=== PATIENT | male | born 1935 | race Caucasian/White ===

== ENCOUNTER 2017-04-11 16:43 | Inpatient (IN) | payer MEDICARE ==
[2017-04-11] MEDS: NS 0.9% 1000 ML* 2,000 ML IV ONE ×2 (17:33→21:50)
[2017-04-11 18:05] LABS: Hematocrit 35 % (42-52); Hemoglobin 11.7 g/dl (14.0-18.0); Mean Corpuscular HGB Conc 33 g/dl (31-36); Mean Corpuscular Hemoglobin 29 pg (27-31); Mean Corpuscular Volume 89 fL (80-94); Mean Platelet Volume 8 um3 (7.4-10.4); Red Blood Count 4.01 10^6/ul (4.0-5.4); Red Cell Distribution Width 16 % (10.5-15); White Blood Count 15.5 10^3/ul (3.5-10.8)
[2017-04-11 18:07] LABS: Add Diff/Slide Review? Slide Review Added; Comments Flag Yes
--- NOTE | 2017-04-11 18:14 | RAD ---
INDICATION: Weakness COMPARISON: None TECHNIQUE: PA and lateral dual-energy views were obtained. FINDINGS: Bones/Soft Tissues: There are no acute bony findings. Cardiomediastinal: The cardiomediastinal silhouette is normal. Lungs: There is hyperinflation with presumed chronic interstitial changes. Pleura: There are no pleural effusions. Other: None IMPRESSION: HYPERINFLATION. NO FOCAL INFILTRATES
[2017-04-11 18:20] LABS: Albumin 2.6 g/dL (3.2-5.2); BUN/Creatinine Ratio 18.2 (8-20); C Reactive Protein 22.36 mg/L (< 5.00); Calcium 7.8 mg/dL (8.6-10.3); EGFR African American 82.6 (>60); EGFR Non-African American 64.2 (>60); Globulin 2.2 g/dL (2-4); Magnesium 2.1 mg/dL (1.9-2.7); Potassium 3.6 mmol/L (3.5-5.0); Total Bilirubin 0.6 mg/dL (0.2-1.0); Total Protein 4.8 g/dL (6.4-8.9)
[2017-04-11 18:30] LABS: Troponin I 0.06 ng/mL (<0.04)
[2017-04-11 18:59] LABS: TSH (Thyroid Stimulating Horm) 25.55 mcIU/mL (0.34-5.60)
[2017-04-11] MEDS ORDERED: Docusate CAP* 100 MG PO PRN (19:52)
[2017-04-11] MEDS ORDERED: Ondansetron INJ* 2 MG/ML VIAL IV PRN (19:52)
[2017-04-11] MEDS ORDERED: Senna TAB PO PRN (19:52)
[2017-04-11] MEDS ORDERED: Acetaminophen TAB* 325 MG PO PRN (19:52)
[2017-04-11] MEDS ORDERED: Al Hydrox/Mg Hydrox/Simet LIQ* 30 ML UDC PO PRN (19:52)
[2017-04-11] MEDS ORDERED: Polyethylene Glycol 3350* 17 GM PACKET PO PRN (19:57)
[2017-04-11] MEDS ORDERED: Heparin DRIP 25,000 UNITS(*) 25,000 UNITS/500 ML BAG IV SCH (20:15)
[2017-04-11 20:36] LABS: Free T4 0.53 ng/dL (0.61-1.12)
[2017-04-11] MEDS ORDERED: traMADol TAB* 50 MG PO PRN (20:57)
[2017-04-11] MEDS ORDERED: Potassium Chlor TAB* 20 MEQ TAB.ER PO ONE (20:57)
--- NOTE | 2017-04-11 20:59 | RAD ---
INDICATION: Prostate carcinoma. Back pain. COMPARISON: None TECHNIQUE: Noncontrast axial source images was performed from the thoracolumbar junction to the sacrum. Coronal and and sagittal reformatted images were generated. FINDINGS: Vertebrae: There is a soft tissue density with associated bony destruction at T12-L1. The mass predominantly involves the spinous process of T12 but is also associated with the posterior elements of T12. There is cortical disruption of the superior margin of the spinous processes of the L1 vertebrae. There is lytic change involving the transverse process of the L1 vertebrae on the left. The CT does not show extension into the canal but this may not be able to be determined on noncontrast CT imaging. Depending on the clinical signs and symptoms, consider contrast-enhanced MR imaging. There are no other lytic lesions. There is sclerosis involving the left iliac bone. Alignment: The lumbar vertebrae are normally aligned. Central Canal: There are no significant CT abnormalities of the central canal or foramina. MR imaging is a more sensitive method to evaluate the canal and foramina. Intervertebral disc spaces: The disc spaces are maintained. Soft tissues: The paravertebral soft tissues are normal. Other: There are extensive aortic calcifications. IMPRESSION: Posterior paraspinous mass associated with bony destruction of the posterior elements and spinous processes of the T12 and L1 vertebrae. Additional indeterminate sclerotic focus left iliac bone.
[2017-04-11] MEDS ORDERED: Heparin VIAL(*) 5000 UNITS/ML VIAL (FIVE THOUSAND) IV SCH (21:00)
--- NOTE | 2017-04-11 21:03 | RAD ---
INDICATION: Prostate cancer with back pain. COMPARISON: Chest x-ray April 03, 2017 TECHNIQUE: Noncontrast axial source images was performed from the thoracic inlet to the level the hemidiaphragms. Coronal and and sagittal reformatted images were generated. FINDINGS: Vertebrae: There is a lytic destructive lesion involving the spinous processes and posterior elements of the T12 and L1 vertebrae described in the CT lumbar report. There are no additional focal bony findings. Alignment: There is moderate kyphosis. Central Canal: There are no significant CT abnormalities of the central canal or foramina. MR imaging is a more sensitive method to evaluate the canal and foramina. Intervertebral disc spaces: The disc spaces are maintained. Soft tissues: There are no paravertebral soft tissue abnormalities. Other: There are emphysematous changes in lung bases with small bilateral pleural effusions IMPRESSION: POSTERIOR PARASPINOUS MASS WITH DESTRUCTIVE LYTIC CHANGE OF THE POSTERIOR ELEMENTS/SPINOUS PROCESSES OF T12 AND L1. THIS IS FURTHER DESCRIBED ON THE CT LUMBAR REPORT.
[2017-04-11 21:53] LABS: Erythrocyte Sed Rate 15 mm/Hr (0-40)
[2017-04-11] MEDS: HYDROcodone/ACETAMIN 5-325 MG* 1 TAB PO PRN (22:12)
[2017-04-11] MEDS: Heparin VIAL(*) 5000 UNITS/ML VIAL (FIVE THOUSAND) SUBCUT SCH (22:18)
[2017-04-11] MEDS ORDERED: Mouth Piece, Nicotine* 1 EACH CARTRIDGE INH PRN (23:27)
[2017-04-11] MEDS ORDERED: Nicotine Inhaler* 10 MG AMP INH PRN (23:27)
[2017-04-11] MEDS: NS 0.9% 1000 ML* 1,000 ML IV SCH (23:40)
--- NOTE | 2017-04-12 00:25 | HP ---
CC: [facility]* HISTORY AND PHYSICAL: DATE OF ADMISSION: 04/11/17 TIME OF EVALUATION: 1929 PRIMARY CARE PHYSICIAN: [facility]. CHIEF COMPLAINT: Back pain and weight loss. HISTORY OF PRESENT ILLNESS: This is an 81-year-old male with a past medical history of osteoarthritis, osteoporosis, and prostate cancer, who presented to the emergency room from his primary care physician's office for concern for dehydration. The history is obtained from the son-in-law who states that the patient lives in [place]. They went out to see him back on 04/07/17. They saw how debilitated he was. He had lost 30 pounds in 3 months. He was barely ambulating. He was mostly lying in bed, prone due to severe back pain, and having issues with constipation. They brought him back to [place] to get him evaluated and to help care for him on 04/09/17. They brought him to the primary care physician's office today. When they did his EKG, it showed atrial fibrillation and his blood pressure was low, they recommended he go to the emergency room for further evaluation. The patient states he lies on bed most of the day. He has no appetite. His back pain is extreme and he has low back pain. He has had issues with back pain for the past several years, but it has gotten progressively worse over the past year. He denies any numbness or tingling. No loss of bowel or bladder control. He does have issues with constipation as mentioned. He denies any chest pain or shortness of breath. No abdominal pain. No nausea or vomiting. No urinary symptoms. He states when ambulating, he does have near falls, but has not fallen. No syncopal episodes either. Otherwise, remaining review of systems is negative. In the emergency room, the patient had labs, imaging. He was given a liter of fluids and was referred to the hospitalist service for further evaluation. PAST MEDICAL HISTORY: 1. Osteoarthritis. 2. Osteoporosis. 3. GERD. 4. Degenerative arthritis. 5. Hypertension. 6. Hypothyroidism. 7. Prostate cancer diagnosed in 2006, status post chemo, on Lupron. 8. Chronic low back pain. 9. Constipation. MEDICATIONS: 1. Amlodipine 10 mg daily. 2. Hydrochlorothiazide 12.5 mg daily. 3. Lisinopril 40 mg daily. 4. Synthroid 125 mcg daily. 5. Aspirin 81 mg daily. 6. Calcium with vitamin D daily. 7. Atenolol 50 mg daily. 8. Lupron every 6 months 45 mg injection. 9. Alendronate 70 mg. 10. Prolia 60 mg/mL. 11. Vimovo 500/20 mg. ALLERGIES: BEE VENOM. FAMILY HISTORY: Mother, unknown cause of . Father, from blood disorder. SOCIAL HISTORY: As mentioned, the patient was living in [place], living alone, but failing to thrive there. Family brought him back here to [facility] to stay with them. He is staying with his daughter and son-in-law, Teressa and Fabiano, who are his healthcare proxies. He normally ambulates with a cane. He quit smoking 3 days ago. He is a 41-ubii-h-year smoker, 1 pack per day. No alcohol or illicit drug use. Reviewing his MOLST form, he wishes to be DNR/DNI. REVIEW OF SYSTEMS: A 14-point review of systems as mentioned in the HPI. Pertinent positives and negatives reviewed, otherwise negative. PHYSICAL EXAMINATION GENERAL: Elderly cachectic male, in no acute distress. His son-in-law at the bedside. VITAL SIGNS: Temp 97.9, pulse rate 90, respiratory rate 13, oxygen saturation 94 % on room air, blood pressure 115/96. HEENT: Head: Normocephalic. Pupils are equal and reactive, anicteric. Oropharynx: Mucous membranes are dry. No erythema or exudate. NECK: Supple. No lymphadenopathy. RESPIRATORY: Poor aeration, prolonged expiratory phase. No increased work of breathing. No wheezing, rhonchi, or rales. CARDIAC: Irregularly irregular rate and rhythm. Soft systolic murmur heard throughout. ABDOMEN: Cachectic. Soft, nontender, nondistended. EXTREMITIES: No clubbing, cyanosis, or edema. +1 DPs. NEUROLOGICAL: Alert and oriented x3. No focal neurologic deficits. MUSCULOSKELETAL: The patient's low thoracic lumbar spine has bony tenderness in 2 regions that have bulging, spinous processes. DIAGNOSTIC STUDIES/LAB DATA: White count 15.5, hemoglobin 11.7, hematocrit 35 , platelets 260. Sodium 134, potassium 3.6, chloride 102, bicarb 27, BUN 20, creatinine 1.10. Troponin 0.06. CRP is 22. Albumin is 2.6. TSH is 25. Radiographic data: Chest x-ray, hyperinflation. No focal infiltrates. EKG shows atrial fibrillation with PVCs, right bundle branch block. ASSESSMENT AND PLAN: This is an 81-year-old male with past medical history of osteoporosis, osteoarthritis, and prostate cancer, who presented from his new primary care physician's office to the emergency room for low blood pressure and new-onset atrial fibrillation in the setting of severe back pain and 30- pound weight loss. 1. Extreme back pain and 30-pound weight loss. Assessment: It is unclear if his 30-pound weight loss was due to the fact that he is 81, living alone without any resources, or if there is an underlying malignancy related to his severe back pain. He does have bony tenderness that is more bulging than his other areas of the spine. Plan: We will do a CAT scan of him lumbar and thoracic spine to look for any lytic lesions or metastases and start him on pain control with a bowel regimen. We will also put in for a nutritional consult, check a prealbumin, and consider further workup for underlying malignancy as the CAT scan of his lumbar and thoracic spine are unremarkable. 2. Atrial fibrillation. Assessment: The patient with what appears to be new- onset atrial fibrillation. It is now rate controlled. He does have a bump in his troponin likely secondary to the atrial fibrillation. He has no chest pain or symptoms. He appears to be a fall risk as he states he nearly falls at home. With his cachexia and malnourished state, I worry that anticoagulation, the risks outweigh the benefits. Plan: We will trend his troponin, check an echocardiogram, continue him on aspirin, and get a PT evaluation. If they deem him safe, then I would consider anticoagulation for him. 3. Leukocytosis. Assessment: No focal findings of an infectious etiology. Still awaiting the urine. Plan: We will follow up on his urinalysis, hold off on antibiotics at this time. CHRONIC MEDICAL PROBLEMS: 1. Hypertension. As mentioned, his blood pressures have been soft. We will hold his antihypertensives for now. 2. Osteoporosis. We will hold off on his medications for now as well. 3. Prostate cancer. We will hold off on his Lupron for now. May need to get him established here with urologist, as he is going to be staying here long- term. 4. Hypothyroidism. Resume his Synthroid. His TSH is elevated. We will check a free T4. I am unclear as how compliant he is with his medications at home. FEN: We will place him on a regular diet with supplements and nutrition consult and gentle IV fluids. DVT prophylaxis: The patient scores high risk. We will place him on heparin subcu t.i.d. for now. Code status: The patient is confirmed to be DNR/DNI. I did speak with the family that if there are lytic lesions that he is likely going to be eligible for hospice as they did not seem to want to do any aggressive measures with him and they initially were insisting on him coming home this evening. PATIENT TIME: Greater than 70 minutes was spent doing history and physical, greater than half time was spent in direct patient contact. [id number]/CPS #: [id number] RICHIE
[2017-04-12] MEDS: Levothyroxine TAB* 125 MCG TAB PO SCH (05:12)
[2017-04-12] MEDS: Heparin VIAL(*) 5000 UNITS/ML VIAL (FIVE THOUSAND) SUBCUT SCH ×3 (05:14→21:35)
[2017-04-12 05:34] LABS: Urine Bilirubin Negative (Negative); Urine Glucose Negative (Negative); Urine Nitrite Negative (Negative)
[2017-04-12 06:30] LABS: Hematocrit 32 % (42-52); Hemoglobin 10.8 g/dl (14.0-18.0); Mean Corpuscular HGB Conc 33 g/dl (31-36); Mean Corpuscular Hemoglobin 29 pg (27-31); Mean Corpuscular Volume 88 fL (80-94); Mean Platelet Volume 8 um3 (7.4-10.4); Red Blood Count 3.68 10^6/ul (4.0-5.4); Red Cell Distribution Width 16 % (10.5-15); White Blood Count 12.4 10^3/ul (3.5-10.8)
[2017-04-12 06:45] LABS: BUN/Creatinine Ratio 17.6 (8-20); Calcium 7.3 mg/dL (8.6-10.3); EGFR African American 111.3 (>60); EGFR Non-African American 86.5 (>60); HDL Cholesterol 34.7 mg/dL; Potassium 3.7 mmol/L (3.5-5.0)
[2017-04-12] MEDS: NS 0.9% 1000 ML* 1,000 ML IV SCH (10:16)
--- NOTE | 2017-04-12 12:39 | ECHO ---
Patient: GALO ZARCO [facility] Rec#: [id number] : 1935 Date: 04/12/2017 Age: 81y Height: 177.8 cm / 70.0 in Weight: 61.2 kg / 134.9 lbs Sex: M BSA: 1.8 Room#: 453 Admit Date#: 04/11/2017 Type: Inpatient Referring: Julia Ruggiero Reading: Rachel Hancock MD Cloth Sander: Jeanne Larry RN RDCS CC: Danny Dickson MD Transthoracic Echocardiogram Indication: Atrial fibrillation, elevated troponin levels BP: 110/60 HR: 115 Rhythm: A-Fib Findings History: HTN, hypothyroidism, chronic low back pain, prostate cancer, smoker Technical Comments: The study is technically limited due to poor acoustic windows. The study is technically limited due to the patient's smoking history. The study was technically limited due to the patient's inability to lay in the left lateral decubitus position. Completed at 1100. Left Ventricle: The left ventricular chamber size is normal. Mild concentric left ventricular hypertrophy is observed. Global left ventricular wall motion and contractility are within normal limits. There is normal left ventricular systolic function. The estimated ejection fraction is 60-65%. The assessment of diastolic function is non-diagnostic. Left Atrium: The left atrium is mildly dilated. Right Ventricle: The right ventricle wall thickness is mildly increased. The right ventricular cavity size is normal. The right ventricular global systolic function is low normal. Right Atrium: The right atrium is mildly dilated. Aortic Valve: The aortic valve structure is not well visualized.Appears trileaflet. The aortic valve leaflets are moderately thickened. Systolic excursion of the aortic valve cusps is reduced. There is trace to mild aortic regurgitation. There is moderate aortic stenosis.ABIGAIL may be overestimated, difficult to optimize angle for velocity measurments. Mitral Valve: The mitral valve leaflets are mildly thickened. There is a trace of mitral regurgitation. There is no evidence of mitral stenosis. Tricuspid Valve: The tricuspid valve leaflets are normal. There is mild to moderate tricuspid regurgitation. There is evidence of borderline pulmonary hypertension. There is no tricuspid stenosis. Pulmonic Valve: The pulmonic valve appears normal. There is a trace pulmonic regurgitation. There is no pulmonic stenosis. Pericardium: There is no significant pericardial effusion. Aorta: The ascending aorta is not well visualized. There is no dilatation of the aortic arch. There is mild dilatation of the aortic root. Pulmonary Artery: The main pulmonary artery is not well visualized. Venous: The inferior vena cava is dilated. There is a greater than 50% respiratory change in the inferior vena cava dimension. Conclusions Mild concentric left ventricular hypertrophy is observed. The estimated ejection fraction is 60-65%. The right ventricular global systolic function is low normal. The right ventricle wall thickness is mildly increased. There is trace to mild aortic regurgitation. There is moderate aortic stenosis: mean gradinet 21 mmHg, ABIGAIL 1.2 cm2, ABIGAIL may be overestimated. There is a trace of mitral regurgitation. There is mild to moderate tricuspid regurgitation. There is evidence of borderline pulmonary hypertension: 35 mmHg. There is moderate aortic stenosis. The patient was in atrial fibrillation throughout the study. No prior echo available to compare. Measurements Name Value Normal Range RVDdMajor (2D) 3.1 cm (2.2 - 4.4) RVAW (2D) 0.8 cm (0.2 - 0.5) RAd ISD 4CH 5.3 cm (3.4 - 4.9) RA (A4C)W 4.3 cm (2.9 - 4.6) IVSd (2D) 1.2 cm (0.6 - 1) LVPWd (2D) 1.2 cm (0.6 - 1) LVIDd (2D) 4.6 cm (3.6 - 5.4) LVIDs (2D) 3.1 cm - LV FS (2D) 33 % (25 - 45) Aortic Annulus 2.1 cm (1.4 - 2.6) Ao root diameter (2D) 3.7 cm (2.1 - 3.5) Aortic arch 3.1 cm (1.8 - 3.4) LA dimension (AP) 2D 3.7 cm (2.3 - 3.8) LAd ISD 4CH 5.6 cm (2.9 - 5.3) LA ISD 4CH W 4.6 cm (2.5 - 4.5) Name Value Normal Range MV E-wave Vmax 0.66 m/sec - MV deceleration time 156 msec - LV septal e' Vmax 0.09 m/sec - LV E:e' septal ratio 7.3 ratio - Name Value Normal Range AV Vmax 3 m/sec - AV VTI 52.4 cm - AV peak gradient 37 mmHg - AV mean gradient 21 mmHg - LVOT diameter 2 cm - LVOT Vmax 1.1 m/sec - LVOT VTI 19.2 cm - LVOT peak gradient 5.3 mmHg - LVOT mean gradient 3.4 mmHg - DOI (VTI) 0.37 ratio - DOI (Vmax) 0.37 ratio - SV LVOT 61 ml - ABIGAIL (continuity Vmax) 1.2 cm2 - ABIGAIL (continuity VTI) 1.2 cm2 - Name Value Normal Range TR Vmax 2.6 m/sec - TR peak gradient 27 mmHg - RAP 8 mmHg - RVSP 35 mmHg - IVC diameter 2.2 cm - Name Value Normal Range PV Vmax 0.77 m/sec -
--- NOTE | 2017-04-12 13:50 | PN ---
Subjective Date of Service: 04/12/17 Interval History: Patient seen this morning with son-in-law present. Had long discussion about patient's PMH and work-up in the past and also new findings on CT scan. He seems open the possibility of a further work-up to solidify the diagnosis of potential metastatic prostate cancer and to get a better idea of the extent of it, however he does not want to pursue it at this time and would prefer to be discharged as soon as possible and pursue the work-up as an outpatient. He says that the pain is much improved and attributes a lot of that to a BM he had this past weekend after over a week of constipation at home. His SONJA states that after some IVF in the hospital he is looking much better than he has the past few days and would also like to get him home. Discussed my concern about his rapid AFib and the fact that he has not been ambulatory much and agreed on a plan for possible discharge tomorrow AM with close outpatient follow-up. Family History: Unchanged from Admission Social History: Unchanged from Admission Past Medical History: Unchanged from Admission Objective Active Medications: Acetaminophen (Tylenol Tab*) 650 mg PO Q4H PRN Hydrocodone Bitart/Acetaminophen (Bly 5-325 Tab*) 1 tab PO Q4H PRN Al Hydrox/Mg Hydrox/Simethicone (Maalox Plus*) 30 ml PO Q6H PRN Device (Nicotine Mouth Piece*) 1 each INH .USE WITH NICOTROL PRN Docusate Sodium (Colace Cap*) 100 mg PO BID PRN Heparin Sodium (Porcine) (Heparin Vial(*)) 5,000 units SUBCUT Q8HR JOSE Sodium Chloride (Ns 0.9% 1000 Ml*) 1,000 mls @ 100 mls/hr IV PER RATE JOSE Levothyroxine Sodium (Synthroid Tab*) 125 mcg PO DAILY@0600 JOSE Nicotine (Nicotine Inhaler*) 10 mg INH Q2H PRN Ondansetron HCl (Zofran Inj*) 4 mg IV Q4H PRN Polyethylene Glycol/Electrolytes (Miralax*) 17 gm PO DAILY PRN Senna (Senokot Tab*) 1 tab PO BID PRN Tramadol HCl (Ultram*) 50 mg PO Q6H PRN Vital Signs 04/11/17 04/11/17 04/12/17 20:59 22:55 03:29 Temperature 98 F 98.4 F Pulse Rate 101 56 88 Respiratory 17 18 Rate Blood Pressure 99/68 104/72 93/62 (mmHg) O2 Sat by Pulse 99 95 Oximetry 04/12/17 04/12/17 04/12/17 03:33 07:48 08:00 Temperature 97.6 F Pulse Rate 93 Respiratory 20 16 Rate Blood Pressure 110/60 98/61 (mmHg) O2 Sat by Pulse 98 Oximetry Oxygen Devices in Use Now: None Appearance: Elderly, M, laying in bed in NAD Eyes: No Scleral Icterus Ears/Nose/Mouth/Throat: Mucous Membranes Moist Neck: NL Appearance and Movements; NL JVP Respiratory: Symmetrical Chest Expansion and Respiratory Effort, Clear to Auscultation Cardiovascular: - - IRIR, tachycardia, TERRY Abdominal: NL Sounds; No Tenderness; No Distention Lymphatic: No Cervical Adenopathy Extremities: No Edema Skin: No Rash or Ulcers Neurological: Alert and Oriented x 3, - - No focal deficits, point tenderness in lumbar spine Result Diagrams: 04/12/17 06:22 04/12/17 06:22 Assess/Plan/Problems-Billing Assessment: Afib, back pain, possible metastatic spine lesion in an 81 yo M with hx of prostate cancer, HTN, osteoporosis, hypothyroidism - Patient Problems (1) Back pain Current Visit: Yes Comment: Patient has tenderness in lower thoracic spine corresponding to bony lesion. His pain seems relatively well controlled at this time. I encouraged him to ambulate to see if we could keep the pain controlled. Interestingly his PSA is WNL. He is declining any further inpatient work-up at this time including Oncology consult and Palliative Consult. Can pursue work-up as outpatient. (2) Atrial fibrillation Current Visit: Yes Comment: Resume home atenolol to see if HR will be controlled on this medication. Echo shows moderate . Will hold on anticoagulation at this time (3) Hypothyroidism Current Visit: Yes Comment: TSH elevated. Unclear how compliant patient has been with his medications. Continue home synthroid (4) HTN (hypertension) Current Visit: Yes Comment: Hold meds other than Atenolol (5) Prostate cancer Current Visit: Yes Comment: Patient is on Lupron as an outpatient. Can determine whether to continue this or not as an outpatient (6) DVT prophylaxis Current Visit: Yes Comment: HSQ Status and Disposition: Plan on discharge home on 04/13
[2017-04-12] MEDS: Atenolol TAB* 50 MG PO SCH (14:41)
[2017-04-12] MEDS: HYDROcodone/ACETAMIN 5-325 MG* 1 TAB PO PRN (21:43)
[2017-04-13] MEDS: Heparin VIAL(*) 5000 UNITS/ML VIAL (FIVE THOUSAND) SUBCUT SCH (06:09)
[2017-04-13] MEDS: Levothyroxine TAB* 125 MCG TAB PO SCH (06:10)
[2017-04-13] MEDS: HYDROcodone/ACETAMIN 5-325 MG* 1 TAB PO PRN ×2 (06:15→13:28)
--- NOTE | 2017-04-13 09:54 | DCNOTE ---
Patient seen this morning. Reports he feels well overall. Appetite still poor. Says pain seems controlled with medications. On exam, IRIR, normal rate, lungs clear, palpable tender mass in spine, no LE edema, no focal deficits Discussed AC with the patient and have decided to hold for now as he still seem like a bit of a fall risk and unclear if may opt for comfort measures. Will discharge home today on Atenolol as HR is controlled. Will rx some pain medications as well. He should follow-up closely with new PCP, recently was seen at [facility]
[2017-04-13] MEDS: Atenolol TAB* 50 MG PO SCH (10:21)
[2017-04-13 12:11] VITALS: BP 91/53
--- NOTE | 2017-04-14 02:25 | DS ---
CC: ROXANA Garcia at [facility]. * DISCHARGE SUMMARY: DATE OF ADMISSION: 04/11/17 DATE OF DISCHARGE: 04/13/17 PRIMARY CARE PHYSICIAN: ROXY Garcia at [facility]. PRINCIPAL DISCHARGE DIAGNOSES: 1. Atrial fibrillation with RVR. 2. Back pain. 3. Spinal lesion. SECONDARY DIAGNOSES: 1. Osteoarthritis. 2. Osteoporosis. 3. Gastroesophageal reflux disease. 4. Degenerative arthritis. 5. Hypertension. 6. Hypothyroidism. 7. History of prostate cancer on Lupron. DISCHARGE MEDICATION REGIMEN: 1. Colace 100 mg by mouth 2 times daily as needed for constipation. 2. Derwood 5/325 one tablet by mouth every 6 hours as needed for pain. 3. Senna 1 tablet by mouth 3 times daily as needed for constipation. 4. Aspirin 81 mg by mouth daily. 5. Synthroid 125 mcg by mouth daily. 6. Atenolol 50 mg by mouth daily. 7. Calcium carbonate and vitamin D one tablet by mouth daily. 8. Alendronate 70 mg by mouth weekly. 9. Lupron Depot 11.25 mg every 6 months. 10. Prolia 60 mg subcutaneous every 6 months. 11. Vimovo 500/20 one tablet by mouth 2 times daily. STUDIES DONE DURING HOSPITALIZATION: Chest x-ray. Impression: Hyperinflation. No focal infiltrates. CT of the lumbar spine. 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 Additional indeterminant sclerotic focus of the left iliac bone. Transthoracic echocardiogram. Conclusion: Mild concentric LVH is observed. Estimated ejection fraction is 60% to 65%. Right ventricular global systolic function is more normal. Left ventricular wall thickness is mildly increased. Trace to mild aortic regurgitation. Moderate aortic stenosis. Trace mitral regurgitation. Mild to moderate tricuspid regurgitation. Borderline pulmonary hypertension. Moderate aortic stenosis. The patient was in atrial fibrillation throughout the study. No prior echo to compare to. HISTORY OF PRESENT ILLNESS AND HOSPITAL SUMMARY: Please see the full history and physical by Dr. Julia Ruggiero for full details. Briefly, Mr. Boucher is an 81 -year- old male with the past medical history as above who was visited by his family over and they found that the patient was very debilitated. He had been barely ambulating, lost a lot of weight, had been complaining of significant back pain as well as constipation. They brought him back to [place] , he was seen at the PCP office and was noted to be in AFib with RVR and was sent to the emergency room for further evaluation. Patient's pain reportedly seemed to improve significantly after he had a bowel movement as an outpatient. He had some back pain that was treated with oral pain medications. As noted above, a CT scan showed a destructive lesion affecting the spine. There is some concern that this could be metastatic disease, especially with the patient' s history of prostate cancer. He did have a PSA checked while hospitalized and this was normal at 0.65. The patient's AFib was controlled with resuming his home atenolol. The discussion was had about anticoagulation; however, with patient's weakened state and high risk for falls, the decision was made to hold off on anticoagulation now and we can see how he does over the next days to weeks and if needed can be started on blood thinners as an outpatient. I had a long discussion with the patient and his son-in-law about this new spinal mass. The patient was very reluctant to remain in the hospital at all and was not interested in any further imaging or testing at this time. He seems focused on just getting home and was opened to further workup as an outpatient including additional imaging if needed. I offered him oncology consult while the patient was hospitalized, which he also preferred to wait until this may needed in the outpatient setting. I discussed the possibility of additional services if this is metastatic disease; however, the patient and the son-in-law were not interested in discussing it at this time and again would prefer to decline this until further workup can be done as an outpatient. The patient's heart rate was controlled by resuming his home atenolol, blood pressures remained soft during the hospitalization, so the remainder of his blood pressure medications were not restarted. He did have an elevated TSH and a low free T4 and it is unclear how compliant he was with his medications prior to coming to [place]. His home Synthroid was resumed and he should have followup thyroid function tests in 4 to 6 weeks. The patient will be discharged home and has close followup scheduled with his PCP for 04/17/17. TIME SEEN: Total time spent on this discharge 45 minutes. This is a summary of the hospitalization, please see the full medical record for further details. [id number]/CPS #: [id number] RICHIE
--- NOTE | 2017-04-14 13:17 | ED ---
Mary Lou Fisher Thomas, scribed for Juan C Osuna MD on 04/11/17 at 1713 . Complex/Multi-Sys Presentation - HPI Summary HPI Summary: The pt is a 81 y/o M referred to the emergency room from his PMD with generalized weakness. Most of the patients history is obtained from his son. The patients son says it isnt safe to keep the patient at home, so we brought him to this area from [place] in the last few weeks. The patient was at his first appointment today at [facility] when he was referred to the ED for generalized weakness and dehydration. The patients son reports that the patient has lost 30 pounds in the last two months due to decreased food and water intake. PMHx includes DDD, osteoarthritis, HTN, and prostate cancer. - History Of Current Complaint Time Seen by Provider: 04/11/17 16:59 Hx Obtained From: Patient Onset/Duration: Still Present Timing: Constant Severity Currently: Moderate Severity Initially: Mild Location: Negative Aggravating Factor(s): None Alleviating Factor(s): None Associated Signs And Symptoms: Positive: Other - Generalized weakness, dehydration - Allergies/Home Medications Allergies/Adverse Reactions: Allergies Allergy/AdvReac Type Severity Reaction Status Date / Time Bee Venom Allergy Anaphylatic Verified 04/11/17 17:05 Shock PMH/Surg Hx/FS Hx/Imm Hx Previously Healthy: No Cardiovascular History: Reports: Hx Hypertension Musculoskeletal History: Reports: Hx Arthritis, Other Musculoskeletal History - Hx DDD - Cancer History Cancer Type, Location and Year: Prostate - Surgical History Surgery Procedure, Year, and Place: None recalled Infectious Disease History: No Infectious Disease History: Denies: Traveled Outside the [place] in Last 30 Days - Family History Known Family History: Positive: Other - Patient denies relevant FHx - Social History Occupation: Unemployed Lives: With Family Hx Tobacco Use: Yes Smoking Status (MU): Current Every Day Smoker Review of Systems Positive: Other - Dehydrated. Negative: Fever Positive: Weakness - generalized All Other Systems Reviewed And Are Negative: Yes Physical Exam - Summary Physical Exam Summary: VITAL SIGNS: Reviewed. GENERAL: Patient is an thin, elderly male who is lying comfortable in the stretcher. Patient is not in any acute respiratory distress. HEAD AND FACE: No signs of trauma. No ecchymosis, hematomas or skull depressions. No sinus tenderness. EYES: PERRLA, EOMI x 2, No injected conjunctiva, no nystagmus. EARS: Hearing grossly intact. Ear canals and tympanic membranes are within normal limits. MOUTH: Oropharynx within normal limits. NECK: Supple, trachea is midline, no adenopathy, no JVD, no carotid bruit, no c- spine tenderness, neck with full ROM. CHEST: Symmetric, no tenderness at palpation LUNGS: Clear to auscultation bilaterally. No wheezing or crackles. CVS: Regular rate and rhythm, S1 and S2 present, no murmurs or gallops appreciated. ABDOMEN: Soft, non-tender. No signs of distention. No rebound no guarding, and no masses palpated. Bowel sounds are normal. EXTREMITIES: FROM in all major joints, no edema, no cyanosis or clubbing. NEURO: Alert and oriented x 3. No acute neurological deficits. Speech is normal and follows commands. SKIN: The skin is dry. There is an increase in skin turgor. Triage Information Reviewed: Yes Vital Signs On Initial Exam: Initial Vitals Temp Pulse Resp BP Pulse Ox 97.9 F 111 15 115/96 94 04/11/17 17:04 04/11/17 17:04 04/11/17 17:04 04/11/17 17:04 04/11/17 17:04 Vital Signs Reviewed: Yes Diagnostics - Vital Signs Vital Signs Temp Pulse Resp BP Pulse Ox 04/11/17 17:04 97.9 F 111 15 115/96 94 - Laboratory Result Diagrams: 04/11/17 17:54 04/11/17 17:54 Lab Statement: Any lab studies that have been ordered have been reviewed, and results considered in the medical decision making process. - Radiology CXR Xray Interpretation: No Acute Changes - Hyperinflation. No focal infiltrates. ED physician has reviewed this report and agrees. Radiology Interpretation Completed By: Radiologist - EKG 17:44 Cardiac Rate: NL EKG Rhythm: Atrial Fibrillation EKG Interpretation: 99 BPM. Q-wave in II, III, and AVF. RBBB. Complex Multi-Symp Course/Dx Assessment/Plan: The pt is a 81 y/o M referred to the emergency room from his PMD with generalized weakness. Most of the patients history is obtained from his son. The patients son says it isnt safe to keep the patient at home, so we brought him to this area from [place] in the last few weeks. The patient was at his first appointment today at [facility] when he was referred to the ED for generalized weakness and dehydration. The patients son reports that the patient has lost 30 pounds in the last two months due to decreased food and water intake. PMHx includes DDD, osteoarthritis, HTN, and prostate cancer. Test results show WBC 15.5, H&H 11.7/35, troponin 0.06, BNP 316. CXR shows hyperinflation with no focal infiltrates. In the ED course, the patient was hydrated and given ASA because his troponin was elevated. EKG shows an atrial fibrillation at 99 BPM, which seems to be new in onset. Therefore, I discussed the case with Dr. Zambrano, who accepts the patient for admission. The patient is hemodynamically stable and alert and oriented x3. - Diagnoses Provider Diagnoses: Increased troponin rule out ACS, Weakness, Dehydration, Atrial fibrillation - Physician Notifications Discussed Care Of Patient With: Alan Zambrano Time Discussed With Above Provider: 19:01 Instructed by Provider To: Other - Dr. Zambrano, hospitalist, admits the patient. Discharge - Discharge Plan Condition: Fair Disposition: ADMITTED TO [facility] Discharge Disposition Comment: By Dr. Zambrano Referrals: Danny Dickson MD [Primary Care Provider] - The documentation as recorded by the Mary Lou ann Thomas accurately reflects the service I personally performed and the decisions made by me, Juan C Osuna MD.
== END 2017-04-13 15:52 | disposition home health service (06) | DRG 552 ==
LOC: ED 16:43 → MEDTELE 19:52
PROVIDERS: ADMIT Pediatrics; ATTEND Hospitalist
DX: M54.9 Dorsalgia, unspecified (principal); I95.9 Hypotension, unspecified; I27.20 Pulmonary hypertension, unspecified; R64 Cachexia; I08.3 Combined rheumatic disorders of mitral, aortic and tricuspid valves; I48.91 Unspecified atrial fibrillation; C61 Malignant neoplasm of prostate; G95.9 Disease of spinal cord, unspecified; M19.90 Unspecified osteoarthritis, unspecified site; D72.829 Elevated white blood cell count, unspecified; K21.9 Gastro-esophageal reflux disease without esophagitis; M81.0 Age-related osteoporosis without current pathological fracture; E03.9 Hypothyroidism, unspecified; Z92.21 Personal history of antineoplastic chemotherapy; G89.29 Other chronic pain; Z91.030 Bee allergy status; Z83.2 Family history of diseases of the blood and blood-forming organs and certain disorders involving the immune mechanism; Z87.891 Personal history of nicotine dependence; Z66 Do not resuscitate; Z68.26 Body mass index [BMI] 26.0-26.9, adult; I10 Essential (primary) hypertension; Z79.82 Long term (current) use of aspirin; K59.00 Constipation, unspecified
CPT/HCPCS: 36415; 71020; 72128; 72131; 80048; 80053; 80061; 81003; 82550; 83735; 83880; 84134; 84153; 84439; 84443; 84484; 85025; 85652; 85730; 86140; 93005; 93306; A9270-GY; G0103; J1644

== ENCOUNTER 2017-04-25 11:35 | Inpatient (IN) | payer MEDICARE ==
[2017-04-25] MEDS ORDERED: NS 0.9% 1000 ML* 1,000 ML IV ONE ×2 (12:15→13:24)
[2017-04-25 12:52] LABS: ABS Basophils 0.1 10^3/ul (0-0.2); ABS Eosinophils 0 10^3/ul (0-0.6); ABS Lymphocytes 0.7 10^3/ul (1.0-4.8); ABS Monocytes 0.5 10^3/ul (0-0.8); ABS Nucleated RBC 0.01 10^3/ul; Eosinophil % 0.1 % (0-6); Hematocrit 39 % (42-52); Hemoglobin 12.7 g/dl (14.0-18.0); Lymphocyte % 3.1 % (25-47); Mean Corpuscular HGB Conc 33 g/dl (31-36); Mean Corpuscular Hemoglobin 29 pg (27-31); Mean Corpuscular Volume 91 fL (80-94); Mean Platelet Volume 8 um3 (7.4-10.4); Nucleated Red Blood Cells % 0; Platelet Count 243 10^3/ul (150-450); Red Blood Count 4.31 10^6/ul (4.0-5.4); Red Cell Distribution Width 19 % (10.5-15); White Blood Count 22.3 10^3/ul (3.5-10.8)
[2017-04-25 13:00] LABS: INR 0.9 (0.77-1.02)
[2017-04-25] MEDS ORDERED: NS 0.9% 250 ML* 250 ML IV ONE (13:25)
[2017-04-25] MEDS ORDERED: Piperacillin/Tazobac ADVAN(*) 3.375 GM in NS 0.9% 100 ML* 100 ML IVPB ONE (13:36)
--- NOTE | 2017-04-25 13:38 | RAD ---
INDICATION: Hypotension COMPARISON: April 03, 2017 TECHNIQUE: An AP portable view obtained at 1250 is submitted. FINDINGS: Bones/Soft Tissues: There are no acute bony findings. Cardiomediastinal: The cardiomediastinal silhouette is normal. Lungs: There is mild chronic basilar interstitial change. There is hyperinflation. Pleura: There are no pleural effusions. Other: None IMPRESSION: MILD CHRONIC LUNG FINDINGS WITH HYPERINFLATION
[2017-04-25 14:01] LABS: Urine Appearance Cloudy; Urine Blood Negative (Negative); Urine Color Amber; Urine Ketones Trace (Negative); Urine Protein 2+(100 mg/dL) (Negative); Urine Specific Gravity 1.045 (1.010-1.030); Urine Urobilinogen Negative (Negative)
[2017-04-25] MEDS ORDERED: Docusate CAP* 100 MG PO PRN (16:08)
[2017-04-25] MEDS ORDERED: Senna TAB PO PRN (16:08)
[2017-04-25] MEDS ORDERED: NS 0.9% 1000 ML* 1,000 ML IV SCH (17:30)
[2017-04-25] MEDS: cefTRIAXone(*) 1 GM in D5W 50 ML BAG* 50 ML IVPB SCH (18:00)
[2017-04-25] MEDS: HYDROcodone/ACETAMIN 5-325 MG* 1 TAB PO PRN (18:13)
--- NOTE | 2017-04-25 20:17 | HP ---
CC: ROCK Rodrigez * HISTORY AND PHYSICAL: DATE OF ADMISSION: 04/25/17 PRIMARY CARE PROVIDER: ROCK Rodrigez, [facility]. ATTENDING PHYSICIAN: Dr. Candida Crump * (report dictated by Gretchen Garcia NP). CHIEF COMPLAINT: Sent by his primary for large spinal mass. HISTORY OF PRESENT ILLNESS: This patient is an 81-year-old male, history of hypertension; prostate cancer, on Lupron therapy; hypothyroidism, who had an MRI today as an outpatient for further imaging for his spinal lesion that was seen on a prior admission in late March. At the conclusion of the MRI, the radiologist notified his primary, who then requested him to come to the emergency room immediately for further evaluation. The patient was admitted to our institution from 04/11/17 to 04/13/17. He was admitted for severe back pain and weight loss. On that admission, he was found to have a spinal mass on CT and was found to be in atrial fibrillation with rapid ventricular response. Once the patient was rehydrated, the patient requested to leave as soon as possible. The patient was not interested in any further imaging or testing during that admission. He wanted to get home and agreed to have further workup as an outpatient. Hence an MRI was scheduled, which was completed today. In addition, the patient declined an Oncology consult, which was offered to him by the covering hospitalist. The patient's son states that the patient is quite uncomfortable being in the hospital and simply wanted to leave as soon as possible. Now, he has presented as he is interested in further workup. The patient reports further weight loss and frequent urination and decreased appetite. It is unclear how much weight the patient has lost since his discharge. His current weight is 150 pounds. Previous weight on last admission was 135 pounds. The patient denies any neurological deficits such as weakness in his lower or upper extremities. He does have infrequent urination. Upon presentation to the emergency room, the patient was found to have an elevated white count of 22,000. In addition, he was found to be slightly dehydrated with the elevated [id number] ratio, a slight troponin bump of 0.04, and elevated lactic acid. Urinalysis was quite positive. The patient was given a dose of Zosyn and the neurosurgeon was contacted regarding the results of the MRI the patient had today. The MRI from today shows, again this large spinal mass with extension into the epidural space and paraspinal muscles as well as [id number] narrowing of the central canal at T12 and L1. Additionally, there was found to be a small enhancing nodule in the paravertebral space at T10 and small area of enhancement in the superior endplate of S1. Hospitalists were asked to evaluate this patient for admission. The patient will be admitted to the telemetry floor with the diagnosis of sepsis from UTI and spinal mass. PAST MEDICAL HISTORY: Hypertension; prostate cancer; back pain; constipation; hypothyroidism; osteoarthritis; osteoporosis; atrial fibrillation, not on anticoagulation due to weakness. MEDICATIONS: On the time of admission are identical to medications at discharge prior: 1. Colace 100 mg twice daily as needed for constipation. 2. Lyman 5/325 one tablet every 6 hours as needed for pain. 3. Senna 1 tablet 3 times daily as needed for constipation. 4. Aspirin 81 mg oral daily. 5. Synthroid 125 mcg oral daily. 6. Atenolol 50 mg oral daily. 7. Calcium carbonate and vitamin D 1 tablet oral daily. 8. Alendronate 70 mg oral weekly. 9. Lupron Depot 11.25 mg every 6 months. 10. Prolia 60 mg subcu every 6 months. 11. Vimovo 500/20 one tablet oral twice daily. ALLERGIES: None. FAMILY HISTORY: Father from blood disorder. The patient does not know how his mother . SOCIAL HISTORY: The patient smoked a pack a day and quit smoking when he came out here from [place]. The patient was living in [place] and was brought back to the area in late March. The patient normally ambulates with a cane. His daughter and son- in-law, Ihsan, are the surrogate decision makers in the event the patient cannot make decisions for himself. REVIEW OF SYSTEMS: I performed a 14-point review of systems, all the pertinent positives and negatives are mentioned in the history of present illness. The remaining review of systems is negative. PHYSICAL EXAMINATION GENERAL APPEARANCE: The patient is an elderly cachectic male, lying in bed, in no acute distress. VITAL SIGNS: Blood pressure 104/58, heart rate 52, temperature 96.5, respiratory rate 24, oxygen saturation 94%. HEENT: Normocephalic. Pupils are equal and reactive to light. Oropharynx: Mucous membranes are dry. There is no erythema or exudate. NECK: Supple. There is no lymphadenopathy. RESPIRATORY: There is no increased work of breathing. No accessory muscle use. The lungs were clear to auscultation. CARDIAC: S1 and S2 were crisp. There is regular rate and rhythm. ABDOMEN: Soft, nontender, and nondistended. MUSCULOSKELETAL: The patient's thoracic lumbar spine has bony tenderness in 2 areas. The patient has full range of motion of upper and lower extremities. NEUROLOGICAL: Alert and oriented x3. No focal neurological deficits. DIAGNOSTIC STUDIES/LAB DATA: Sodium 136, potassium 4.8, chloride 104, CO2 27, BUN 29, creatinine 1.2, glucose 123, calcium 8.4. Liver function tests within normal limits. White blood cell count 22.3, hemoglobin 12.7, hematocrit 39, platelet count 243. Urinalysis shows 2+ protein, trace ketones, trace esterase , 2+ wbc's, 3+ rbc's, and hyaline casts. Lactic acid 2.1. Troponin 0.04. Chest x-ray from today shows mild chronic lung findings with hyperinflation. IMPRESSION: This is an 81-year-old male with past medical history significant for hypertension, atrial fibrillation, spinal mass found on imaging in late March 2017, who now presents to the emergency room after the MRI of his lumbar spine which showed severe narrowing of the central canal at T12 and L1, found to have sepsis and urinary tract infection. ASSESSMENT AND PLAN: 1. Sepsis on admission secondary to urinary tract infection. The patient was given 2 L of IV fluids in the emergency room. He will continue on an additional liter of IV fluids overnight. The patient was given a dose of Zosyn , but we will continue ceftriaxone as he has no history of urinary tract infection to resistant bacteria. Lactic acid will be rechecked. 2. 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 The patient currently mild bilateral LE weakness Neurosurgery has been notified as well as Oncology. They will plan to see the patient in consultation and provide the patient and his family with all of the information they would need to make an informed decision regarding further treatment. At this time, the patient has an active infection and surgery would have to be postponed until this infection stabilizes so we can confirm that the patient does not have bacteremia. It is possible that the recommendation may be for a biopsy and also radiation rather than a big surgery, both of these consultants will discuss their recommendations with the patient and his family and further recommendations will be pending their conversation. Neurological checks will be ordered. 3. Hypertension. Blood pressure was low on admission. Atenolol will be continued for his atrial fibrillation. 4. Atrial fibrillation. Currently, rate is controlled. Atenolol will be continued with hold parameters. On previous admission, anticoagulation was deferred at that time due to the patient's weakness and high chance of falling. Down the road, once the patient is stronger, this can be addressed as an outpatient. 5. Hypothyroidism. Synthroid will continue. 6. Fluids, electrolytes, and nutrition. The patient will have a regular diet now and IV fluids overnight. 7. Code status. The patient wishes to be a DNR and there has been a MOLST signed and placed in the chart. TIME SPENT: Time for this admission was 60 minutes, half of the time was spent with the patient and his son-in-law discussing past medical history, medications , and events leading up to his arrival in the emergency room. GRETCHEN GARCIA NP [id number]/CPS #: [id number] RICHIE
--- NOTE | 2017-04-25 21:03 | PN ---
Progress Note - Progress Note Date of Service: 04/25/17 Note: Patient seen and examined. 81 yom hx prostate Ca with back pain and inability to ambulate with MRI findings c/w T12-L1 lesion. Full consult note dictated N: [id number] Girma Lizarraga MD
[2017-04-25] MEDS: Heparin VIAL(*) 5000 UNITS/ML VIAL (FIVE THOUSAND) SUBCUT SCH (21:29)
--- NOTE | 2017-04-25 21:43 | ED ---
Nahomy Fisher Nilda, scribed for Amado Moffett MD on 04/25/17 at 1343 . Back Pain - HPI Summary HPI Summary: This patient is an 81 year old M presenting to [facility] accompanied by son with a chief complaint of constant sharp back pain today. Per triage note, pt had an MRI today and was told to go to the ER for admission. The patient rates the pain 9/10 in severity. Symptoms aggravated by movement and alleviated by position and rest. Patient reports bowel incontinence, bilat LE weakness, loss of appetite, diarrhea, and occasional constipation. Patient denies tingling, pins and needles, and numbness down bilat LE, fever, diaphoresis, chills, and cough. Medications include MiraLax. PMHx of prostate cancer and pt states he is having radiation therapy. MRI of back from today, per radiologist, reveals: 1. AGAIN NOTED IS A MASS OF THE POSTERIOR ELEMENTS CENTERED AT T12-L1, DEMONSTRATING HETEROGENEOUS ENHANCEMENT AND EXTENSION INTO THE POSTERIOR EPIDURAL SPACE AND PARASPINAL MUSCLES WHICH ARE CONSISTENT WITH METASTATIC NEOPLASM GIVEN THE HISTORY OF PROSTATE CANCER. THERE IS ALSO ABNORMAL SIGNAL WITHIN THE VERTEBRAL BODIES OF T12 AND L1 CONSISTENT WITH METASTATIC DISEASE. 2. THE EPIDURAL EXTENSION OF TUMOR RESULTS IN MODERATE TO SEVERE NARROWING OF THE CENTRAL CANAL AT T12 AND L1. - History of Current Complaint Chief Complaint: EDBackInjuryPain Stated Complaint: SPINE INJURY Time Seen by Provider: 04/25/17 12:14 Hx Obtained From: Patient, Family/Community Organizer - son, Medical Records Onset/Duration: Sudden Onset, Still Present Timing: Constant Back Pain Location: Is Diffuse Severity Currently: Severe Pain Intensity: 9 Pain Scale Used: 0-10 Numeric Character: Sharp Aggravating Symptom(s): Movement Alleviating Symptom(s): Rest, Position Associated Signs And Symptoms: Positive: Other - bowel incontinence, bilat LE weakness, loss of appetite, diarrhea, and occasional constipation. Patient denies tingling, pins and needles, and numbness down bilat LE, fever, diaphoresis, chills, and cough. - Allergies/Home Medications Allergies/Adverse Reactions: Allergies Allergy/AdvReac Type Severity Reaction Status Date / Time Bee Venom Allergy Anaphylatic Verified 04/25/17 11:39 Shock Home Medications: Home Medications Alendronate (NF) [Fosamax (NF)] 70 mg PO WEEKLY 04/25/17 [History Confirmed 04/30] Docusate CAP* [Colace Cap*] 100 mg PO BID PRN 04/25/17 [History Confirmed ] Naproxen-Esomeprazole Magnesiu [Vimovo 500-20 mg] 1 tab PO BID 04/25/17 [ History Confirmed 04/25/17] PMH/Surg Hx/FS Hx/Imm Hx Endocrine/Hematology History: Denies: Hx Diabetes Cardiovascular History: Reports: Hx Hypertension Denies: Hx Pacemaker/ICD History: Denies: Hx Renal Disease Musculoskeletal History: Reports: Hx Arthritis, Other Musculoskeletal History - Hx DDD Sensory History: Reports: Hx Contacts or Glasses Denies: Hx Hearing Aid Opthamlomology History: Reports: Hx Contacts or Glasses Psychiatric History: Denies: Hx Panic Disorder - Cancer History Cancer Type, Location and Year: Prostate - Surgical History Surgery Procedure, Year, and Place: HERNIA. PROSTATE CARCINOMA. CATARACTS BILATERAL EYES - Immunization History Date of Influenza Vaccine: 02/2017 Immunizations Up to Date: Yes Infectious Disease History: No Infectious Disease History: Denies: Traveled Outside the [place] in Last 30 Days - Family History Known Family History: Positive: Other - Patient denies relevant FHx - Social History Alcohol Use: None Substance Use Type: Reports: None Hx Tobacco Use: Yes Smoking Status (MU): Current Every Day Smoker Review of Systems Negative: Fever, Chills, Skin Diaphoresis Negative: Erythema Negative: Sore Throat Negative: Chest Pain Negative: Shortness Of Breath, Cough Positive: Diarrhea, Other - bowel incontinence, constipation, loss of appetite. Negative: Abdominal Pain, Nausea Genitourinary: Negative Negative: dysuria, hematuria Positive: Other - back pain. Negative: Myalgia, Edema Negative: Rash Neurological: Other - negative dizziness, tingling, pins and needles, and numbness down bilat LE Positive: Weakness - bilateral LE All Other Systems Reviewed And Are Negative: Yes Physical Exam - Summary Physical Exam Summary: Constitutional: Well-developed, Well-nourished, Alert. (-) Distressed Skin: Warm, Dry HENT: Normocephalic; Atraumatic; dry mucous membranes Eyes: Conjunctiva normal Neck: Musculoskeletal ROM normal neck. (-) JVD, (-) Stridor, (-) Tracheal deviation Cardio: Rhythm regular, rate normal, Heart sounds normal; Intact distal pulses; The pedal pulses are 2+ and symmetric. Radial pulses are 2+ and symmetric. (-) Murmur Pulmonary/Chest wall: Effort normal. (-) Respiratory distress, (-) Wheezes, (-) Rales Abd: Soft, (-) Tenderness, (-) Distension, (-) Guarding, (-) Rebound Musculoskeletal: (-) Edema, Hyporeflexic in right patellar Lymph: (-) Cervical adenopathy Neuro: Alert, Oriented x3 Psych: Mood and affect Normal Triage Information Reviewed: Yes Vital Signs On Initial Exam: Initial Vitals Temp Pulse Resp BP Pulse Ox 96.5 F 57 16 78/40 92 04/25/17 11:39 04/25/17 11:39 04/25/17 11:39 04/25/17 11:39 04/25/17 11:39 Vital Signs Reviewed: Yes - [place] Coma Scale Coma Scale Total: 15 Diagnostics - Vital Signs Vital Signs Temp Pulse Resp BP Pulse Ox 04/25/17 13:03 53 16 104/65 98 04/25/17 13:02 97 04/25/17 13:00 53 15 97 04/25/17 12:03 56 93 04/25/17 12:01 84/54 04/25/17 11:39 96.5 F 57 16 78/40 92 - Laboratory Lab Results: Lab Results 04/25/17 04/25/17 04/25/17 Range/Units 12:26 12:26 12:26 WBC 22.3 H (3.5-10.8) 10^3/ul RBC 4.31 (4.0-5.4) 10^6/ul Hgb 12.7 L (14.0-18.0) g/dl Hct 39 L (42-52) % MCV 91 (80-94) fL MCH 29 (27-31) pg MCHC 33 (31-36) g/dl RDW 19 H (10.5-15) % Plt Count 243 (150-450) 10^3/ul MPV 8 (7.4-10.4) um3 Neut % (Auto) 94.1 H (38-83) % Lymph % (Auto) 3.1 L (25-47) % [place] % (Auto) 2.4 (1-9) % Eos % (Auto) 0.1 (0-6) % Baso % (Auto) 0.3 (0-2) % Absolute Neuts (auto) 21.0 H (1.5-7.7) 10^3/ul Absolute Lymphs (auto) 0.7 L (1.0-4.8) 10^3/ul Absolute Monos (auto) 0.5 (0-0.8) 10^3/ul Absolute Eos (auto) 0 (0-0.6) 10^3/ul Absolute Basos (auto) 0.1 (0-0.2) 10^3/ul Absolute Nucleated RBC 0.01 10^3/ul Nucleated RBC % 0 INR (Anticoag Therapy) 0.90 (0.77-1.02) APTT 28.3 (26.0-36.3) seconds Sodium 136 (133-145) mmol/L Potassium 4.8 (3.5-5.0) mmol/L Chloride 104 (101-111) mmol/L Carbon Dioxide 27 (22-32) mmol/L Anion Gap 5 (2-11) mmol/L BUN 29 H (6-24) mg/dL Creatinine 1.22 H (0.67-1.17) mg/dL Est GFR ( Amer) 73.3 (>60) Est GFR (Non-Af Amer) 57.0 (>60) BUN/Creatinine Ratio 23.8 H (8-20) Glucose 123 H (70-100) mg/dL Lactic Acid (0.5-2.0) mmol/L Calcium 8.4 L (8.6-10.3) mg/dL Total Bilirubin 0.60 (0.2-1.0) mg/dL AST 13 (13-39) U/L ALT 6 L (7-52) U/L Alkaline Phosphatase 76 (34-104) U/L Troponin I Pending Total Protein 5.5 L (6.4-8.9) g/dL Albumin 2.7 L (3.2-5.2) g/dL Globulin 2.8 (2-4) g/dL Albumin/Globulin Ratio 1.0 (1-3) 12/12/17 Range/Units 12:26 WBC (3.5-10.8) 10^3/ul RBC (4.0-5.4) 10^6/ul Hgb (14.0-18.0) g/dl Hct (42-52) % MCV (80-94) fL MCH (27-31) pg MCHC (31-36) g/dl RDW (10.5-15) % Plt Count (150-450) 10^3/ul MPV (7.4-10.4) um3 Neut % (Auto) (38-83) % Lymph % (Auto) (25-47) % [place] % (Auto) (1-9) % Eos % (Auto) (0-6) % Baso % (Auto) (0-2) % Absolute Neuts (auto) (1.5-7.7) 10^3/ul Absolute Lymphs (auto) (1.0-4.8) 10^3/ul Absolute Monos (auto) (0-0.8) 10^3/ul Absolute Eos (auto) (0-0.6) 10^3/ul Absolute Basos (auto) (0-0.2) 10^3/ul Absolute Nucleated RBC 10^3/ul Nucleated RBC % INR (Anticoag Therapy) (0.77-1.02) APTT (26.0-36.3) seconds Sodium (133-145) mmol/L Potassium (3.5-5.0) mmol/L Chloride (101-111) mmol/L Carbon Dioxide (22-32) mmol/L Anion Gap (2-11) mmol/L BUN (6-24) mg/dL Creatinine (0.67-1.17) mg/dL Est GFR ( Amer) (>60) Est GFR (Non-Af Amer) (>60) BUN/Creatinine Ratio (8-20) Glucose (70-100) mg/dL Lactic Acid 2.1 H* (0.5-2.0) mmol/L Calcium (8.6-10.3) mg/dL Total Bilirubin (0.2-1.0) mg/dL AST (13-39) U/L ALT (7-52) U/L Alkaline Phosphatase (34-104) U/L Troponin I Total Protein (6.4-8.9) g/dL Albumin (3.2-5.2) g/dL Globulin (2-4) g/dL Albumin/Globulin Ratio (1-3) Result Diagrams: 04/25/17 12:26 04/25/17 12:26 Lab Statement: Any lab studies that have been ordered have been reviewed, and results considered in the medical decision making process. - Radiology CXR Radiology Interpretation Completed By: Radiologist - CXR, per radiologist, reveals mild chronic lung findings with hyperinflation. Dr. Moffett has reviewed this radiology report. Re-Evaluation - Re-Evaluation First Eval Re-Evaluation Time: 14:43 Comment: Discussed case with Jensen (nurse) who stated pt had less than 100 ml of urine output. No indication of urinary retention. Pt declined rectal exam. Back Pain Course/Dx - Course Assessment/Plan: This patient is an 81 year old M presenting to [facility] accompanied by son with a chief complaint of constant sharp back pain today. Per triage note, pt had an MRI today and was told to go to the ER for admission. The patient rates the pain 9/10 in severity. Symptoms aggravated by movement and alleviated by position and rest. Patient reports bowel incontinence , bilat LE weakness, loss of appetite, diarrhea, and occasional constipation. Patient denies tingling, pins and needles, and numbness down bilat LE, fever, diaphoresis, chills, and cough. Medications include MiraLax. PMHx of prostate cancer and pt states he is having radiation therapy. MRI of back from today, per radiologist, reveals: 1. AGAIN NOTED IS A MASS OF THE POSTERIOR ELEMENTS CENTERED AT T12-L1, DEMONSTRATING. HETEROGENEOUS ENHANCEMENT AND EXTENSION INTO THE POSTERIOR EPIDURAL SPACE AND PARASPINAL MUSCLES WHICH ARE CONSISTENT WITH METASTATIC NEOPLASM GIVEN THE HISTORY OF PROSTATE CANCER. THERE IS ALSO ABNORMAL SIGNAL WITHIN THE VERTEBRAL BODIES OF T12 AND L1 CONSISTENT WITH METASTATIC DISEASE. 2. THE EPIDURAL EXTENSION OF TUMOR RESULTS IN MODERATE TO SEVERE NARROWING OF THE CENTRAL CANAL AT T12 AND L1. [1207] Dr. Sid Cueva ( radiologist) recommended clinical correlation for spinal compression. [1406] Dr. Lizarraga (Neurosurgeon) recommends decompression surgery. [1408] Dr. Scott (Hospitalist) accepts pt for admission. Blood work is without significant abnormalities except Lactic Acid (2.1), Trop (0.04). UA reveals 2+ WBC, 3+ RBC. CXR, per radiologist, reveals mild chronic lung findings with hyperinflation. Dr. Moffett has reviewed this radiology report. Re-eval 1443: Discussed case with Jensen (nurse) who stated pt had less than 100 ml of urine output. No indication of urinary retention. Pt decline rectal exam. In the ED course, the patient was given IV fluids and Zosyn. CCT 60 minutes. Pt is stable and will be admitted with Dx of spinal cord compression, metastatic prostate cancer, bony metastatic lesions, UTI, and sepsis. Pt understands and is agreeable with this plan. - Diagnoses Provider Diagnoses: Sepsis, UTI (urinary tract infection), bony metastatic lesions, Prostate cancer metastatic to bone, Spinal cord compression - Provider Notifications Discussed Care Of Patient With: Sid Cueva - Radiologist Instructed by Provider To: Other - recommended clincal correlation for spinal compression. - Critical Care Time Critical Care Time: 30-74 min - 60 minutes Discharge - Discharge Plan Condition: Stable Disposition: ADMITTED TO [facility] The documentation as recorded by the Nahomy ann Nilda accurately reflects the service I personally performed and the decisions made by , Amado Moffett MD.
--- NOTE | 2017-04-26 01:02 | CONS ---
CONSULTATION REPORT: DATE OF CONSULTATION: 04/25/17 HISTORY OF PRESENT ILLNESS: The patient is a very pleasant 81-year-old gentleman with a history of prostate cancer, hypertension, hypothyroidism and atrial fibrillation, who was admitted to the hospital by the hospitalist team. The patient has history of prostate cancer and he is on Lupron therapy. He had undergone radiation therapy as the family reports. He received his care in [place], [place] and he was recently transferred to his daughter's house as he was found to have some generalized weakness. The patient reports that he has been having chronic back pain that has progressively gotten worse with progressive weakness in the lower extremities to the extent that he has difficulty walking more than 10 steps with a walker. The patient reports that he has had episodes of constipation and subsequently used laxatives and had diarrhea. He denies urinary or GI incontinence at this time, but he did have several episodes of diarrhea with loose stool. He denies loss of any sensation. The patient had previous visit in the emergency room and was found to have dehydration. CT scan revealed spine lesion with posterior element involvement with lytic lesions at T12 and L1. At that time, the patient wanted to continue his workup as an outpatient and today he had an MRI of his lumbar spine that revealed a large heterogeneous enhancing posterior lesion involving the posterior elements of T12 and L1 with epidural cord compression. The patient was then sent to the emergency room where he was diagnosed with sepsis and UTI. MRI revealed a large posterior lesion at T12-L1 level with cord compression. History was obtained from the patient's chart, the patient and the patient's family with his daughter and son- in-law at the bedside. PAST MEDICAL HISTORY: 1. Hypertension. 2. Prostate cancer. 3. Back pain. 4. Constipation. 5. Hypothyroidism. 6. Osteoarthritis. 7. Osteoporosis. 8. Atrial fibrillation, not on anticoagulation. MEDICATIONS: The patient was on: 1. Colace. 2. [place]. 3. Senna. 4. Aspirin 81. 5. Synthroid. 6. Atenolol. 7. Calcium carbonate and vitamin D. 8. Alendronate. 9. Lupron. 10. Prolia. 11. Vimovo. ALLERGIES: No known drug allergies. FAMILY HISTORY: The patient's father from blood disorder. SOCIAL HISTORY: The patient used to smoke a pack a day until his recent move from [place]. Alcohol, negative. Recreational, use negative. The patient lives with his daughter and son-in-law who also are the surrogate decision makers. PHYSICAL EXAMINATION: The patient is not in acute distress. He is lying on the bed. He has no tenderness to palpation of the thoracic or lumbar spine with the exception of some mild tenderness in the thoracolumbar junction in the midline. The patient has free range of motion of cervical spine. He is awake, alert, and oriented x3. His pupils are equal and reactive. Cranial nerves II through XII are grossly intact. Motor 4 to 5/5 in the upper extremities, 3 to 4 -/5 in lower extremities. Sensory grossly intact to light touch, position intact. Deep tendon reflexes +1 bilaterally in upper extremities, +2 bilaterally in lower extremities. Clonus plus minus. No Babinski. Nj's negative. Pedal pulses present bilaterally. The patient refused rectal exam. DIAGNOSTIC STUDIES/LAB DATA: The patient had an MRI of his lumbar spine revealing a heterogeneous large posterior lesion involving the posterior elements of T12 and L1 with epidural compression component between inferior part of T11 and superior part of L2. The patient had a CT scan of the thoracic spine from the previous admission revealing lytic lesions at the posterior elements of T12 as well as CT scan of his lumbar spine that reveals similar findings with lytic lesion involving the posterior elements of T12, involving the left vertebrals of T12 and L1 and the transverse process of L1 without evidence of kyphosis or subluxation. The patient of note has evidence of possible involvement of the vertebral bodies of T12 and L1 and possible superior endplate of S1 based on the MRI while there is a paravertebral possible enhancing lymph node reported at the MRI of his lumbar spine. IMPRESSION: The patient is a very pleasant 81-year-old gentleman with history of prostate cancer, on Lupron therapy; hypertension; atrial fibrillation with complaints of back pain and difficulty ambulating with MRI and CT scan findings consistent with large posterior thoracolumbar lesion with epidural compression with possible spinal epidural metastasis. PLAN: The patient at this point has significant difficulty ambulating. He has significant weakness in his lower extremities and is unable to walk. He is reported to have possible incontinence in his bowel function, although he refused rectal exam twice. Based on the MRI, the patient may benefit from posterior decompressive laminectomy and instrumentation if his medical condition allows. The patient is treated for UTI and sepsis with IV antibiotics and fluids. Oncology consultation is pending. We discussed different treatment options including surgical intervention, explaining risks and benefits of the approach. We would like to discuss with oncology team and the primary team tomorrow before we finalize the plan. In the interim, we would recommend obtaining thoracic and lumbar spine plain x-rays and bedrest for the time being. Plan was discussed in detail with the patient and his family. Full instructions given to the patient. The patient and his family seemed to understand, they are agreeable with the plan. Thank you very much for allowing us to participate in the care of this patient. Please do not hesitate to contact our office in case you have any further questions or concerns regarding the care of this patient. Girma Lizarraga MD [id number]/[facility] #: [id number] RICHIE
[2017-04-26 05:25] LABS: ABS Basophils 0.1 10^3/ul (0-0.2); ABS Eosinophils 0.1 10^3/ul (0-0.6); ABS Lymphocytes 0.8 10^3/ul (1.0-4.8); ABS Monocytes 0.6 10^3/ul (0-0.8); ABS Neutrophils 14.2 10^3/ul (1.5-7.7); ABS Nucleated RBC 0.01 10^3/ul; Eosinophil % 0.8 % (0-6); Hematocrit 32 % (42-52); Hemoglobin 10.6 g/dl (14.0-18.0); Lymphocyte % 4.9 % (25-47); Mean Corpuscular HGB Conc 33 g/dl (31-36); Mean Corpuscular Hemoglobin 30 pg (27-31); Mean Corpuscular Volume 90 fL (80-94); Mean Platelet Volume 8 um3 (7.4-10.4); Nucleated Red Blood Cells % 0; Platelet Count 194 10^3/ul (150-450); Red Blood Count 3.54 10^6/ul (4.0-5.4); Red Cell Distribution Width 19 % (10.5-15); White Blood Count 15.9 10^3/ul (3.5-10.8)
[2017-04-26] MEDS: Heparin VIAL(*) 5000 UNITS/ML VIAL (FIVE THOUSAND) SUBCUT SCH ×3 (05:50→22:10)
[2017-04-26] MEDS: Levothyroxine TAB* 125 MCG TAB PO SCH (05:50)
[2017-04-26] MEDS: HYDROcodone/ACETAMIN 5-325 MG* 1 TAB PO PRN ×2 (06:07→19:32)
[2017-04-26] MEDS ORDERED: Atenolol TAB* 25 MG PO SCH (09:00)
[2017-04-26] MEDS ORDERED: Atenolol TAB* 50 MG PO SCH (09:00)
--- NOTE | 2017-04-26 10:25 | PN ---
Progress Note - Progress Note Date of Service: 04/26/17 SOAP: Subjective: []No events ON. On Abx. Objective: VSS, Afebrile. []AAOx3 ONIEL, face symmetric. KHOA, 4-5/5 UEs, 3-4-/5 LEs Sensory grossly intact to light touch. Assessment: []81 yo m hx of prostate Ca, Afib, HTN, with back pain, LE weakness and MRI findings cw T12-L1 lesion with epidural compression. Plan: []Monitor VS, Neurochecks, Bed rest. Plain XR of Thoracic and Lumbar spine. Oncology consultation pending. Appreciate Dr Thapa's input. Consider surgical intervention when medically cleared, and UTI treated. Girma Lizarraga MD
[2017-04-26] MEDS ORDERED: Dexamethasone IV* 8 MG in NS 0.9% 50 ML* 50 ML IVPB SCH (11:00)
--- NOTE | 2017-04-26 11:10 | PN ---
Subjective Date of Service: 04/26/17 Interval History: Patient seen and examined at bedside. Patient reports pain controlled. Afib controlled on tele; sometime bradycardic. Family History: Unchanged from Admission Social History: Unchanged from Admission Past Medical History: Unchanged from Admission Objective Active Medications: Hydrocodone Bitart/Acetaminophen ([place] 5-325 Tab*) 1 tab PO Q6H PRN Dexamethasone Sodium Phosphate (Decadron Iv*) 8 mg IV SLOW PU Q12H JOSE Docusate Sodium (Colace Cap*) 100 mg PO BID PRN Heparin Sodium (Porcine) (Heparin Vial(*)) 5,000 units SUBCUT Q8HR JOSE Ceftriaxone Sodium 1 gm/ (Dextrose) 50 mls @ 200 mls/hr IVPB Q24H JOSE Levothyroxine Sodium (Synthroid Tab*) 125 mcg PO DAILY@0600 JOSE Senna (Senokot Tab*) 1 tab PO BID PRN Vital Signs Temp Pulse Resp BP Pulse Ox 97.7 F 56 16 103/46 95 04/26/17 07:53 04/26/17 07:53 04/26/17 07:53 04/26/17 07:53 04/26/17 07:53 Oxygen Devices in Use Now: None Appearance: sitting up in bed, NAD Eyes: No Scleral Icterus, PERRLA Ears/Nose/Mouth/Throat: NL Teeth, Lips, Gums, Mucous Membranes Moist Neck: NL Appearance and Movements; NL JVP Respiratory: Symmetrical Chest Expansion and Respiratory Effort, Clear to Auscultation Cardiovascular: - - irregularly irregular; 2/6 systolic murmur. Abdominal: NL Sounds; No Tenderness; No Distention Extremities: No Edema Skin: No Rash or Ulcers Neurological: Alert and Oriented x 3, - - bilateral LE weakness unchanged from admission. Lines/Tubes/Other Access: Clean, Dry and Intact Peripheral IV Nutrition: Taking PO's Result Diagrams: 04/26/17 05:11 04/26/17 05:11 Assess/Plan/Problems-Billing Patient is an 81 y/o M hx of tobacco abuse, prostate CA, atrial fibrillation, and 30lb weight loss, known recent dx of spinal mass presented to the ER after an MRI as an outpatient showing central canal narrowing by the mass. - Patient Problems (1) Sepsis secondary to UTI Comment: Sepsis resolved. Leukocytosis improved. Contine Ceftriaxone and await culture results. Lactic acid normalized. (2) Mass of spine Comment: Appreciate neurosurgical and oncology input. CT chest/abd/pel to look for other malignancies. Start decadrom. Continue neuro checks. Weakness is stable but if neurological exam would change, surgery would happen urgently. Plan for decompressive laminectomy and resection on Monday once UTI cleared. His RCRI score is 0 giving him a 0.4% risk of cardiac event during surgery. He had an echocardiogram 2 weeks ago which showed a normal EF and moderate aortic stenosis. He will be medically optimized once he has had 2 full days of treatment for his UTI. (3) Atrial fibrillation Comment: Rate controlled off medications. D/C telemetry. (4) HTN (hypertension) Comment: Hold Atenolo d/t low HR and BP. (5) Hypothyroidism Comment: Continue home synthroid. (6) DVT prophylaxis Comment: SQ Heparin. (7) DNR (do not resuscitate) Status and Disposition: Inpatient for UTI and spinal mass. Plan for surgery once UTI cleared up; likely Monday.
[2017-04-26] MEDS: Dexamethasone IV* 4 MG/ML 1 ML (4 MG) IV SLOW PU SCH (12:01)
--- NOTE | 2017-04-26 13:31 | RAD ---
HISTORY: Chronic back pain, spinal mass COMPARISONS: MRI dated April 25, 2017 VIEWS: 3 , Frontal, lateral, and coned-down lateral sacral views of the lumbar spine FINDINGS: ALIGNMENT: There is a scoliotic curvature of the spine. VERTEBRAL BODIES: There is diffuse osteopenia. Is multilevel anterolateral marginal osteophyte formation. The posterior element mass of T12-L1 noted on MRI is not well-visualized on the current examination. JOINTS: There is facet hypertrophy change along the lower lumbar spine INTERVERTEBRAL DISCS: There is diffuse loss of intervertebral disc height. SOFT TISSUE: There is atherosclerosis of the abdominal aorta. OTHER: The pelvis is unremarkable. The lung bases are clear. IMPRESSION: DEGENERATIVE DISC DISEASE AND OSTEOARTHRITIS. THE POSTERIOR ELEMENT MASS AT THE THORACOLUMBAR JUNCTION NOTED ON PREVIOUS IMAGING IS NOT WELL VISUALIZED ON THIS PLAIN FILM EXAMINATION.
--- NOTE | 2017-04-26 13:34 | RAD ---
HISTORY: Spinal mass COMPARISONS: MRI dated April 25, 2017, CT dated April 11, 2017 VIEWS: 3, Frontal and lateral views of the thoracic spine. FINDINGS: ALIGNMENT: The alignment is normal. VERTEBRAL BODIES: There is diffuse osteopenia. Is multilevel anterolateral marginal osteophyte reformation. The spinous processes of T12 and L1 are not well there is less consistent with the mass noted on imaging. JOINTS: Unremarkable. INTERVERTEBRAL DISCS: There is diffuse loss of intervertebral disc height. SOFT TISSUE: Unremarkable OTHER: The visualized lungs are clear. IMPRESSION: OSTEOPENIA DEGENERATIVE DISC DISEASE. THE POSTERIOR ELEMENTS OF T12 AND L1 ARE NOT WELL-VISUALIZED CONSISTENT WITH THE MASS NOTED ON PREVIOUS IMAGING.
[2017-04-26] MEDS ORDERED: Iohexol 300* (CONTRAST) 10 ML SDV IV ONE (14:49)
--- NOTE | 2017-04-26 15:15 | CONS ---
CC: Arya Thapa MD; Mikal Lizarraga MD; ROCK Rodrigez, [facility] * MEDICAL ONCOLOGY CONSULTATION NOTE: DATE OF CONSULT: 04/26/17 REASON FOR CONSULTATION: Large mass compressing the spinal canal at the T12-L1 level. HISTORY OF PRESENT ILLNESS: Mr. Boucher is an 81-year-old male whose relevant history dates back to about 10 years ago. He had an elevated PSA while living in [place]. Biopsy was positive for prostate cancer, unsure as to his Christiana score or the elevation of the PSA. He was initially referred for surgery, but at the last moment, plans were changed to a radiation therapy course. He reports getting 40 radiation treatments, although somewhat surprisingly reports this was once a week for 40 weeks. I suspect he is just mistaken. He reports that at times when his PSA would rise, subsequent to that he has received intermittent Lupron. He has never been on any other therapy, specifically other oral or chemotherapy agents for his prostate cancer. He reports that he has had lots of bone scans and CT scans over time and they have all been fine until MRI scan of the spine done about 6 months ago, he believes was abnormal. He is unsure as to when he last had a Lupron injection, but believes it was about 6 months ago. He reports developing back pain about 2 to 3 years ago. He reports it has been progressively worse over time. Occasionally there is radiation of the pain to his legs. He was living independently in [place] nearby one of his sons. When his daughter and son-in-law went out to visit for [facility], they found him to be in extreme pain and severely constipated, not eating or drinking and with about 20- pound weight loss. He was lying in bed most of the time. They brought him back to [place]. He arrived here on the . He was seen in the primary care physician's office and then admitted to the hospital here from to 04/13/17. During that admission, he had a CT scan of the thoracic and lumbar spine, which revealed a large mass at the T12-L1 level. Posterior paraspinous mass associated with bony destruction of the posterior elements and spinous processes of T12-L1. In addition, there is indeterminate sclerotic focus in the left iliac bone noted. Oncology consultation was recommended during that admission, but refused by the patient. In addition, he was found during that admission to have a normal PSA of 0.65. He was found to be in Afib with rapid ventricular response. The Afib was controlled by resuming atenolol. Decision was made not to treat him with anticoagulation given likelihood of falls and potential need for further therapy. At that time, he refused further imaging or treatment for the spinal mass. It was arranged for the patient to have an MRI scan of the spine on the outpatient basis and this was done on the day of admission. This revealed a mass of the posterior element centered at T12 -L1 demonstrating heterogeneous enhancement and extension into the posterior epidural space and paraspinal muscles consistent with metastatic neoplasm. There was also abnormal signal in the bodies of T12 and L1 consistent with metastatic disease. Epidural extension of the tumor was causing moderate to severe narrowing of the central canal at these levels. There was also a small enhancing lymph node in the paravertebral space opposite the T12 vertebrae, felt to be an enlarged lymph node, potentially pathologic measuring 1.2 cm. A small focus of enhancement is noted in the superior endplate of S1 with the question whether this might be a Schmorl's node versus metastatic focus. Because of the ongoing pain and weakness and because of the concern for these findings on the MRI scan, decision was made to admit the patient to the hospital. At the time of this consultation, the patient is seen with his son-in-law. The son- in-law reports that he is not worsening in terms of walking since , but he was only able to walk approximately 10 steps. He uses a cane. He has not fallen. There is no tingling or numbness in his extremities. He previously had severe constipation and has been using MiraLAX and Colace recently and with this, he has developed some loose stools, but they report only maybe about every 3 days. He denies any urinary incontinence. Nocturia x1. No tingling or numbness in the extremities. Appetite remains diminished with some early satiety and 25 to 30- pound weight loss. PAST MEDICAL HISTORY: Otherwise significant for; 1. Hypertension. 2. Hypothyroidism. 3. Osteoporosis. 4. Osteoarthritis. 5. Atrial fibrillation. 6. GERD. MEDICATIONS: At the time of admission include; 1. [place] 5/325 mg q.6 hours p.r.n. pain, taking about 3 per day. 2. Senokot as needed. 3. MiraLAX as needed. 4. Aspirin 81 mg daily. 5. Synthroid 125 mcg daily. 6. Atenolol 50 mg daily. 7. Alendronate 70 mg weekly. 8. He is currently not on Lupron, has taken Prolia only once about 1 year ago. 9. Calcium and vitamin D. ALLERGIES: None. FAMILY HISTORY: Father is reported to have of a blood disorder. No family history of any malignancies. SOCIAL HISTORY: The patient smoked a pack of cigarettes a day from age 10 until just several weeks ago, giving him a greater than [id number] smoking history. Alcohol heavy in the past, but none for the past 2 to 3 months. 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 Lived alone and for the past 10 years. Had 2 children in [place] and a daughter in this area. Currently residing with his daughter and son- in-law. REVIEW OF SYSTEMS: Energy level has been poor recently. Increased fatigue with any activity. Weight loss for approximately 25 to 30 pounds over the past 6 months, but stable before that. No associated nausea or vomiting. Bowel habits as discussed above. Denies any shortness of breath, chest pain, or palpitations. Denies any significant headaches, visual changes, or any weakness in his upper extremities. He does complain of weakness in his legs with difficulty with mobility. Denies any emotional or psychological issues. Review of systems otherwise negative except as discussed above. PHYSICAL EXAM: General: This is an 81-year-old male, in no acute distress, lying comfortably in the bed. Vital Signs: Blood pressure 103/46, pulse 56, afebrile. HEENT: PERRL. EOMI. Moist mucous membranes. Heart: A 1-2/6 systolic murmur. Regular rate and rhythm. Lungs: Clear. Abdomen: Soft, nontender without masses or organomegaly. Extremities: No clubbing, cyanosis, or edema. Back: With tenderness in the lower thoracic and upper lumbar spine to touch. Neurologic: The patient is alert and oriented x3. Cranial nerves II through XII are intact. Motor is 5/5 in the upper extremities and significantly diminished in the lower extremities, but at least 3 to 4 bilaterally. Sensation is intact to light touch. Deep tendon reflexes are diminished, but present in the upper extremities and normal in lower extremities. Toes are downgoing bilaterally. DIAGNOSTIC STUDIES/LAB DATA: Include white count 15,900, hematocrit 32, hemoglobin 10.6, platelet count 194,000 with 90% neutrophils. Chemistry study; sodium 136, potassium 3.9, chloride 110, bicarb 22, BUN 25, creatinine 0.9, glucose 89. During his previous admission, liver function tests were normal with an albumin of 2.7 and PSA less than 1. Urinalysis revealed 2+ white cells , 3+ red cells, and trace esterase. IMPRESSION: 1. Large lesion in the T12-L1 region of the thoracolumbar junction causing compression between T12 and L2 of the spine. It is likely that this was from a metastatic focus. It is not clear at the present time whether this is from prostate cancer or whether it is from some other as of yet unknown primary. He appears to be relatively stable in terms of his neurologic function over the past several weeks, but clearly is having marked difficulty with mobility. He does currently have a likelihood of a urinary tract infection. It would be reasonable as long as he remains stable neurologically, to treat this for several days before embarking on implanting any hardware for decompression of the spine. At the time of decompression of the spine by Neurosurgery, tissue loss will be obtained to see whether this is coming from his prostate cancer or from some other potential primary. 2. Metastatic carcinoma, unclear as to the etiology of this large lesion. There are also other potential bone lesions seen on the MRI and CT imaging recently. I have asked for CT scan chest, abdomen, and pelvis to look for other sites of potential metastatic disease and also look for other potential primary. He has been a big time smoker, so he is at risk for multiple other cancers. 3. Prostate cancer. If this lesion turns out not to be from his prostate cancer, then use of intermittent Lupron for elevations in PSA would be reasonable. If this turns out to be from his prostate cancer, then certainly a course of radiation therapy to the area that has decompressed postoperatively and then change in therapy from Lupron alone to Lupron plus a second agent would be warranted. 4. History of atrial fibrillation. Soft cardiac murmur and known previous followup with Cardiology. He reports that he has had a previous stress test done several years ago without significant findings. He had a transthoracic echocardiogram done here on 04/11/17 revealing an ejection fraction of 60% to 65 % with some right ventricular wall thickness increased with some low normal right ventricular global systolic function. The left ventricle is without significant findings. He has moderate aortic stenosis with a median gradient of 21. I will leave it to the hospitalist service to decide whether he would need any further cardiac evaluation prior to embarking on a major surgical procedure. 5. Likelihood of urinary tract infection. Culture results are pending. He has been started on ceftriaxone, which would seem appropriate for a typical urinary tract infection. This infection should be cleared before going to Neurosurgery with hardware to the spine. If he deteriorates neurologically in the interim, plans may need to be reassessed. 6. Hypothyroidism. Remaining on Synthroid. 7. Code status. The patient wishes to be a DNR and a MOLST form has been placed in the chart. [id number]/CPS #: [id number] MTDD
--- NOTE | 2017-04-26 15:20 | RAD ---
HISTORY: Sepsis, UTI, spinal mass, prostate cancer COMPARISONS: MRI of the lumbar spine dated April 25, 2017, CT dated April 03, 2017 TECHNIQUE: Multiple contiguous axial CT scans were obtained of the chest, abdomen, and pelvis after the administration of intravenous contrast. Coronal and sagittal multiplanar reformations are submitted for review.. Oral contrast was administered. Delayed images were obtained through the abdomen and pelvis. FINDINGS: CHEST NECK AND THYROID: There are enlarged right axillary lymph nodes measuring up to 1.4 cm in size. CHEST WALL: There is no lower cervical, axillary, or supraclavicular lymphadenopathy by size criteria. HEART AND PERICARDIUM: The heart is unremarkable. AORTA AND PULMONARY VASCULATURE: The aorta and pulmonary vasculature are normal. MEDIASTINUM: There is a 3.6 cm anterior mediastinal mass CINDI: There is no hilar lymphadenopathy by size criteria. AIRWAY AND ESOPHAGUS: The airway is unremarkable, without endobronchial filling defect. The esophagus is grossly normal. LUNG PARENCHYMA: There is centrilobular emphysematous change. There are small nodules of the left lower lobe measuring up to 0.6 cm in size. There is compressive atelectasis of the lung bases bilaterally PLEURA: There are moderate bilateral pleural effusions. BONES AND SOFT TISSUES: As noted on the previous CT and MRI, there is a mass centered within the posterior elements of T12 and L1 with posterior epidural extension. There are nodular densities in the paravertebral space, with a national sales representative lesion seen on axial image 55 at T10-T11 measuring 1.6 cm. ABDOMEN/PELVIS: LIVER: There are low-attenuation hepatic parenchymal lesion suggestive of small cysts. BILE DUCTS: There is no intrahepatic or extrahepatic biliary dilatation. GALLBLADDER: Multiple gallstones are noted. There is no pericholecystic inflammatory change. PANCREAS: The pancreas is normal, without mass or ductal dilatation. SPLEEN: Normal in size and appearance. UPPER GI TRACT: Evaluation of the gastrointestinal tract is limited by incomplete gastric distention. There is a 2 cm diverticulum of the second stage of the duodenum. SMALL BOWEL & MESENTERY: The small bowel is normal in contour, course, and caliber. There is no obstruction or dilatation. COLON: The colon is normal in contour, course, caliber. There is no pericolonic inflammatory change. ADRENALS: There is a 2.1 cm right adrenal mass. KIDNEYS: The kidneys are normal in shape, size, contour, and axis. There is no hydronephrosis or nephrolithiasis. BLADDER: The bladder is smooth in contour. PELVIC ORGANS: The prostate gland is mildly enlarged. AORTA: There is calcific atherosclerotic disease of the abdominal aorta and its branches, without aneurysmal dilatation IVC: Unremarkable LYMPH NODES: There are subcentimeter short axis retroperitoneal lymph nodes ABDOMINAL WALL: There is no evidence for abdominal wall hernia. BONES AND SOFT TISSUES: As noted above and on previous examinations, there is an expansile lesion centered in the posterior elements of T12 and L1 with posterior epidural extension. OTHER: None IMPRESSION: 1. 3.6 CM ANTERIOR MEDIASTINAL MASS. WHILE THIS MOST LIKELY REPRESENTS METASTATIC DISEASE GIVEN THE HISTORY OF MALIGNANCY, THE DIFFERENTIAL ALSO INCLUDES ANTERIOR MEDIASTINAL PRIMARY NEOPLASM INCLUDING THYMOMA, TERATOMA OR LYMPHOMA. 2. RIGHT AXILLARY AND PARAVERTEBRAL LYMPHADENOPATHY, WITH A 2.1 CM RIGHT ADRENAL MASS, MOST CONSISTENT WITH METASTATIC DISEASE. 3. SMALL PULMONARY PARENCHYMAL NODULES OF THE LEFT LOWER LOBE MEASURING UP TO 0.6 IMAGES IN SIZE, GIVEN THE PRESENCE OF MALIGNANCY ELSEWHERE THESE LIKELY REPRESENT METASTATIC DISEASE. 4. MODERATE BILATERAL PLEURAL EFFUSIONS WITH COMPRESSIVE ATELECTASIS. 5. NOTED ON PREVIOUS EXAMINATIONS, THERE IS AN EXPANSILE LESION CENTERED WITHIN THE POSTERIOR ELEMENTS OF T12 AND L1 WITH EPIDURAL EXTENSION. 6. CHOLELITHIASIS. 7. ATHEROSCLEROSIS..
[2017-04-26] MEDS: cefTRIAXone(*) 1 GM in D5W 50 ML BAG* 50 ML IVPB SCH (19:32)
[2017-04-26] MEDS: Polyethylene Glycol 3350* 17 GM PACKET PO SCH (19:33)
[2017-04-26] MEDS: Docusate CAP* 100 MG PO SCH (21:03)
[2017-04-26] MEDS: Senna TAB PO SCH (21:03)
[2017-04-27] MEDS: Dexamethasone IV* 4 MG/ML 1 ML (4 MG) IV SLOW PU SCH ×2 (00:11→12:08)
[2017-04-27 05:25] LABS: ABS Basophils 0 10^3/ul (0-0.2); ABS Eosinophils 0 10^3/ul (0-0.6); ABS Lymphocytes 0.5 10^3/ul (1.0-4.8); ABS Monocytes 0.2 10^3/ul (0-0.8); ABS Nucleated RBC 0 10^3/ul; Eosinophil % 0 % (0-6); Hematocrit 34 % (42-52); Lymphocyte % 2.5 % (25-47); Mean Corpuscular HGB Conc 33 g/dl (31-36); Mean Corpuscular Hemoglobin 30 pg (27-31); Mean Corpuscular Volume 91 fL (80-94); Mean Platelet Volume 9 um3 (7.4-10.4); Nucleated Red Blood Cells % 0; Platelet Count 211 10^3/ul (150-450); Red Blood Count 3.71 10^6/ul (4.0-5.4); Red Cell Distribution Width 20 % (10.5-15); White Blood Count 20.7 10^3/ul (3.5-10.8)
[2017-04-27] MEDS: Levothyroxine TAB* 125 MCG TAB PO SCH (06:07)
[2017-04-27] MEDS: Heparin VIAL(*) 5000 UNITS/ML VIAL (FIVE THOUSAND) SUBCUT SCH ×3 (06:07→22:13)
--- NOTE | 2017-04-27 08:51 | PN ---
Progress Note - Progress Note Date of Service: 04/27/17 SOAP: Subjective: pain under good control w current regimen. frustrated that he was put on bedrest because he was up walking around yesterday and does not want to get weaker. having daily BMs. Objective: Vital Signs Temp Pulse Resp BP Pulse Ox 97.5 F 88 12 115/66 92 04/27/17 04:39 04/27/17 04:39 04/27/17 04:39 04/27/17 04:39 04/27/17 04:39 lying flat in nad perr eomi op moist cta anteriorly, dec bs bases s1 s2 nl soft nt +bs no le edema 4/5 LE strength bilaterally, did not ambulate Laboratory Results - last 24 hr 04/27/17 04/27/17 04:14 04:14 WBC 20.7 H RBC 3.71 L Hgb 11.0 L Hct 34 L MCV 91 MCH 30 MCHC 33 RDW 20 H Plt Count 211 MPV 9 Neut % (Auto) 96.4 H Lymph % (Auto) 2.5 L [place] % (Auto) 0.9 L Eos % (Auto) 0 Baso % (Auto) 0.2 Absolute Neuts (auto) 20.0 H Absolute Lymphs (auto) 0.5 L Absolute Monos (auto) 0.2 Absolute Eos (auto) 0 Absolute Basos (auto) 0 Absolute Nucleated RBC 0 Nucleated RBC % 0 Sodium 136 Potassium 4.2 Chloride 108 Carbon Dioxide 22 Anion Gap 6 BUN 22 Creatinine 0.77 Est GFR ( Amer) 124.7 Est GFR (Non-Af Amer) 97.0 BUN/Creatinine Ratio 28.6 H Glucose 124 H Calcium 7.8 L Hydrocodone Bitart/Acetaminophen ([place] 5-325 Tab*) 1 tab PO Q6H PRN PRN Reason: PAIN Last Admin: 04/26/17 19:32 Dose: 1 tab Dexamethasone Sodium Phosphate (Decadron Iv*) 8 mg IV SLOW PU Q12H [facility] Last Admin: 04/27/17 00:11 Dose: 8 mg Docusate Sodium (Colace Cap*) 100 mg PO BID [facility] Last Admin: 04/26/17 21:03 Dose: Not Given Heparin Sodium (Porcine) (Heparin Vial(*)) 5,000 units SUBCUT Q8HR [facility] Last Admin: 04/27/17 06:07 Dose: 5,000 units Ceftriaxone Sodium 1 gm/ (Dextrose) 50 mls @ 200 mls/hr IVPB Q24H [facility] Last Admin: 04/26/17 19:32 Dose: 200 mls/hr Levothyroxine Sodium (Synthroid Tab*) 125 mcg PO DAILY@0600 [facility] Last Admin: 04/27/17 06:07 Dose: 125 mcg Polyethylene Glycol/Electrolytes (Miralax*) 17 gm PO DAILY JOSE Last Admin: 04/26/17 19:33 Dose: Not Given Senna (Senokot Tab*) 1 tab PO BID [facility] Last Admin: 04/26/17 21:03 Dose: Not Given Assessment: 81 yo M w PMH of prostate CA now with a large spinal mass as well as mediastinal adenopathy, adrenal lesion, bilateral pleural effusions and small pulmonary nodules. I was asked to comment on prognosis, though this still clearly depends on what his pathology is. He is quite alert and clear that quality of life is paramount to him, and becoming paralyzed and bed bound from this lesion is not consistent with this. Despite metastatic disease, he does not have extensive liver lesions, and has good organ function. Given that I would still strongly advocate for surgery to the spinal mass. The only caveat to that would be if there were multiple brain lesions, though clinically this does not appear to be the case. I will check a brain MRI tomorrow with and without contrast. From my perspective he does NOT need to be on bed rest, and I would encourage continued mobility, but would recommend checking with neurosurgery to make sure this is safe.
[2017-04-27] MEDS: Docusate CAP* 100 MG PO SCH ×2 (08:55→22:15)
[2017-04-27] MEDS: Senna TAB PO SCH ×2 (08:55→22:15)
[2017-04-27] MEDS: Polyethylene Glycol 3350* 17 GM PACKET PO SCH (08:55)
[2017-04-27] MEDS: HYDROcodone/ACETAMIN 5-325 MG* 1 TAB PO PRN ×2 (08:55→17:30)
--- NOTE | 2017-04-27 15:10 | PN ---
Progress Note - Progress Note Date of Service: 04/27/17 SOAP: Subjective: []No events ON. On Abx. Objective: []VSS, Afebrile. []AAOx3 ONIEL, face symmetric. KHOA, 4-5/5 UEs, 3-4-/5 LEs Sensory grossly intact to light touch. Assessment: []81 yo m hx of prostate Ca, Afib, HTN, with back pain, LE weakness and MRI findings cw T12-L1 lesion with epidural compression. Plan: []Monitor VS, Neurochecks, Bed rest. Appreciate IM, Dr Thapa's input. Surgical intervention on Monday. Preop clearance, consider anesthesia, cardiology evaluation. Girma Lizarraga MD
[2017-04-27] MEDS: cefTRIAXone(*) 1 GM in D5W 50 ML BAG* 50 ML IVPB SCH (17:30)
--- NOTE | 2017-04-27 17:53 | PN ---
Subjective Date of Service: 04/27/17 Interval History: Patient seen and examined. Remains on bedrest. States his appetite is poor. Pain medication takes the edge off the back pain, but otherwise no complaints. Denies chest pain, no SOB, no headache or dizziness. No numbness or tingling. No urinary or bowl complaints. No acute overnight events. Family History: Unchanged from Admission Social History: Unchanged from Admission Past Medical History: Unchanged from Admission Objective Active Medications: Hydrocodone Bitart/Acetaminophen ([place] 5-325 Tab*) 1 tab PO Q6H PRN PRN Reason: PAIN Last Admin: 04/27/17 17:30 Dose: 1 tab Dexamethasone Sodium Phosphate (Decadron Iv*) 8 mg IV SLOW PU Q12H [facility] Last Admin: 04/27/17 12:08 Dose: 8 mg Docusate Sodium (Colace Cap*) 100 mg PO BID [facility] Last Admin: 04/27/17 08:55 Dose: 100 mg Heparin Sodium (Porcine) (Heparin Vial(*)) 5,000 units SUBCUT Q8HR [facility] Last Admin: 04/27/17 15:20 Dose: 5,000 units Ceftriaxone Sodium 1 gm/ (Dextrose) 50 mls @ 200 mls/hr IVPB Q24H [facility] Last Admin: 04/27/17 17:30 Dose: 200 mls/hr Levothyroxine Sodium (Synthroid Tab*) 125 mcg PO DAILY@0600 [facility] Last Admin: 04/27/17 06:07 Dose: 125 mcg Polyethylene Glycol/Electrolytes (Miralax*) 17 gm PO DAILY [facility] Last Admin: 04/27/17 08:55 Dose: 17 gm Senna (Senokot Tab*) 1 tab PO BID [facility] Last Admin: 04/27/17 08:55 Dose: 1 tab Vital Signs - 8 hr 04/27/17 04/27/17 04/27/17 11:18 13:22 15:15 Temperature 98.1 F 98.3 F Pulse Rate 76 76 Respiratory 18 16 18 Rate Blood Pressure 93/53 101/48 (mmHg) O2 Sat by Pulse 94 93 Oximetry 04/27/17 17:30 Temperature Pulse Rate Respiratory 16 Rate Blood Pressure (mmHg) O2 Sat by Pulse Oximetry Oxygen Devices in Use Now: None Appearance: Alert, NAD Eyes: No Scleral Icterus, PERRLA Ears/Nose/Mouth/Throat: NL Teeth, Lips, Gums, Mucous Membranes Moist Neck: NL Appearance and Movements; NL JVP Respiratory: Clear to Auscultation Cardiovascular: NL Sounds; No Murmurs; No JVD, RRR Abdominal: NL Sounds; No Tenderness; No Distention Extremities: No Edema, No Clubbing, Cyanosis, - - general weakness bilat LE Skin: No Rash or Ulcers Neurological: Alert and Oriented x 3, NL Sensation, - - decreased strength bilat LE Nutrition: Taking PO's Result Diagrams: 04/27/17 04:14 04/27/17 04:14 Additional Lab and Data: Lab Results Assess/Plan/Problems-Billing This is an 81 year old male with hx of tobacco abuse, prostate CA, atrial fibrillation, and a recent 30lb weight loss, with anorexia and recent dx of spinal mass who presented to the ER for evaluation of cord compression/spine mass. - Patient Problems (1) DNR (do not resuscitate) (2) Mass of spine Code(s): M89.9 - DISORDER OF BONE, UNSPECIFIED SNOMED Code(s): 473608408 Comment: - Oncology and neurosurgury following - Plan for resection of tumor and decompression on Monday - Continue bedrest, pain control and decadron - RCRI score is 0 giving him a 0.4% risk of cardiac event during surgery. Echocardiogram 2 weeks ago which showed a normal EF and moderate aortic stenosis. - Patient is medically optimized for surgery after 48H of treatment UTI. (3) Atrial fibrillation Code(s): I48.91 - UNSPECIFIED ATRIAL FIBRILLATION SNOMED Code(s): 03724460 Comment: - Rate controlled off medications - Would recommend tele for 48 hours post-op (4) Back pain Code(s): M54.9 - DORSALGIA, UNSPECIFIED SNOMED Code(s): 799309582 Comment: - 2/2 tumor - Pain control and bedrest (5) DVT prophylaxis Code(s): GZW5127 - SNOMED Code(s): 216517586 Comment: - SQ Heparin - Hold prior to surgery (6) HTN (hypertension) Code(s): I10 - ESSENTIAL (PRIMARY) HYPERTENSION SNOMED Code(s): 88204275 Comment: - Monitor BP and HR - currently hypotensive - Currently holding atenolol (7) Hypothyroidism Code(s): E03.9 - HYPOTHYROIDISM, UNSPECIFIED SNOMED Code(s): 47835806 Comment: - Continue home synthroid. (8) Prostate cancer Code(s): C61 - MALIGNANT NEOPLASM OF PROSTATE SNOMED Code(s): 246700314 Comment: - On Lupron as an outpatient - Will determine if this is primary site after spine tumor is resected Status and Disposition: Remain inpatient for resection of tumor/spinal mass and treatment of UTI. Pending surgery on Monday. Remains medically optimized for surgery. Counseling and/or Coordination of Care Minutes: Coordinated with patient and staff. Time spent >60mins
[2017-04-28] MEDS: Levothyroxine TAB* 125 MCG TAB PO SCH (05:43)
[2017-04-28] MEDS: Heparin VIAL(*) 5000 UNITS/ML VIAL (FIVE THOUSAND) SUBCUT SCH ×4 (05:43→21:18)
[2017-04-28] MEDS: HYDROcodone/ACETAMIN 5-325 MG* 1 TAB PO PRN ×2 (05:46→16:39)
[2017-04-28] MEDS: Docusate CAP* 100 MG PO SCH ×2 (09:28→21:18)
[2017-04-28] MEDS: Senna TAB PO SCH ×2 (09:29→21:18)
[2017-04-28] MEDS: Polyethylene Glycol 3350* 17 GM PACKET PO SCH (09:29)
--- NOTE | 2017-04-28 11:43 | PN ---
Subjective Date of Service: 04/28/17 Interval History: Patient seen and examined. No acute overnight events. Patient states he still has no appetite. Per RN, patient's PO intake has declined. Pain is tolerable, states no SOB, no chest pain, no n/v. No further complaints. Anxious to get surgery over with. Family History: Unchanged from Admission Social History: Unchanged from Admission Past Medical History: Unchanged from Admission Objective Active Medications: Hydrocodone Bitart/Acetaminophen ([place] 5-325 Tab*) 1 tab PO Q6H PRN PRN Reason: PAIN Last Admin: 04/28/17 05:46 Dose: 1 tab Dexamethasone Sodium Phosphate (Decadron Iv*) 8 mg IV SLOW PU Q12H [facility] Last Admin: 04/28/17 00:00 Dose: 8 mg Docusate Sodium (Colace Cap*) 100 mg PO BID [facility] Last Admin: 04/28/17 09:28 Dose: Not Given Heparin Sodium (Porcine) (Heparin Vial(*)) 5,000 units SUBCUT Q8HR [facility] Last Admin: 04/28/17 05:43 Dose: 5,000 units Ceftriaxone Sodium 1 gm/ (Dextrose) 50 mls @ 200 mls/hr IVPB Q24H [facility] Last Admin: 04/27/17 17:30 Dose: 200 mls/hr Sodium Chloride (Ns 0.9% 1000 Ml*) 1,000 mls @ 75 mls/hr IV PER RATE [facility] Levothyroxine Sodium (Synthroid Tab*) 125 mcg PO DAILY@0600 [facility] Last Admin: 04/28/17 05:43 Dose: 125 mcg Polyethylene Glycol/Electrolytes (Miralax*) 17 gm PO DAILY [facility] Last Admin: 04/28/17 09:29 Dose: Not Given Senna (Senokot Tab*) 1 tab PO BID [facility] Last Admin: 04/28/17 09:29 Dose: Not Given Vital Signs - 8 hr 04/28/17 04/28/17 05:46 08:00 Respiratory 18 16 Rate Oxygen Devices in Use Now: None Appearance: Alert, quiet, NAD, resting comfortably Eyes: No Scleral Icterus, PERRLA Ears/Nose/Mouth/Throat: NL Teeth, Lips, Gums - dry oral mucosa Neck: NL Appearance and Movements; NL JVP Respiratory: Symmetrical Chest Expansion and Respiratory Effort Cardiovascular: NL Sounds; No Murmurs; No JVD Abdominal: NL Sounds; No Tenderness; No Distention Extremities: No Edema Skin: No Rash or Ulcers Neurological: Alert and Oriented x 3 - bilateral LE weakness, no further progression from yesterday's exam Nutrition: Taking PO's Result Diagrams: 04/27/17 04:14 04/27/17 04:14 Additional Lab and Data: Lab Results Assess/Plan/Problems-Billing This is an 81 year old male with hx of tobacco abuse, prostate CA, atrial fibrillation, and a recent 30lb weight loss, with anorexia and recent dx of spinal mass who presented to the ER for evaluation of cord compression/spine mass. - Patient Problems (1) DNR (do not resuscitate) (2) Mass of spine Code(s): M89.9 - DISORDER OF BONE, UNSPECIFIED SNOMED Code(s): 484719135 Comment: - Oncology and neurosurgury following - Plan for resection of tumor and decompression on Monday - Continue bedrest, pain control and decadron - RCRI score is 0 giving him a 0.4% risk of cardiac event during surgery. Echocardiogram 2 weeks ago which showed a normal EF and moderate aortic stenosis. - Patient is medically optimized for surgery after 48H of treatment UTI. (3) Atrial fibrillation Code(s): I48.91 - UNSPECIFIED ATRIAL FIBRILLATION SNOMED Code(s): 91001481 Comment: - Rate controlled off medications - Would recommend tele for 48 hours post-op - Stable (4) Back pain Code(s): M54.9 - DORSALGIA, UNSPECIFIED SNOMED Code(s): 525286659 Comment: - 2/2 tumor - Pain control and bedrest - Add IS while on bedrest, pre and postop (5) DVT prophylaxis Code(s): PQP3500 - SNOMED Code(s): 716505395 Comment: - SQ Heparin - Hold prior to surgery (6) HTN (hypertension) Code(s): I10 - ESSENTIAL (PRIMARY) HYPERTENSION SNOMED Code(s): 58290136 Comment: - Monitor BP and HR - currently hypotensive - Currently holding atenolol - Start IV NS at 75/hr (7) Hypothyroidism Code(s): E03.9 - HYPOTHYROIDISM, UNSPECIFIED SNOMED Code(s): 75058606 Comment: - Continue home synthroid. (8) Prostate cancer Code(s): C61 - MALIGNANT NEOPLASM OF PROSTATE SNOMED Code(s): 288778573 Comment: - On Lupron as an outpatient - Will determine if this is primary site after spine tumor is resected - Brain MRI pending today as per oncology (9) Anorexia Code(s): R63.0 - ANOREXIA SNOMED Code(s): 16235543 Comment: - Ensure enlive supplements - Nutritional support - Add IVF, as patient appears dry today - Monitor lytes Status and Disposition: Remain inpatient for resection of tumor/spinal mass and treatment of UTI. Pending surgery on Monday. Remains medically optimized for surgery. continue to monitor closely.
[2017-04-28] MEDS: Dexamethasone IV* 4 MG/ML 1 ML (4 MG) IV SLOW PU SCH ×2 (11:45)
[2017-04-28] MEDS: NS 0.9% 1000 ML* 1,000 ML IV SCH (11:45)
[2017-04-28 12:39] LABS: ABS Basophils 0.1 10^3/ul (0-0.2); ABS Eosinophils 0 10^3/ul (0-0.6); ABS Lymphocytes 0.7 10^3/ul (1.0-4.8); ABS Monocytes 0.6 10^3/ul (0-0.8); ABS Neutrophils 23.8 10^3/ul (1.5-7.7); ABS Nucleated RBC 0.01 10^3/ul; Eosinophil % 0 % (0-6); Hematocrit 34 % (42-52); Lymphocyte % 2.7 % (25-47); Mean Corpuscular HGB Conc 33 g/dl (31-36); Mean Corpuscular Hemoglobin 29 pg (27-31); Mean Corpuscular Volume 90 fL (80-94); Mean Platelet Volume 9 um3 (7.4-10.4); Nucleated Red Blood Cells % 0; Platelet Count 224 10^3/ul (150-450); Red Blood Count 3.75 10^6/ul (4.0-5.4); Red Cell Distribution Width 20 % (10.5-15); White Blood Count 25.2 10^3/ul (3.5-10.8)
[2017-04-28 12:53] LABS: EGFR Non-African American 103.1 (>60)
--- NOTE | 2017-04-28 13:58 | PN ---
Progress Note - Progress Note Date of Service: 04/28/17 SOAP: Subjective: []No events ON. Objective: []VSS, Afebrile. Exam stable. []AAOx3 ONIEL, face symmetric. KHOA, 4-5/5 UEs, 3-4-/5 LEs Sensory grossly intact to light touch. Assessment: []81 yo m hx of prostate Ca, Afib, HTN, with back pain, LE weakness and MRI findings cw T12-L1 lesion with epidural compression. Plan: [] Monitor VS, Neurochecks OR on Monday. Appreciate IM, oncology input. Girma Lizarraga MD
[2017-04-28] MEDS ORDERED: Gadoteridol* (CONTRAST) 279.3 MG/ML 10 ML IV ONE (15:27)
--- NOTE | 2017-04-28 16:30 | RAD ---
HISTORY: Metastatic lung cancer, spinal metastases COMPARISONS: None TECHNIQUE: The following sequences were obtained of the head: Sagittal T1-weighted images, axial T2-weighted images, axial FLAIR images, axial susceptibility weighted images, axial T1-weighted images. Additionally, axial diffusion-weighted images were obtained with calculated apparent diffusion coefficients. Additionally, sagittal, coronal, and axial T1-weighted images were obtained after contrast enhancement with a gadolinium-based intravenous contrast agent. FINDINGS: HEMORRHAGE/INFARCT: There is no hemorrhage or acute infarct. MASSES/SHIFT: There is no mass or shift. EXTRA-AXIAL SPACES/MENINGES: There are no extra-axial fluid collections. SULCI AND VENTRICLES: The sulci and ventricles are normal in size and position for the patient's stated age. CEREBRUM: There are multiple scattered small foci of elevated T2/FLAIR signal within the periventricular and subcortical white matter. There is no associated abnormal enhancement. BRAINSTEM: There are no focal parenchymal abnormalities. CEREBELLUM: There are no focal parenchymal abnormalities. The cerebellar tonsils are normal in size and position. SELLA: The sella is normal. PINEAL: The pineal region is clear. CP ANGLE/TEMPORAL BONES: The labyrinthine structures are grossly normal. VESSELS: Normal flow-voids are noted within the visualized vertebral vasculature. DIFFUSION ABNORMALITIES: There are no diffusion abnormalities. PARANASAL SINUSES/MASTOIDS: The paranasal sinuses are clear. There is left mastoid effusion. There is fluid within the left middle ear cavity. ORBITS: The orbits are unremarkable. BONES AND SOFT TISSUE: No bone or soft tissue abnormalities are noted. OTHER: There is no abnormal enhancement. IMPRESSION: 1. THERE ARE MULTIPLE FOCI OF ELEVATED T2/FLAIR SIGNAL WITHIN THE PERIVENTRICULAR AND SUBCORTICAL WHITE MATTER. WHILE THESE FINDINGS ARE NONSPECIFIC, THEY CAN BE SEEN IN ASSOCIATION WITH MIGRAINE HEADACHE, THE SEQUELA OF PREVIOUS INFECTION OR INFLAMMATION, AND CHRONIC SMALL VESSEL ISCHEMIA. DEMYELINATING DISEASE IS ALSO WITHIN THE DIFFERENTIAL, BUT IS CONSIDERED LESS LIKELY IN THE ABSENCE OF THE APPROPRIATE CLINICAL PRESENTATION. 2. NO ABNORMAL ENHANCEMENT, VASOGENIC EDEMA, OR SPACE-OCCUPYING LESION TO SUGGEST METASTATIC DISEASE TO THE BRAIN. 3. LEFT OTITIS/MASTOIDITIS
[2017-04-28] MEDS: cefTRIAXone(*) 1 GM in D5W 50 ML BAG* 50 ML IVPB SCH (17:31)
[2017-04-29] MEDS: Dexamethasone IV* 4 MG/ML 1 ML (4 MG) IV SLOW PU SCH ×3 (00:13→23:55)
[2017-04-29] MEDS: NS 0.9% 1000 ML* 1,000 ML IV SCH ×2 (03:52→17:10)
[2017-04-29] MEDS: Heparin VIAL(*) 5000 UNITS/ML VIAL (FIVE THOUSAND) SUBCUT SCH ×3 (06:24→21:04)
[2017-04-29] MEDS: Levothyroxine TAB* 125 MCG TAB PO SCH (06:24)
[2017-04-29] MEDS: Polyethylene Glycol 3350* 17 GM PACKET PO SCH (08:50)
[2017-04-29] MEDS: Docusate CAP* 100 MG PO SCH ×2 (08:50→21:04)
[2017-04-29] MEDS: HYDROcodone/ACETAMIN 5-325 MG* 1 TAB PO PRN ×2 (08:50→17:12)
[2017-04-29] MEDS: Senna TAB PO SCH ×2 (08:50→21:04)
--- NOTE | 2017-04-29 11:28 | PN ---
Subjective Date of Service: 04/29/17 Interval History: Patient seen and examined. Family at bedside. No acute overnight events. Patient denies chest pain, no SOB, no n/v, no urinary complaints. Back pain controlled, no leg or calf pain. Remains on bedrest. Discussed brain MRI results with patient and family, no new pathology/lesions noted on report. Family History: Unchanged from Admission Social History: Unchanged from Admission Past Medical History: Unchanged from Admission Objective Active Medications: Hydrocodone Bitart/Acetaminophen ([place] 5-325 Tab*) 1 tab PO Q6H PRN PRN Reason: PAIN Last Admin: 04/29/17 08:50 Dose: 1 tab Dexamethasone Sodium Phosphate (Decadron Iv*) 8 mg IV SLOW PU Q12H [facility] Last Admin: 04/29/17 00:13 Dose: 8 mg Docusate Sodium (Colace Cap*) 100 mg PO BID [facility] Last Admin: 04/29/17 08:50 Dose: 100 mg Heparin Sodium (Porcine) (Heparin Vial(*)) 5,000 units SUBCUT Q8HR [facility] Last Admin: 04/29/17 06:24 Dose: 5,000 units Ceftriaxone Sodium 1 gm/ (Dextrose) 50 mls @ 200 mls/hr IVPB Q24H [facility] Last Admin: 04/28/17 17:31 Dose: 200 mls/hr Sodium Chloride (Ns 0.9% 1000 Ml*) 1,000 mls @ 75 mls/hr IV PER RATE [facility] Last Admin: 04/29/17 03:52 Dose: 75 mls/hr Levothyroxine Sodium (Synthroid Tab*) 125 mcg PO DAILY@0600 [facility] Last Admin: 04/29/17 06:24 Dose: 125 mcg Polyethylene Glycol/Electrolytes (Miralax*) 17 gm PO DAILY [facility] Last Admin: 04/29/17 08:50 Dose: 17 gm Senna (Senokot Tab*) 1 tab PO BID [facility] Last Admin: 04/29/17 08:50 Dose: 1 tab Vital Signs - 8 hr 04/29/17 04/29/17 04/29/17 03:59 07:35 08:00 Temperature 97.4 F 97.4 F Pulse Rate 81 69 Respiratory 16 20 16 Rate Blood Pressure 117/52 116/53 (mmHg) O2 Sat by Pulse 93 98 93 Oximetry 04/29/17 04/29/17 08:50 10:25 Temperature Pulse Rate Respiratory 16 14 Rate Blood Pressure (mmHg) O2 Sat by Pulse Oximetry Oxygen Devices in Use Now: None Appearance: Alert, thin, quiet, NAD Ears/Nose/Mouth/Throat: NL Teeth, Lips, Gums, Mucous Membranes Moist Neck: NL Appearance and Movements; NL JVP, Trachea Midline Respiratory: Symmetrical Chest Expansion and Respiratory Effort, Clear to Auscultation Cardiovascular: NL Sounds; No Murmurs; No JVD, RRR - Irregular Abdominal: NL Sounds; No Tenderness; No Distention Extremities: No Edema, No Clubbing, Cyanosis Skin: No Rash or Ulcers Neurological: Alert and Oriented x 3, NL Sensation, - - slightly weaker RLE upon exam but primarily at baseline from yesterday Result Diagrams: 04/28/17 12:21 04/28/17 12:21 Additional Lab and Data: Lab Results Assess/Plan/Problems-Billing This is an 81 year old male with hx of tobacco abuse, prostate CA, atrial fibrillation, and a recent 30lb weight loss, with anorexia and recent dx of spinal mass who presented to the ER for evaluation of cord compression/spine mass. - Patient Problems (1) DNR (do not resuscitate) (2) Mass of spine Code(s): M89.9 - DISORDER OF BONE, UNSPECIFIED SNOMED Code(s): 628444770 Comment: - Oncology and neurosurgury following - No acute changes in neurologic status from yesterday - Plan for resection of tumor and decompression on Monday - Continue bedrest, pain control and decadron - RCRI score is 0 giving him a 0.4% risk of cardiac event during surgery. Echocardiogram 2 weeks ago which showed a normal EF and moderate aortic stenosis. - Patient is medically optimized for surgery after 48H of treatment UTI. (3) Atrial fibrillation Code(s): I48.91 - UNSPECIFIED ATRIAL FIBRILLATION SNOMED Code(s): 41898270 Comment: - Rate controlled off medications - Would recommend tele for 48 hours post-op - Stable (4) Back pain Code(s): M54.9 - DORSALGIA, UNSPECIFIED SNOMED Code(s): 899972048 Comment: - 2/2 spine tumor - Pain control and bedrest - Add IS while on bedrest, pre and postop (5) DVT prophylaxis Code(s): [id number] - SNOMED Code(s): 053017377 Comment: - SQ Heparin - Hold prior to surgery (6) HTN (hypertension) Code(s): I10 - ESSENTIAL (PRIMARY) HYPERTENSION SNOMED Code(s): 27989075 Comment: - Monitor BP and HR - currently hypotensive - Currently holding atenolol - Continue IV NS at 75/hr (7) Hypothyroidism Code(s): E03.9 - HYPOTHYROIDISM, UNSPECIFIED SNOMED Code(s): 27930015 Comment: - Continue home synthroid. (8) Prostate cancer Code(s): C61 - MALIGNANT NEOPLASM OF PROSTATE SNOMED Code(s): 480991096 Comment: - On Lupron as an outpatient - Will determine if this is primary site after spine tumor is resected - MRI brain with no new lesions, some age related changes; patient and family aware (9) Anorexia Code(s): R63.0 - ANOREXIA SNOMED Code(s): 95248283 Comment: - AFTT, 2/2 metastatic disease - Ensure enlive supplements TID - Nutritional support, goals discussed with patient and family - Continue IVF at maintenance - Monitor lytes - RD to re-eval on 04/30 - Daily weights (10) Leukocytosis Code(s): D72.829 - ELEVATED WHITE BLOOD CELL COUNT, UNSPECIFIED SNOMED Code(s) : 222312317 Comment: - Reactive, 2/2 IV decadron - Monitor WBC's - Monitor temps, currently afebrile Status and Disposition: Remain inpatient for resection of tumor/spinal mass on 05/01/17 and continued treatment of UTI. NPO after midnight Monday. Remains medically optimized for surgery. Counseling and/or Coordination of Care Minutes: Coordinated with patient, family , RN and staff. Time spent >60 minutes
[2017-04-29] MEDS: cefTRIAXone(*) 1 GM in D5W 50 ML BAG* 50 ML IVPB SCH (17:09)
--- NOTE | 2017-04-29 18:58 | PN ---
Progress Note - Progress Note Date of Service: 04/29/17 SOAP: Subjective: []No events ON. Objective: []VSS, Afebrile. Exam stable. AAOx3 ONIEL, face symmetric. KHOA, 4-5/5 UEs, 3-4-/5 LEs Sensory grossly intact to light touch. Assessment: []81 yo m hx of prostate Ca, Afib, HTN, with back pain, LE weakness and MRI findings cw T12-L1 lesion with epidural compression. Plan: []Monitor VS, Neurochecks OR on Monday. Consider anesthesia consult for preop evaluation. Consider nutrition consult. CT revealed Gaurang pleural effusions. MRI brain negative for metastasis per radiology report. Appreciate IM, oncology input. Girma Lizarraga MD
[2017-04-30] MEDS: NS 0.9% 1000 ML* 1,000 ML IV SCH ×2 (06:30→19:55)
[2017-04-30] MEDS: Heparin VIAL(*) 5000 UNITS/ML VIAL (FIVE THOUSAND) SUBCUT SCH ×3 (06:31→19:59)
[2017-04-30] MEDS: Levothyroxine TAB* 125 MCG TAB PO SCH (06:31)
[2017-04-30] MEDS: HYDROcodone/ACETAMIN 5-325 MG* 1 TAB PO PRN ×3 (08:38→22:16)
[2017-04-30] MEDS: Docusate CAP* 100 MG PO SCH ×2 (08:38→19:57)
[2017-04-30] MEDS: Senna TAB PO SCH ×2 (08:38→19:57)
[2017-04-30] MEDS: Polyethylene Glycol 3350* 17 GM PACKET PO SCH (08:38)
[2017-04-30] MEDS: Dexamethasone IV* 4 MG/ML 1 ML (4 MG) IV SLOW PU SCH ×2 (10:39→22:15)
[2017-04-30] MEDS ORDERED: Buffered Lidocaine 0.9% SYRIN* 5 ML/SYR SYRINGE INTRADERM ONE (12:10)
--- NOTE | 2017-04-30 13:15 | PN ---
Progress Note - Progress Note Date of Service: 04/30/17 SOAP: Subjective: []No events ON. Voids. Family at bedside. Objective: [] VSS, Afebrile. Exam stable. AAOx3 ONIEL, face symmetric. KHOA, 4-5/5 UEs, 3-4-/5 LEs Sensory grossly intact to light touch. Rectal tone diminished. Perineal sensation present. Assessment: []81 yo m hx of prostate Ca, Afib, HTN, with back pain, LE weakness and MRI findings cw T12-L1 lesion with epidural compression. Plan: [] Monitor VS, Neurochecks OR tomorrow. NPO after midnight with IVF. Hold anticoagualtion. Anesthesia consult for preop evaluation. Consider nutrition consult. Type and cross. Gaurang pleural effusions. May require drains or chest tubes. Appreciate IM, oncology input. Discussed in extend with patient and his family including daughter, son in law and sons regarding patient's condition and operative plan. Expectations, limitations and possible complications have been explained in details with complications including but not limited to bleeding, infection, risk of injury to adjacent structures, coma, paralysis, , need for additional procedures, anesthesia risks, need for chest tube placement, stroke , blindness, cancer, instability, pseudoarthrosis, adjacent level disease, hardware misplacement and failure, spinal fluid leak, inability to remove the tumor, loss of lower extremities function, loss of bladder or bowel control, prolonged ICU stay, need for prolonged rehabilitation,tumor reccurence, need for anterior stabilization, development of postoperative hematoma, infection, wound healing problems. They understand and wish to proceed with surgery. Informed consent was obtained. They understand that patient's condition may not improve, and in fact may get worse after surgery and that he may need additional procedures in the future. The understand that operative plan may be modified according to intraoperative findings and conditions and the he may require use of off label products or techniques, and that procedure may be aborted and/or staged. Patient and family understand all these issues and are agreeable to proceed with plan. Girma Lizarraga MD
[2017-04-30] MEDS: cefTRIAXone* 1 GM in NS 0.9% 50 ML BAG IVPB SCH (17:59)
--- NOTE | 2017-04-30 18:32 | PN ---
Subjective Date of Service: 04/30/17 Interval History: Patient seen and examined. No acute changes overnight. Pending surgery in AM. No complaints. Pain well controlled. No chest pain, no SOB. No additional weakness. Family History: Unchanged from Admission Social History: Unchanged from Admission Past Medical History: Unchanged from Admission Objective Active Medications: Hydrocodone Bitart/Acetaminophen ([place] 5-325 Tab*) 1 tab PO Q6H PRN PRN Reason: PAIN Last Admin: 04/30/17 13:40 Dose: 1 tab Dexamethasone Sodium Phosphate (Decadron Iv*) 8 mg IV SLOW PU Q12H [facility] Last Admin: 04/30/17 10:39 Dose: 8 mg Docusate Sodium (Colace Cap*) 100 mg PO BID [facility] [place] Last Admin: 04/30/17 08:38 Dose: 100 mg Famotidine (Pepcid Iv*) 20 mg IV ONCE ONE Stop: 05/01/17 06:01 Heparin Sodium (Porcine) (Heparin Vial(*)) 5,000 units SUBCUT Q8HR [facility] [place] Stop: 05/01/17 00:00 Last Admin: 04/30/17 13:41 Dose: 5,000 units Sodium Chloride (Ns 0.9% 1000 Ml*) 1,000 mls @ 75 mls/hr IV PER RATE [facility] [place] Last Admin: 04/30/17 06:30 Dose: 75 mls/hr Lactated Ringer's (Lactated Ringers 1000 Ml Bag*) 1,000 mls @ 60 mls/hr IV PER RATE [facility] [place] Ceftriaxone Sodium 1 gm/ (Sodium Chloride) 50 mls @ 200 mls/hr IVPB Q24H [facility] [place] Last Admin: 04/30/17 17:59 Dose: 200 mls/hr Levothyroxine Sodium (Synthroid Tab*) 125 mcg PO DAILY@0600 [facility] [place] Last Admin: 04/30/17 06:31 Dose: 125 mcg Metoclopramide HCl (Reglan Tab*) 10 mg PO ONCE ONE Stop: 05/01/17 06:01 Polyethylene Glycol/Electrolytes (Miralax*) 17 gm PO DAILY [facility] [place] Last Admin: 04/30/17 08:38 Dose: 17 gm Senna (Senokot Tab*) 1 tab PO BID [facility] [place] Last Admin: 04/30/17 08:38 Dose: 1 tab Vital Signs - 8 hr 04/30/17 04/30/17 04/30/17 10:39 13:40 15:59 Temperature 98.8 F Pulse Rate 86 Respiratory 18 16 16 Rate Blood Pressure 139/57 (mmHg) O2 Sat by Pulse 91 Oximetry 04/30/17 16:54 Temperature Pulse Rate Respiratory 14 Rate Blood Pressure (mmHg) O2 Sat by Pulse Oximetry Oxygen Devices in Use Now: None Appearance: Well appearing, NAD Eyes: No Scleral Icterus, PERRLA Ears/Nose/Mouth/Throat: NL Teeth, Lips, Gums, Mucous Membranes Moist Neck: NL Appearance and Movements; NL JVP Respiratory: Clear to Auscultation Cardiovascular: NL Sounds; No Murmurs; No JVD, RRR Abdominal: No Hepatosplenomegaly Extremities: No Edema, No Clubbing, Cyanosis Skin: No Rash or Ulcers Neurological: Alert and Oriented x 3, NL Sensation, - - general weakness LE bilaterally Nutrition: - - NPO for surgery in AM Result Diagrams: 04/28/17 12:21 04/28/17 12:21 Additional Lab and Data: Lab Results Assess/Plan/Problems-Billing This is an 81 year old male with hx of tobacco abuse, prostate CA, atrial fibrillation, and a recent 30lb weight loss, with anorexia that will go to OR in the AM with Dr. Lizarraga for spinal tumor resection and decompression and subsequent pathology. - Patient Problems (1) DNR (do not resuscitate) (2) Mass of spine Code(s): M89.9 - DISORDER OF BONE, UNSPECIFIED SNOMED Code(s): 014338976 Comment: - Oncology and neurosurgury following - Stable neurologically - Plan for resection of tumor and decompression in AM - Continue bedrest, pain control and decadron IVP - Remains medically optimized for procedure tomorrow (3) Atrial fibrillation Code(s): I48.91 - UNSPECIFIED ATRIAL FIBRILLATION SNOMED Code(s): 19687357 Comment: - Rate controlled off medications - Would recommend tele for 48 hours post-op - Stable (4) Back pain Code(s): M54.9 - DORSALGIA, UNSPECIFIED SNOMED Code(s): 449460952 Comment: - 2/2 spine tumor - Pain control and bedrest - Add IS while on bedrest, pre and postop (5) DVT prophylaxis Code(s): WSI3606 - SNOMED Code(s): 672697326 Comment: - SQ Heparin - Hold prior to surgery (6) HTN (hypertension) Code(s): I10 - ESSENTIAL (PRIMARY) HYPERTENSION SNOMED Code(s): 25516170 Comment: - Monitor BP and HR, hypotension resolved - Continue IVF - May restart atenolol after surgery (7) Hypothyroidism Code(s): E03.9 - HYPOTHYROIDISM, UNSPECIFIED SNOMED Code(s): 59859831 Comment: - Continue home synthroid. (8) Prostate cancer Code(s): C61 - MALIGNANT NEOPLASM OF PROSTATE SNOMED Code(s): 231527365 Comment: - On Lupron as an outpatient - Will determine if this is primary site after spine tumor is resected - MRI brain with no new lesions, some age related changes; patient and family aware (9) Anorexia Code(s): R63.0 - ANOREXIA SNOMED Code(s): 29392387 Comment: - AFTT, 2/2 metastatic disease - Ensure enlive supplements TID - Nutritional support, goals discussed with patient and family - Continue IVF at maintenance - Monitor lytes - RD to re-eval on 04/30 - Daily weights (10) Leukocytosis Code(s): D72.829 - ELEVATED WHITE BLOOD CELL COUNT, UNSPECIFIED SNOMED Code(s) : 127412619 Comment: - Reactive, 2/2 IV decadron - Monitor WBC's - Monitor temps, currently afebrile Status and Disposition: Remain inpatient for resection of tumor/spinal mass on 05/01/17 and continued treatment of UTI. NPO after midnight tonight. Remains medically optimized for surgery.
[2017-05-01 04:50] LABS: ABS Basophils 0.1 10^3/ul (0-0.2); ABS Eosinophils 0 10^3/ul (0-0.6); ABS Lymphocytes 0.5 10^3/ul (1.0-4.8); ABS Monocytes 0.5 10^3/ul (0-0.8); ABS Neutrophils 28.3 10^3/ul (1.5-7.7); ABS Nucleated RBC 0 10^3/ul; Eosinophil % 0 % (0-6); Hematocrit 36 % (42-52); Hemoglobin 11.9 g/dl (14.0-18.0); Lymphocyte % 1.7 % (25-47); Mean Corpuscular HGB Conc 33 g/dl (31-36); Mean Corpuscular Hemoglobin 30 pg (27-31); Mean Corpuscular Volume 90 fL (80-94); Mean Platelet Volume 8 um3 (7.4-10.4); Nucleated Red Blood Cells % 0; Platelet Count 235 10^3/ul (150-450); Red Cell Distribution Width 19 % (10.5-15); White Blood Count 29.4 10^3/ul (3.5-10.8)
[2017-05-01] MEDS: Levothyroxine TAB* 125 MCG TAB PO SCH (05:32)
[2017-05-01] MEDS ORDERED: Famotidine IV* 10 MG/ML 2 ML (20 mg) IV ONE (06:00)
[2017-05-01] MEDS ORDERED: Metoclopramide TAB* 10 MG PO ONE (06:00)
[2017-05-01] MEDS ORDERED: Rocuronium* 10 MG/ML VIAL ONE ×2 (06:52→10:43)
[2017-05-01] MEDS ORDERED: Artificial Tear OPHTH.OINT* 3.5 GM ONE (06:52)
[2017-05-01] MEDS ORDERED: Propofol* 10 MG/ML 20 ML BTL IV PUSH ONE (07:00)
[2017-05-01] MEDS ORDERED: Phenylephrine INJ* 10 MG/ML 1 ML VIAL (10 MG) ONE ×2 (07:00→12:20)
[2017-05-01] MEDS ORDERED: Lidocaine 2% PF * 5 ML VIAL ONE ×2 (07:00→07:04)
[2017-05-01] MEDS ORDERED: Ondansetron INJ* 2 MG/ML VIAL ONE (07:00)
[2017-05-01] MEDS ORDERED: fentaNYL* 50 MCG/ML 5 ML VIAL (250 MCG VIAL) ONE (07:00)
[2017-05-01] MEDS ORDERED: EPHEDrine (Pressors)* 50 MG/ML VIAL ONE (07:00)
[2017-05-01] MEDS ORDERED: Dexamethasone IV* 4 MG/ML 1 ML (4 MG) ONE ×2 (07:00→14:10)
[2017-05-01] MEDS ORDERED: KETAMINE HCL* 50 MG/ML 10 ML VIAL ONE (07:01)
[2017-05-01] MEDS ORDERED: Midazolam* 1 MG/ML 10 ML VIAL (10 MG) ONE (07:01)
[2017-05-01] MEDS ORDERED: Thrombin 5,000 UNITS* 1 APPLIC KIT - topical use - TOPICAL ONE (07:30)
[2017-05-01] MEDS ORDERED: Bacitracin IV* 50,000 UNITS INJ ONE (07:30)
[2017-05-01] MEDS ORDERED: Lidocaine 1% MPF wEPI 200,000* 30 ML SDV ONE (07:30)
[2017-05-01] MEDS ORDERED: ceFAZolin 2 GM PREMIX (*) 2 GM/50 ML BAG IVPB ONE ×2 (07:41→10:30)
[2017-05-01] MEDS ORDERED: fentaNYL* 50 MCG/ML 2 ML VIAL (100 MCG VIAL) ONE ×4 (10:19→16:02)
[2017-05-01] MEDS ORDERED: Levalbuterol 0.63MG/3ML NEB* UNIT OF USE INH PRN (10:50)
[2017-05-01] MEDS ORDERED: Ondansetron INJ* 2 MG/ML VIAL IV PRN (10:50)
[2017-05-01] MEDS ORDERED: fentaNYL* 50 MCG/ML 2 ML VIAL (100 MCG VIAL) IV PRN (10:50)
[2017-05-01] MEDS ORDERED: Metoprolol Tartrate IV* 1 MG/ML 5 ML VIAL ONE (13:04)
[2017-05-01 13:08] LABS: Hematocrit 31 % (42-52); Hemoglobin 10.3 g/dl (14.0-18.0)
--- NOTE | 2017-05-01 13:16 | RAD ---
HISTORY: Spinal mass COMPARISONS: April 26, 2017 VIEWS: 1 , Limited portable view of the lumbar spine performed intraoperatively during spinal surgery FINDINGS: Single portable lateral crosstable view of the lumbar spine performed at 10:32 AM demonstrates a metallic clamp opposite of the L3 pedicle, counting from L5 as the last lumbar type vertebral body. IMPRESSION: LIMITED INTRAOPERATIVE VIEW OF THE SPINE FOR LOCALIZATION DURING SPINE SURGERY.
--- NOTE | 2017-05-01 14:01 | RAD ---
INDICATION: Sepsis, spinal mass COMPARISONS: CT dated April 16, 2017 TECHNIQUE: Fluoroscopy was provided for a surgical procedure. Total fluoroscopy time is: 5.53 seconds FINDINGS: Spot images demonstrate pedicle screws along the mid lumbar spine. Cone beam fluoroscopic images demonstrate the pedicle screws within the cortices of the pedicles, with erosive changes to the posterior elements of the lower thoracic and lumbar spine corresponding to the mass noted on previous imaging. IMPRESSION: FLUOROSCOPY WAS PROVIDED FOR A SURGICAL PROCEDURE CPT II Codes: 6045F
[2017-05-01] MEDS ORDERED: HYDROmorphone INJ* 1 MG/ML CARPUJECT SYRINGE ONE (14:37)
[2017-05-01 16:28] LABS: Hematocrit 29 % (42-52); Hemoglobin 9.6 g/dl (14.0-18.0)
--- NOTE | 2017-05-01 16:30 | RAD ---
INDICATION: Pleural effusion COMPARISON: Chest x-ray April 25, 2017 TECHNIQUE: An AP portable view obtained at 1612 hours is submitted. FINDINGS: Bones/Soft Tissues: There are no acute bony findings. Cardiomediastinal: The chronic silhouette is mildly prominent. Lungs: Is hyperinflation with mild chronic interstitial change. Pleura: There is blunting the costophrenic angles bilaterally consistent with pleural effusions. This has increased slightly on the left. Other: There are diaphragmatic calcifications which can be seen with occupational exposure IMPRESSION: HYPERINFLATION WITH CHRONIC INTERSTITIAL CHANGE. LEFT-SIDED PLEURAL EFFUSION APPEARS SLIGHTLY LARGER
[2017-05-01] MEDS ORDERED: Albuterol/Ipratropium NEB.SOL* Albuterol 2.5 MG/Ipratropium 0.5 MG 3 ML INH PRN (17:22)
--- NOTE | 2017-05-01 18:30 | PN ---
Subjective Date of Service: 05/01/17 Interval History: Patient seen and examined. Underwent procedure for tumor resection and spinal decompression with Dr. Lizarraga today. No intraoperative complications per surgical team and ICU staff. A-line placed in ICU for post-op hypotension. SBP in the 70's, now in the 90's. Receiving albumin, 7th liter of LR and 2 units PRBCs at present. Patient sleepy/groggy but arousable. Appears to be in some pain, but appropriate. Family History: Unchanged from Admission Social History: Unchanged from Admission Past Medical History: Unchanged from Admission Objective Active Medications: Hydrocodone Bitart/Acetaminophen ([place] 5-325 Tab*) 1 tab PO Q4H PRN PRN Reason: moderate pain Albuterol/Ipratropium (Duoneb (Albuterol 2.5 Mg/Ipratropium 0.5 Mg)) 1 neb INH Q6H PRN PRN Reason: DYSPNEA Dexamethasone Sodium Phosphate (Decadron Iv*) 4 mg IV SLOW PU Q8HR [facility] Stop: 05/02/17 21:59 Docusate Sodium (Colace Cap*) 100 mg PO BID [facility] Last Admin: 04/30/17 19:57 Dose: 100 mg Lactated Ringer's (Lactated Ringers 1000 Ml Bag*) 1,000 mls @ 60 mls/hr IV PER RATE [facility] Last Admin: 05/01/17 17:55 Dose: 60 mls/hr Cefazolin Sodium 1 gm/ Sodium (Chloride) 50 mls @ 200 mls/hr IVPB Q8H [facility] Stop: 05/02/17 03:14 Levalbuterol HCl (Xopenex 0.63mg/3ml Neb*) 0.63 mg INH ONCE PRN PRN Reason: SOB/WHEEZING Levothyroxine Sodium (Synthroid Tab*) 125 mcg PO DAILY@0600 [facility] Last Admin: 05/01/17 05:32 Dose: 125 mcg Morphine Sulfate (Morphine Inj (Syringe)*) 2 mg IV Q2H PRN PRN Reason: PAIN Ondansetron HCl (Zofran Inj*) 4 mg IV Q6H PRN PRN Reason: NAUSEA Polyethylene Glycol/Electrolytes (Miralax*) 17 gm PO DAILY [facility] Last Admin: 04/30/17 08:38 Dose: 17 gm Senna (Senokot Tab*) 1 tab PO BID [facility] Last Admin: 04/30/17 19:57 Dose: 1 tab Vital Signs - 8 hr 05/01/17 05/01/17 05/01/17 15:55 16:00 16:05 Temperature 97.3 F Pulse Rate 142 125 138 Respiratory 18 22 18 Rate Blood Pressure 91/78 101/80 105/82 (mmHg) O2 Sat by Pulse 93 94 93 Oximetry 05/01/17 05/01/17 05/01/17 16:10 16:15 16:35 Temperature 97.2 F Pulse Rate 132 117 122 Respiratory 18 18 18 Rate Blood Pressure 93/81 94/68 98/75 (mmHg) O2 Sat by Pulse 93 92 93 Oximetry 05/01/17 05/01/17 05/01/17 16:45 17:00 17:50 Temperature 97.1 F Pulse Rate 123 121 125 Respiratory 18 20 22 Rate Blood Pressure 102/73 102/74 80/58 (mmHg) O2 Sat by Pulse 91 91 90 Oximetry Oxygen Devices in Use Now: OxyMask Appearance: Drowsy, arousable with verbal and tactile stimulation Ears/Nose/Mouth/Throat: NL Teeth, Lips, Gums, - - dry oral mucosa Neck: NL Appearance and Movements; NL JVP, Trachea Midline, - - A-line, right neck Respiratory: Symmetrical Chest Expansion and Respiratory Effort, - - diminished breathsounds, no rhonchi, no wheeze Cardiovascular: NL Sounds; No Murmurs; No JVD - atrail fib low 100's on tele Abdominal: NL Sounds; No Tenderness; No Distention Extremities: No Edema, No Clubbing, Cyanosis Skin: No Rash or Ulcers, - - two JEFERSON drains Neurological: - - gross motor and sensation intact LE Lines/Tubes/Other Access: Clean, Dry and Intact Disla, Clean, Dry and Intact Arterial Line Nutrition: - - NPO Result Diagrams: 05/01/17 16:15 04/28/17 12:21 Additional Lab and Data: Lab Results Assess/Plan/Problems-Billing This is an 81 year old male with hx of tobacco abuse, prostate CA, atrial fibrillation, and a recent 30lb weight loss, with anorexia that is POD0 of T12- L1 tumor resection and spinal decompression, in the ICU for post-op hypotension and anemia. - Patient Problems (1) DNR (do not resuscitate) Comment: - Remains DNR with active care (2) Mass of spine Code(s): M89.9 - DISORDER OF BONE, UNSPECIFIED SNOMED Code(s): 781212340 Comment: - POD0, remain in ICU for close monitoring - Albumin and PRBCs infusing - DC rocephin - Ancef 1gram x2 doses - Keep NPO for now - Neurologic function at baseline - Taper decadron - Follow pathology (3) Atrial fibrillation Code(s): I48.91 - UNSPECIFIED ATRIAL FIBRILLATION SNOMED Code(s): 43755508 Comment: - Rate increased post op likely 2/2 hypotension and volume depletion - May need rate control - Monitor closely, in low 100's now (4) Back pain Code(s): M54.9 - DORSALGIA, UNSPECIFIED SNOMED Code(s): 272140551 Comment: - IV morphine added to pain regimen for post op control (5) DVT prophylaxis Code(s): AER2249 - SNOMED Code(s): 371148921 Comment: - SCDs (6) HTN (hypertension) Code(s): I10 - ESSENTIAL (PRIMARY) HYPERTENSION SNOMED Code(s): 99157590 Comment: - Hypotensive - Currently controlled without pressors - Continue to monitor closely (7) Hypothyroidism Code(s): E03.9 - HYPOTHYROIDISM, UNSPECIFIED SNOMED Code(s): 11596787 Comment: - Continue home synthroid. (8) Prostate cancer Code(s): C61 - MALIGNANT NEOPLASM OF PROSTATE SNOMED Code(s): 309611847 Comment: - On Lupron as an outpatient - Will determine if this is primary site after spine tumor is resected - MRI brain with no new lesions, some age related changes; patient and family aware (9) Anorexia Code(s): R63.0 - ANOREXIA SNOMED Code(s): 56834335 Comment: - AFTT, 2/2 metastatic disease - Ensure enlive supplements TID - Continue nutritional support post-op, check albumin and lytes - Monitor lytes - Daily weights (10) Leukocytosis Code(s): D72.829 - ELEVATED WHITE BLOOD CELL COUNT, UNSPECIFIED SNOMED Code(s) : 583864366 Comment: - Reactive, 2/2 IV decadron - Currently afebrile - Taper decadron now that spine is decompressed (11) Pleural effusion Current Visit: Yes Status: Acute Code(s): J90 - PLEURAL EFFUSION, NOT ELSEWHERE CLASSIFIED SNOMED Code(s): 75572406 Comment: - Bilateral L>R - Pulmonary toilet - O2 to keep sats>90% - Concern if malignant effusions? Status and Disposition: Remain in ICU for critical monitoring. Counseling and/or Coordination of Care Minutes: Coordinated with staff and Dr. Lizarraga.
[2017-05-01] MEDS ORDERED: Albumin Human 5%* 250 GM/250 ML BTL IV ONE (18:49)
--- NOTE | 2017-05-01 19:05 | PN ---
Progress Note - Progress Note Date of Service: 05/01/17 Note: Consultation Note Critical Care Requesting Physician: Dr Lizarraga Reason for consult: post management, hypotension, pleural effusions Limitations in history/physical: none Date of consult: 05/01/2017 HPI: 81y M pmhx of Chronic Afib, HTN, Hypothyroidism, Prostate Ca on hormonal therapy; patient admitted 04/25 for back pain with bowel incontinence and bilateral lower extremity weakness. MRI imaging confirmed epidural mass with extension and spinal canal narrowing. Patient was seen to have elevated wbc on admission, worked up for sepsis with empiric abx and no clear source found. He was started on IV steroids for cord compression. Patient taken to OR today for lumbar mass resection and spinal decompression. Noted to have ~800cc of blood loss during intra-op state. 1JP drain in place. Wound intact. post op in PACU patient was hypotensive. in the OR/PACU recieved a total of 7 liters of NS/LR and 1 unit prbc. in MICU, hypotensive to 80s, MAPs 50s, HR 90s irregular. Given additional 1 liter NS. An emergent central line placed for rescucitation and vascular access. Arterial line already in place. Difficult line due to severe hypovolemia. Central line placed. Given albumin 5% 500cc x1. Ordered 1 unit prbc. BP improved slowly to 90s, then to 110-120s systolic. Making some urine but oliguric. Awake alert, ano distress. on oxygen. some pain noted. ROS: negative except for pertinent positives mentioned above. PMHx: Afib, HTN, Hypothyroidism, Prostate Ca PSHx: none Family History: none signficant as per patient Social History: Alcohol-none, Smoking-acitve smoker, Drug use-none Allergies: Allergies Allergy/AdvReac Type Severity Reaction Status Date / Time Bee Venom Allergy Anaphylatic Verified 04/25/17 11:39 Shock Home Medications: Calcium Carbonate-Vitamin D [Calcium 600 + D 600-400 mg-Unit] 1 tab PO DAILY [History Confirmed 04/25/17] Denosumab(NF) [Prolia(NF)] 60 mg SC .[id number] 04/12/17 [History Confirmed ] Leuprolide 11.25 MG KIT [Lupron Depot*] 11.25 mg IM .[id number] 04/12/17 [ History Confirmed 04/25/17] Levothyroxine TAB* [Synthroid 125 MCG TAB*] 125 mcg PO DAILY 04/12/17 [History Confirmed 04/25/17] Aspirin EC Low Dose* [Ecotrin EC Low Dose 81 MG*] 81 mg PO DAILY #30 tab.ec [Rx Confirmed 04/25/17] Atenolol TAB* [Tenormin TAB* 50 MG] 50 mg PO DAILY #30 tab 04/13/17 [Rx Confirmed 04/25/17] HYDROcodone/ACETAMIN 5-325 MG* [[place] 5-325 TAB*] 1 tab PO Q6H PRN #40 tab MDD 4 tabs 04/13/17 [Rx Confirmed 04/25/17] Senna TAB* [Senokot TAB*] 1 tab PO BID PRN #30 tab 04/13/17 [Rx Confirmed ] Alendronate (NF) [Fosamax (NF)] 70 mg PO WEEKLY 04/25/17 [History Confirmed 04/30] Docusate CAP* [Colace Cap*] 100 mg PO BID PRN 04/25/17 [History Confirmed ] Naproxen-Esomeprazole Magnesiu [Vimovo 500-20 mg] 1 tab PO BID 04/25/17 [ History Confirmed 04/25/17] Tele: Afib, rate 90s, irregular Vitals: Vital Signs Temp 97.0 F 05/01/17 19:35 Pulse 125 05/01/17 17:50 Resp 20 05/01/17 21:02 BP 80/58 05/01/17 17:50 Pulse Ox 90 05/01/17 17:50 Intake & Output 05/01/17 05/01/17 05/02/17 06:59 18:59 06:59 Intake Total 1290 6000 Output Total 520 1400 Balance 770 4600 Weight 147 lb 9.6 oz Intake: IV Fluids 990 6000 LR 6000 NS (0.9%) 990 Oral 300 Output: JEFERSON #1 135 JEFERSON #2 65 Urine 520 Amaya 400 Estimated Blood Loss 800 Other: # Bowel Movements 0 Estimated Stool Amount Small O2/Vent: 6L ventimask Infusions: NS 60cc/hour Current Medications: Hydrocodone Bitart/Acetaminophen ([place] 5-325 Tab*) 1 tab PO Q4H PRN PRN Reason: moderate pain Albuterol/Ipratropium (Duoneb (Albuterol 2.5 Mg/Ipratropium 0.5 Mg)) 1 neb INH Q6H PRN PRN Reason: DYSPNEA Dexamethasone Sodium Phosphate (Decadron Iv*) 4 mg IV SLOW PU Q8HR [facility] Stop: 05/02/17 21:59 Last Admin: 05/01/17 21:02 Dose: 4 mg Docusate Sodium (Colace Cap*) 100 mg PO BID [facility] Last Admin: 05/01/17 19:45 Dose: Not Given Heparin Sodium (Porcine) (Heparin Flush Picc/Ml/Cvc(*)) 0 ml FLUSH 0600,1800 [facility] PRN Reason: Protocol Lactated Ringer's (Lactated Ringers 1000 Ml Bag*) 1,000 mls @ 60 mls/hr IV PER RATE [facility] Last Admin: 05/01/17 17:55 Dose: 60 mls/hr Cefazolin Sodium 1 gm/ Sodium (Chloride) 50 mls @ 200 mls/hr IVPB Q8H [facility] Stop: 05/02/17 03:14 Last Admin: 05/01/17 19:56 Dose: 200 mls/hr Levalbuterol HCl (Xopenex 0.63mg/3ml Neb*) 0.63 mg INH ONCE PRN PRN Reason: SOB/WHEEZING Levothyroxine Sodium (Synthroid Tab*) 125 mcg PO DAILY@0600 [facility] Last Admin: 05/01/17 05:32 Dose: 125 mcg Morphine Sulfate (Morphine Inj (Syringe)*) 2 mg IV Q2H PRN PRN Reason: PAIN Last Admin: 05/01/17 21:02 Dose: 2 mg Ondansetron HCl (Zofran Inj*) 4 mg IV Q6H PRN PRN Reason: NAUSEA Last Admin: 05/01/17 21:02 Dose: 4 mg Polyethylene Glycol/Electrolytes (Miralax*) 17 gm PO DAILY [facility] Last Admin: 05/01/17 19:41 Dose: Not Given Senna (Senokot Tab*) 1 tab PO BID [facility] Last Admin: 05/01/17 19:45 Dose: Not Given Physical Exam: General: awake, alert, no distress, no diaphoresis Head: normocephalic, atraumatic HEENT: no pallor, no icterus, dry mucous membranes Neck: soft, supple, no jvd, no stridor CVS: tachycardic, irregular, no murmur Resp: bilateral air entry, no rhales, no wheeze, no rhonchi, no acc muscle use Abdomen: soft, nontender, nondistended, bowel sounds present Ext: pulses+, warm, no edema Back: surgical site along lumbar/thoracic spine intact, JEFERSON drain in place. Skin: intact, no breakdown, no dryness Neuro: awake, alert, orientedx3, moving all extremities Labs: Laboratory Results - last 24 hr 04/28/17 05/01/17 05/01/17 15:00 04:33 04:33 WBC 29.4 H RBC 4.00 Hgb 11.9 L Hct 36 L MCV 90 MCH 30 MCHC 33 RDW 19 H Plt Count 235 MPV 8 Neut % (Auto) 96.4 H Lymph % (Auto) 1.7 L [place] % (Auto) 1.6 Eos % (Auto) 0 Baso % (Auto) 0.3 Absolute Neuts (auto) 28.3 H Absolute Lymphs (auto) 0.5 L Absolute Monos (auto) 0.5 Absolute Eos (auto) 0 Absolute Basos (auto) 0.1 Absolute Nucleated RBC 0 Nucleated RBC % 0 APTT 25.4 L Blood Type A Positive Antibody Screen Negative Crossmatch See Detail 05/01/17 05/01/17 05/01/17 12:55 16:15 16:15 WBC RBC Hgb 10.3 L 9.6 L Hct 31 L 29 L MCV MCH MCHC RDW Plt Count MPV Neut % (Auto) Lymph % (Auto) Alpine % (Auto) Eos % (Auto) Baso % (Auto) Absolute Neuts (auto) Absolute Lymphs (auto) Absolute Monos (auto) Absolute Eos (auto) Absolute Basos (auto) Absolute Nucleated RBC Nucleated RBC % APTT Blood Type A Positive Antibody Screen Negative Crossmatch See Detail Imaging: Reviewed cxr 05/01 - bilateral effusions, left moderate and right small; no other infiltrate. Assessment: 81y M pmhx of Chronic Afib, HTN, Hypothyroidism, Prostate Ca on hormonal therapy; patient admitted 04/25 for back pain with bowel incontinence and bilateral lower extremity weakness. MRI imaging confirmed epidural mass with extension and spinal canal narrowing. Patient was seen to have elevated wbc on admission, worked up for sepsis with empiric abx and no clear source found. He was started on IV steroids for cord compression. Patient taken to OR today for lumbar mass resection and spinal decompression. Post Op Hypotension 2/ 2 to hypovolemia. -Epidural mass with spinal/cord compression; s/p t12-L1 mass resection and decompression -Hypovolemic shock -Atrial fibrillation -Prostate Ca -bilateral pleural effusions Plan: Neuro- stable neurologically; s/p lumbar mass resection. neurochecks as per protocol. cont decadron for cord compression/edema. monitor JEFERSON outputs. CVS- hypovolemia improved with fluids and albumin. for 1 unit PRBC also. repeat cbc and follow for further transfusion requirements. no bleeding noted significantly from JEFERSON drain. No AC at this time for Afib. Afib is appropriate 2/ 2 to hypovolemia, HR 90s. IVF hydration, NS 60cc/hour. Monitor urine outputs. Once hemodyn stable start BB for rate control and AC if no further bleeding. Resp- stable, on ventimask 6L. cont to wean down. cxr in AM. Noted previous effusions but not very significant at this time. no indication for thoracentesis yet. no sig resp distress requiring a tap. monitor for congestion given fluid infusions. ID- afebrile. wbc has been elevated prior and during steroid use. w/u with no infectious etiology. 2/2 to MDS? prostate ca? increased wbc 2/2 to steroids? periop abx coverage given. cont to monitor. surgical site intact. GI- npo for now till hemodyn stable. watch for aspiration post op while on pain meds. GI prophylaxis PPI while on steroids. Renal- Cr normal. Oliguric post op, hypotensive with signs of hypovolemia. IVF NS infusion. Multiple boluses of IVF. albumin 500cc. PRN pressors. PRBC transfusion. amaya in place. cont ivf hydration. Heme- anemia. prbc x1 post op. repeat cbc to follow trend. no active bleeding noted. Endo- fingersticks as needed. continue synthroid po. Musculsk- wound care to thoracic/lumbar spine. watch JEFERSON outputs. bedrest now. pain control prn. antiemetics prn. Wounds- as above. Nutrition- cardiac diet when able to eat. asp prec. DVT prophylaxis: heparin sq GI prophylaxis: protonix po Central Line: right IJ 05/01 Arterial Line:right rad 05/01 Amaya Cathetor: yes Disposition: ICU post lumbar mass resection, hypovolemia. Code Status: DNR Total Critical Care time is 40 minutes, excluding procedures/teaching Antony Morton MD Phlebotomy Services Technician (Electronically Signed)
--- NOTE | 2017-05-01 19:08 | PN ---
Progress Note - Progress Note Date of Service: 05/01/17 Note: Central Line Procedure Note Indication: Hypotension, poor vascular access Consent was emergent. - Prior labs/history was reviewed prior to procedure - Full sterile precautions with chlorhexidine/full drapes/gowns/gloves utilized - right IJ vein visualized with ultrasound - Vessel accessed under ultrasound guidance with return of nonpulsatile blood. A guidewire was passed into vessel and confirmed in vessel with ultrasound. 1 attempt was made to access vessel. Vessel was dilated and cathetor was passed over wire into vessel. All ports demonstrated good blood return and flushed. Catheter was sutured to site and dressing applied Adequate hemostasis was achieved, EBL 5 cc No immediate complications noted, patient tolerated procedure well. CXR pending for confirmation Antony Morton MD Dry Wall Nailer (electronically signed)
[2017-05-01] MEDS: Senna TAB PO SCH ×2 (19:41→19:45)
[2017-05-01] MEDS: Docusate CAP* 100 MG PO SCH ×2 (19:41→19:45)
[2017-05-01] MEDS: Polyethylene Glycol 3350* 17 GM PACKET PO SCH (19:41)
[2017-05-01] MEDS: ceFAZolin 1 GM VIAL(*) 1 GM in NS 0.9% 50 ML* 50 ML IVPB SCH (19:56)
[2017-05-01] MEDS ORDERED: Albumin Human 5%* 25 GM/500 ML BTL IV ONE (20:27)
[2017-05-01] MEDS: Dexamethasone IV* 4 MG/ML 1 ML (4 MG) IV SLOW PU SCH (21:02)
[2017-05-01] MEDS: Ondansetron INJ* 2 MG/ML VIAL IV PRN (21:02)
[2017-05-01] MEDS: Morphine INJ* 2 MG/ML 1 ML SYRINGE (TWO MG - NEW SYRINGE VERSION) IV PRN (21:02)
[2017-05-01] MEDS ORDERED: Norepinephrine 16MCG/ML IVPRE* 4,000 MCG/250 ML BAG IV ONE (22:49)
[2017-05-01] MEDS ORDERED: Norepinephrine 16MCG/ML IVPRE* 4,000 MCG/250 ML BAG IV SCH (23:00)
[2017-05-01] MEDS ORDERED: NS 0.9% 1000 ML* 1,000 ML IV ONE (23:15)
[2017-05-01 23:23] LABS: ABS Basophils 0.2 10^3/ul (0-0.2); ABS Eosinophils 0 10^3/ul (0-0.6); ABS Lymphocytes 0.4 10^3/ul (1.0-4.8); ABS Monocytes 1.3 10^3/ul (0-0.8); ABS Neutrophils 34.9 10^3/ul (1.5-7.7); ABS Nucleated RBC 0 10^3/ul; Eosinophil % 0 % (0-6); Hematocrit 28 % (42-52); Hemoglobin 9.3 g/dl (14.0-18.0); Lymphocyte % 1.1 % (25-47); Mean Corpuscular HGB Conc 33 g/dl (31-36); Mean Corpuscular Hemoglobin 29 pg (27-31); Mean Corpuscular Volume 89 fL (80-94); Mean Platelet Volume 8 um3 (7.4-10.4); Nucleated Red Blood Cells % 0; Platelet Count 147 10^3/ul (150-450); Red Blood Count 3.18 10^6/ul (4.0-5.4); Red Cell Distribution Width 18 % (10.5-15); White Blood Count 36.9 10^3/ul (3.5-10.8)
[2017-05-01 23:36] LABS: EGFR Non-African American 111.9 (>60)
[2017-05-02] MEDS: ceFAZolin 1 GM VIAL(*) 1 GM in NS 0.9% 50 ML* 50 ML IVPB SCH (03:12)
[2017-05-02 03:15] LABS: Hematocrit 29 % (42-52); Hemoglobin 9.7 g/dl (14.0-18.0)
[2017-05-02] MEDS: Dexamethasone IV* 4 MG/ML 1 ML (4 MG) IV SLOW PU SCH (05:52)
[2017-05-02] MEDS: Ondansetron INJ* 2 MG/ML VIAL IV PRN (05:52)
[2017-05-02] MEDS: Morphine INJ* 2 MG/ML 1 ML SYRINGE (TWO MG - NEW SYRINGE VERSION) IV PRN ×5 (05:52→19:38)
[2017-05-02] MEDS ORDERED: Diltiazem IV* 5 MG/ML 5 ML VIAL (for loading dose/IV Push) (25 MG) IV SLOW PU ONE (06:19)
[2017-05-02 06:23] LABS: ABS Basophils 0.1 10^3/ul (0-0.2); ABS Eosinophils 0 10^3/ul (0-0.6); ABS Lymphocytes 0.8 10^3/ul (1.0-4.8); ABS Monocytes 1.3 10^3/ul (0-0.8); ABS Nucleated RBC 0.01 10^3/ul; Eosinophil % 0 % (0-6); Hematocrit 29 % (42-52); Hemoglobin 9.7 g/dl (14.0-18.0); Lymphocyte % 2.2 % (25-47); Mean Corpuscular HGB Conc 34 g/dl (31-36); Mean Corpuscular Hemoglobin 30 pg (27-31); Mean Corpuscular Volume 88 fL (80-94); Mean Platelet Volume 9 um3 (7.4-10.4); Nucleated Red Blood Cells % 0; Platelet Count 159 10^3/ul (150-450); Red Blood Count 3.29 10^6/ul (4.0-5.4); Red Cell Distribution Width 18 % (10.5-15)
[2017-05-02] MEDS ORDERED: Diltiazem IV* 5 MG/ML 5 ML VIAL (for loading dose/IV Push) (25 MG) ONE (06:24)
[2017-05-02 06:26] LABS: White Blood Count 35.6 10^3/ul (3.5-10.8)
[2017-05-02 06:27] LABS: ABS Neutrophils 33.5 10^3/ul (1.5-7.7)
[2017-05-02] MEDS: Levothyroxine TAB* 125 MCG TAB PO SCH (06:27)
[2017-05-02] MEDS: Diltiazem IV VIAL* 125 MG in NS 0.9% 100 ML* 100 ML IV SCH ×2 (06:38→07:02)
[2017-05-02 06:40] LABS: EGFR Non-African American 117.9 (>60)
[2017-05-02] MEDS ORDERED: fentaNYL* 50 MCG/ML 2 ML VIAL (100 MCG VIAL) ONE (06:57)
[2017-05-02] MEDS ORDERED: fentaNYL* 50 MCG/ML 2 ML VIAL (100 MCG VIAL) IV ONE (07:40)
--- NOTE | 2017-05-02 08:04 | RAD ---
INDICATION: Sepsis status post recent spine surgery COMPARISON: Most recent comparison chest x-ray May 01, 2017 TECHNIQUE: Single AP portable view of the chest was obtained. FINDINGS: Image quality is compromised due to the relative inferiority of a portable chest x-ray. There is been interval placement of a right jugular vein central line with the tip terminating at the superior vena cava. The spinal hardware is unchanged in position from the prior chest x-ray. The heart and mediastinum exhibit normal size and contour. The lungs appear hyperaerated on the AP view. There is density of securing the left lung base causing left costophrenic angle blunting. Visualized bones are normal for the patient's age. IMPRESSION: Density obscuring the left lung base and causing left costophrenic angle blunting could be atelectasis, consolidation and/or pleural effusion.
[2017-05-02] MEDS: Polyethylene Glycol 3350* 17 GM PACKET PO SCH (09:09)
[2017-05-02] MEDS: Senna TAB PO SCH ×2 (09:09→21:36)
[2017-05-02] MEDS: Docusate CAP* 100 MG PO SCH ×2 (09:09→21:36)
[2017-05-02] MEDS ORDERED: Digoxin IV* 0.5 MG/2 ML AMP (0.25 MG/ML) IV SLOW PU ONE ×3 (09:26→21:30)
--- NOTE | 2017-05-02 09:33 | PN ---
Progress Note - Progress Note Date of Service: 05/02/17 Note: Progress Note Critical Care 24 hours events: -started on cardizem for rapid afib last night -started on levophed for drop in BP -remains on levo and cardizem; LR @ 60cc/hour -awake, alert, no distress -making some urine -s/p 1 unit prbc overnight; hg remained stable, no further bleeding Tele: Afib, rate 130s, irregular Vitals: Vital Signs Temp 97.5 F 05/02/17 07:47 Pulse 138 05/02/17 09:00 Resp 18 05/02/17 09:00 BP 103/68 05/02/17 09:00 Pulse Ox 94 05/02/17 09:00 Intake & Output 05/01/17 05/02/17 05/02/17 18:59 06:59 18:59 Intake Total 6000 3149 Output Total 1400 941 50 Balance 4600 2208 -50 Weight 161 lb 2.526 oz Intake: IV Fluids 6000 2604 LR 6000 1604 NS (0.9%) 1000 IVPB 115 LR 115 Medicated IV 107 CC - Norepinephrine/ 107 Levophed Oral 15 Packed Cells 308 Output: JEFERSON #1 135 223 50 JEFERSON #2 65 268 Amaya 400 450 Estimated Blood Loss 800 Other: # Bowel Movements 0 O2/Vent: 4L NC, sat 92%, rr 16 Infusions: LR 60cc/hour, levophed, cardizem 20 Current Medications: Hydrocodone Bitart/Acetaminophen ([place] 5-325 Tab*) 1 tab PO Q4H PRN PRN Reason: moderate pain Albuterol/Ipratropium (Duoneb (Albuterol 2.5 Mg/Ipratropium 0.5 Mg)) 1 neb INH Q6H PRN PRN Reason: DYSPNEA Dexamethasone Sodium Phosphate (Decadron Iv*) 4 mg IV SLOW PU Q8HR JOSE Stop: 05/02/17 21:59 Last Admin: 05/02/17 05:52 Dose: 4 mg Digoxin (Digoxin Iv*) 0.5 mg IV SLOW PU ONCE ONE Stop: 05/02/17 09:27 Digoxin (Digoxin Iv*) 0.25 mg IV SLOW PU ONCE ONE Stop: 05/02/17 15:31 Digoxin (Digoxin Iv*) 0.25 mg IV SLOW PU ONCE ONE Stop: 05/02/17 21:31 Docusate Sodium (Colace Cap*) 100 mg PO BID [facility] Last Admin: 05/02/17 09:09 Dose: 100 mg Heparin Sodium (Porcine) (Heparin Flush Picc/Ml/Cvc(*)) 0 ml FLUSH 0600,1800 [facility] PRN Reason: Protocol Last Admin: 05/02/17 05:52 Dose: 1 ml Lactated Ringer's (Lactated Ringers 1000 Ml Bag*) 1,000 mls @ 60 mls/hr IV PER RATE [facility] Last Admin: 05/02/17 00:02 Dose: 60 mls/hr Norepinephrine Bitartrate (Levophed 16 Mcg/Ml Premix Bag*) 4,000 mcg in 250 mls @ 18.75 mls/hr IV .INITIAL RATE JOSE; 5 MCG/MIN PRN Reason: Protocol Diltiazem HCl 125 mg/ Sodium (Chloride) 125 mls @ 5 mls/hr IV Q24H [facility] Last Admin: 05/02/17 07:02 Dose: Not Given Levalbuterol HCl (Xopenex 0.63mg/3ml Neb*) 0.63 mg INH ONCE PRN PRN Reason: SOB/WHEEZING Levothyroxine Sodium (Synthroid Tab*) 125 mcg PO DAILY@0600 [facility] Last Admin: 05/02/17 06:27 Dose: 125 mcg Morphine Sulfate (Morphine Inj (Syringe)*) 2 mg IV Q2H PRN PRN Reason: PAIN Last Admin: 05/02/17 05:52 Dose: 2 mg Ondansetron HCl (Zofran Inj*) 4 mg IV Q6H PRN PRN Reason: NAUSEA Last Admin: 05/02/17 05:52 Dose: 4 mg Pantoprazole Sodium (Protonix Tab (Nf)) 20 mg PO DAILY [facility] Polyethylene Glycol/Electrolytes (Miralax*) 17 gm PO DAILY [facility] Last Admin: 05/02/17 09:09 Dose: 17 gm Senna (Senokot Tab*) 1 tab PO BID [facility] Last Admin: 05/02/17 09:09 Dose: 1 tab Physical Exam: General: awake, alert, no distress, no diaphoresis Head: normocephalic, atraumatic HEENT: no pallor, no icterus, dry mucous membranes Neck: soft, supple, no jvd, no stridor CVS: tachycardic, irregular, no murmur Resp: bilateral air entry, no rhales, no wheeze, no rhonchi, no acc muscle use Abdomen: soft, nontender, nondistended, bowel sounds present Ext: pulses+, warm, no edema Back: surgical site along lumbar/thoracic spine intact, JEFERSON drains in place. Skin: intact, no breakdown, no dryness Neuro: awake, alert, orientedx3, moving all extremities Labs: Laboratory Results - last 24 hr 04/28/17 05/01/17 05/01/17 15:00 12:55 16:15 WBC RBC Hgb 10.3 L 9.6 L Hct 31 L 29 L MCV MCH MCHC RDW Plt Count MPV Neut % (Auto) Lymph % (Auto) [place] % (Auto) Eos % (Auto) Baso % (Auto) Absolute Neuts (auto) Absolute Lymphs (auto) Absolute Monos (auto) Absolute Eos (auto) Absolute Basos (auto) Absolute Nucleated RBC Nucleated RBC % Sodium Potassium Chloride Carbon Dioxide Anion Gap BUN Creatinine Est GFR ( Amer) Est GFR (Non-Af Amer) BUN/Creatinine Ratio Glucose Lactic Acid Calcium Total Bilirubin AST ALT Alkaline Phosphatase Total Protein Albumin Globulin Albumin/Globulin Ratio Blood Type A Positive Antibody Screen Negative Crossmatch See Detail 05/01/17 05/01/17 05/01/17 16:15 23:10 23:10 WBC 36.9 H RBC 3.18 L Hgb 9.3 L Hct 28 L MCV 89 MCH 29 MCHC 33 RDW 18 H Plt Count 147 L MPV 8 Neut % (Auto) 94.8 H Lymph % (Auto) 1.1 L [place] % (Auto) 3.5 Eos % (Auto) 0 Baso % (Auto) 0.6 Absolute Neuts (auto) 34.9 H Absolute Lymphs (auto) 0.4 L Absolute Monos (auto) 1.3 H Absolute Eos (auto) 0 Absolute Basos (auto) 0.2 Absolute Nucleated RBC 0 Nucleated RBC % 0 Sodium Potassium Chloride Carbon Dioxide Anion Gap BUN Creatinine Est GFR ( Amer) Est GFR (Non-Af Amer) BUN/Creatinine Ratio Glucose Lactic Acid 3.1 H* Calcium Total Bilirubin AST ALT Alkaline Phosphatase Total Protein Albumin Globulin Albumin/Globulin Ratio Blood Type A Positive Antibody Screen Negative Crossmatch See Detail 05/01/17 05/02/17 05/02/17 23:10 03:03 03:03 WBC RBC Hgb 9.7 L Hct 29 L MCV MCH MCHC RDW Plt Count MPV Neut % (Auto) Lymph % (Auto) [place] % (Auto) Eos % (Auto) Baso % (Auto) Absolute Neuts (auto) Absolute Lymphs (auto) Absolute Monos (auto) Absolute Eos (auto) Absolute Basos (auto) Absolute Nucleated RBC Nucleated RBC % Sodium 133 Potassium 3.9 Chloride 109 Carbon Dioxide 19 L Anion Gap 5 BUN 13 Creatinine 0.68 Est GFR ( Amer) 143.9 Est GFR (Non-Af Amer) 111.9 BUN/Creatinine Ratio 19.1 Glucose 172 H Lactic Acid 1.7 Calcium 6.5 L Total Bilirubin 0.80 AST 11 L ALT 10 Alkaline Phosphatase 34 Total Protein 3.9 L Albumin 2.5 L Globulin 1.4 L Albumin/Globulin Ratio 1.8 Blood Type Antibody Screen Crossmatch 05/02/17 05/02/17 05:56 05:56 WBC 35.6 H RBC 3.29 L Hgb 9.7 L Hct 29 L MCV 88 MCH 30 MCHC 34 RDW 18 H Plt Count 159 MPV 9 Neut % (Auto) 94.1 H Lymph % (Auto) 2.2 L [place] % (Auto) 3.5 Eos % (Auto) 0 Baso % (Auto) 0.2 Absolute Neuts (auto) 33.5 H Absolute Lymphs (auto) 0.8 L Absolute Monos (auto) 1.3 H Absolute Eos (auto) 0 Absolute Basos (auto) 0.1 Absolute Nucleated RBC 0.01 Nucleated RBC % 0 Sodium 134 Potassium 4.0 Chloride 109 Carbon Dioxide 21 L Anion Gap 4 BUN 12 Creatinine 0.65 L Est GFR ( Amer) 151.6 Est GFR (Non-Af Amer) 117.9 BUN/Creatinine Ratio 18.5 Glucose 156 H Lactic Acid Calcium 7.1 L Total Bilirubin 0.60 AST 13 ALT 9 Alkaline Phosphatase 39 Total Protein 4.2 L Albumin 2.7 L Globulin 1.5 L Albumin/Globulin Ratio 1.8 Blood Type Antibody Screen Crossmatch Imaging: Reviewed cxr 05/01 - bilateral effusions, left moderate and right small; no other infiltrate. cxr 05/02 - right ij tlc; bilateral effusion with left>right Assessment: 81y M pmhx of Chronic Afib, HTN, Hypothyroidism, Prostate Ca on hormonal therapy; patient admitted 04/25 for back pain with bowel incontinence and bilateral lower extremity weakness. MRI imaging confirmed epidural mass with extension and spinal canal narrowing. Patient was seen to have elevated wbc on admission, worked up for sepsis with empiric abx and no clear source found. He was started on IV steroids for cord compression. Patient taken to OR today for lumbar mass resection and spinal decompression. Post Op Hypotension 2/ 2 to hypovolemia. -Epidural mass with spinal/cord compression; s/p t12-L1 mass resection and decompression -Shock, suspect hypovolemic -Atrial fibrillation with rapid vent rate -Prostate Ca; mediastinal mass mets? -bilateral pleural effusions -oliguria Plan: Neuro- stable neurologically; s/p lumbar mass resection. neurochecks as per protocol. cont decadron for cord compression/edema. monitor JEFERSON outputs. CVS- making some urine now. cont LR infusion 60cc/hour. on levophed at 7 and cardizem infusion. d/c cardizem and load with digoxin for rate control. no on AC for Afib yet. albumin 500cc over 2 hours to be infusioned. some urine otuput noted, cont to monitor. may still be a component of hypovolemia and distributive shock, no clear sepsis noted yet. check CVP for filling pressures. Hemoglobin stable, no further prbc required at this time. Resp- stable, on NC 4 L. cont to wean down. cxr with effusions, similiar or slightly later, no resp distress though. May require thoracentesis at some point if increasing further. ID- afebrile. wbc elevated. on decadron for cord compression. No clear sepsis source. will attempt to wean down pressors. Not on abx. periop abx coverage given. cont to monitor. surgical site intact. GI- npo, can increase PO diet if okay with surgery. watch for aspiration post op while on pain meds. GI prophylaxis PPI while on steroids. Renal- Cr normal. Oliguric still. cont LR infusion, trial albumin 500cc over 2- 3 hours. wean pressors. Check CVP. amaya in place. Heme- anemia, hg stable 9-10. s/p prbc x1 in ICU yesterday, 1 in OR. Endo- fingersticks as needed. continue synthroid po. Musculsk- wound care to thoracic/lumbar spine. watch JEFERSON outputs. bedrest now. pain control prn. antiemetics prn. Wounds- as above. Nutrition- cardiac diet when able to eat. asp prec. DVT prophylaxis: heparin sq GI prophylaxis: protonix po Central Line: right IJ 05/01 Arterial Line:right rad 05/01 Amaya Cathetor: yes Disposition: ICU post lumbar mass resection, hypovolemic/distributive shock. Code Status: DNR Total Critical Care time is 40 minutes, excluding procedures/teaching Antony Morton MD Switch Inspector (Electronically Signed)
--- NOTE | 2017-05-02 09:35 | PN ---
Subjective Date of Service: 05/02/17 Interval History: Patient seen and examined in ICU, remained very hypotensive overnight and was placed on pressors. Also in afib with RVR and was placed on cardizem drip with refractory RVR. Patient is awake and c/o incisional pain, no SOB, no chest pain , no n/v, no abdominal pain or bloating. Family History: Unchanged from Admission Social History: Unchanged from Admission Past Medical History: Unchanged from Admission Objective Active Medications: Hydrocodone Bitart/Acetaminophen ([place] 5-325 Tab*) 1 tab PO Q4H PRN PRN Reason: moderate pain Albuterol/Ipratropium (Duoneb (Albuterol 2.5 Mg/Ipratropium 0.5 Mg)) 1 neb INH Q6H PRN PRN Reason: DYSPNEA Dexamethasone Sodium Phosphate (Decadron Iv*) 4 mg IV SLOW PU Q8HR JOSE Stop: 05/02/17 21:59 Last Admin: 05/02/17 05:52 Dose: 4 mg Digoxin (Digoxin Iv*) 0.5 mg IV SLOW PU ONCE ONE Stop: 05/02/17 09:27 Digoxin (Digoxin Iv*) 0.25 mg IV SLOW PU ONCE ONE Stop: 05/02/17 15:31 Digoxin (Digoxin Iv*) 0.25 mg IV SLOW PU ONCE ONE Stop: 05/02/17 21:31 Docusate Sodium (Colace Cap*) 100 mg PO BID [facility] Last Admin: 05/02/17 09:09 Dose: 100 mg Heparin Sodium (Porcine) (Heparin Flush Picc/Ml/Cvc(*)) 0 ml FLUSH 0600,1800 [facility] PRN Reason: Protocol Last Admin: 05/02/17 05:52 Dose: 1 ml Lactated Ringer's (Lactated Ringers 1000 Ml Bag*) 1,000 mls @ 60 mls/hr IV PER RATE [facility] Last Admin: 05/02/17 00:02 Dose: 60 mls/hr Norepinephrine Bitartrate (Levophed 16 Mcg/Ml Premix Bag*) 4,000 mcg in 250 mls @ 18.75 mls/hr IV .INITIAL RATE JOSE; 5 MCG/MIN PRN Reason: Protocol Diltiazem HCl 125 mg/ Sodium (Chloride) 125 mls @ 5 mls/hr IV Q24H [facility] Last Admin: 05/02/17 07:02 Dose: Not Given Levalbuterol HCl (Xopenex 0.63mg/3ml Neb*) 0.63 mg INH ONCE PRN PRN Reason: SOB/WHEEZING Levothyroxine Sodium (Synthroid Tab*) 125 mcg PO DAILY@0600 [facility] Last Admin: 05/02/17 06:27 Dose: 125 mcg Morphine Sulfate (Morphine Inj (Syringe)*) 2 mg IV Q2H PRN PRN Reason: PAIN Last Admin: 05/02/17 05:52 Dose: 2 mg Ondansetron HCl (Zofran Inj*) 4 mg IV Q6H PRN PRN Reason: NAUSEA Last Admin: 05/02/17 05:52 Dose: 4 mg Pantoprazole Sodium (Protonix Tab (Nf)) 20 mg PO DAILY [facility] Polyethylene Glycol/Electrolytes (Miralax*) 17 gm PO DAILY [facility] Last Admin: 05/02/17 09:09 Dose: 17 gm Senna (Senokot Tab*) 1 tab PO BID [facility] Last Admin: 05/02/17 09:09 Dose: 1 tab Vital Signs - 8 hr 05/02/17 05/02/17 05/02/17 01:45 02:00 02:15 Temperature Pulse Rate 75 89 106 Respiratory 12 10 19 Rate Blood Pressure 116/79 122/62 116/76 (mmHg) O2 Sat by Pulse 96 96 94 Oximetry 05/02/17 05/02/17 05/02/17 02:30 02:45 03:00 Temperature Pulse Rate 79 91 87 Respiratory 14 15 17 Rate Blood Pressure 106/68 106/73 111/74 (mmHg) O2 Sat by Pulse 97 95 98 Oximetry 05/02/17 05/02/17 05/02/17 03:01 03:15 03:30 Temperature Pulse Rate 81 80 75 Respiratory 15 15 13 Rate Blood Pressure 101/60 116/67 (mmHg) O2 Sat by Pulse 97 97 98 Oximetry 05/02/17 05/02/17 05/02/17 03:45 04:00 04:15 Temperature 97.4 F Pulse Rate 83 75 62 Respiratory 12 15 13 Rate Blood Pressure 109/64 102/63 114/64 (mmHg) O2 Sat by Pulse 97 97 99 Oximetry 05/02/17 05/02/17 05/02/17 04:30 04:45 05:00 Temperature Pulse Rate 78 66 78 Respiratory 14 14 16 Rate Blood Pressure 117/65 111/77 126/71 (mmHg) O2 Sat by Pulse 99 99 99 Oximetry 05/02/17 05/02/17 05/02/17 05:15 05:30 05:45 Temperature Pulse Rate 85 83 87 Respiratory 15 13 16 Rate Blood Pressure 111/67 108/70 117/68 (mmHg) O2 Sat by Pulse 99 98 98 Oximetry 05/02/17 05/02/17 05/02/17 05:52 06:00 06:16 Temperature Pulse Rate 134 136 Respiratory 16 16 15 Rate Blood Pressure 116/84 115/82 (mmHg) O2 Sat by Pulse 96 97 Oximetry 05/02/17 05/02/17 05/02/17 06:30 06:45 06:59 Temperature Pulse Rate 130 138 Respiratory 14 22 23 Rate Blood Pressure 105/74 95/69 (mmHg) O2 Sat by Pulse 97 94 Oximetry 05/02/17 05/02/17 05/02/17 07:00 07:16 07:30 Temperature Pulse Rate 135 130 137 Respiratory 19 10 11 Rate Blood Pressure 96/67 96/63 (mmHg) O2 Sat by Pulse 96 96 97 Oximetry 05/02/17 05/02/17 05/02/17 07:45 07:47 08:00 Temperature 97.5 F Pulse Rate 124 135 Respiratory 13 12 Rate Blood Pressure 93/67 104/76 (mmHg) O2 Sat by Pulse 97 97 Oximetry 05/02/17 05/02/17 05/02/17 08:15 08:30 08:45 Temperature Pulse Rate 118 132 Respiratory 17 23 21 Rate Blood Pressure 113/77 99/75 118/94 (mmHg) O2 Sat by Pulse 95 91 Oximetry 05/02/17 09:00 Temperature Pulse Rate 138 Respiratory 18 Rate Blood Pressure 103/68 (mmHg) O2 Sat by Pulse 94 Oximetry Oxygen Devices in Use Now: Nasal Cannula Appearance: Alert, NAD Eyes: No Scleral Icterus, PERRLA Ears/Nose/Mouth/Throat: NL Teeth, Lips, Gums, - - dry oral mucosa Respiratory: Symmetrical Chest Expansion and Respiratory Effort - diminished throughout, clear at the apices Cardiovascular: NL Sounds; No Murmurs; No JVD, No Edema - irregular, afib on tele Abdominal: - - soft, hypoactive BS Extremities: No Edema, No Clubbing, Cyanosis Skin: No Rash or Ulcers, - - 2 JEFERSON drains with moderately high output overnight Neurological: Alert and Oriented x 3, - - RN states patient does have some intermittent confusion, currently appropriate Lines/Tubes/Other Access: Clean, Dry and Intact Arterial Line Nutrition: - - NPO Result Diagrams: 05/02/17 05:56 05/02/17 05:56 Additional Lab and Data: Lab Results Assess/Plan/Problems-Billing This is an 81 year old male with hx of tobacco abuse, prostate CA, atrial fibrillation, and a recent 30lb weight loss, with anorexia that is POD1 of T12- L1 tumor resection and spinal decompression, in the ICU for post-op hemodynamic instability. - Patient Problems (1) DNR (do not resuscitate) Comment: - Remains DNR with active care (2) Mass of spine Code(s): M89.9 - DISORDER OF BONE, UNSPECIFIED SNOMED Code(s): 119760393 Comment: - POD1, remain in ICU for close monitoring - Albumin x2 infused - PRBCs x3 infused - Ancef 1gram x2 doses for SCIP - Advance to clears and monitor for ileus - Neurologic function at baseline - Taper decadron again today - Follow pathology - Follow drain output (3) Atrial fibrillation Code(s): I48.91 - UNSPECIFIED ATRIAL FIBRILLATION SNOMED Code(s): 64804146 Comment: - Rate increased post op likely 2/2 hypotension and volume depletion - Not resoponding to cardizem and increasing hypotension in light of levophed - Recommend DC cardizem and digoxin load today (4) Back pain Code(s): M54.9 - DORSALGIA, UNSPECIFIED SNOMED Code(s): 265478622 Comment: - Continue narcotic pain control post op (5) DVT prophylaxis Code(s): BXG6175 - SNOMED Code(s): 588880911 Comment: - SCDs (6) HTN (hypertension) Code(s): I10 - ESSENTIAL (PRIMARY) HYPERTENSION SNOMED Code(s): 87256204 Comment: - Levo at 7 currently - Hope to back off pressor when cardizem is DC'd this AM - Continue to transduce from a-line and monitor BP closely - continue IVF, still appears volume depleted, monitor chest for overload (7) Hypothyroidism Code(s): E03.9 - HYPOTHYROIDISM, UNSPECIFIED SNOMED Code(s): 39994777 Comment: - Continue home synthroid. (8) Prostate cancer Code(s): C61 - MALIGNANT NEOPLASM OF PROSTATE SNOMED Code(s): 318523418 Comment: - On Lupron as an outpatient - Will determine if this is primary site after spine tumor is resected - MRI brain with no new lesions, some age related changes; patient and family aware (9) Anorexia Code(s): R63.0 - ANOREXIA SNOMED Code(s): 08023362 Comment: - AFTT, 2/2 metastatic disease - Added clears today to transition back to diet, if tolerates, will continue to advance - Daily weights - appreciate recs from RD (10) Leukocytosis Code(s): D72.829 - ELEVATED WHITE BLOOD CELL COUNT, UNSPECIFIED SNOMED Code(s) : 405075932 Comment: - Reactive 2/2 steroids and surgery, also atelectic changes and bilateral effusions - Remains afebrile with LA trending down - Continue to taper decadron - Continue pulmonary toilet, trend WBCs, temps (11) Pleural effusion Current Visit: Yes Status: Acute Code(s): J90 - PLEURAL EFFUSION, NOT ELSEWHERE CLASSIFIED SNOMED Code(s): 82710979 Comment: - Bilateral L>R on post op CXR - Pulmonary toilet - O2 to keep sats>90% - Concern if malignant effusions? May need to tap if increasing - Respiratory status is currently stable on 4LNC - Continue IS and flutter valve if patient can tolerate Status and Disposition: Remain in ICU for critical monitoring. Counseling and/or Coordination of Care Minutes: Coordinated with patient, primary RN and Dr. Morton
[2017-05-02] MEDS: Pantoprazole TAB (NF) 20 MG TAB PO SCH (10:19)
[2017-05-02] MEDS ORDERED: Albumin Human 5%* 12.5 GM/250 ML BTL IV ONE (10:30)
[2017-05-02] MEDS: Albumin Human 5%* 250 GM/250 ML BTL IV ONE ×2 (10:55→11:06)
[2017-05-02] MEDS ORDERED: Albuterol/Ipratropium NEB.SOL* Albuterol 2.5 MG/Ipratropium 0.5 MG 3 ML INH SCH (11:00)
--- NOTE | 2017-05-02 14:43 | RAD ---
HISTORY: Status post thoracolumbar decompression COMPARISONS: May 01, 2017 VIEWS: 2, Frontal and lateral views of the thoracolumbar spine. FINDINGS: ALIGNMENT: The alignment is normal. VERTEBRAL BODIES: The patient is status post spinal stabilization and laminectomy. There are pedicle screws at T9, T10, T11, L2, L3, and L4. JOINTS: Unremarkable. INTERVERTEBRAL DISCS: There is mild diffuse loss of intervertebral disc height. SOFT TISSUE: Unremarkable OTHER: Surgical drains are noted. IMPRESSION: STATUS POST LAMINECTOMY AND SPINAL STABILIZATION
--- NOTE | 2017-05-02 15:16 | OP ---
AMENDED REPORT NOW INCLUDES DATE OF OPERATION - ESIGNED BEFORE ADJUSTMENT * DATE OF OPERATION: 05/01/19 - ROOM #ICU-01 DATE OF : 35 SURGEON: Mikal Lizarraga MD. CO-SURGEON: Reji Louis MD. ANESTHESIOLOGIST: Yao Wang MD ANESTHESIA: General. PRE-OP DIAGNOSIS: T12-L1 tumor. POST-OP DIAGNOSIS: T12-L1 tumor. OPERATIVE PROCEDURE: The patient underwent a posterior thoracolumbar decompression and fusion with decompressive laminectomies T11 to L2 and resection of epidural tumor with posterolateral fusions T9 to L4 and bilateral pedicle screw fixation, T9, T10, T11, L2, L3, and L4 with intraoperative navigation and DBM putty. ESTIMATED BLOOD LOSS: 800 cc. COMPLICATIONS: None. SUMMARY: The patient is a very pleasant 81-year-old gentleman with a history of prostate cancer, who was transferred from [place] a few weeks ago. He presented to the emergency room with complaints of back pain and inability to ambulate. MRI revealed findings consistent with large epidural mass and involvement of posterior elements of T12-L1 as well as the left pedicles of T12 and L1. He was offered the option of surgical intervention in the form of surgical decompression and fusion. After I explained the expectation in addition to possible complications of the procedure to the patient and his family, with complications to include, but not limited to bleeding, infection, risk of damage to adjacent structures, paralysis, , need for additional procedures; anesthesia risks, stroke, blindness, construct instability, hardware failure, pseudoarthrosis, adjacent level disease, proximal junctional kyphosis, hardware failure, inability to remove the whole tumor, inability to obtain diagnosis and tumor recurrence, the patient and his family were agreeable to proceed with the surgery and informed consent was obtained. They understood that his condition may not improve and in fact may get worse after the surgery and he may need to have additional procedure in the future. They understood that the intraoperative plan may be modified according to intraoperative findings and condition. DESCRIPTION OF PROCEDURE: The patient was brought to the operating room and was placed under general anesthesia by the anesthesia team. He was carefully positioned prone on the Leonardo table with all bony prominences meticulously padded. Of note, Disla was placed by Dr. Brian as the patient has a history of prostate cancer. After appropriate surgical pause and patient identification , the skin was prepped and draped in a standard fashion and a large midline incision from the spinous process of T9 all the way to the upper portion of L5 was performed with a #10 surgical blade. This was carried down to the subcutaneous tissue with Bovie cautery. Self- retaining retractors were introduced and brought into the field. A large mass was encountered over the spinous processes of T12 and L1 as expected on preoperative imaging. This was carefully dissected at the periphery avoiding violating the tumor and the tumor was exposed circumferentially. Dorsal fascia was divided at the midline and the paraspinous muscle was elevated with Bovie cautery and subperiosteal elevator. Self-retaining retractor was introduced and brought into the field and the lamina and transverse processes of T9 to L4 were identified with the exception of the areas of the tumor involvement. Specimen was sent for pathology, which confirmed the suspicion of metastatic malignancy. A navigation tracking clamp was placed over the spinous process of L5 and intraoperative imaging was obtained with the O-arm. Prior to that, debulking of the tumor was performed with use of Bovie cautery and Sonopet, leaving the epidural component for the end of the procedure. Under 3D navigation guidance, the tooth cutter holes were drilled and the pedicles of L4, L3, and L2 were cannulated with high torque drill and Medtronic instrumentation with pedicle screws were used for 6.5 in the pedicles of L4 and L3. The pedicles of L2 were found to be extremely small in preoperative imaging and 5.5 pedicle screws were placed. Second O-arm imaging confirmed excellent placement of the hardware and the procedure was repeated for placement of pedicle screws at pedicles of T9, T10, and T11. Product Marketing Coordinator holes were drilled with high speed drill and the pedicles were cannulated with navigated drill guide and high torque drill. 5.5 mm Pedicle screws were placed with the assistance of PowerEase. Endosensetronic Solera system was used. Intraoperative O-Arm imaging was then performed again and it confirmed excellent placement of all hardware. Two titanium rods were cut, shaped, and placed in the screw heads and secured with screw head caps. Then attention was turned into decompressing the epidural space. A partial laminectomy of T11 and L2 was performed with the use of Kaden ronbaileyur kathryn spped drill and Kerrison punches. After identifying healthy dura in the area cranial and caudal to the tumor, careful dissection with the use of a penfield #4, dental instrument, Kerrison punches as well as the use of Sonopet was performed and the epidural component of the tumor was gently dissected free from the dura. The infiltrated posterior elements of the T12 and L1 were also removed as well as part of the pedicles on the left. After confirmation of meticulous hemostasis, high speed drill was used to decorticate the exposed bony surfaces and DBM putty was placed for arthrodesis between the TP of T9 all the way to L4. Two JEFERSON drains were tunneled through the skin through separate wound incisions and after confirmation of meticulous hemostasis, copious irrigation and meticulous inspection of the wound, the wound was closed in layers with #1 interrupted Vicryl sutures for the dorsal fascia and 2-0 interrupted Vicryl sutures for the subcutaneous tissue. The skin was approximated with #1 Prolene sutures in running interrupted fashion. The wound was covered with sterile dressings and at the end of the procedure, all counts were reported to be correct. The patient remained hemodynamically stable throughout the case. He was then turned supine, was extubated and was transferred to Recovery in excellent condition. He was able to move all his extremities very well. [id number]/[facility] #: [id number] RICHIE
[2017-05-02] MEDS ORDERED: Dexamethasone IV* 4 MG/ML 1 ML (4 MG) IV SLOW PU SCH (21:00)
--- NOTE | 2017-05-02 21:38 | PN ---
Progress Note - Progress Note Date of Service: 05/02/17 SOAP: Subjective: []Patient seen and examined earlier today. In ICU. On cardizem for Afib, Levo for BP control. Patient is very comfortable and grateful with the results of the operation. Ro Disla Objective: []VSS, Afebrile. JPs in place. drainage noted. Serosanguineous in nature. AAOx3 ONIEL. Face symmetric Abdoulaye 4-5 UES, 4+/5 LEs, possibly antalgic. Sensory grossly intact to light touch. Assessment: []81 yom hx prostate CA, POD#1 of T12-L1 tumor resection and T9-L4 fusion Plan: []Monitor VS, Neurochecks Monitor JEFERSON output Maintain euvolemia, avoid hypotension Monitor labs, Ht, WBC Advance diet as tolerated from NS standpoint. PT/OT , OOB in a chair if tolerated IS, Monitor pleural effusions Nutrition support Follow pathology report Patient may need rehabilitation Additional treatment per oncology. Appreciate ICU, IM, Oncology care. Girma Lizarraga MD
[2017-05-03] MEDS: Morphine INJ* 2 MG/ML 1 ML SYRINGE (TWO MG - NEW SYRINGE VERSION) IV PRN ×3 (05:24→15:45)
[2017-05-03] MEDS: Levothyroxine TAB* 125 MCG TAB PO SCH (06:51)
[2017-05-03 06:52] LABS: Hematocrit 26 % (42-52); Hemoglobin 8.6 g/dl (14.0-18.0); Mean Corpuscular HGB Conc 34 g/dl (31-36); Mean Corpuscular Hemoglobin 30 pg (27-31); Mean Corpuscular Volume 88 fL (80-94); Mean Platelet Volume 8 um3 (7.4-10.4); Platelet Count 136 10^3/ul (150-450); Red Blood Count 2.91 10^6/ul (4.0-5.4); Red Cell Distribution Width 19 % (10.5-15); White Blood Count 30.3 10^3/ul (3.5-10.8)
[2017-05-03 07:07] LABS: EGFR Non-African American 152.5 (>60)
[2017-05-03] MEDS ORDERED: Potassium Chlor TAB* 20 MEQ TAB.ER PO ONE (08:45)
[2017-05-03] MEDS ORDERED: Magnesium Sulfate 2 GM IV* 2 GM/50 ML BAG IVPB ONE (08:46)
[2017-05-03] MEDS: Docusate CAP* 100 MG PO SCH ×2 (08:52→22:12)
[2017-05-03] MEDS: Senna TAB PO SCH ×2 (08:52→22:12)
[2017-05-03] MEDS: Polyethylene Glycol 3350* 17 GM PACKET PO SCH (08:53)
--- NOTE | 2017-05-03 09:38 | PN ---
Progress Note - Progress Note Date of Service: 05/03/17 Note: Progress Note Critical Care 24 hours events: -remains on levophed 2mcg/min -making more urine; JEFERSON outputs less and more serous appearing -hg stable. continued on IVF. -awake, alert, no distress. in bed. Tele: Afib, rate controlled now Vitals: Vital Signs Temp 98.9 F 05/03/17 07:38 Pulse 89 05/03/17 09:15 Resp 15 05/03/17 09:15 BP 103/59 05/03/17 09:15 Pulse Ox 95 05/03/17 09:15 Intake & Output 05/02/17 05/03/17 05/03/17 18:59 06:59 18:59 Intake Total 859 1364.8 Output Total 650 725 60 Balance 209 639.8 -60 Weight 173 lb 8.061 oz Intake: IV Fluids 440 922 LR 440 922 Medicated IV 419 242.8 CC - Norepinephrine/ 137 242.8 Levophed GEN - Albumin 245 GEN - Diltiazem/Cardizem 37 Oral 200 Output: JEFERSON #1 140 20 JEFERSON #2 60 40 Amaya 450 725 O2/Vent: 4L NC, sat 95%, rr 16 Infusions: LR 60cc/hour, levophed 2 Current Medications: Hydrocodone Bitart/Acetaminophen ([place] 5-325 Tab*) 1 tab PO Q4H PRN PRN Reason: moderate pain Albuterol/Ipratropium (Duoneb (Albuterol 2.5 Mg/Ipratropium 0.5 Mg)) 1 neb INH Q4H PRN PRN Reason: SOB/WHEEZING Docusate Sodium (Colace Cap*) 100 mg PO BID [facility] Last Admin: 05/03/17 08:52 Dose: 100 mg Heparin Sodium (Porcine) (Heparin Flush Picc/Ml/Cvc(*)) 0 ml FLUSH 0600,1800 [facility] PRN Reason: Protocol Last Admin: 05/03/17 06:51 Dose: Not Given Lactated Ringer's (Lactated Ringers 1000 Ml Bag*) 1,000 mls @ 60 mls/hr IV PER RATE [facility] Last Admin: 05/03/17 07:47 Dose: 60 mls/hr Norepinephrine Bitartrate (Levophed 16 Mcg/Ml Premix Bag*) 4,000 mcg in 250 mls @ 18.75 mls/hr IV .INITIAL RATE JO[facility]; 5 MCG/MIN PRN Reason: Protocol Stop: 05/03/17 14:00 Norepinephrine Bitartrate 4 mg (/ Sodium Chloride) 250 mls @ 18.75 mls/hr IV Q12H [facility]; 5 MCG/MIN PRN Reason: Protocol Magnesium Sulfate (Magnesium Sulfate 2 Gm Iv*) 2 gm in 50 mls @ 50 mls/hr IVPB ONCE ONE Stop: 05/03/17 09:45 Last Admin: 05/03/17 09:02 Dose: 50 mls/hr Levalbuterol HCl (Xopenex 0.63mg/3ml Neb*) 0.63 mg INH ONCE PRN PRN Reason: SOB/WHEEZING Levothyroxine Sodium (Synthroid Tab*) 125 mcg PO DAILY@0600 [facility] Last Admin: 05/03/17 06:51 Dose: 125 mcg Morphine Sulfate (Morphine Inj (Syringe)*) 2 mg IV Q2H PRN PRN Reason: PAIN Last Admin: 05/03/17 08:51 Dose: 2 mg Omeprazole (Prilosec Cap*) 20 mg PO 0600 [facility] Ondansetron HCl (Zofran Inj*) 4 mg IV Q6H PRN PRN Reason: NAUSEA Last Admin: 05/02/17 05:52 Dose: 4 mg Polyethylene Glycol/Electrolytes (Miralax*) 17 gm PO DAILY [facility] Last Admin: 05/03/17 08:53 Dose: 17 gm Senna (Senokot Tab*) 1 tab PO BID [facility] Last Admin: 05/03/17 08:52 Dose: 1 tab Physical Exam: General: awake, alert, no distress, no diaphoresis Head: normocephalic, atraumatic HEENT: no pallor, no icterus, dry mucous membranes Neck: soft, supple, no jvd, no stridor CVS: irreg, normal rate, no murmur Resp: bilateral air entry, no rhales, no wheeze, no rhonchi, no acc muscle use Abdomen: soft, nontender, nondistended, bowel sounds present Ext: pulses+, warm, no edema Back: surgical site along lumbar/thoracic spine intact, JEFERSON drains in place. Skin: intact, no breakdown, no dryness Neuro: awake, alert, orientedx3, moving all extremities Labs: Laboratory Results - last 24 hr 05/03/17 05/03/17 06:35 06:35 WBC 30.3 H RBC 2.91 L Hgb 8.6 L Hct 26 L MCV 88 MCH 30 MCHC 34 RDW 19 H Plt Count 136 L MPV 8 Sodium 136 Potassium 3.5 Chloride 109 Carbon Dioxide 24 Anion Gap 3 BUN 8 Creatinine 0.52 L Est GFR ( Amer) 196.2 Est GFR (Non-Af Amer) 152.5 BUN/Creatinine Ratio 15.4 Glucose 113 H Calcium 7.3 L Magnesium 1.8 L Imaging: Reviewed cxr 05/01 - bilateral effusions, left moderate and right small; no other infiltrate. cxr 05/02 - right ij tlc; bilateral effusion with left>right Assessment: 81y M pmhx of Chronic Afib, HTN, Hypothyroidism, Prostate Ca on hormonal therapy; patient admitted 04/25 for back pain with bowel incontinence and bilateral lower extremity weakness. MRI imaging confirmed epidural mass with extension and spinal canal narrowing. Patient was seen to have elevated wbc on admission, worked up for sepsis with empiric abx and no clear source found. He was started on IV steroids for cord compression. Patient taken to OR today for lumbar mass resection and spinal decompression. Post Op Hypotension 2/ 2 to hypovolemia. -Epidural mass with spinal/cord compression; s/p t12-L1 mass resection and decompression -Shock, suspect hypovolemic -Atrial fibrillation with rapid vent rate -Prostate Ca; mediastinal mass mets? -bilateral pleural effusions -oliguria Plan: Neuro- stable neurologically; s/p lumbar mass resection. neurochecks as per protocol. tapering decadron for cord compression/edema. monitor JEFERSON outputs which are decreasing. moving LE/UE with good strength equally. CVS- remains on levophed, cont to wean down. on LR 60cc/hr. more serous outputs from JEFERSON only. making more urine now. Cont with dig for rate control. Once off levophed, can start metoprolol for rate control. Likely a combination of distributive +/- hypovolemia, though there is some upper ext edema developing now. CVP 2-4. Resp- stable, on NC 4 L. cont to wean down. cxr with effusions, no resp distress though. May require thoracentesis at some point if increasing further. cxr tomorrow. ID- afebrile. wbc elevated. on decadron for cord compression, tapering. No clear sepsis source. Not on abx. GI- clear liquid diet. GI prophylaxis PPI while on steroids. Renal- Cr normal. urine output picking up. cont LR infusion, incr to 75cc/hour. wean pressors. amaya in place. Heme- anemia, hg 8.6 today, slight drop. recheck in evening. plt okay. dvt porphylaxis Endo- fingersticks as needed. continue synthroid po. Musculsk- wound care to thoracic/lumbar spine. watch JEFERSON outputs. bedrest now, oob to chair later today if off pressors. pain control prn. antiemetics prn. Wounds- as above. Nutrition- cardiac diet when able to eat. asp prec. DVT prophylaxis: heparin sq GI prophylaxis: protonix po Central Line: right IJ 05/01 Arterial Line:right rad 05/01 Amaya Cathetor: yes Disposition: ICU post lumbar mass resection, hypovolemic/distributive shock. Code Status: DNR Total Critical Care time is 35 minutes, excluding procedures/teaching Antony Morton MD Bond Manager (Electronically Signed)
[2017-05-03] MEDS ORDERED: Albumin Human 5%* 250 GM/250 ML BTL IV ONE (09:43)
[2017-05-03] MEDS: Digoxin TAB* 0.125 MG PO SCH (12:22)
[2017-05-03] MEDS: HYDROcodone/ACETAMIN 5-325 MG* 1 TAB PO PRN ×2 (12:22→19:49)
[2017-05-03] MEDS: Omeprazole CAP* 20 MG PO SCH (12:23)
[2017-05-03] MEDS ORDERED: NS 0.9% 250 ML* 246 ML with Norepinephrine VIAL* 4 MG IV SCH ×2 (14:00)
[2017-05-04] MEDS: HYDROcodone/ACETAMIN 5-325 MG* 1 TAB PO PRN ×2 (01:41→13:38)
[2017-05-04] MEDS: Norepinephrine VIAL* 8 MG in NS 0.9% 500 ML* 492 ML IV SCH ×2 (05:21→17:10)
[2017-05-04] MEDS: Levothyroxine TAB* 125 MCG TAB PO SCH (05:59)
[2017-05-04 07:20] LABS: Hematocrit 25 % (42-52); Hemoglobin 8.2 g/dl (14.0-18.0); Mean Corpuscular HGB Conc 33 g/dl (31-36); Mean Corpuscular Hemoglobin 29 pg (27-31); Mean Corpuscular Volume 89 fL (80-94); Mean Platelet Volume 9 um3 (7.4-10.4); Platelet Count 125 10^3/ul (150-450); Red Blood Count 2.77 10^6/ul (4.0-5.4); Red Cell Distribution Width 19 % (10.5-15); White Blood Count 24.2 10^3/ul (3.5-10.8)
[2017-05-04 07:31] LABS: EGFR Non-African American 225.9 (>60)
--- NOTE | 2017-05-04 08:18 | RAD ---
HISTORY: Pleural effusion COMPARISONS: May 02, 2017 VIEWS: 1: frontal portable view of the chest at 5:55 AM. The patient is obliqued to the left. FINDINGS: LINES AND TUBES: The central venous catheter is noted with the tip overlying the superior vena cava. CARDIOMEDIASTINAL SILHOUETTE: The cardiomediastinal silhouette is normal for portable technique. PLEURA: There is blunting of the chest from angles bilaterally. LUNG PARENCHYMA: There is patchy alveolar opacification of the lung bases bilaterally. ABDOMEN: The upper abdomen is clear. There is no subphrenic gas. BONES AND SOFT TISSUES: The patient is status post spinal stabilization/fusion. IMPRESSION: 1. LINES AND TUBES ABOVE. 2. SMALL BILATERAL PLEURAL EFFUSIONS WITH BIBASILAR ATELECTASIS VERSUS CONSOLIDATION
[2017-05-04] MEDS: Digoxin TAB* 0.125 MG PO SCH (08:38)
[2017-05-04] MEDS: Omeprazole CAP* 20 MG PO SCH (08:38)
[2017-05-04] MEDS: Polyethylene Glycol 3350* 17 GM PACKET PO SCH (08:39)
[2017-05-04] MEDS: Docusate CAP* 100 MG PO SCH ×2 (08:39→20:13)
[2017-05-04] MEDS: Senna TAB PO SCH ×2 (08:39→20:13)
[2017-05-04] MEDS: cefTRIAXone* 1 GM in NS 0.9% 50 ML BAG IVPB SCH (08:44)
[2017-05-04] MEDS: Dexamethasone IV* 4 MG/ML 1 ML (4 MG) IV SLOW PU SCH (08:44)
[2017-05-04] MEDS: Pantoprazole TAB (NF) 20 MG TAB PO SCH (08:44)
[2017-05-04] MEDS ORDERED: Omeprazole CAP* 20 MG PO SCH (10:00)
--- NOTE | 2017-05-04 12:41 | PN ---
Progress Note - Progress Note Date of Service: 05/04/17 Note: Progress Note Critical Care 24 hours events: -titrated off levophed this morning -on NC, no distress -does drop BP a bit with pain meds -right arterial line oozing at times -still making urine; amaya in palce Tele: Afib, rate controlled now Vitals: Vital Signs Temp 98.4 F 05/04/17 11:41 Pulse 92 05/04/17 12:01 Resp 12 05/04/17 12:01 BP 109/64 05/04/17 12:00 Pulse Ox 94 05/04/17 12:01 Intake & Output 05/03/17 05/04/17 05/04/17 18:59 06:59 18:59 Intake Total 1343 1554 Output Total 430 415 70 Balance 913 1139 -70 Weight 174 lb 13.225 oz Intake: IV Fluids 843 1153 LR 843 1153 Medicated IV 140 151 CC - Norepinephrine/ 140 151 Levophed Oral 360 250 Output: JEFERSON #1 60 90 20 JEFERSON #2 70 50 Amaya 300 325 O2/Vent: NC Infusions: LR 75cc/hour, levophed on hold Current Medications: Hydrocodone Bitart/Acetaminophen ([place] 5-325 Tab*) 1 tab PO Q4H PRN PRN Reason: moderate pain Last Admin: 05/04/17 01:41 Dose: 1 tab Albuterol/Ipratropium (Duoneb (Albuterol 2.5 Mg/Ipratropium 0.5 Mg)) 1 neb INH Q4H PRN PRN Reason: SOB/WHEEZING Digoxin (Lanoxin Tab*) 0.25 mg PO 1000 [facility] Last Admin: 05/04/17 08:38 Dose: 0.25 mg Docusate Sodium (Colace Cap*) 100 mg PO BID [facility] Last Admin: 05/04/17 08:39 Dose: 100 mg Heparin Sodium (Porcine) (Heparin Flush Picc/Ml/Cvc(*)) 0 ml FLUSH 0600,1800 [facility] PRN Reason: Protocol Last Admin: 05/04/17 07:00 Dose: Not Given Norepinephrine Bitartrate 8 mg (/ Sodium Chloride) 500 mls @ 18.75 mls/hr IV Q24H [facility]; 5 MCG/MIN PRN Reason: Protocol Last Admin: 05/04/17 05:21 Dose: 18.75 mls/hr Lactated Ringer's (Lactated Ringers 1000 Ml Bag*) 1,000 mls @ 50 mls/hr IV PER RATE [facility] Levalbuterol HCl (Xopenex 0.63mg/3ml Neb*) 0.63 mg INH ONCE PRN PRN Reason: SOB/WHEEZING Levothyroxine Sodium (Synthroid Tab*) 125 mcg PO DAILY@0600 [facility] Last Admin: 05/04/17 05:59 Dose: 125 mcg Morphine Sulfate (Morphine Inj (Syringe)*) 2 mg IV Q2H PRN PRN Reason: PAIN Last Admin: 05/03/17 15:45 Dose: 2 mg Omeprazole (Prilosec Cap*) 20 mg PO DAILY@0730 [facility] Last Admin: 05/04/17 08:38 Dose: 20 mg Ondansetron HCl (Zofran Inj*) 4 mg IV Q6H PRN PRN Reason: NAUSEA Last Admin: 05/02/17 05:52 Dose: 4 mg Polyethylene Glycol/Electrolytes (Miralax*) 17 gm PO DAILY [facility] Last Admin: 05/04/17 08:39 Dose: 17 gm Senna (Senokot Tab*) 1 tab PO BID [facility] Last Admin: 05/04/17 08:39 Dose: 1 tab Physical Exam: General: awake, alert, no distress, no diaphoresis Head: normocephalic, atraumatic HEENT: no pallor, no icterus, dry mucous membranes Neck: soft, supple, no jvd, no stridor CVS: irreg, normal rate, no murmur Resp: bilateral air entry, no rhales, no wheeze, no rhonchi, no acc muscle use Abdomen: soft, nontender, nondistended, bowel sounds present Ext: pulses+, warm, some upper ext b/l edema in arms, LE foot edema+ Back: surgical site along lumbar/thoracic spine intact, JEFERSON drains in place. Skin: intact, no breakdown, no dryness Neuro: awake, alert, orientedx3, moving all extremities Labs: Laboratory Results - last 24 hr 05/04/17 05/04/17 06:00 06:00 WBC 24.2 H RBC 2.77 L Hgb 8.2 L Hct 25 L MCV 89 MCH 29 MCHC 33 RDW 19 H Plt Count 125 L MPV 9 Sodium 135 Potassium 3.6 Chloride 108 Carbon Dioxide 24 Anion Gap 3 BUN 6 Creatinine 0.37 L Est GFR ( Amer) 290.5 Est GFR (Non-Af Amer) 225.9 BUN/Creatinine Ratio 16.2 Glucose 99 Calcium 7.3 L Imaging: Reviewed cxr 05/01 - bilateral effusions, left moderate and right small; no other infiltrate. cxr 05/02 - right ij tlc; bilateral effusion with left>right cxr 05/04 - stable bilateral effusions Assessment: 81y M pmhx of Chronic Afib, HTN, Hypothyroidism, Prostate Ca on hormonal therapy; patient admitted 04/25 for back pain with bowel incontinence and bilateral lower extremity weakness. MRI imaging confirmed epidural mass with extension and spinal canal narrowing. Patient was seen to have elevated wbc on admission, worked up for sepsis with empiric abx and no clear source found. He was started on IV steroids for cord compression. Patient taken to OR today for lumbar mass resection and spinal decompression. Post Op Hypotension 2/ 2 to hypovolemia. -Epidural mass with spinal/cord compression; s/p t12-L1 mass resection and decompression -Shock, suspect hypovolemic; improved -Atrial fibrillation with rapid vent rate -Prostate Ca; mediastinal mass mets? -bilateral pleural effusions -oliguria Plan: Neuro- stable neurologically; s/p lumbar mass resection. neurochecks as per protocol, change to q4h. tapering decadron for cord compression/edema. monitor JEFERSON outputs which are decreasing. moving LE/UE with good strength equally. CVS- holding levophed, off now. dec LR to 50cc/hour. can prob d/c tomorrow. if BP holds later, can prob give low dose lasix po to augment output and unload. Serous outputs from JEFERSON only. Hg slow dontrend, now 8.2. off pressors. repeat h/ h in evening, will transfuse if <8. Cont with dig for rate control, change to metoprolol PO once BP stable. d/c right radial line today if stable BPs Resp- stable, on NC. cont to wean down. cxr with effusions, stable. no resp distress. ID- afebrile. wbc fluctuates. decadron for cord compression, tapering. No clear sepsis source. Not on abx. GI- cardiac diet, advance. GI prophylaxis PPI while on steroids. Renal- Cr normal. urine output picking up. cont LR infusion 50cc/hr. amaya in place. Heme- anemia, hg 8.2 today, repeat h/h in evening. transfuse to keep >8. plt okay. dvt porphylaxis Endo- fingersticks as needed. continue synthroid po. Musculsk- wound care to thoracic/lumbar spine. watch JEFERSON outputs. bedrest now, oob to chair later today. pain control prn. antiemetics prn. Wounds- as above. Nutrition- cardiac diet. asp prec. DVT prophylaxis: heparin sq GI prophylaxis: protonix po Central Line: right IJ 05/01 Arterial Line:right rad 05/01 Amaya Cathetor: yes Disposition: ICU post lumbar mass resection, hypovolemic/distributive shock. Code Status: DNR Total Critical Care time is 35 minutes, excluding procedures/teaching Antony Morton MD Sales Office Coordinator (Electronically Signed)
--- NOTE | 2017-05-04 16:08 | PN ---
Progress Note - Progress Note Date of Service: 05/04/17 SOAP: Subjective: []Patient seen and examined today. In ICU. On Levo for BP control. Patient is very comfortable. Tolerates PO. Ro Disla Objective: []VSS, Afebrile. JPs drainage noted. JEFERSON drains removed. No complications, catheters appeared to be intact. Patient tolerated it well. AAOx3 ONIEL. Face symmetric Abdoulaye 4-5 UES, 4+/5 LEs, possibly antalgic. Sensory grossly intact to light touch. Assessment: []81 yom hx prostate CA, POD#3 of T12-L1 tumor resection and T9-L4 fusion Plan: [] Monitor VS, Neurochecks Maintain euvolemia, avoid hypotension Wean pressors. Monitor labs, Ht, WBC Advance diet as tolerated from NS standpoint. PT/OT , OOB in a chair and OOB as tolerated with PT. TLSO brace. IS Monitor pleural effusions Nutrition support Follow pathology report Patient may need rehabilitation. Discussed with son in law at bedside. Additional treatment per oncology. Appreciate ICU, IM, Oncology care. Girma Lizarraga MD
[2017-05-04] MEDS: CMCS:Midodrine (NF) 5 MG TAB PO SCH ×2 (16:56→23:45)
[2017-05-04 17:57] LABS: Hematocrit 26 % (42-52); Hemoglobin 8.7 g/dl (14.0-18.0)
[2017-05-04] MEDS: Acetaminophen ADULT LIQ* 650 MG/20.3 ML UDC PO PRN (20:11)
[2017-05-04] MEDS: Heparin VIAL(*) 5000 UNITS/ML VIAL (FIVE THOUSAND) SUBCUT SCH (21:28)
[2017-05-05] MEDS: CMCS:Midodrine (NF) 5 MG TAB PO SCH ×3 (06:10→22:47)
[2017-05-05] MEDS: Heparin VIAL(*) 5000 UNITS/ML VIAL (FIVE THOUSAND) SUBCUT SCH ×3 (06:10→22:47)
[2017-05-05] MEDS: Levothyroxine TAB* 125 MCG TAB PO SCH (06:10)
[2017-05-05] MEDS: Acetaminophen ADULT LIQ* 650 MG/20.3 ML UDC PO PRN ×2 (06:15→15:17)
[2017-05-05 06:34] LABS: Hematocrit 26 % (42-52); Hemoglobin 8.8 g/dl (14.0-18.0); Mean Corpuscular HGB Conc 34 g/dl (31-36); Mean Corpuscular Hemoglobin 30 pg (27-31); Mean Corpuscular Volume 90 fL (80-94); Mean Platelet Volume 9 um3 (7.4-10.4); Platelet Count 142 10^3/ul (150-450); Red Cell Distribution Width 18 % (10.5-15); White Blood Count 19.1 10^3/ul (3.5-10.8)
[2017-05-05 06:49] LABS: EGFR Non-African American 219.1 (>60)
[2017-05-05] MEDS: Senna TAB PO SCH ×2 (08:26→20:39)
[2017-05-05] MEDS: Omeprazole CAP* 20 MG PO SCH (08:26)
[2017-05-05] MEDS: Docusate CAP* 100 MG PO SCH ×2 (08:26→20:39)
[2017-05-05] MEDS: Digoxin TAB* 0.125 MG PO SCH (08:27)
[2017-05-05] MEDS: Polyethylene Glycol 3350* 17 GM PACKET PO SCH (08:27)
[2017-05-05] MEDS: traMADol TAB* 50 MG PO PRN ×2 (10:27→18:35)
[2017-05-05] MEDS ORDERED: POTASSIUM PHOSPHATE IVPB ONE (10:56)
[2017-05-05] MEDS ORDERED: NS IVPB ONE (10:56)
--- NOTE | 2017-05-05 14:36 | PN ---
Progress Note - Progress Note Date of Service: 05/05/17 Note: CRITICAL CARE MEDICINE Date: 05/05/17 Time: 1230 SUBJECTIVE: Patient seen and examined. PHYSICAL EXAM: Vital Signs: Reviewed. Neurologic: stable. communicating. miguel eq HEENT: pupils equal. Sclera anicteric. Trachea midline. Cardiovascular: S1 S2 Respiratory: cta; 2L Abdomen: Soft, nt. No r/g/r. Extremities: Warm. Access: IJ cvc LABS: Reviewed. IMAGING: Reviewed. MEDICATIONS: Reviewed. ASSESSMENT: 81 M Epidural mass s/p T12-L1 resection and T9-L4 fusion Hypovolemic/Neurogenic shock Afib with rvr - Prostate ca bl pleural effusions Deconditioning PLAN: Neurologic: tolerating well. NSGY f/u. oob, pt Cardiovascular: Perfusing well. vol overload. mobilize today. trial lasix. off pressors and no anticipated re-need Respiratory: tolerating and wean off O2. has effusions and needs to mobilize. IS Gastrointestinal: inc po intake. Renal/Metabolic: amaya today. lasix. replete phos Infectious Disease: no abx need Hematology: stable. hsq Endocrine: steroid concluded. Musculoskeletal: pt eval Psych/Social: f/u depression Supportive and preventative care as ordered. Disposition: ICU today and potential floor later today or tomorrow Code Status: Full Critical Care Time: 25min Sudhir Francisco DO
[2017-05-05] MEDS: Norepinephrine VIAL* 8 MG in NS 0.9% 500 ML* 492 ML IV SCH (19:24)
[2017-05-05] MEDS: HYDROcodone/ACETAMIN 5-325 MG* 1 TAB PO PRN (20:39)
[2017-05-06] MEDS: Heparin VIAL(*) 5000 UNITS/ML VIAL (FIVE THOUSAND) SUBCUT SCH ×3 (05:45→23:49)
[2017-05-06] MEDS: Acetaminophen ADULT LIQ* 650 MG/20.3 ML UDC PO PRN (05:45)
[2017-05-06] MEDS: Levothyroxine TAB* 125 MCG TAB PO SCH (05:47)
[2017-05-06] MEDS: CMCS:Midodrine (NF) 5 MG TAB PO SCH ×3 (06:14→23:49)
[2017-05-06 07:28] LABS: Hematocrit 27 % (42-52); Hemoglobin 9.1 g/dl (14.0-18.0); Mean Corpuscular HGB Conc 34 g/dl (31-36); Mean Corpuscular Hemoglobin 30 pg (27-31); Mean Corpuscular Volume 89 fL (80-94); Mean Platelet Volume 9 um3 (7.4-10.4); Platelet Count 184 10^3/ul (150-450); Red Blood Count 3.04 10^6/ul (4.0-5.4); Red Cell Distribution Width 20 % (10.5-15); White Blood Count 19.7 10^3/ul (3.5-10.8)
[2017-05-06 07:35] LABS: EGFR Non-African American 195.2 (>60)
[2017-05-06] MEDS: HYDROcodone/ACETAMIN 5-325 MG* 1 TAB PO PRN ×4 (10:30→23:55)
[2017-05-06] MEDS: Omeprazole CAP* 20 MG PO SCH (10:30)
[2017-05-06] MEDS: Digoxin TAB* 0.125 MG PO SCH (10:30)
[2017-05-06] MEDS: Docusate CAP* 100 MG PO SCH ×2 (10:42→20:16)
[2017-05-06] MEDS: Senna TAB PO SCH ×2 (10:42→20:16)
[2017-05-06] MEDS: Polyethylene Glycol 3350* 17 GM PACKET PO SCH (10:42)
--- NOTE | 2017-05-06 11:45 | PN ---
Progress Note - Progress Note Date of Service: 05/06/17 Note: CRITICAL CARE MEDICINE Date: 05/06/17 Time: 800 SUBJECTIVE: Patient seen and examined. doing ok. pain still there. PHYSICAL EXAM: Vital Signs: Reviewed. Neurologic: stable. communicating. miguel eq HEENT: pupils equal. Sclera anicteric. Trachea midline. Cardiovascular: S1 S2 Respiratory: dec but cta Abdomen: Soft, nt. No r/g/r. Extremities: Warm. Access: RIJ cvc LABS: Reviewed. IMAGING: Reviewed. MEDICATIONS: Reviewed. 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 NSGY f/u. oob, pt Cardiovascular: Perfusing well. vol overload interstially and allow him to mobilize more. lasix prn. Respiratory: tolerating and wean off O2. has effusions and needs to mobilize. IS Gastrointestinal: inc po intake. Renal/Metabolic: lasix if not mobilizing. Infectious Disease: no abx need Hematology: stable. hsq Endocrine: steroid concluded. Musculoskeletal: pt f/u Psych/Social: f/u depression Supportive and preventative care as ordered. Disposition: to surgical today and advance care towards rehab and onc needs Code Status: DNR Critical Care Time: 25min Sudhir Francisco DO
[2017-05-06] MEDS ORDERED: NS 0.9% 500 ML* 500 ML IV ONE (15:30)
[2017-05-06] MEDS: D5W 1/2 NS KCl 20 Meq 1000 ML* 1,000 ML IV SCH ×2 (15:40→23:49)
[2017-05-06] MEDS: Norepinephrine VIAL* 8 MG in NS 0.9% 500 ML* 492 ML IV SCH (15:41)
[2017-05-06] MEDS ORDERED: Furosemide IV* 10 MG/ML 2 ML VIAL (20 MG) IV SLOW PU ONE (18:57)
[2017-05-07] MEDS: HYDROcodone/ACETAMIN 5-325 MG* 1 TAB PO PRN ×4 (04:34→19:44)
[2017-05-07] MEDS: Levothyroxine TAB* 125 MCG TAB PO SCH (05:09)
[2017-05-07 05:41] LABS: Hematocrit 25 % (42-52); Hemoglobin 8.5 g/dl (14.0-18.0); Mean Corpuscular HGB Conc 34 g/dl (31-36); Mean Corpuscular Hemoglobin 30 pg (27-31); Mean Corpuscular Volume 89 fL (80-94); Mean Platelet Volume 8 um3 (7.4-10.4); Platelet Count 204 10^3/ul (150-450); Red Blood Count 2.81 10^6/ul (4.0-5.4); Red Cell Distribution Width 19 % (10.5-15); White Blood Count 18.3 10^3/ul (3.5-10.8)
[2017-05-07 05:55] LABS: EGFR Non-African American 180.2 (>60)
[2017-05-07] MEDS: Heparin VIAL(*) 5000 UNITS/ML VIAL (FIVE THOUSAND) SUBCUT SCH ×3 (06:46→21:56)
[2017-05-07] MEDS: Omeprazole CAP* 20 MG PO SCH (06:46)
[2017-05-07] MEDS: CMCS:Midodrine (NF) 5 MG TAB PO SCH ×2 (06:46→15:21)
[2017-05-07] MEDS: D5W 1/2 NS KCl 20 Meq 1000 ML* 1,000 ML IV SCH (08:09)
[2017-05-07] MEDS: Docusate CAP* 100 MG PO SCH ×2 (09:00→19:57)
[2017-05-07] MEDS: Polyethylene Glycol 3350* 17 GM PACKET PO SCH (09:00)
[2017-05-07] MEDS: Senna TAB PO SCH ×2 (09:00→19:57)
--- NOTE | 2017-05-07 09:24 | PN ---
Subjective Date of Service: 05/07/17 Interval History: Patient seen and examined at bedside. Patient reports mild back pain. Urine output low yesterday afternoon. Small amount of IVF given overnight and urine output responded. Was not out of bed yesterday. Family History: Unchanged from Admission Social History: Unchanged from Admission Past Medical History: Unchanged from Admission Objective Active Medications: Acetaminophen (Tylenol Adult Liq*) 650 mg PO Q12HR PRN Hydrocodone Bitart/Acetaminophen ([place] 5-325 Tab*) 1 tab PO Q4H PRN Albuterol/Ipratropium (Duoneb (Albuterol 2.5 Mg/Ipratropium 0.5 Mg)) 1 neb INH Q4H PRN Digoxin (Lanoxin Tab*) 0.25 mg PO 1000 JOSE Docusate Sodium (Colace Cap*) 100 mg PO BID JOSE Heparin Sodium (Porcine) (Heparin Flush Picc/Ml/Cvc(*)) 0 ml FLUSH 0600,1800 [facility] Heparin Sodium (Porcine) (Heparin Vial(*)) 5,000 units SUBCUT Q8HR [facility] Levalbuterol HCl (Xopenex 0.63mg/3ml Neb*) 0.63 mg INH ONCE PRN Levothyroxine Sodium (Synthroid Tab*) 125 mcg PO DAILY@0600 [facility] Midodrine (Midodrine (Nf)) 10 mg PO Q8H JO[facility] Morphine Sulfate (Morphine Inj (Syringe)*) 2 mg IV Q2H PRN Omeprazole (Prilosec Cap*) 20 mg PO DAILY@0730 [facility] Ondansetron HCl (Zofran Inj*) 4 mg IV Q6H PRN Polyethylene Glycol/Electrolytes (Miralax*) 17 gm PO DAILY JOSE Senna (Senokot Tab*) 1 tab PO BID JOSE Tramadol HCl (Ultram*) 25 mg PO Q8H PRN Vital Signs Temp Pulse Resp BP Pulse Ox 97.4 F 83 16 125/51 93 05/07/17 04:27 05/07/17 04:27 05/07/17 06:52 05/07/17 04:27 05/07/17 04:27 Oxygen Devices in Use Now: Nasal Cannula Appearance: sitting up in bed, NAD Eyes: No Scleral Icterus, PERRLA Ears/Nose/Mouth/Throat: NL Teeth, Lips, Gums Neck: NL Appearance and Movements; NL JVP Respiratory: Symmetrical Chest Expansion and Respiratory Effort, Clear to Auscultation Cardiovascular: RRR, - - 2/6 systolic murmur at RSB. Abdominal: NL Sounds; No Tenderness; No Distention Extremities: No Edema Skin: No Rash or Ulcers Neurological: Alert and Oriented x 3, NL Muscle Strength and Tone Lines/Tubes/Other Access: Clean, Dry and Intact Peripheral IV Nutrition: Taking PO's Result Diagrams: 05/07/17 05:10 05/07/17 05:10 Additional Lab and Data: . Assess/Plan/Problems-Billing This is an 81 year old male with hx of tobacco abuse, prostate CA, atrial fibrillation, and a recent 30lb weight loss, with anorexia s/p T12-L1 tumor resection and spinal decompression, required ICU stay post-op and is now stable on the floor. - Patient Problems (1) Mass of spine Comment: S/P tumor resection and decompression on 05/01. Now tapered off steroids. Was in ICU for close hemodynmic monitoring. Drains removed by NSG. NSG does recommend TLSO when out of bed. Will order through [facility] on Monday. (2) Leukocytosis Comment: Improving. Reactive 2/2 steroids and surgery and mild atelectasis. Remains afebrile. Continue IS and mobilization. (3) HTN (hypertension) Comment: BP stabilized on midodrine. Continue PRN Lasix for fluid overload. (4) Atrial fibrillation Comment: Rate now controlled with digoxin. (5) Hypothyroidism Comment: Continue Synthroid. (6) DVT prophylaxis Comment: SQ Heparin (7) DNR (do not resuscitate) Status and Disposition: Inpatient. Will need TLSO brace when PT/OT/ PMRU vs STR
[2017-05-07] MEDS: Digoxin TAB* 0.125 MG PO SCH (10:34)
--- NOTE | 2017-05-07 17:02 | PN ---
Hospitalist Progress Note Date of Service: 05/07/17 HOSPITALIST ADDENDUM: Clarification. Patient does not need TLSO to get out of bed.
[2017-05-07] MEDS ORDERED: Phenazopyridine TAB* 100 MG PO ONE (19:55)
[2017-05-07] MEDS: Morphine INJ* 2 MG/ML 1 ML SYRINGE (TWO MG - NEW SYRINGE VERSION) IV PRN (21:47)
[2017-05-08] MEDS: CMCS:Midodrine (NF) 5 MG TAB PO SCH ×4 (00:20→23:17)
[2017-05-08] MEDS: HYDROcodone/ACETAMIN 5-325 MG* 1 TAB PO PRN ×5 (00:20→21:19)
[2017-05-08] MEDS: Morphine INJ* 2 MG/ML 1 ML SYRINGE (TWO MG - NEW SYRINGE VERSION) IV PRN (03:28)
[2017-05-08] MEDS: Levothyroxine TAB* 125 MCG TAB PO SCH (05:56)
[2017-05-08] MEDS: Heparin VIAL(*) 5000 UNITS/ML VIAL (FIVE THOUSAND) SUBCUT SCH ×3 (05:56→21:14)
[2017-05-08 06:09] LABS: ABS Basophils 0.1 10^3/ul (0-0.2); ABS Eosinophils 0.2 10^3/ul (0-0.6); ABS Lymphocytes 0.6 10^3/ul (1.0-4.8); ABS Monocytes 0.8 10^3/ul (0-0.8); ABS Neutrophils 16.5 10^3/ul (1.5-7.7); ABS Nucleated RBC 0 10^3/ul; Hematocrit 26 % (42-52); Hemoglobin 8.7 g/dl (14.0-18.0); Lymphocyte % 3.5 % (25-47); Mean Corpuscular HGB Conc 33 g/dl (31-36); Mean Corpuscular Hemoglobin 30 pg (27-31); Mean Corpuscular Volume 89 fL (80-94); Mean Platelet Volume 8 um3 (7.4-10.4); Nucleated Red Blood Cells % 0; Platelet Count 216 10^3/ul (150-450); Red Blood Count 2.91 10^6/ul (4.0-5.4); Red Cell Distribution Width 19 % (10.5-15); White Blood Count 18.2 10^3/ul (3.5-10.8)
[2017-05-08 06:25] LABS: EGFR Non-African American 175.7 (>60)
[2017-05-08] MEDS: Omeprazole CAP* 20 MG PO SCH (07:26)
[2017-05-08] MEDS: Docusate CAP* 100 MG PO SCH ×2 (09:04→21:16)
[2017-05-08] MEDS: Polyethylene Glycol 3350* 17 GM PACKET PO SCH (09:04)
[2017-05-08] MEDS: Senna TAB PO SCH ×2 (09:04→21:16)
[2017-05-08] MEDS: Digoxin TAB* 0.125 MG PO SCH (09:49)
[2017-05-08] MEDS: Oxybutynin TAB* 5 MG PO SCH ×2 (12:29→21:20)
--- NOTE | 2017-05-08 14:19 | PN ---
Subjective Date of Service: 05/08/17 Interval History: Patient was able to work with PT this morning to sit on the edge of the bed. Patient stated that this was painful and that he has pain at rest. Patient denies being discouraged and appears in relatively good spirits. Patient complains of intermittent pain in suprapubic area which did not respond to pyridium. Patient states he has no appetite but will drink the boost. Patient has diarrhea whenever he eats food but otherwise is generally constipated. 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 Patient has moderate SOB with new oxygen requirement which has been recurring through his hospitalization. Patient denies CP, N/V, F/C, Abdominal Pain, lightheadedness, or other pain. Family History: Unchanged from Admission Social History: Unchanged from Admission Past Medical History: Unchanged from Admission Objective Active Medications: Acetaminophen (Tylenol Adult Liq*) 650 mg PO Q12HR PRN PRN Reason: PAIN - MILD TO MODERATE Last Admin: 05/06/17 05:45 Dose: 650 mg Hydrocodone Bitart/Acetaminophen ([place] 5-325 Tab*) 1 tab PO Q4H PRN PRN Reason: moderate pain Last Admin: 05/08/17 09:56 Dose: 1 tab Albuterol/Ipratropium (Duoneb (Albuterol 2.5 Mg/Ipratropium 0.5 Mg)) 1 neb INH Q4H PRN PRN Reason: SOB/WHEEZING Digoxin (Lanoxin Tab*) 0.25 mg PO 1000 [facility] Last Admin: 05/08/17 09:49 Dose: 0.25 mg Docusate Sodium (Colace Cap*) 100 mg PO BID [facility] Last Admin: 05/08/17 09:04 Dose: Not Given Heparin Sodium (Porcine) (Heparin Flush Picc/Ml/Cvc(*)) 0 ml FLUSH 0600,1800 [facility] PRN Reason: Protocol Last Admin: 05/08/17 05:41 Dose: 3 ml Heparin Sodium (Porcine) (Heparin Vial(*)) 5,000 units SUBCUT Q8HR [facility] Last Admin: 05/08/17 05:56 Dose: 5,000 units Levothyroxine Sodium (Synthroid Tab*) 125 mcg PO DAILY@0600 [facility] Last Admin: 05/08/17 05:56 Dose: 125 mcg Midodrine (Midodrine (Nf)) 10 mg PO Q8H [facility] PRN Reason: Protocol Last Admin: 05/08/17 07:25 Dose: 10 mg Morphine Sulfate (Morphine Inj (Syringe)*) 2 mg IV Q2H PRN PRN Reason: PAIN Last Admin: 05/08/17 03:28 Dose: 2 mg Omeprazole (Prilosec Cap*) 20 mg PO DAILY@0730 [facility] Last Admin: 05/08/17 07:26 Dose: 20 mg Ondansetron HCl (Zofran Inj*) 4 mg IV Q6H PRN PRN Reason: NAUSEA Last Admin: 05/02/17 05:52 Dose: 4 mg Oxybutynin Chloride (Ditropan Tab*) 5 mg PO BID [facility] Last Admin: 05/08/17 12:29 Dose: 5 mg Polyethylene Glycol/Electrolytes (Miralax*) 17 gm PO DAILY [facility] Last Admin: 05/08/17 09:04 Dose: Not Given Senna (Senokot Tab*) 1 tab PO BID [facility] Last Admin: 05/08/17 09:04 Dose: Not Given Tramadol HCl (Ultram*) 25 mg PO Q8H PRN PRN Reason: PAIN - MODERATE Last Admin: 05/05/17 18:35 Dose: 25 mg Vital Signs - 8 hr 05/08/17 05/08/17 05/08/17 06:14 07:36 08:00 Temperature 97.6 F Pulse Rate 101 Respiratory 20 22 22 Rate Blood Pressure 102/71 (mmHg) O2 Sat by Pulse 96 96 Oximetry 05/08/17 05/08/17 05/08/17 09:04 09:48 09:49 Temperature Pulse Rate 70 70 Respiratory 16 Rate Blood Pressure (mmHg) O2 Sat by Pulse Oximetry 05/08/17 05/08/17 05/08/17 09:56 11:13 12:27 Temperature 98.0 F Pulse Rate 101 Respiratory 18 20 18 Rate Blood Pressure 125/66 (mmHg) O2 Sat by Pulse 93 Oximetry Oxygen Devices in Use Now: Nasal Cannula Appearance: Patient is an 81yo male who appears stated age and is sitting in the bed in [facility]. Eyes: No Scleral Icterus, PERRLA Ears/Nose/Mouth/Throat: NL Teeth, Lips, Gums, Clear Oropharnyx, Mucous Membranes Moist Neck: NL Appearance and Movements; NL JVP, Trachea Midline Respiratory: Symmetrical Chest Expansion and Respiratory Effort, Clear to Auscultation Cardiovascular: No Edema, - - Grade 2/6 murmur heard best in RUSB. Irregularly Irregular rhythm rate 80-100. Abdominal: No Hepatosplenomegaly, - - BS present and normoactive in all 4 quadrants. Non-distended. Tenderness to palpation in suprapubic area. Lymphatic: No Cervical Adenopathy Extremities: No Edema, No Clubbing, Cyanosis Skin: No Rash or Ulcers Neurological: Alert and Oriented x 3, - - CN II-XII intact. 4/5 strength and symmetrical in B/L UE. 3/5 strength in B/L LE. Sensation intact. Result Diagrams: 05/08/17 05:55 05/08/17 05:55 Additional Lab and Data: . Assess/Plan/Problems-Billing This is an 81 year old male with hx of tobacco abuse, prostate CA, atrial fibrillation, and a recent 30lb weight loss, with anorexia s/p T12-L1 tumor resection and spinal decompression, required ICU stay post-op and is now stable on the floor. - Patient Problems (1) Mass of spine Current Visit: Yes Status: Acute Code(s): M89.9 - DISORDER OF BONE, UNSPECIFIED SNOMED Code(s): 126436624 Comment: S/P tumor resection and decompression on 05/01. Now tapered off steroids. No focal neurological deficits on exam. Drains removed by NSG. NSG does recommend TLSO when out of bed. Will order through [facility] on Monday. May get out of bed without TLSO. 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 Appreciate Neurosurgical and Oncological Consult. (2) Anorexia Current Visit: Yes Status: Acute Code(s): R63.0 - ANOREXIA SNOMED Code(s) : 42998211 Comment: Likely due to metastatic disease. Will monitor weight. No appetite, able to tolerate Boost, will encourage to promote energy and wound healing. (3) Leukocytosis Current Visit: Yes Status: Acute Code(s): D72.829 - ELEVATED WHITE BLOOD CELL COUNT, UNSPECIFIED SNOMED Code(s): 966860428 Comment: Improving. Most likely Reactive and secondary to steroids and surgery and mild atelectasis. Remains afebrile. Continue IS and mobilization. Will monitor. (4) Pleural effusion Current Visit: Yes Status: Acute Code(s): J90 - PLEURAL EFFUSION, NOT ELSEWHERE CLASSIFIED SNOMED Code(s): 74015903 Comment: Bilateral L>R on post op CXR Pulmonary toilet O2 to keep sats>90% Concern if malignant effusions? May need to tap if increasing, CXR Repeat pending. Respiratory status is currently stable on 2.5L Continue IS and flutter valve if patient can tolerate (5) Atrial fibrillation Current Visit: No Status: Acute Code(s): I48.91 - UNSPECIFIED ATRIAL FIBRILLATION SNOMED Code(s): 06190349 Comment: Rate now controlled with digoxin. Level therapeutic. (6) HTN (hypertension) Current Visit: No Status: Acute Code(s): I10 - ESSENTIAL (PRIMARY) HYPERTENSION SNOMED Code(s): 60757857 Comment: BP stabilized on midodrine. Continue PRN Lasix for fluid overload. (7) Hypothyroidism Current Visit: No Status: Acute Code(s): E03.9 - HYPOTHYROIDISM, UNSPECIFIED SNOMED Code(s): 92962512 Comment: Continue Synthroid. (8) Prostate cancer Current Visit: No Status: Acute Code(s): C61 - MALIGNANT NEOPLASM OF PROSTATE SNOMED Code(s): 875115675 Comment: On Lupron as an outpatient. PSA negative, very unlikely primary source of metastasis. MRI brain with no new lesions (9) DNR (do not resuscitate) Current Visit: Yes Status: Acute Comment: DNR (10) DVT prophylaxis Current Visit: No Status: Acute Code(s): SLV8346 - SNOMED Code(s): 361748139 Comment: SQ Heparin Status and Disposition: Inpatient. Will need TLSO brace when PT/OT/ PMRU vs STR
--- NOTE | 2017-05-08 14:48 | RAD ---
INDICATION: New O2 requirement, fluid overload. COMPARISON: Comparison is made with a prior study from May 04, 2017. TECHNIQUE: A portable view of the chest was obtained. FINDINGS: There is a central venous catheter present on the right side. The catheter tip projects over the superior vena cava. The heart appears mildly enlarged and unchanged. There is mild prominence of the interstitial markings and small bilateral pleural effusions which appear unchanged. IMPRESSION: FINDINGS SUGGESTIVE OF PULMONARY EDEMA, UNCHANGED.
[2017-05-08] MEDS ORDERED: Furosemide IV* 10 MG/ML 2 ML VIAL (20 MG) IV ONE (18:42)
[2017-05-09] MEDS: Heparin VIAL(*) 5000 UNITS/ML VIAL (FIVE THOUSAND) SUBCUT SCH ×3 (05:53→23:30)
[2017-05-09] MEDS: Levothyroxine TAB* 125 MCG TAB PO SCH (05:54)
[2017-05-09 06:07] LABS: ABS Basophils 0 10^3/ul (0-0.2); ABS Eosinophils 0.2 10^3/ul (0-0.6); ABS Lymphocytes 0.4 10^3/ul (1.0-4.8); ABS Monocytes 0.6 10^3/ul (0-0.8); ABS Neutrophils 15.3 10^3/ul (1.5-7.7); ABS Nucleated RBC 0 10^3/ul; Eosinophil % 1.2 % (0-6); Hematocrit 25 % (42-52); Hemoglobin 8.6 g/dl (14.0-18.0); Lymphocyte % 2.5 % (25-47); Mean Corpuscular HGB Conc 34 g/dl (31-36); Mean Corpuscular Hemoglobin 31 pg (27-31); Mean Corpuscular Volume 90 fL (80-94); Mean Platelet Volume 8 um3 (7.4-10.4); Nucleated Red Blood Cells % 0; Platelet Count 224 10^3/ul (150-450); Red Cell Distribution Width 19 % (10.5-15); White Blood Count 16.6 10^3/ul (3.5-10.8)
[2017-05-09 06:22] LABS: EGFR Non-African American 189.9 (>60)
[2017-05-09] MEDS: Docusate CAP* 100 MG PO SCH ×2 (07:28→20:58)
[2017-05-09] MEDS: Polyethylene Glycol 3350* 17 GM PACKET PO SCH (07:28)
[2017-05-09] MEDS: Senna TAB PO SCH (07:28)
[2017-05-09] MEDS: Oxybutynin TAB* 5 MG PO SCH ×2 (07:36→20:58)
[2017-05-09] MEDS: CMCS:Midodrine (NF) 5 MG TAB PO SCH ×3 (07:36→23:29)
[2017-05-09] MEDS: HYDROcodone/ACETAMIN 5-325 MG* 1 TAB PO PRN ×3 (07:37→20:58)
[2017-05-09] MEDS: Omeprazole CAP* 20 MG PO SCH (07:37)
[2017-05-09] MEDS ORDERED: Magnesium Sulfate 1 GM IV* 1 GM/100 ML BAG IV ONE (08:00)
[2017-05-09] MEDS ORDERED: Magnesium Sulfate 2 GM IV* 2 GM/50 ML BAG IV ONE (08:00)
[2017-05-09] MEDS: Digoxin TAB* 0.125 MG PO SCH (10:25)
--- NOTE | 2017-05-09 13:35 | RAD ---
Indication: Metastatic upper GI cancer. Real-time sonography of the right upper quadrant was performed. Correlation is made with the prior CT dated April 26, 2017. The liver measures 16.3 cm in length with no intrahepatic ductal dilatation. A cyst is noted in the left lobe of liver measuring 13 x 7 x 12 mm. The gallbladder demonstrates multiple echogenic foci with posterior acoustic shadowing consistent with cholelithiasis. No wall thickening is noted. Biliary sludge is present. The common duct measures up to 4 mm and is not dilated. The right kidney measures 11.1 x 4.3 x 4.1 cm with no hydronephrosis. There is a mass superior to the right kidney consistent with a right adrenal mass measuring approximately 4.2 x 2.6 x 3.3 cm. This was identified on prior CT. IMPRESSION: Cholelithiasis. No biliary duct dilatation is noted. Spleen is normal in size. Right adrenal mass is unchanged.
[2017-05-09] MEDS: traMADol TAB* 50 MG PO PRN (17:56)
[2017-05-09] MEDS ORDERED: Polyethylene Glycol 3350* 17 GM PACKET PO PRN (18:24)
[2017-05-09] MEDS ORDERED: Senna TAB PO PRN (18:24)
--- NOTE | 2017-05-09 18:26 | PN ---
Subjective Date of Service: 05/09/17 Interval History: Patient has no complaints except for continued pain in his bladder which is slightly improved from previous exam. Patient unable to work with PT today and does not have any appetite but is still committed to working to walk again. Patient denies F/C, N/V, CP, SOB, Dizziness, Palpitations, or other pain. Family History: Unchanged from Admission Social History: Unchanged from Admission Past Medical History: Unchanged from Admission Objective Active Medications: Acetaminophen (Tylenol Adult Liq*) 650 mg PO Q12HR PRN PRN Reason: PAIN - MILD TO MODERATE Last Admin: 05/06/17 05:45 Dose: 650 mg Hydrocodone Bitart/Acetaminophen ([place] 5-325 Tab*) 1 tab PO Q4H PRN PRN Reason: moderate pain Last Admin: 05/09/17 14:23 Dose: 1 tab Albuterol/Ipratropium (Duoneb (Albuterol 2.5 Mg/Ipratropium 0.5 Mg)) 1 neb INH Q4H PRN PRN Reason: SOB/WHEEZING Digoxin (Lanoxin Tab*) 0.25 mg PO 1000 [facility] Last Admin: 05/09/17 10:25 Dose: 0.25 mg Docusate Sodium (Colace Cap*) 100 mg PO BID [facility] Last Admin: 05/09/17 07:28 Dose: Not Given Heparin Sodium (Porcine) (Heparin Flush Picc/Ml/Cvc(*)) 0 ml FLUSH 0600,1800 [facility] PRN Reason: Protocol Last Admin: 05/09/17 05:52 Dose: 3 ml Heparin Sodium (Porcine) (Heparin Vial(*)) 5,000 units SUBCUT Q8HR [facility] Last Admin: 05/09/17 14:22 Dose: 5,000 units Levothyroxine Sodium (Synthroid Tab*) 125 mcg PO DAILY@0600 [facility] Last Admin: 05/09/17 05:54 Dose: 125 mcg Midodrine (Midodrine (Nf)) 10 mg PO Q8H [facility] PRN Reason: Protocol Last Admin: 05/09/17 15:20 Dose: 10 mg Morphine Sulfate (Morphine Inj (Syringe)*) 2 mg IV Q2H PRN PRN Reason: PAIN Last Admin: 05/08/17 03:28 Dose: 2 mg Omeprazole (Prilosec Cap*) 20 mg PO DAILY@0730 [facility] Last Admin: 05/09/17 07:37 Dose: 20 mg Ondansetron HCl (Zofran Inj*) 4 mg IV Q6H PRN PRN Reason: NAUSEA Last Admin: 05/02/17 05:52 Dose: 4 mg Oxybutynin Chloride (Ditropan Tab*) 5 mg PO BID [facility] Last Admin: 05/09/17 07:36 Dose: 5 mg Polyethylene Glycol/Electrolytes (Miralax*) 17 gm PO DAILY [facility] Last Admin: 05/09/17 07:28 Dose: Not Given Senna (Senokot Tab*) 1 tab PO BID [facility] Last Admin: 05/09/17 07:28 Dose: Not Given Tramadol HCl (Ultram*) 25 mg PO Q8H PRN PRN Reason: PAIN - MODERATE Last Admin: 05/09/17 17:56 Dose: 25 mg Vital Signs - 8 hr 05/09/17 05/09/17 05/09/17 11:48 14:23 15:44 Temperature 97.6 F 97.8 F Pulse Rate 76 69 Respiratory 22 16 18 Rate Blood Pressure 97/45 107/47 (mmHg) O2 Sat by Pulse 95 94 Oximetry 05/09/17 17:56 Temperature Pulse Rate Respiratory 16 Rate Blood Pressure (mmHg) O2 Sat by Pulse Oximetry Oxygen Devices in Use Now: Nasal Cannula Appearance: Patient is an 81yo male who appears stated age and is sitting in the bed in [facility]. Eyes: No Scleral Icterus, PERRLA Ears/Nose/Mouth/Throat: NL Teeth, Lips, Gums, Clear Oropharnyx, Mucous Membranes Moist Neck: NL Appearance and Movements; NL JVP, Trachea Midline Respiratory: Symmetrical Chest Expansion and Respiratory Effort, Clear to Auscultation Cardiovascular: NL Sounds; No Murmurs; No JVD, RRR, - - Scrotal edema Abdominal: NL Sounds; No Tenderness; No Distention, No Hepatosplenomegaly Lymphatic: No Cervical Adenopathy Extremities: No Edema, No Clubbing, Cyanosis Skin: - - Surgical incisions CDI. Decubitus ulcer covered by barrier cream. Neurological: Alert and Oriented x 3, - - CN II-XII intact, Generalized weakness , no focal deficits. Result Diagrams: 05/09/17 05:51 05/09/17 05:51 Additional Lab and Data: . Assess/Plan/Problems-Billing This is an 81 year old male with hx of tobacco abuse, prostate CA, atrial fibrillation, and a recent 30lb weight loss, with anorexia s/p T12-L1 tumor resection and spinal decompression, required ICU stay post-op and is now stable on the floor with the possibility for treatment or palliative care. - Patient Problems (1) Mass of spine Current Visit: Yes Status: Acute Code(s): M89.9 - DISORDER OF BONE, UNSPECIFIED SNOMED Code(s): 998539945 Comment: S/P tumor resection and decompression on 05/01. Now tapered off steroids. No focal neurological deficits on exam. Drains removed by NSG. May get out of bed without TLSO. 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 Appreciate Neurosurgical and Oncological Consult. Patient is unmotivated and not participatory in care, Palliative care consulted. Patient eligible for Herceptin treatment if tumor HER-2 Positive. Gallbladder U/S negative for signs of cancer. Oncology recommends EGD. To assess for cancer, patient not good candidate for EGD at this time, discussed with family and elected to defer until after HER-2 testing comes back. (2) Anorexia Current Visit: Yes Status: Acute Code(s): R63.0 - ANOREXIA SNOMED Code(s) : 73805251 Comment: Likely due to metastatic disease. Will monitor weight. No appetite, able to tolerate Boost, will encourage to promote energy and wound healing. (3) Leukocytosis Current Visit: Yes Status: Acute Code(s): D72.829 - ELEVATED WHITE BLOOD CELL COUNT, UNSPECIFIED SNOMED Code(s): 506002145 Comment: Improving. Most likely Reactive and secondary to steroids and surgery and mild atelectasis. Remains afebrile. Continue IS and mobilization. Will monitor. (4) Pleural effusion Current Visit: Yes Status: Acute Code(s): J90 - PLEURAL EFFUSION, NOT ELSEWHERE CLASSIFIED SNOMED Code(s): 03479930 Comment: Bilateral L>R on post op CXR Pulmonary toilet O2 to keep sats>90% Concern if malignant effusions? May need to tap if increasing, CXR Repeat shows no change. Respiratory status is currently stable on 3.5L with no increased WOB. Continue IS and flutter valve if patient can tolerate (5) Atrial fibrillation Current Visit: No Status: Acute Code(s): I48.91 - UNSPECIFIED ATRIAL FIBRILLATION SNOMED Code(s): 62987732 Comment: Rate now controlled with digoxin. Level therapeutic. (6) HTN (hypertension) Current Visit: No Status: Acute Code(s): I10 - ESSENTIAL (PRIMARY) HYPERTENSION SNOMED Code(s): 79681417 Comment: BP stabilized on midodrine. Continue PRN Lasix for fluid overload. (7) Hypothyroidism Current Visit: No Status: Acute Code(s): E03.9 - HYPOTHYROIDISM, UNSPECIFIED SNOMED Code(s): 44514092 Comment: Continue Synthroid. (8) Prostate cancer Current Visit: No Status: Acute Code(s): C61 - MALIGNANT NEOPLASM OF PROSTATE SNOMED Code(s): 457754185 Comment: On Lupron as an outpatient. PSA negative, very unlikely primary source of metastasis. MRI brain with no new lesions (9) DNR (do not resuscitate) Current Visit: Yes Status: Acute Comment: DNR Palliative consult entered. (10) DVT prophylaxis Current Visit: No Status: Acute Code(s): KIX0043 - SNOMED Code(s): 017832474 Comment: SQ Heparin Status and Disposition: Inpatient. Will need TLSO brace when PT/OT/ PMRU vs STR
--- NOTE | 2017-05-09 20:26 | PN ---
Progress Note - Progress Note Date of Service: 05/09/17 SOAP: Subjective: []Patient seen and examined today. On regular floor. Patient is very comfortable. Tolerates PO. Disla. Not OOB yet. Objective: [] VSS, Afebrile. Wound s,c,d AAOx3 ONIEL. Face symmetric Abdoulaye 4-5 UES, 4+/5 LEs, possibly antalgic. Sensory grossly intact to light touch. Assessment: []81 yom hx prostate CA, POD#8 of T12-L1 tumor resection and T9-L4 fusion Plan: []Monitor VS, Neurochecks Monitor labs, Ht, WBC Encourage po. On nutrition supplements. PT/OT , OOB in a chair and OOB as tolerated with PT. TLSO brace. IS Monitor pleural effusions Nutrition support Pathology report: metastatic disease, possible upper GI. Follow additional tests. Patient may need rehabilitation. Additional treatment per oncology. Appreciate IM, Oncology care. Girma Lizarraga MD
[2017-05-10] MEDS: CMCS:Midodrine (NF) 5 MG TAB PO SCH ×3 (05:59→14:18)
[2017-05-10] MEDS: Levothyroxine TAB* 125 MCG TAB PO SCH ×2 (05:59→07:03)
[2017-05-10] MEDS: Heparin VIAL(*) 5000 UNITS/ML VIAL (FIVE THOUSAND) SUBCUT SCH ×3 (05:59→14:18)
[2017-05-10 07:08] LABS: ABS Basophils 0.2 10^3/ul (0-0.2); ABS Eosinophils 0.2 10^3/ul (0-0.6); ABS Lymphocytes 0.4 10^3/ul (1.0-4.8); ABS Monocytes 0.6 10^3/ul (0-0.8); ABS Neutrophils 13.7 10^3/ul (1.5-7.7); ABS Nucleated RBC 0.01 10^3/ul; Eosinophil % 1.5 % (0-6); Hematocrit 26 % (42-52); Hemoglobin 8.7 g/dl (14.0-18.0); Lymphocyte % 2.5 % (25-47); Mean Corpuscular HGB Conc 34 g/dl (31-36); Mean Corpuscular Hemoglobin 31 pg (27-31); Mean Corpuscular Volume 91 fL (80-94); Mean Platelet Volume 7 um3 (7.4-10.4); Nucleated Red Blood Cells % 0.1; Platelet Count 230 10^3/ul (150-450); Red Blood Count 2.86 10^6/ul (4.0-5.4); Red Cell Distribution Width 21 % (10.5-15); White Blood Count 15.1 10^3/ul (3.5-10.8)
[2017-05-10 07:28] LABS: EGFR Non-African American 175.7 (>60)
[2017-05-10] MEDS: Omeprazole CAP* 20 MG PO SCH (08:06)
[2017-05-10] MEDS: Oxybutynin TAB* 5 MG PO SCH ×2 (10:00→19:51)
[2017-05-10] MEDS: Digoxin TAB* 0.125 MG PO SCH (10:01)
[2017-05-10] MEDS: Docusate CAP* 100 MG PO SCH ×2 (10:01→19:49)
[2017-05-10] MEDS: HYDROcodone/ACETAMIN 5-325 MG* 1 TAB PO PRN ×3 (10:02→19:51)
[2017-05-10] MEDS ORDERED: NS 0.9% 500 ML* 500 ML IV ONE (15:51)
--- NOTE | 2017-05-10 15:57 | PN ---
Subjective Date of Service: 05/10/17 Interval History: Patient not improved today. Patient on 3.5L NC. Patient denies increased SOB. Patient states that he still wants to work to get up, but has been refusing treatments, assessments and PT. Discussed results of GB US with family and reaffirmed the plan to wait until HER-2 status is established until considering EGD. Patient states his surgical incision is painful in his center back, but states that his bladder no longer hurts. Patient denies CP, N/V, F/C, dizziness , LIU, Changes in vision or other pain. Family History: Unchanged from Admission Social History: Unchanged from Admission Past Medical History: Unchanged from Admission Objective Active Medications: Acetaminophen (Tylenol Adult Liq*) 650 mg PO Q12HR PRN PRN Reason: PAIN - MILD TO MODERATE Last Admin: 05/06/17 05:45 Dose: 650 mg Hydrocodone Bitart/Acetaminophen ([place] 5-325 Tab*) 1 tab PO Q4H PRN PRN Reason: moderate pain Last Admin: 05/10/17 14:18 Dose: 1 tab Albuterol/Ipratropium (Duoneb (Albuterol 2.5 Mg/Ipratropium 0.5 Mg)) 1 neb INH Q4H PRN PRN Reason: SOB/WHEEZING Digoxin (Lanoxin Tab*) 0.25 mg PO 1000 [facility] Last Admin: 05/10/17 10:01 Dose: 0.25 mg Docusate Sodium (Colace Cap*) 100 mg PO BID [facility] Last Admin: 05/10/17 10:01 Dose: 100 mg Heparin Sodium (Porcine) (Heparin Flush Picc/Ml/Cvc(*)) 0 ml FLUSH 0600,1800 [facility] PRN Reason: Protocol Last Admin: 05/10/17 07:06 Dose: 3 ml Heparin Sodium (Porcine) (Heparin Vial(*)) 5,000 units SUBCUT Q8HR [facility] Last Admin: 05/10/17 14:18 Dose: 5,000 units Levothyroxine Sodium (Synthroid Tab*) 125 mcg PO DAILY@0600 [facility] Last Admin: 05/10/17 07:03 Dose: Not Given Midodrine (Midodrine (Nf)) 10 mg PO Q8H [facility] PRN Reason: Protocol Last Admin: 05/10/17 14:18 Dose: 10 mg Morphine Sulfate (Morphine Inj (Syringe)*) 2 mg IV Q2H PRN PRN Reason: PAIN Last Admin: 05/08/17 03:28 Dose: 2 mg Omeprazole (Prilosec Cap*) 20 mg PO DAILY@0730 [facility] Last Admin: 05/10/17 08:06 Dose: Not Given Ondansetron HCl (Zofran Inj*) 4 mg IV Q6H PRN PRN Reason: NAUSEA Last Admin: 05/02/17 05:52 Dose: 4 mg Oxybutynin Chloride (Ditropan Tab*) 5 mg PO BID [facility] Last Admin: 05/10/17 10:00 Dose: 5 mg Polyethylene Glycol/Electrolytes (Miralax*) 17 gm PO DAILY PRN PRN Reason: CONSTIPATION Senna (Senokot Tab*) 1 tab PO BID PRN PRN Reason: CONSTIPATION Tramadol HCl (Ultram*) 25 mg PO Q8H PRN PRN Reason: PAIN - MODERATE Last Admin: 05/09/17 17:56 Dose: 25 mg Vital Signs - 8 hr 05/10/17 05/10/17 05/10/17 10:01 10:02 11:53 Temperature 97.5 F Pulse Rate 71 72 Respiratory 18 24 Rate Blood Pressure 106/52 (mmHg) O2 Sat by Pulse 92 Oximetry 05/10/17 05/10/17 05/10/17 12:40 14:18 15:12 Temperature 98.6 F Pulse Rate 65 Respiratory 18 18 18 Rate Blood Pressure 106/52 (mmHg) O2 Sat by Pulse 93 Oximetry Oxygen Devices in Use Now: Nasal Cannula Appearance: Patient is an 81yo male who appears stated age and is sitting in the bed in [facility]. Eyes: No Scleral Icterus, PERRLA Ears/Nose/Mouth/Throat: NL Teeth, Lips, Gums, Clear Oropharnyx, Mucous Membranes Moist Neck: NL Appearance and Movements; NL JVP, Trachea Midline Respiratory: Symmetrical Chest Expansion and Respiratory Effort, Clear to Auscultation, - - Diminished at Bases Cardiovascular: NL Sounds; No Murmurs; No JVD, RRR, - - 1+ pitting edema in B/L LE. Abdominal: NL Sounds; No Tenderness; No Distention, No Hepatosplenomegaly Lymphatic: No Cervical Adenopathy Extremities: No Clubbing, Cyanosis Skin: No Nodules or Sclerosis, - - Decubitus ulcer with barrier cream not visualized. Neurological: Alert and Oriented x 3, NL Sensation, - - CN II-XII intact, generalized weakness and apathy. Result Diagrams: 05/10/17 07:00 05/10/17 07:00 Additional Lab and Data: . Assess/Plan/Problems-Billing This is an 81 year old male with hx of tobacco abuse, prostate CA, atrial fibrillation, and a recent 30lb weight loss, with anorexia s/p T12-L1 tumor resection and spinal decompression, required ICU stay post-op and is now stable on the floor with the possibility for treatment or palliative care. - Patient Problems (1) Mass of spine Current Visit: Yes Status: Acute Code(s): M89.9 - DISORDER OF BONE, UNSPECIFIED SNOMED Code(s): 068548329 Comment: S/P tumor resection and decompression on 05/01. Now tapered off steroids. No focal neurological deficits on exam. Drains removed by NSG. May get out of bed without TLSO. 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 Appreciate Neurosurgical and Oncological Consult. Patient is unmotivated and not participatory in care, Palliative care consulted. Patient eligible for Herceptin treatment if tumor HER-2 Positive. Gallbladder U/S negative for signs of cancer. Oncology recommends EGD. To assess for cancer, patient not good candidate for EGD at this time, discussed with family and elected to defer until after HER-2 testing comes back. (2) Anorexia Current Visit: Yes Status: Acute Code(s): R63.0 - ANOREXIA SNOMED Code(s) : 09657012 Comment: AFTT, Likely due to metastatic disease. Will monitor weight. No appetite, able to tolerate Boost, will encourage to promote energy and wound healing. Subjectively slightly better. (3) Leukocytosis Current Visit: Yes Status: Acute Code(s): D72.829 - ELEVATED WHITE BLOOD CELL COUNT, UNSPECIFIED SNOMED Code(s): 348508955 Comment: Improving. Most likely Reactive and secondary to steroids and surgery and mild atelectasis. Remains afebrile. Continue IS and mobilization. Will monitor. (4) Pleural effusion Current Visit: Yes Status: Acute Code(s): J90 - PLEURAL EFFUSION, NOT ELSEWHERE CLASSIFIED SNOMED Code(s): 73058211 Comment: Bilateral L>R on post op CXR Pulmonary toilet O2 to keep sats>90% Concern if malignant effusions? May need to tap if increasing, CXR Repeat shows no change. Respiratory status is currently stable on 3.5L with no increased WOB. Continue IS and flutter valve if patient can tolerate (5) Atrial fibrillation Current Visit: No Status: Acute Code(s): I48.91 - UNSPECIFIED ATRIAL FIBRILLATION SNOMED Code(s): 32013755 Comment: Rate now controlled with digoxin. Level therapeutic. Will repeat. (6) HTN (hypertension) Current Visit: No Status: Acute Code(s): I10 - ESSENTIAL (PRIMARY) HYPERTENSION SNOMED Code(s): 66612132 Comment: BP stabilized on midodrine. Continue PRN Lasix for fluid overload. Poor urine output likely due to Midodrine and poor oral intake. (7) Hypothyroidism Current Visit: No Status: Acute Code(s): E03.9 - HYPOTHYROIDISM, UNSPECIFIED SNOMED Code(s): 36700864 Comment: Continue Synthroid. (8) Prostate cancer Current Visit: No Status: Acute Code(s): C61 - MALIGNANT NEOPLASM OF PROSTATE SNOMED Code(s): 750131335 Comment: On Lupron as an outpatient. PSA negative, very unlikely primary source of metastasis. MRI brain with no new lesions (9) DNR (do not resuscitate) Current Visit: Yes Status: Acute Comment: DNR Palliative consult entered. (10) DVT prophylaxis Current Visit: No Status: Acute Code(s): RCY1697 - SNOMED Code(s): 387025430 Comment: SQ Heparin Status and Disposition: Inpatient. Will need TLSO brace when PT/OT/ PMRU vs STR
--- NOTE | 2017-05-10 18:27 | PN ---
Progress Note - Progress Note Date of Service: 05/10/17 SOAP: Subjective: []Patient seen and examined. On regular floor. Patient is resting comfortably. Tolerates PO. Disla. Not OOB yet. Objective: []VSS, Afebrile. Wound s,c,d AAOx3 ONIEL. Face symmetric Abdoulaye 4-5 UES, 4+/5 LEs, possibly antalgic. Sensory grossly intact to light touch. Assessment: []81 yom hx prostate CA, POD#9 of T12-L1 tumor resection and T9-L4 fusion Plan: []Monitor VS, Neurochecks Monitor labs, Ht, WBC Encourage increased po intake. On nutrition supplements. PT/OT , OOB in a chair and OOB as tolerated with PT. TLSO brace. IS Monitor pleural effusions Nutrition support Pathology report: metastatic disease, possible upper GI. Follow additional tests. Patient most likely will need rehabilitation. Additional treatment per oncology. Appreciate IM, Oncology care. Girma Lizarraga MD
[2017-05-11] MEDS: CMCS:Midodrine (NF) 5 MG TAB PO SCH ×4 (00:34→23:48)
[2017-05-11] MEDS: Heparin VIAL(*) 5000 UNITS/ML VIAL (FIVE THOUSAND) SUBCUT SCH ×4 (00:35→20:53)
[2017-05-11 05:20] LABS: ABS Basophils 0 10^3/ul (0-0.2); ABS Eosinophils 0.1 10^3/ul (0-0.6); ABS Lymphocytes 0.5 10^3/ul (1.0-4.8); ABS Monocytes 0.4 10^3/ul (0-0.8); ABS Neutrophils 16.3 10^3/ul (1.5-7.7); ABS Nucleated RBC 0 10^3/ul; Eosinophil % 0.7 % (0-6); Hematocrit 29 % (42-52); Hemoglobin 9.7 g/dl (14.0-18.0); Lymphocyte % 3.1 % (25-47); Mean Corpuscular HGB Conc 33 g/dl (31-36); Mean Corpuscular Hemoglobin 31 pg (27-31); Mean Corpuscular Volume 92 fL (80-94); Mean Platelet Volume 8 um3 (7.4-10.4); Nucleated Red Blood Cells % 0; Platelet Count 263 10^3/ul (150-450); Red Blood Count 3.16 10^6/ul (4.0-5.4); Red Cell Distribution Width 21 % (10.5-15); White Blood Count 17.4 10^3/ul (3.5-10.8)
[2017-05-11 05:33] LABS: EGFR Non-African American 137.2 (>60)
[2017-05-11] MEDS: Levothyroxine TAB* 125 MCG TAB PO SCH (05:53)
[2017-05-11] MEDS: HYDROcodone/ACETAMIN 5-325 MG* 1 TAB PO PRN ×3 (05:53→20:51)
--- NOTE | 2017-05-11 09:54 | PN ---
Progress Note - Progress Note Date of Service: 05/11/17 SOAP: Subjective: lying flat in bed. has not gotten out of bed yet because he is afraid that it will hurt too much. denies any trouble breathing now but respiratory status has been a concern. Her 2 still pending. concern that he is not medically stable for EGD Objective: Vital Signs Temp Pulse Resp BP Pulse Ox 98.0 F 88 17 101/50 95 05/11/17 07:21 05/11/17 07:21 05/11/17 08:00 05/11/17 07:21 05/11/17 08:00 lying flat in nad perr eomi op dry cta anteriorly s1 s2 nl soft nt +Bs no le edema 2/5 strength le bilaterally Laboratory Results - last 24 hr 05/11/17 05/11/17 04:49 04:49 WBC 17.4 H RBC 3.16 L Hgb 9.7 L Hct 29 L MCV 92 MCH 31 MCHC 33 RDW 21 H Plt Count 263 MPV 8 Neut % (Auto) 93.5 H Lymph % (Auto) 3.1 L [place] % (Auto) 2.6 Eos % (Auto) 0.7 Baso % (Auto) 0.1 Absolute Neuts (auto) 16.3 H Absolute Lymphs (auto) 0.5 L Absolute Monos (auto) 0.4 Absolute Eos (auto) 0.1 Absolute Basos (auto) 0 Absolute Nucleated RBC 0 Nucleated RBC % 0 Sodium 132 L Potassium 4.2 Chloride 100 L Carbon Dioxide 25 Anion Gap 7 BUN 11 Creatinine 0.57 L Est GFR ( Amer) 176.4 Est GFR (Non-Af Amer) 137.2 BUN/Creatinine Ratio 19.3 Glucose 89 Calcium 7.7 L Magnesium 2.0 Digoxin 2.2 H Acetaminophen (Tylenol Adult Liq*) 650 mg PO Q12HR PRN PRN Reason: PAIN - MILD TO MODERATE Last Admin: 05/06/17 05:45 Dose: 650 mg Hydrocodone Bitart/Acetaminophen ([place] 5-325 Tab*) 1 tab PO Q4H PRN PRN Reason: moderate pain Last Admin: 05/11/17 05:53 Dose: 1 tab Albuterol/Ipratropium (Duoneb (Albuterol 2.5 Mg/Ipratropium 0.5 Mg)) 1 neb INH Q4H PRN PRN Reason: SOB/WHEEZING Digoxin (Lanoxin Tab*) 0.25 mg PO 1000 [facility] Last Admin: 05/10/17 10:01 Dose: 0.25 mg Docusate Sodium (Colace Cap*) 100 mg PO BID [facility] Last Admin: 05/10/17 19:49 Dose: Not Given Heparin Sodium (Porcine) (Heparin Flush Picc/Ml/Cvc(*)) 0 ml FLUSH 0600,1800 [facility] PRN Reason: Protocol Last Admin: 05/11/17 06:09 Dose: 3 ml Heparin Sodium (Porcine) (Heparin Vial(*)) 5,000 units SUBCUT Q8HR [facility] Last Admin: 05/11/17 00:35 Dose: 5,000 units Levothyroxine Sodium (Synthroid Tab*) 125 mcg PO DAILY@0600 [facility] Last Admin: 05/11/17 05:53 Dose: 125 mcg Midodrine (Midodrine (Nf)) 10 mg PO Q8H [facility] PRN Reason: Protocol Last Admin: 05/11/17 00:34 Dose: 10 mg Morphine Sulfate (Morphine Inj (Syringe)*) 2 mg IV Q2H PRN PRN Reason: PAIN Last Admin: 05/08/17 03:28 Dose: 2 mg Omeprazole (Prilosec Cap*) 20 mg PO DAILY@0730 [facility] Last Admin: 05/10/17 08:06 Dose: Not Given Ondansetron HCl (Zofran Inj*) 4 mg IV Q6H PRN PRN Reason: NAUSEA Last Admin: 05/02/17 05:52 Dose: 4 mg Oxybutynin Chloride (Ditropan Tab*) 5 mg PO BID [facility] Last Admin: 05/10/17 19:51 Dose: 5 mg Polyethylene Glycol/Electrolytes (Miralax*) 17 gm PO DAILY PRN PRN Reason: CONSTIPATION Senna (Senokot Tab*) 1 tab PO BID PRN PRN Reason: CONSTIPATION Tramadol HCl (Ultram*) 25 mg PO Q8H PRN PRN Reason: PAIN - MODERATE Last Admin: 05/09/17 17:56 Dose: 25 mg Assessment: 81 yo M w 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 Her 2 is pending. In terms of the EGD to look for an upper GI source, if he is not medically stable for an EGD this speaks volumes to his ability to tolerate any therapy for said cancer. If he improves enough it would be helpful to determine a source, but if not I would advocate for pursuing palliative measures only. In terms of radiation to his spine, I would defer to neurosurgery on when he is able to tolerate that. I have strongly encouraged polly to participate in physical therapy as he continues to deteriorate functionally. I have assured him that we can medicate him prior to activities if his fear is pain control.
[2017-05-11] MEDS: Omeprazole CAP* 20 MG PO SCH (10:05)
[2017-05-11] MEDS: Oxybutynin TAB* 5 MG PO SCH ×2 (10:06→20:51)
[2017-05-11] MEDS: Docusate CAP* 100 MG PO SCH ×2 (10:06→20:51)
[2017-05-11] MEDS: Digoxin TAB* 0.125 MG PO SCH (11:04)
[2017-05-11] MEDS: Albuterol/Ipratropium NEB.SOL* Albuterol 2.5 MG/Ipratropium 0.5 MG 3 ML INH PRN (13:59)
[2017-05-11] MEDS ORDERED: NS 0.9% 1000 ML* 1,000 ML IV SCH (15:45)
--- NOTE | 2017-05-11 18:21 | PN ---
Subjective Date of Service: 05/11/17 Interval History: Patient in better spirits today, got up with PT to chair but was unable to stay up long due to exhaustion. Patient was able to eat more but was not able to tolerate much more than boost. Patient states still has pain in his lower back at 4/10 at rest. Patient denies CP, SOB, N/V, abdominal pain, Constipation, pain in legs, patient has been having loose stools. Patient denies changes in vision or LIU. Family History: Unchanged from Admission Social History: Unchanged from Admission Past Medical History: Unchanged from Admission Objective Active Medications: Acetaminophen (Tylenol Adult Liq*) 650 mg PO Q12HR PRN PRN Reason: PAIN - MILD TO MODERATE Last Admin: 05/06/17 05:45 Dose: 650 mg Hydrocodone Bitart/Acetaminophen ([place] 5-325 Tab*) 1 tab PO Q4H PRN PRN Reason: moderate pain Last Admin: 05/11/17 13:41 Dose: 1 tab Albuterol/Ipratropium (Duoneb (Albuterol 2.5 Mg/Ipratropium 0.5 Mg)) 1 neb INH Q4H PRN PRN Reason: SOB/WHEEZING Last Admin: 05/11/17 13:59 Dose: 1 neb Digoxin (Lanoxin Tab*) 0.125 mg PO 1000 [facility] Docusate Sodium (Colace Cap*) 100 mg PO BID [facility] Last Admin: 05/11/17 10:06 Dose: Not Given Heparin Sodium (Porcine) (Heparin Flush Picc/Ml/Cvc(*)) 0 ml FLUSH 0600,1800 [facility] PRN Reason: Protocol Last Admin: 05/11/17 17:04 Dose: Not Given Heparin Sodium (Porcine) (Heparin Vial(*)) 5,000 units SUBCUT Q8HR [facility] Last Admin: 05/11/17 14:44 Dose: 5,000 units Sodium Chloride (Ns 0.9% 1000 Ml*) 1,000 mls @ 75 mls/hr IV PER RATE [facility] Stop: 05/12/17 05:04 Last Admin: 05/11/17 17:02 Dose: 75 mls/hr Levothyroxine Sodium (Synthroid Tab*) 125 mcg PO DAILY@0600 [facility] Last Admin: 05/11/17 05:53 Dose: 125 mcg Midodrine (Midodrine (Nf)) 10 mg PO Q8H [facility] PRN Reason: Protocol Last Admin: 05/11/17 14:44 Dose: 10 mg Morphine Sulfate (Morphine Inj (Syringe)*) 2 mg IV Q2H PRN PRN Reason: PAIN Last Admin: 05/08/17 03:28 Dose: 2 mg Omeprazole (Prilosec Cap*) 20 mg PO DAILY@0730 [facility] Last Admin: 05/11/17 10:05 Dose: Not Given Ondansetron HCl (Zofran Inj*) 4 mg IV Q6H PRN PRN Reason: NAUSEA Last Admin: 05/02/17 05:52 Dose: 4 mg Oxybutynin Chloride (Ditropan Tab*) 5 mg PO BID [facility] Last Admin: 05/11/17 10:06 Dose: Not Given Polyethylene Glycol/Electrolytes (Miralax*) 17 gm PO DAILY PRN PRN Reason: CONSTIPATION Senna (Senokot Tab*) 1 tab PO BID PRN PRN Reason: CONSTIPATION Tramadol HCl (Ultram*) 25 mg PO Q8H PRN PRN Reason: PAIN - MODERATE Last Admin: 05/09/17 17:56 Dose: 25 mg Vital Signs - 8 hr 05/11/17 05/11/17 05/11/17 11:04 11:28 13:41 Temperature 97.5 F Pulse Rate 86 80 Respiratory 18 18 Rate Blood Pressure 101/51 (mmHg) O2 Sat by Pulse 97 Oximetry 05/11/17 05/11/17 14:29 16:09 Temperature Pulse Rate 80 Respiratory 18 17 Rate Blood Pressure (mmHg) O2 Sat by Pulse 98 Oximetry Oxygen Devices in Use Now: Nasal Cannula - 2.5L Appearance: Patient is an 81yo male who appears stated age and is sitting in the bed in [facility]. Eyes: No Scleral Icterus, PERRLA Ears/Nose/Mouth/Throat: NL Teeth, Lips, Gums, Clear Oropharnyx, Mucous Membranes Moist Neck: NL Appearance and Movements; NL JVP, Trachea Midline Respiratory: Symmetrical Chest Expansion and Respiratory Effort, Clear to Auscultation Cardiovascular: NL Sounds; No Murmurs; No JVD, RRR, - - 1+ edema in B/L LE and 2 + edema in scrotum. Abdominal: NL Sounds; No Tenderness; No Distention, No Hepatosplenomegaly Lymphatic: No Cervical Adenopathy Extremities: No Clubbing, Cyanosis Skin: No Nodules or Sclerosis, - - Large incision in back covered with CDI dressing. Small areas of skin breakdown on coccyx visualized due to lack or barrier cream. Neurological: Alert and Oriented x 3, NL Sensation, NL Muscle Strength and Tone , - - CN II-XII intact. Result Diagrams: 05/11/17 04:49 05/11/17 04:49 Additional Lab and Data: . Assess/Plan/Problems-Billing This is an 81 year old male with hx of tobacco abuse, prostate CA, atrial fibrillation, and a recent 30lb weight loss, with anorexia s/p T12-L1 tumor resection and spinal decompression, required ICU stay post-op and is now stable on the floor with the possibility for treatment or palliative care. - Patient Problems (1) Mass of spine Current Visit: Yes Status: Acute Code(s): M89.9 - DISORDER OF BONE, UNSPECIFIED SNOMED Code(s): 366389610 Comment: S/P tumor resection and decompression on 05/01. Now tapered off steroids. No focal neurological deficits on exam. Drains removed by NSG. May get out of bed without TLSO. Needs TLSO for walking , was ordered. 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 Appreciate Neurosurgical and Oncological Consult. Patient is unmotivated and not participatory in care, Palliative care consulted. Patient able to get out of bed today with 3 person assist. Recommend EZ stand. Per neurosurgery would be able to start radiation 2 weeks after surgery. Patient eligible for Herceptin treatment if tumor HER-2 Positive. Gallbladder U/S negative for signs of cancer. Oncology recommends EGD. To assess for cancer, patient not good candidate for EGD at this time, discussed with family and elected to defer until after HER-2 testing comes back. (2) Anorexia Current Visit: Yes Status: Acute Code(s): R63.0 - ANOREXIA SNOMED Code(s) : 51306079 Comment: AFTT, Likely due to metastatic disease. Will monitor weight. No appetite, able to tolerate Boost, will encourage to promote energy and wound healing. Subjectively slightly better and able to tolerate slightly more food today, but still poor intake. Is willing to consider parenteral nutrition. Will start on Antidepressant which will hopefully stimulate appetite. (3) Leukocytosis Current Visit: Yes Status: Acute Code(s): D72.829 - ELEVATED WHITE BLOOD CELL COUNT, UNSPECIFIED SNOMED Code(s): 590562035 Comment: Elevated and fluctuating. No other signs of current infection. Most likely Reactive and secondary to steroids and surgery and mild atelectasis. Remains afebrile. Continue IS and mobilization. CXR shows only pulmonary edema, will recheck urinalysis. No signs of skin infection. Will monitor. (4) Pleural effusion Current Visit: Yes Status: Acute Code(s): J90 - PLEURAL EFFUSION, NOT ELSEWHERE CLASSIFIED SNOMED Code(s): 07289709 Comment: Bilateral L>R on post op CXR Pulmonary toilet O2 to keep sats>90% Concern if malignant effusions? May need to tap if increasing, CXR Repeat shows no change. Respiratory status is currently stable on 2.5L with no increased WOB. Continue IS and flutter valve if patient can tolerate (5) Atrial fibrillation Current Visit: No Status: Acute Code(s): I48.91 - UNSPECIFIED ATRIAL FIBRILLATION SNOMED Code(s): 49950487 Comment: Rate now controlled with digoxin. Level supratherapeutic, dose decreased to .125mg daily (6) HTN (hypertension) Current Visit: No Status: Acute Code(s): I10 - ESSENTIAL (PRIMARY) HYPERTENSION SNOMED Code(s): 86002378 Comment: BP stabilized on midodrine. Continue PRN Lasix for fluid overload. Poor urine output likely due to Midodrine and poor oral intake. Will start on fluids and monitor respiratory status. Goal to taper off midodrine if able. (7) Hypothyroidism Current Visit: No Status: Acute Code(s): E03.9 - HYPOTHYROIDISM, UNSPECIFIED SNOMED Code(s): 34907147 Comment: Continue Synthroid. (8) Prostate cancer Current Visit: No Status: Acute Code(s): C61 - MALIGNANT NEOPLASM OF PROSTATE SNOMED Code(s): 633779960 Comment: On Lupron as an outpatient. PSA negative, very unlikely primary source of metastasis. MRI brain with no new lesions (9) DNR (do not resuscitate) Current Visit: Yes Status: Acute Comment: DNR Palliative consult entered. (10) DVT prophylaxis Current Visit: No Status: Acute Code(s): PKJ4293 - SNOMED Code(s): 412875518 Comment: SQ Heparin Status and Disposition: Inpatient. Will need TLSO brace when PT/OT/ PMRU vs STR
[2017-05-12 00:58] LABS: Urine Appearance Cloudy; Urine Blood 2+ (Negative); Urine Color Amber; Urine Ketones 1+ (Negative); Urine Protein Negative (Negative); Urine Specific Gravity 1.027 (1.010-1.030); Urine Urobilinogen Negative (Negative)
[2017-05-12] MEDS: Levothyroxine TAB* 125 MCG TAB PO SCH (05:35)
[2017-05-12] MEDS: Heparin VIAL(*) 5000 UNITS/ML VIAL (FIVE THOUSAND) SUBCUT SCH ×3 (05:48→22:02)
[2017-05-12 06:01] LABS: ABS Basophils 0.1 10^3/ul (0-0.2); ABS Eosinophils 0.1 10^3/ul (0-0.6); ABS Lymphocytes 0.4 10^3/ul (1.0-4.8); ABS Monocytes 0.5 10^3/ul (0-0.8); ABS Nucleated RBC 0 10^3/ul; Eosinophil % 0.5 % (0-6); Hematocrit 26 % (42-52); Hemoglobin 8.5 g/dl (14.0-18.0); Lymphocyte % 2.8 % (25-47); Mean Corpuscular HGB Conc 33 g/dl (31-36); Mean Corpuscular Hemoglobin 30 pg (27-31); Mean Corpuscular Volume 93 fL (80-94); Mean Platelet Volume 8 um3 (7.4-10.4); Nucleated Red Blood Cells % 0; Platelet Count 244 10^3/ul (150-450); Red Blood Count 2.81 10^6/ul (4.0-5.4); Red Cell Distribution Width 22 % (10.5-15); White Blood Count 16.1 10^3/ul (3.5-10.8)
[2017-05-12 06:15] LABS: EGFR Non-African American 159.6 (>60)
[2017-05-12] MEDS: CMCS:Midodrine (NF) 5 MG TAB PO SCH ×3 (07:17→23:15)
[2017-05-12] MEDS: Omeprazole CAP* 20 MG PO SCH (09:00)
[2017-05-12] MEDS: Sertraline* 50 MG TAB PO SCH (09:00)
[2017-05-12] MEDS: Oxybutynin TAB* 5 MG PO SCH ×2 (09:00→22:01)
[2017-05-12] MEDS: Docusate CAP* 100 MG PO SCH ×2 (09:00→22:01)
[2017-05-12] MEDS: Digoxin TAB* 0.125 MG PO SCH (09:00)
[2017-05-12] MEDS: HYDROcodone/ACETAMIN 5-325 MG* 1 TAB PO PRN ×2 (09:14→16:50)
[2017-05-12] MEDS: NS 0.9% 1000 ML* 1,000 ML IV SCH (09:49)
--- NOTE | 2017-05-12 13:11 | PN ---
Progress Note - Progress Note Date of Service: 05/12/17 SOAP: Subjective: []Case discussed with hospitalist, question if pt. has any desire to pursue therapy and concern that family is not aware of this desire. Family have asked about providing artificial nutrition. Pt. seen in consultation just prior to my visit by palliative care, Dr. Ruggiero. Says he is feeling well. Knows he has cancer, but does not know any specifics. Thinks he needs to know "more details." Thinks he is suppose to have surgery. Medications: Acetaminophen (Tylenol Adult Liq*) 650 mg PO Q12HR PRN PRN Reason: PAIN - MILD TO MODERATE Last Admin: 05/06/17 05:45 Dose: 650 mg Hydrocodone Bitart/Acetaminophen (Hepler 5-325 Tab*) 1 tab PO Q4H PRN PRN Reason: moderate pain Last Admin: 05/12/17 09:14 Dose: 1 tab Albuterol/Ipratropium (Duoneb (Albuterol 2.5 Mg/Ipratropium 0.5 Mg)) 1 neb INH Q4H PRN PRN Reason: SOB/WHEEZING Last Admin: 05/11/17 13:59 Dose: 1 neb Digoxin (Lanoxin Tab*) 0.125 mg PO 1000 [facility] Last Admin: 05/12/17 09:00 Dose: 0.125 mg Docusate Sodium (Colace Cap*) 100 mg PO BID [facility] Last Admin: 05/12/17 09:00 Dose: 100 mg Heparin Sodium (Porcine) (Heparin Flush Picc/Ml/Cvc(*)) 0 ml FLUSH 0600,1800 [facility] PRN Reason: Protocol Last Admin: 05/12/17 05:35 Dose: 2 ml Heparin Sodium (Porcine) (Heparin Vial(*)) 5,000 units SUBCUT Q8HR [facility] Last Admin: 05/12/17 05:48 Dose: 5,000 units Sodium Chloride (Ns 0.9% 1000 Ml*) 1,000 mls @ 50 mls/hr IV .PER RATE [facility] Last Admin: 05/12/17 09:49 Dose: 50 mls/hr Levothyroxine Sodium (Synthroid Tab*) 125 mcg PO DAILY@0600 [facility] Last Admin: 05/12/17 05:35 Dose: 125 mcg Midodrine (Midodrine (Nf)) 10 mg PO Q8H [facility] PRN Reason: Protocol Last Admin: 05/12/17 07:17 Dose: Not Given Morphine Sulfate (Morphine Inj (Syringe)*) 2 mg IV Q2H PRN PRN Reason: PAIN Last Admin: 05/08/17 03:28 Dose: 2 mg Omeprazole (Prilosec Cap*) 20 mg PO DAILY@0730 [facility] Last Admin: 05/12/17 09:00 Dose: 20 mg Ondansetron HCl (Zofran Inj*) 4 mg IV Q6H PRN PRN Reason: NAUSEA Last Admin: 05/02/17 05:52 Dose: 4 mg Oxybutynin Chloride (Ditropan Tab*) 5 mg PO BID [facility] Last Admin: 05/12/17 09:00 Dose: 5 mg Polyethylene Glycol/Electrolytes (Miralax*) 17 gm PO DAILY PRN PRN Reason: CONSTIPATION Senna (Senokot Tab*) 1 tab PO BID PRN PRN Reason: CONSTIPATION Sertraline HCl (Zoloft*) 50 mg PO DAILY [facility] Last Admin: 05/12/17 09:00 Dose: 50 mg Tramadol HCl (Ultram*) 25 mg PO Q8H PRN PRN Reason: PAIN - MODERATE Last Admin: 05/09/17 17:56 Dose: 25 mg Objective: [] Vital Signs Temp Pulse Resp BP Pulse Ox 97.6 F 96 16 110/61 98 05/12/17 07:37 05/12/17 09:00 05/12/17 09:14 05/12/17 07:37 05/12/17 07:37 A&Ox3, though disoriented to situation HRR, S1S2 LS dim. +BS Laboratory Results - last 24 hr 05/12/17 05/12/17 05/12/17 00:30 05:30 05:30 WBC 16.1 H RBC 2.81 L Hgb 8.5 L Hct 26 L MCV 93 MCH 30 MCHC 33 RDW 22 H Plt Count 244 MPV 8 Neut % (Auto) 92.9 H Lymph % (Auto) 2.8 L [place] % (Auto) 3.4 Eos % (Auto) 0.5 Baso % (Auto) 0.4 Absolute Neuts (auto) 15.0 H Absolute Lymphs (auto) 0.4 L Absolute Monos (auto) 0.5 Absolute Eos (auto) 0.1 Absolute Basos (auto) 0.1 Absolute Nucleated RBC 0 Nucleated RBC % 0 Sodium 132 L Potassium 3.9 Chloride 102 Carbon Dioxide 25 Anion Gap 5 BUN 11 Creatinine 0.50 L Est GFR ( Amer) 205.2 Est GFR (Non-Af Amer) 159.6 BUN/Creatinine Ratio 22.0 H Glucose 97 Lactic Acid Calcium 7.6 L Magnesium 1.9 Urine Color Birdie Urine Appearance Cloudy Urine pH 5.0 Ur Specific [place] 1.027 Urine Protein Negative Urine Ketones 1+ H Urine Blood 2+ H Urine Nitrate Negative Urine Bilirubin Negative Urine Urobilinogen Negative Ur Leukocyte Esterase 2+ H Urine WBC (Auto) Trace(0-5/hpf) Urine RBC (Auto) Trace(0-2/hpf) Urine Bacteria Absent Urine Glucose Negative 05/12/17 05:30 WBC RBC Hgb Hct MCV MCH MCHC RDW Plt Count MPV Neut % (Auto) Lymph % (Auto) [place] % (Auto) Eos % (Auto) Baso % (Auto) Absolute Neuts (auto) Absolute Lymphs (auto) Absolute Monos (auto) Absolute Eos (auto) Absolute Basos (auto) Absolute Nucleated RBC Nucleated RBC % Sodium Potassium Chloride Carbon Dioxide Anion Gap BUN Creatinine Est GFR ( Amer) Est GFR (Non-Af Amer) BUN/Creatinine Ratio Glucose Lactic Acid 0.9 Calcium Magnesium Urine Color Urine Appearance Urine pH Ur Specific [place] Urine Protein Urine Ketones Urine Blood Urine Nitrate Urine Bilirubin Urine Urobilinogen Ur Leukocyte Esterase Urine WBC (Auto) Urine RBC (Auto) Urine Bacteria Urine Glucose Assessment: []81 yo male with newly diagnosed metastatic adenocarcinoma with current staining favoring upper GI with HER-2 equivacle and FISH pending. He is now POD 11, with unfortunately poor performance since surgery for spinal stabilization. This is likely partially related to difficult post op course, decline due to underlying disease burden, and unfortunately his limited involvement in care. Today while he is alert and oriented he will make statements that do not correlate with him understanding his situation, however he clearly stated to me that he wants to get his family together to make "an informed decision." Plan: []-Suggest family meeting. -I would not recommend parental nutrition as this will likely not improve his performance enough to increase life expectancy, as even with or without therapy his prognosis is likely measured in months. -Unfortunately he does not appear to be a candidate for any systemic therapy at this time. -Agree palliative RT to spinal mass reasonable once cleared by surgery, may actually improve his performance. Oncology to continue to follow
[2017-05-12] MEDS: Dronabinol CAP* 2.5 MG PO SCH (16:50)
--- NOTE | 2017-05-12 17:20 | PN ---
Subjective Date of Service: 05/12/17 Interval History: Patient states he is doing pretty well today. Patient was asked about refusing care and she states that he has not been refusing care, just doesn't want to do things some times and claims that the nurses never come back to re-offer. Patient states he has pain 4/10 in the center of his back at his surgical incision. Patient denies CP, SOB, N/V, Abdominal Pain, Diarrhea, Constipation, Or other pain. Patient A/Ox3 and displaying insight into condition when examined in AM. When interviewed by Dr. Julia Ruggiero from Palliative Medicine, patient states that he has polio and repeats that he needs more information before making any decision about treatment. This continued later during a family meeting with Dr. Thapa and patient's family. Patient states at this time that he does not feel willing to got through the painful process of PT and rehab which would be needed to regain functional status and attempt treatment for cancer. However, when asked directly about Hospice patient stated that he wanted another couple days to think about it. Family History: Unchanged from Admission Social History: Unchanged from Admission Past Medical History: Unchanged from Admission Objective Active Medications: Acetaminophen (Tylenol Adult Liq*) 650 mg PO Q12HR PRN PRN Reason: PAIN - MILD TO MODERATE Last Admin: 05/06/17 05:45 Dose: 650 mg Hydrocodone Bitart/Acetaminophen ([place] 5-325 Tab*) 1 tab PO Q4H PRN PRN Reason: moderate pain Last Admin: 05/12/17 16:50 Dose: 1 tab Albuterol/Ipratropium (Duoneb (Albuterol 2.5 Mg/Ipratropium 0.5 Mg)) 1 neb INH Q4H PRN PRN Reason: SOB/WHEEZING Last Admin: 05/11/17 13:59 Dose: 1 neb Digoxin (Lanoxin Tab*) 0.125 mg PO 1000 [facility] Last Admin: 05/12/17 09:00 Dose: 0.125 mg Docusate Sodium (Colace Cap*) 100 mg PO BID [facility] Last Admin: 05/12/17 09:00 Dose: 100 mg Dronabinol (Marinol Cap*) 2.5 mg PO AC [facility] Last Admin: 05/12/17 16:50 Dose: 2.5 mg Heparin Sodium (Porcine) (Heparin Flush Picc/Ml/Cvc(*)) 0 ml FLUSH 0600,1800 [facility] PRN Reason: Protocol Last Admin: 05/12/17 05:35 Dose: 2 ml Heparin Sodium (Porcine) (Heparin Vial(*)) 5,000 units SUBCUT Q8HR [facility] Last Admin: 05/12/17 14:31 Dose: 5,000 units Sodium Chloride (Ns 0.9% 1000 Ml*) 1,000 mls @ 50 mls/hr IV .PER RATE [facility] Last Admin: 05/12/17 09:49 Dose: 50 mls/hr Levothyroxine Sodium (Synthroid Tab*) 125 mcg PO DAILY@0600 [facility] Last Admin: 05/12/17 05:35 Dose: 125 mcg Midodrine (Midodrine (Nf)) 10 mg PO Q8H [facility] PRN Reason: Protocol Last Admin: 05/12/17 14:32 Dose: 10 mg Morphine Sulfate (Morphine Inj (Syringe)*) 2 mg IV Q2H PRN PRN Reason: PAIN Last Admin: 05/08/17 03:28 Dose: 2 mg Omeprazole (Prilosec Cap*) 20 mg PO DAILY@0730 [facility] Last Admin: 05/12/17 09:00 Dose: 20 mg Ondansetron HCl (Zofran Inj*) 4 mg IV Q6H PRN PRN Reason: NAUSEA Last Admin: 05/02/17 05:52 Dose: 4 mg Oxybutynin Chloride (Ditropan Tab*) 5 mg PO BID [facility] Last Admin: 05/12/17 09:00 Dose: 5 mg Polyethylene Glycol/Electrolytes (Miralax*) 17 gm PO DAILY PRN PRN Reason: CONSTIPATION Senna (Senokot Tab*) 1 tab PO BID PRN PRN Reason: CONSTIPATION Sertraline HCl (Zoloft*) 50 mg PO DAILY [facility] Last Admin: 05/12/17 09:00 Dose: 50 mg Tramadol HCl (Ultram*) 25 mg PO Q8H PRN PRN Reason: PAIN - MODERATE Last Admin: 05/09/17 17:56 Dose: 25 mg Vital Signs - 8 hr 05/12/17 05/12/17 05/12/17 11:16 14:27 16:50 Temperature 98.8 F Pulse Rate 70 Respiratory 22 16 16 Rate Blood Pressure 92/43 (mmHg) O2 Sat by Pulse 95 Oximetry Oxygen Devices in Use Now: Nasal Cannula - 3.5L Appearance: Patient is an 81yo male who appears stated age and is sitting in the bed in NAD. Eyes: No Scleral Icterus, PERRLA Ears/Nose/Mouth/Throat: NL Teeth, Lips, Gums, Clear Oropharnyx, Mucous Membranes Moist Neck: NL Appearance and Movements; NL JVP, Trachea Midline Respiratory: Symmetrical Chest Expansion and Respiratory Effort, Clear to Auscultation, - - Diminished in bases Cardiovascular: NL Sounds; No Murmurs; No JVD, RRR, - - 2+ pitting edema in B/L LE. Scrotal edema. Abdominal: NL Sounds; No Tenderness; No Distention, No Hepatosplenomegaly Lymphatic: No Cervical Adenopathy Extremities: No Clubbing, Cyanosis Skin: No Nodules or Sclerosis, - - Large incision in midline of back covered by bandage without discharge. Neurological: Alert and Oriented x 3, NL Sensation, - - Weak Throughout. Result Diagrams: 05/12/17 05:30 05/12/17 05:30 Additional Lab and Data: . Assess/Plan/Problems-Billing This is an 81 year old male with hx of tobacco abuse, prostate CA, atrial fibrillation, and a recent 30lb weight loss, with anorexia s/p T12-L1 tumor resection and spinal decompression, required ICU stay post-op and is now stable on the floor with the possibility for treatment or palliative care. - Patient Problems (1) Mass of spine Current Visit: Yes Status: Acute Code(s): M89.9 - DISORDER OF BONE, UNSPECIFIED SNOMED Code(s): 699625939 Comment: S/P tumor resection and decompression on 05/01. Now tapered off steroids. No focal neurological deficits on exam. Drains removed by NSG. May get out of bed without TLSO. Needs TLSO for walking , was ordered. 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 Appreciate Neurosurgical and Oncological Consult. Patient is unmotivated and not participatory in care, Palliative care consulted. Patient able to get out of bed today with 3 person assist. Recommend EZ stand. Per neurosurgery would be able to start radiation 2 weeks after surgery which would be 05/15/2017. Patient eligible for Herceptin treatment if tumor HER-2 Positive. Gallbladder U/S negative for signs of cancer. Oncology recommends EGD. To assess for cancer, patient not good candidate for EGD at this time, discussed with family and elected to defer until after HER-2 testing comes back. Patient equivocal about Hospice Care, would like a couple more days to consider it. Psych eval for competency pending. Family seems on board for Hospice. (2) Anorexia Current Visit: Yes Status: Acute Code(s): R63.0 - ANOREXIA SNOMED Code(s) : 52632714 Comment: Appreciate Palliative and Oncology Consult. AFTT, Likely due to metastatic disease. Will monitor weight. No appetite, able to tolerate Boost, will encourage to promote energy and wound healing. Subjectively slightly better and able to tolerate slightly more food today, but still poor intake. Is willing to consider parenteral nutrition, not a good candidate per onc and palliative medicine due to risk of infection and likely minimal gain. Will start on Antidepressant and Marinol which will hopefully stimulate appetite. (3) Leukocytosis Current Visit: Yes Status: Acute Code(s): D72.829 - ELEVATED WHITE BLOOD CELL COUNT, UNSPECIFIED SNOMED Code(s): 004119624 Comment: Elevated and fluctuating. No other signs of current infection. Most likely Reactive and secondary to steroids and surgery and mild atelectasis. Remains afebrile. Continue IS and mobilization. CXR shows only pulmonary edema, Urinalysis equivocal, will monitor. No signs of skin infection. Will monitor. (4) Pleural effusion Current Visit: Yes Status: Acute Code(s): J90 - PLEURAL EFFUSION, NOT ELSEWHERE CLASSIFIED SNOMED Code(s): 76644472 Comment: Bilateral L>R on post op CXR Pulmonary toilet O2 to keep sats>90% Concern if malignant effusions? May need to tap if increasing, CXR Repeat shows no change. Respiratory status is currently stable on 2.5L with no increased WOB. Continue IS and flutter valve if patient can tolerate (5) Atrial fibrillation Current Visit: No Status: Acute Code(s): I48.91 - UNSPECIFIED ATRIAL FIBRILLATION SNOMED Code(s): 56626491 Comment: Rate now controlled with digoxin. Level supratherapeutic, dose decreased to .125mg daily. HR still controlled. (6) HTN (hypertension) Current Visit: No Status: Acute Code(s): I10 - ESSENTIAL (PRIMARY) HYPERTENSION SNOMED Code(s): 86913961 Comment: BP stabilized on midodrine. Continue PRN Lasix for fluid overload. Poor urine output likely due to Midodrine and poor oral intake. Fluids started without a decline in respiratory status. Minor response in urine output. Goal to taper off midodrine if able. Still bordeline hypotensive. (7) Hypothyroidism Current Visit: No Status: Acute Code(s): E03.9 - HYPOTHYROIDISM, UNSPECIFIED SNOMED Code(s): 14795283 Comment: Continue Synthroid. (8) Prostate cancer Current Visit: No Status: Acute Code(s): C61 - MALIGNANT NEOPLASM OF PROSTATE SNOMED Code(s): 109332339 Comment: On Lupron as an outpatient. PSA negative, very unlikely primary source of metastasis. MRI brain with no new lesions (9) DNR (do not resuscitate) Current Visit: Yes Status: Acute Comment: DNR Palliative consult entered. Considering Hospice, needs follow up (10) DVT prophylaxis Current Visit: No Status: Acute Code(s): FLR1256 - SNOMED Code(s): 690670352 Comment: SQ Heparin Status and Disposition: Inpatient. Needs TLSO brace, will need rehab if not hospice.
--- NOTE | 2017-05-12 20:08 | CONS ---
CC: Danny Dickson MD* CONSULTATION REPORT: DATE OF CONSULT: 05/12/17 PRIMARY CARE PHYSICIAN: Dnany Dickson MD REFERRING PROVIDER FOR CONSULT: ROCK Barnard HOSPITAL COURSE: This is an 81-year-old male with a past medical history of a known spinal mass, who was admitted in March for spinal mass and failure to thrive, who was sent back to the emergency room on 04/25/17 for further evaluation of the spinal mass. Prior to March, the patient was living in [place] at home independently. His family, his daughter and son-in-law, Ihsan, came out to visit him, found how cachectic, malnourished, and deconditioned he was and brought him back to [place] to stay with them and care for him and for further evaluation of his decline. He had a recent MRI done by his primary care physician that showed significant narrowing in T12 and L1 and the primary recommended he come to the hospital for further workup of this. He was also found to be septic secondary to urinary tract infection. Neurosurgery was consulted on admission, they recommended intervention. On 05/01/17, the patient had posterior thoracolumbar decompression and fusion with decompressive laminectomy, T11 to L2, and resection of the epidural tumor with posterior lateral fusion, T9 to L4, and bilateral pedicle screw fixation, T9, T10, T11, L2 , L3, and L4, and intraoperative navigation and DBM putty. The patient's postoperative course was complicated by hypotension requiring pressors in the ICU. He was also seen in consultation by Oncology due to the spinal mass with unknown primary. He had a chest, abdomen, and pelvis CT done, it showed a 3.6- cm anterior mediastinal mass, most likely represents metastatic disease given the history of malignancy and bilateral pleural effusions and compressive atelectasis and prior to his neurosurgical procedure, imaging showed expansile lesion centered within the posterior elements of T12 and L1 with epidural extension. His biopsy from his surgery came back and showed metastatic poorly differentiated adenocarcinoma with extensive necrosis, unknown primary thought to be secondary to an upper GI source; however, there was concern that he is not medically stable enough for an EGD and thus would not even tolerate therapy for cancer as they are awaiting HER-2 report to come back. He is a likely candidate for palliative radiation to his back for pain control. His other issue is that he is not eating or drinking very much. He also is requiring oxygen at 3.5 L. On my encounter, I questioned his capacity as I spoke with him at length regarding why he is in the hospital; initially, he told me he had polio. When asked about if he wants to continue with aggressive care and treatment, investigation, he states he needs more data. He wants more information. He did adamantly say he did not want a feeding tube or artificial nutrition. He also when asked where he is, he says "I believe I am in [place]." He does know that it is April. According to the nursing staff, he declines getting repositioned, it is too painful for him. He has declined some of his medications. He states he still has a lot of back pain. He is also complaining of constipation. He also admits that he is short of breath as well and has had a poor appetite. Otherwise, remaining review of systems is negative. I spoke with the daughter, Teressa, and son-in-law, Fabiano, at length over the phone regarding big picture and my concern that the patient is not going to be a candidate for therapy regardless of the report coming back and I suspect that Oncology will agree that he is not a candidate for Herceptin treatment either. Initially, they had brought up artificial nutrition, which I discussed the risks outweigh the benefits and the patient was adamant that he did not want that. I did talk about hospice eligibility, they are very interested in [facility] and if this level comes back negative, that they would like to pursue that. Even if it does come back positive, he may not be a candidate for it unless pursuing a family meeting to discuss more prognosis and goals of care for him is warranted. PAST MEDICAL HISTORY: 1. The patient now with chronic sacral decubitus ulcer. 2. Hypertension. 3. Hypothyroidism. 4. Osteoporosis. 5. Osteoarthritis. 6. Atrial fibrillation. 7. GERD. 8. History of prostate cancer. 9. Constipation. INPATIENT MEDICATIONS: 1. Tylenol 650 every 12 hours as needed. 2. DuoNeb q.4 hours as needed. 3. Digoxin 0.125 mg p.o. daily. 4. Colace 100 mg p.o. b.i.d. 5. Heparin 5000 units subcu t.i.d. 6. [place] 1 tab q.4 hours as needed. 7. Levothyroxine 125 mcg p.o. daily. 8. Midodrine 10 mg p.o. q.8 hours. 9. Morphine 2 mg every 2 hours as needed. 10. Normal saline 50 cc an hour. 11. Omeprazole 20 mg p.o. daily. 12. Zofran 4 mg q.6 hours as needed. 13. Oxybutynin 5 mg p.o. b.i.d. 14. MiraLAX 17 g daily. 15. Senna 1 tab p.o. b.i.d. as needed. 16. Zoloft 50 mg daily. 17. Tramadol 25 mg q.8 hours as needed. ALLERGIES: BEE VENOM. FAMILY HISTORY: Reviewed and noncontributory. SOCIAL HISTORY: Prior to March, the patient was living at home independent of ADLs, now he moved here in [place] to live with his daughter, Teressa. He was prior to this ambulating with a cane. He quit smoking prior to his being moved to [place] 2 months ago. He has a 60-pack year history. No alcohol or illicit drug use. He is a DNR/DNI. REVIEW OF SYSTEMS: A 14-point review of systems as mentioned in the HPI, pertinent positives and negatives as mentioned in the HPI, otherwise negative. PHYSICAL EXAM: Vital Signs: Temp 97.6, pulse rate 96, respiratory rate 16, oxygen saturations 98% on 3.5 L, blood pressure 110/61. General: Some conversational dyspnea noted. No acute distress. HEENT: Head, normocephalic. Bitemporal muscle wasting noted. Pupils equal and reactive, anicteric. Oropharynx: Mucous membranes are dry. Neck is supple. Cardiac: Regular rate and rhythm, systolic murmur heard throughout. Respiratory: Diminished breath sounds, coarse upper airway respiratory rhonchorous breath sounds. Abdomen: Soft with mild distention, nontender. Extremities: No clubbing, cyanosis, edema. +1 DP. Neurologic: The patient is alert and oriented x2, oriented to time and self. He has weakness in the lower extremities that are symmetric. LABORATORY DATA: White count 16.1, hemoglobin 8.5, hematocrit 26, platelets 244. Sodium 132, potassium 3.9, chloride 102, bicarb 25, BUN 11, creatinine 0.5. Albumin on admission was 2.7. ASSESSMENT AND PLAN: This is an 81-year-old male, who presented to the emergency room back on 04/25/17 for further workup of a large spinal mass that was causing severe stenosis and neurologic symptoms that included lower ext weakness. He is being worked up for primary malignancy that is metastatic. His hospital course is complicated by surgical intervention for spine stability with a short ICU stay for hypotension requiring pressors. He has declined in his performance status and I do question his capacity and his insight into everything that is going on. I recommend further evaluation for his capacity and also workup for palliative radiation once he is a candidate for that and it does not appear that he is a candidate for any further treatment and to follow up with Oncology and the primary team, to sit down with the family to discuss this further at length. In the interim, I will put in a referral for [facility] as I suspect the family will likely take him home with hospice services once the herceptin result comes back. I did put in for Marinol to see if this will stimulate his appetite in place of artificial nutrition. Again, patient does not want artificial nutrition and would also recommend against it. Thank you for this consultation. We will follow along with you. PATIENT TIME: Greater than 90 minutes was spent doing consultation, more than half the time was spent in direct patient contact. [id number]/[facility] #: [id number] RICHIE
[2017-05-13] MEDS: Heparin VIAL(*) 5000 UNITS/ML VIAL (FIVE THOUSAND) SUBCUT SCH ×3 (05:28→21:32)
[2017-05-13] MEDS: Levothyroxine TAB* 125 MCG TAB PO SCH (05:29)
[2017-05-13] MEDS: NS 0.9% 1000 ML* 1,000 ML IV SCH (05:33)
[2017-05-13 05:52] LABS: ABS Basophils 0.1 10^3/ul (0-0.2); ABS Eosinophils 0.1 10^3/ul (0-0.6); ABS Lymphocytes 0.4 10^3/ul (1.0-4.8); ABS Monocytes 0.5 10^3/ul (0-0.8); ABS Neutrophils 15.7 10^3/ul (1.5-7.7); ABS Nucleated RBC 0.01 10^3/ul; Eosinophil % 0.5 % (0-6); Hematocrit 25 % (42-52); Hemoglobin 8.4 g/dl (14.0-18.0); Lymphocyte % 2.2 % (25-47); Mean Corpuscular HGB Conc 33 g/dl (31-36); Mean Corpuscular Hemoglobin 31 pg (27-31); Mean Corpuscular Volume 93 fL (80-94); Mean Platelet Volume 7 um3 (7.4-10.4); Nucleated Red Blood Cells % 0; Platelet Count 217 10^3/ul (150-450); Red Blood Count 2.74 10^6/ul (4.0-5.4); Red Cell Distribution Width 22 % (10.5-15); White Blood Count 16.7 10^3/ul (3.5-10.8)
[2017-05-13 06:12] LABS: EGFR Non-African American 167.3 (>60)
[2017-05-13] MEDS: CMCS:Midodrine (NF) 5 MG TAB PO SCH ×2 (06:46→14:39)
[2017-05-13] MEDS: Sertraline* 50 MG TAB PO SCH (08:14)
[2017-05-13] MEDS: Docusate CAP* 100 MG PO SCH ×2 (08:14→21:31)
[2017-05-13] MEDS: traMADol TAB* 50 MG PO PRN (08:14)
[2017-05-13] MEDS: Omeprazole CAP* 20 MG PO SCH (08:14)
[2017-05-13] MEDS: Oxybutynin TAB* 5 MG PO SCH ×2 (08:14→21:31)
[2017-05-13] MEDS: Dronabinol CAP* 2.5 MG PO SCH ×3 (08:14→16:44)
--- NOTE | 2017-05-13 08:40 | PN ---
Subjective Date of Service: 05/13/17 Interval History: Patient seen and examined. States pain in back is present all the time and breathing becomes labored when when trying to adjust himself in the bed. Remains on continuous O2. Does not appear to have insight into condition when I tried to discuss his lab work and appetite. When asked if he was OOB, he states "oh yes, been up and around a lot" but notes state otherwise. Denies chest pain , no n/v. No further complaints. Family History: Unchanged from Admission Social History: Unchanged from Admission Past Medical History: Unchanged from Admission Objective Active Medications: Acetaminophen (Tylenol Adult Liq*) 650 mg PO Q12HR PRN PRN Reason: PAIN - MILD TO MODERATE Last Admin: 05/06/17 05:45 Dose: 650 mg Hydrocodone Bitart/Acetaminophen ([place] 5-325 Tab*) 1 tab PO Q4H PRN PRN Reason: moderate pain Last Admin: 05/12/17 16:50 Dose: 1 tab Albuterol/Ipratropium (Duoneb (Albuterol 2.5 Mg/Ipratropium 0.5 Mg)) 1 neb INH Q4H PRN PRN Reason: SOB/WHEEZING Last Admin: 05/11/17 13:59 Dose: 1 neb Digoxin (Lanoxin Tab*) 0.125 mg PO 1000 [facility] Last Admin: 05/12/17 09:00 Dose: 0.125 mg Docusate Sodium (Colace Cap*) 100 mg PO BID [facility] Last Admin: 05/13/17 08:14 Dose: 100 mg Dronabinol (Marinol Cap*) 2.5 mg PO AC [facility] Last Admin: 05/13/17 08:14 Dose: 2.5 mg Heparin Sodium (Porcine) (Heparin Flush Picc/Ml/Cvc(*)) 0 ml FLUSH 0600,1800 [facility] PRN Reason: Protocol Last Admin: 05/13/17 05:28 Dose: 2 ml Heparin Sodium (Porcine) (Heparin Vial(*)) 5,000 units SUBCUT Q8HR [facility] Last Admin: 05/13/17 05:28 Dose: 5,000 units Sodium Chloride (Ns 0.9% 1000 Ml*) 1,000 mls @ 50 mls/hr IV .PER RATE [facility] Last Admin: 05/13/17 05:33 Dose: 50 mls/hr Levothyroxine Sodium (Synthroid Tab*) 125 mcg PO DAILY@0600 [facility] Last Admin: 05/13/17 05:29 Dose: 125 mcg Midodrine (Midodrine (Nf)) 10 mg PO Q8H [facility] PRN Reason: Protocol Last Admin: 05/13/17 06:46 Dose: 10 mg Morphine Sulfate (Morphine Inj (Syringe)*) 2 mg IV Q2H PRN PRN Reason: PAIN Last Admin: 05/08/17 03:28 Dose: 2 mg Omeprazole (Prilosec Cap*) 20 mg PO DAILY@0730 [facility] Last Admin: 05/13/17 08:14 Dose: 20 mg Ondansetron HCl (Zofran Inj*) 4 mg IV Q6H PRN PRN Reason: NAUSEA Last Admin: 05/02/17 05:52 Dose: 4 mg Oxybutynin Chloride (Ditropan Tab*) 5 mg PO BID [facility] Last Admin: 05/13/17 08:14 Dose: 5 mg Polyethylene Glycol/Electrolytes (Miralax*) 17 gm PO DAILY PRN PRN Reason: CONSTIPATION Senna (Senokot Tab*) 1 tab PO BID PRN PRN Reason: CONSTIPATION Sertraline HCl (Zoloft*) 50 mg PO DAILY [facility] Last Admin: 05/13/17 08:14 Dose: 50 mg Tramadol HCl (Ultram*) 25 mg PO Q8H PRN PRN Reason: PAIN - MODERATE Last Admin: 05/13/17 08:14 Dose: 25 mg Vital Signs - 8 hr 05/13/17 05/13/17 05/13/17 03:38 05:34 05:35 Temperature 98.0 F Pulse Rate 67 Respiratory 18 18 18 Rate Blood Pressure 141/71 (mmHg) O2 Sat by Pulse 100 Oximetry 05/13/17 05/13/17 05/13/17 07:20 07:43 08:14 Temperature 97.3 F Pulse Rate 67 Respiratory 24 17 19 Rate Blood Pressure 125/49 (mmHg) O2 Sat by Pulse 95 95 Oximetry Oxygen Devices in Use Now: Nasal Cannula Appearance: Comfortable, NAD Eyes: No Scleral Icterus, PERRLA Ears/Nose/Mouth/Throat: NL Teeth, Lips, Gums, Mucous Membranes Moist Neck: NL Appearance and Movements; NL JVP, Trachea Midline Respiratory: Symmetrical Chest Expansion and Respiratory Effort, Clear to Auscultation - diminished bases, no rhonchi or rales Cardiovascular: NL Sounds; No Murmurs; No JVD, No Edema Abdominal: NL Sounds; No Tenderness; No Distention Extremities: No Edema, No Clubbing, Cyanosis Skin: No Rash or Ulcers Neurological: NL Sensation - general weakness, alert to person and place Nutrition: Taking PO's, - - greatly diminished appetite Result Diagrams: 05/13/17 05:17 05/13/17 05:17 Additional Lab and Data: . Diagnostic Imaging: Patient Name: GALO ZARCO JR Medical Record#: [id number] Ordering Physician: Delbert WILKERSON Acct.#: [id number] : 1935 Age: 81 Sex: M Location: SURGICAL STAY UNIT Exam Date: 05/08/171420 ADM Status: ADM IN Order Information: CHEST AP PORTABLE Accession Number: [id number] CPT: 04072 INDICATION: New O2 requirement, fluid overload. COMPARISON: Comparison is made with a prior study from May 04, 2017. TECHNIQUE: A portable view of the chest was obtained. FINDINGS: There is a central venous catheter present on the right side. The catheter tip projects over the superior vena cava. The heart appears mildly enlarged and unchanged. There is mild prominence of the interstitial markings and small bilateral pleural effusions which appear unchanged. IMPRESSION: FINDINGS SUGGESTIVE OF PULMONARY EDEMA, UNCHANGED. <Electronically signed by Dami Bush MD in [place]> 05/08/17 1444 Dictated By: Dami Bush MD Dictated Date/Time: 05/08/17 144 Transcribed Date/Time: 05/08/17 144 Copy to: CC:Candida Ackerman MD; Arya Thapa MD; Danny Dickson MD; Ivanna Gonzalez MD; Mikal Lizarraga MD; Delbert WILKERSON Imaging - [facility] Imaging - [facility] Imaging - [facility] [address] [address] ph [phone]) ph ([phone]) ph ([phone]) 1 of 1 Assess/Plan/Problems-Billing This is an 81 year old male with hx of tobacco abuse, prostate CA, atrial fibrillation, and a recent 30lb weight loss, with anorexia. He has undergone extensive epidural tumor resection and spinal decompression with questionable primary source of spinal neoplasm for which he now has potential for palliative care vs. continued active treatment. - Patient Problems (1) DNR (do not resuscitate) Comment: - Remains DNR - Consult with Dr. Ruggiero from Palliative appreciated - Continue to elementary school counselor and support (2) Mass of spine Code(s): M89.9 - DISORDER OF BONE, UNSPECIFIED SNOMED Code(s): 608397969 Comment: - s/p Tumor resection 05/01, can be OOB with TLSO, EZ stand and 3 person assist - Neuro at baseline - Potential for GI source? NOT medically clear for EGD at this time based on respiratory status - NS, onco and palliative on board - If HER-2 positive, may be candidate for herceptin as per onco, however, patient capacity needs to be determined and family discussion as to goals of care and treatment at this point. - Realistically, hospice should also be considered, as patient is not able to aggressively participate in his own care so I question how he would tolerate courses of chemo and/or radiation treatments with such low PO intake and poor respiratory status (3) Atrial fibrillation Code(s): I48.91 - UNSPECIFIED ATRIAL FIBRILLATION SNOMED Code(s): 59665740 Comment: - Rate controlled on digoxin - Follow levels (4) Back pain Code(s): M54.9 - DORSALGIA, UNSPECIFIED SNOMED Code(s): 442803490 Comment: - Increase tramadol to 50 and see if BP holds - Place back on low dose decadron for adjudevant bone and neuropathic pain (5) DVT prophylaxis Code(s): RSR0454 - SNOMED Code(s): 872357971 Comment: - Continue SQ Heparin (6) HTN (hypertension) Code(s): I10 - ESSENTIAL (PRIMARY) HYPERTENSION SNOMED Code(s): 35184875 Comment: - Labile BP/hypotension stablilized on midodrine, off pressors - Lasix PRN - Monitor I&O - Low urine 2/2 poor intake and midodrine? (7) Hypothyroidism Code(s): E03.9 - HYPOTHYROIDISM, UNSPECIFIED SNOMED Code(s): 28474312 Comment: Continue Synthroid. (8) Prostate cancer Code(s): C61 - MALIGNANT NEOPLASM OF PROSTATE SNOMED Code(s): 342316112 Comment: - On Lupron as an outpatient. PSA negative, very unlikely primary source of metastasis. MRI brain with no new lesions (9) Anorexia Code(s): R63.0 - ANOREXIA SNOMED Code(s): 24669995 Comment: - Continues to lose weight 2/2 AFTT - Marinol started per Dr. Ruggiero - Will also restart decadron low dose - Do not feel patient is a good candidate for TPN, as there is no end-point or transition if patient is able to take adequate PO or not willing to have a PEG placed - high risk for infection and liver dysfunction - continue Boost, SSRI and nutrition support (10) Leukocytosis Code(s): D72.829 - ELEVATED WHITE BLOOD CELL COUNT, UNSPECIFIED SNOMED Code(s) : 095812336 Comment: - Likely reactive and 2/2 prolonged immobilization and surgery, no active infection - Continue IS and encourage movement as tolerated - Fluid overload on CXR and likely atelectasis (11) Pleural effusion Code(s): J90 - PLEURAL EFFUSION, NOT ELSEWHERE CLASSIFIED SNOMED Code(s): 97061578 Comment: - O2 dependent with increasing dyspnea, fluid overload - Monitor CXR - Pulmonary toilet - Maintain sats >90% - IS and flutter valve with nebs PRN Status and Disposition: Remain inpatient. Would recommend palliative or hospicare bed - do not think family would be able to care for patient at home and. Per CM, hospicare bed would be available May 16 if family and patient are agreeable, but I do not know if they are ready for hospice yet. Will contact Dr. Ruggiero today as well. Counseling and/or Coordination of Care Minutes: Coordinated with CM and staff.
[2017-05-13] MEDS: Dexamethasone TAB* 1 MG PO SCH ×3 (10:05→21:30)
[2017-05-13] MEDS: Digoxin TAB* 0.125 MG PO SCH (10:06)
[2017-05-13] MEDS: Albuterol/Ipratropium NEB.SOL* Albuterol 2.5 MG/Ipratropium 0.5 MG 3 ML INH PRN (16:50)
[2017-05-14] MEDS: CMCS:Midodrine (NF) 5 MG TAB PO SCH ×4 (00:29→23:37)
[2017-05-14] MEDS: HYDROcodone/ACETAMIN 5-325 MG* 1 TAB PO PRN ×2 (00:30→17:20)
[2017-05-14] MEDS: NS 0.9% 1000 ML* 1,000 ML IV SCH ×2 (01:19→21:22)
[2017-05-14] MEDS: Heparin VIAL(*) 5000 UNITS/ML VIAL (FIVE THOUSAND) SUBCUT SCH ×3 (06:10→21:24)
[2017-05-14] MEDS: Levothyroxine TAB* 125 MCG TAB PO SCH (06:21)
[2017-05-14] MEDS: Dronabinol CAP* 2.5 MG PO SCH ×3 (08:28→17:16)
[2017-05-14] MEDS: Docusate CAP* 100 MG PO SCH ×2 (08:29→21:24)
[2017-05-14] MEDS: Omeprazole CAP* 20 MG PO SCH (08:29)
[2017-05-14] MEDS: Oxybutynin TAB* 5 MG PO SCH ×2 (08:29→21:24)
[2017-05-14] MEDS: Sertraline* 50 MG TAB PO SCH (10:41)
[2017-05-14] MEDS: Digoxin TAB* 0.125 MG PO SCH (10:42)
[2017-05-14] MEDS: Dexamethasone TAB* 1 MG PO SCH ×3 (10:42→21:24)
--- NOTE | 2017-05-14 13:05 | PN ---
Progress Note - Progress Note Date of Service: 05/14/17 SOAP: Subjective: [][]Patient seen and examined. On regular floor. Patient is resting comfortably. Pain well controlled. Tolerates PO. Disla. Minimal OOB. Not participating in his care, would not allow nursing staff to get him OOB. Palliative care consulted. Family at bedside. Objective: [] VSS, Afebrile. Wound s,c,d AAOx3 ONIEL. Face symmetric Abdoulaye 4-5 UES, 4+/5 LEs, possibly antalgic. Sensory grossly intact to light touch. Assessment: 81 yom hx prostate CA, POD#13 of T12-L1 tumor resection and T9-L4 fusion Plan: []Monitor VS, Neurochecks Monitor labs, Ht, WBC Encourage increased po intake. On nutrition supplements. PT/OT , OOB in a chair and OOB as tolerated with PT. TLSO brace when OOB. IS Nutrition support Pathology report: metastatic disease, possible upper GI. Follow additional tests. Palliative care consulted. Additional treatment per oncology. Discussed in extend with patient and family about the need to be OOB, participate in PT. Appreciate IM, Oncology, Palliative care. Girma Lizarraga MD
[2017-05-14] MEDS: Benzocaine/Menthol LOZ* 1 LOZENGE PO PRN (17:16)
--- NOTE | 2017-05-14 18:05 | PN ---
Subjective Date of Service: 05/14/17 Interval History: Patient seen and examined. No acute overnight events. Per RN, eating a little better (Ensure only), pain improved slightly, but still has not gotten OOB. He had a long conversation with Dr. Lizarraga regarding getting OOB, trying to ambulate and eating/getting protein intake and strength. Patient still does not seem to want to participate. I also had conversation with son and patient, as patient is not a candidate for EGD with anesthesia in his current condition. CV risk is high and he would not be medically stable for procedure. Family History: Unchanged from Admission Social History: Unchanged from Admission Past Medical History: Unchanged from Admission Objective Active Medications: Acetaminophen (Tylenol Adult Liq*) 650 mg PO Q12HR PRN PRN Reason: PAIN - MILD TO MODERATE Last Admin: 05/06/17 05:45 Dose: 650 mg Hydrocodone Bitart/Acetaminophen ([place] 5-325 Tab*) 1 tab PO Q4H PRN PRN Reason: moderate pain Last Admin: 05/14/17 17:20 Dose: 1 tab Albuterol/Ipratropium (Duoneb (Albuterol 2.5 Mg/Ipratropium 0.5 Mg)) 1 neb INH Q4H PRN PRN Reason: SOB/WHEEZING Last Admin: 05/13/17 16:50 Dose: 1 neb Dexamethasone (Decadron Tab*) 2 mg PO TID [facility] Last Admin: 05/14/17 14:13 Dose: 2 mg Digoxin (Lanoxin Tab*) 0.125 mg PO 1000 [facility] Last Admin: 05/14/17 10:42 Dose: 0.125 mg Docusate Sodium (Colace Cap*) 100 mg PO BID [facility] Last Admin: 05/14/17 08:29 Dose: Not Given Dronabinol (Marinol Cap*) 2.5 mg PO AC [facility] Last Admin: 05/14/17 17:16 Dose: 2.5 mg Heparin Sodium (Porcine) (Heparin Flush Picc/Ml/Cvc(*)) 0 ml FLUSH 0600,1800 [facility] PRN Reason: Protocol Last Admin: 05/14/17 17:16 Dose: 2 ml Heparin Sodium (Porcine) (Heparin Vial(*)) 5,000 units SUBCUT Q8HR [facility] Last Admin: 05/14/17 14:14 Dose: 5,000 units Sodium Chloride (Ns 0.9% 1000 Ml*) 1,000 mls @ 50 mls/hr IV .PER RATE [facility] Last Admin: 05/14/17 01:19 Dose: 50 mls/hr Levothyroxine Sodium (Synthroid Tab*) 125 mcg PO DAILY@0600 [facility] Last Admin: 05/14/17 06:21 Dose: 125 mcg Midodrine (Midodrine (Nf)) 10 mg PO Q8H [facility] PRN Reason: Protocol Last Admin: 05/14/17 14:13 Dose: 10 mg Morphine Sulfate (Morphine Inj (Syringe)*) 2 mg IV Q2H PRN PRN Reason: PAIN Last Admin: 05/08/17 03:28 Dose: 2 mg Omeprazole (Prilosec Cap*) 20 mg PO DAILY@0730 [facility] Last Admin: 05/14/17 08:29 Dose: Not Given Ondansetron HCl (Zofran Inj*) 4 mg IV Q6H PRN PRN Reason: NAUSEA Last Admin: 05/02/17 05:52 Dose: 4 mg Oxybutynin Chloride (Ditropan Tab*) 5 mg PO BID [facility] Last Admin: 05/14/17 08:29 Dose: Not Given Polyethylene Glycol/Electrolytes (Miralax*) 17 gm PO DAILY PRN PRN Reason: CONSTIPATION Senna (Senokot Tab*) 1 tab PO BID PRN PRN Reason: CONSTIPATION Sertraline HCl (Zoloft*) 50 mg PO DAILY [facility] Last Admin: 05/14/17 10:41 Dose: 50 mg Throat Lozenges (Chloraseptic Rigoberto*) 1 rigoberto PO Q6H PRN PRN Reason: SORE THROAT Last Admin: 05/14/17 17:16 Dose: 1 rigoberto Vital Signs - 8 hr 05/14/17 05/14/17 05/14/17 10:41 10:42 11:28 Temperature 97.7 F Pulse Rate 66 68 Respiratory 16 18 Rate Blood Pressure 107/58 (mmHg) O2 Sat by Pulse 94 Oximetry 05/14/17 05/14/17 05/14/17 13:15 16:40 17:16 Temperature Pulse Rate 79 Respiratory 20 18 18 Rate Blood Pressure (mmHg) O2 Sat by Pulse 93 Oximetry 05/14/17 17:20 Temperature Pulse Rate Respiratory 19 Rate Blood Pressure (mmHg) O2 Sat by Pulse Oximetry Oxygen Devices in Use Now: Nasal Cannula Appearance: quiet, NAD Eyes: No Scleral Icterus, PERRLA Ears/Nose/Mouth/Throat: NL Teeth, Lips, Gums, Mucous Membranes Moist Neck: NL Appearance and Movements; NL JVP, Trachea Midline Respiratory: Symmetrical Chest Expansion and Respiratory Effort, - - diminished throughout, no wheeze or rhonchi noted Cardiovascular: NL Sounds; No Murmurs; No JVD - regular rate, No Edema Abdominal: NL Sounds; No Tenderness; No Distention Extremities: No Edema, No Clubbing, Cyanosis Skin: No Rash or Ulcers Neurological: - - general weakness, alert, sometimes forgetful Nutrition: Taking PO's - minimal PO intake, ensure only Result Diagrams: 05/13/17 05:17 05/13/17 05:17 Additional Lab and Data: . Microbiology and Other Data: Microbiology 05/12/17 00:30 Urine Culture - Final Urine No Growth (<1,000 CFU/mL) Diagnostic Imaging: Patient Name: GALO ZARCO Medical Record#: [id number] Ordering Physician: Delbert WILKERSON Acct.#: [id number] : 1935 Age: 81 Sex: M Location: SURGICAL STAY UNIT Exam Date: 05/08/17 142 ADM Status: ADM IN Order Information: CHEST AP PORTABLE Accession Number: [id number] CPT: 55505 INDICATION: New O2 requirement, fluid overload. COMPARISON: Comparison is made with a prior study from May 04, 2017. TECHNIQUE: A portable view of the chest was obtained. FINDINGS: There is a central venous catheter present on the right side. The catheter tip projects over the superior vena cava. The heart appears mildly enlarged and unchanged. There is mild prominence of the interstitial markings and small bilateral pleural effusions which appear unchanged. IMPRESSION: FINDINGS SUGGESTIVE OF PULMONARY EDEMA, UNCHANGED. <Electronically signed by Dami Bush MD in [place]> 05/08/17 1444 Dictated By: Dami Bush MD Dictated Date/Time: 05/08/17 1444 Transcribed Date/Time: 05/08/17 1447 Copy to: CC:Candida Ackerman MD; Arya Thapa MD; Danny Dickson MD; Ivanna Gonzalez MD; Mikal Lizarraga MD; Delbert WILKERSON Imaging - [facility] Imaging - [facility] Imaging - [facility] [address] [address] ph ([phone]) ph ([phone]) ph ([phone]) 1 of 1 Assess/Plan/Problems-Billing This is an 81 year old male with hx of tobacco abuse, prostate CA, atrial fibrillation, and a recent 30+lb weight loss, with anorexia. He has undergone extensive epidural tumor resection and spinal decompression with questionable primary source of spinal neoplasm for which he now has potential for palliative care vs. continued active treatment. - Patient Problems (1) DNR (do not resuscitate) Comment: - Remains DNR - Consult with Dr. Ruggiero from Palliative appreciated - Continue to pet adoption counselor and support (2) Mass of spine Code(s): M89.9 - DISORDER OF BONE, UNSPECIFIED SNOMED Code(s): 259248947 Comment: - s/p Tumor resection 05/01, can be OOB with TLSO, EZ stand and 3 person assist - Neuro at baseline - Potential for GI source? - I do not feel EGD is safe at this point given that patient is barely eating and not able or willing to get out of bed - Neurosx, onco and palliative on board - Per onco, waiting for HER-2 testing, however, with such deconditioning, I feel that patient should at least try to regain some strength if he was to try to consider any active treatment, again, I do not feel an EGD is safe at this time - If patient/family is not willing to consider hospice as an alternative but patient is willing to try and eat and ambulate, we should try to DC to a rehab facility and revisit tumor status and treatment at a later date. (3) Atrial fibrillation Code(s): I48.91 - UNSPECIFIED ATRIAL FIBRILLATION SNOMED Code(s): 64150800 Comment: - Rate controlled on digoxin - Follow levels (4) Back pain Code(s): M54.9 - DORSALGIA, UNSPECIFIED SNOMED Code(s): 015478112 Comment: - Increased tramadol to 50 mg with good effect - Improvment today on low dose decadron for adjudevant bone and neuropathic pain (5) DVT prophylaxis Code(s): KNO6055 - SNOMED Code(s): 835869524 Comment: - Continue SQ Heparin (6) HTN (hypertension) Code(s): I10 - ESSENTIAL (PRIMARY) HYPERTENSION SNOMED Code(s): 99281881 Comment: - Labile BP/hypotension stablilized on midodrine, off pressors - Lasix PRN - Monitor I&O - Low urine 2/2 poor intake and midodrine? Monitor output (7) Hypothyroidism Code(s): E03.9 - HYPOTHYROIDISM, UNSPECIFIED SNOMED Code(s): 61393283 Comment: Continue Synthroid. (8) Prostate cancer Code(s): C61 - MALIGNANT NEOPLASM OF PROSTATE SNOMED Code(s): 901226514 Comment: - On Lupron as an outpatient. PSA negative, very unlikely primary source of metastasis. - MRI brain with no new lesions (9) Anorexia Code(s): R63.0 - ANOREXIA SNOMED Code(s): 10800825 Comment: - Continues to lose weight 2/2 AFTT - Marinol started per Dr. Ruggiero - low dose decadron started 05/13 - Do not feel patient is a good candidate for TPN, as there is no end-point or transition if patient is able to take adequate PO or not willing to have a PEG placed - high risk for infection and liver dysfunction - Continue Ensure/Boost, SSRI and nutrition support (10) Leukocytosis Code(s): D72.829 - ELEVATED WHITE BLOOD CELL COUNT, UNSPECIFIED SNOMED Code(s) : 427883045 Comment: - Likely reactive and 2/2 prolonged immobilization and surgery, no active infection - Continue IS and encourage movement as tolerated - Fluid overload on CXR and likely atelectasis (11) Pleural effusion Code(s): J90 - PLEURAL EFFUSION, NOT ELSEWHERE CLASSIFIED SNOMED Code(s): 55808308 Comment: - O2 dependent with increasing dyspnea, fluid overload - Repeat CXR today and see if worsening or resolving - Pulmonary toilet - Maintain sats >90% - IS and flutter valve with nebs PRN Status and Disposition: It seems that family is not ready for hospice and wants patient to try eating and ambulating. This can be done in a rehab setting. Will recheck CXR in the AM , if pleural effusions resolving, would recommend finding appropriate rehab bed where patient can gain strength and then decide treatment options vs. hospice at that point. Counseling and/or Coordination of Care Minutes: coordinated with patient, son and staff
--- NOTE | 2017-05-14 19:36 | RAD ---
INDICATION: Sepsis COMPARISON: Most recent comparison chest x-rays May 08, 2017 TECHNIQUE: Single AP view of the chest was obtained. FINDINGS: Overlying the right lower neck is a central catheter with the tip terminating at the superior vena cava. The heart and mediastinum exhibit normal size and contour. There is density obscuring the bilateral hemidiaphragm and causing bilateral costophrenic angle blunting. More superiorly the lungs are adequately aerated. Visualized bones are normal for the patient's age. IMPRESSION: CHEST X-RAY FINDINGS ARE MOST CONSISTENT WITH BIBASILAR PLEURAL EFFUSIONS AND/OR LOWER LOBE CONSOLIDATIONS WITH OVERALL WORSENING AERATION RELATIVE TO THE MAY 08, 2017 CHEST X-RAY.
[2017-05-14] MEDS ORDERED: Benzonatate CAP* 100 MG PO SCH (21:00)
[2017-05-15] MEDS: Levothyroxine TAB* 125 MCG TAB PO SCH (06:17)
[2017-05-15] MEDS: Heparin VIAL(*) 5000 UNITS/ML VIAL (FIVE THOUSAND) SUBCUT SCH ×3 (06:18→22:08)
[2017-05-15] MEDS: Dronabinol CAP* 2.5 MG PO SCH ×3 (07:16→17:47)
[2017-05-15] MEDS: CMCS:Midodrine (NF) 5 MG TAB PO SCH ×2 (07:16→14:18)
[2017-05-15] MEDS: Omeprazole CAP* 20 MG PO SCH (07:16)
[2017-05-15] MEDS: Oxybutynin TAB* 5 MG PO SCH ×2 (09:08→20:37)
[2017-05-15] MEDS: Docusate CAP* 100 MG PO SCH ×2 (09:08→20:36)
[2017-05-15] MEDS: Dexamethasone TAB* 1 MG PO SCH ×3 (09:08→20:36)
[2017-05-15] MEDS: Sertraline* 50 MG TAB PO SCH (09:08)
[2017-05-15] MEDS: Digoxin TAB* 0.125 MG PO SCH ×2 (11:36→17:46)
[2017-05-15] MEDS: Benzocaine/Menthol LOZ* 1 LOZENGE PO PRN (14:22)
--- NOTE | 2017-05-15 16:58 | PN ---
Subjective Date of Service: 05/15/17 Interval History: Patient seen and examined. Staff getting ready to get patient OOB to chair with Marika lift. Patient agreeable, but does not appear happy about it. No particular complaints, states breathing is "ok", states pain is controlled. Drank one Ensure today. Family History: Unchanged from Admission Social History: Unchanged from Admission Past Medical History: Unchanged from Admission Objective Active Medications: Acetaminophen (Tylenol Adult Liq*) 650 mg PO Q12HR PRN PRN Reason: PAIN - MILD TO MODERATE Last Admin: 05/06/17 05:45 Dose: 650 mg Albuterol/Ipratropium (Duoneb (Albuterol 2.5 Mg/Ipratropium 0.5 Mg)) 1 neb INH Q4H PRN PRN Reason: SOB/WHEEZING Last Admin: 05/13/17 16:50 Dose: 1 neb Dexamethasone (Decadron Tab*) 2 mg PO TID [facility] Last Admin: 05/15/17 14:18 Dose: 2 mg Digoxin (Lanoxin Tab*) 0.125 mg PO 1700 [facility] Docusate Sodium (Colace Cap*) 100 mg PO BID [facility] Last Admin: 05/15/17 09:08 Dose: 100 mg Dronabinol (Marinol Cap*) 2.5 mg PO AC [facility] Last Admin: 05/15/17 14:18 Dose: 2.5 mg Heparin Sodium (Porcine) (Heparin Flush Picc/Ml/Cvc(*)) 0 ml FLUSH 0600,1800 [facility] PRN Reason: Protocol Last Admin: 05/15/17 06:18 Dose: 1 ml Heparin Sodium (Porcine) (Heparin Vial(*)) 5,000 units SUBCUT Q8HR [facility] Last Admin: 05/15/17 14:17 Dose: 5,000 units Sodium Chloride (Ns 0.9% 1000 Ml*) 1,000 mls @ 50 mls/hr IV .PER RATE [facility] Last Admin: 05/14/17 21:22 Dose: 50 mls/hr Levothyroxine Sodium (Synthroid Tab*) 125 mcg PO DAILY@0600 [facility] Last Admin: 05/15/17 06:17 Dose: 125 mcg Midodrine (Midodrine (Nf)) 10 mg PO Q8H [facility] PRN Reason: Protocol Last Admin: 05/15/17 14:18 Dose: 10 mg Omeprazole (Prilosec Cap*) 20 mg PO DAILY@0730 [facility] Last Admin: 05/15/17 07:16 Dose: 20 mg Ondansetron HCl (Zofran Inj*) 4 mg IV Q6H PRN PRN Reason: NAUSEA Last Admin: 05/02/17 05:52 Dose: 4 mg Oxybutynin Chloride (Ditropan Tab*) 5 mg PO BID [facility] Last Admin: 05/15/17 09:08 Dose: 5 mg Polyethylene Glycol/Electrolytes (Miralax*) 17 gm PO DAILY PRN PRN Reason: CONSTIPATION Senna (Senokot Tab*) 1 tab PO BID PRN PRN Reason: CONSTIPATION Sertraline HCl (Zoloft*) 50 mg PO DAILY [facility] Last Admin: 05/15/17 09:08 Dose: 50 mg Throat Lozenges (Chloraseptic Rigoberto*) 1 rigoberto PO Q6H PRN PRN Reason: SORE THROAT Last Admin: 05/15/17 14:22 Dose: 1 rigoberto Vital Signs - 8 hr 05/15/17 05/15/17 05/15/17 11:35 11:55 12:05 Temperature 97.7 F Pulse Rate 72 65 Respiratory 16 22 16 Rate Blood Pressure 130/57 (mmHg) O2 Sat by Pulse 90 92 Oximetry 05/15/17 05/15/17 14:18 15:47 Temperature 97.5 F Pulse Rate 68 Respiratory 14 16 Rate Blood Pressure 132/61 (mmHg) O2 Sat by Pulse 93 Oximetry Oxygen Devices in Use Now: Nasal Cannula Eyes: No Scleral Icterus, PERRLA Ears/Nose/Mouth/Throat: NL Teeth, Lips, Gums, Mucous Membranes Moist Neck: NL Appearance and Movements; NL JVP, Trachea Midline Respiratory: Symmetrical Chest Expansion and Respiratory Effort, - - diminished half up the bases with shallow respirations Cardiovascular: NL Sounds; No Murmurs; No JVD - irregular Abdominal: NL Sounds; No Tenderness; No Distention Extremities: No Clubbing, Cyanosis, - - bilateral leg edema Skin: - - per RN, small skin tear on back from surgical wound dressing/tape Neurological: Alert and Oriented x 3, - - general weakness Nutrition: - - minimal PO intake Result Diagrams: 05/13/17 05:17 05/13/17 05:17 Additional Lab and Data: . Microbiology and Other Data: Microbiology 05/12/17 00:30 Urine Culture - Final Urine No Growth (<1,000 CFU/mL) Diagnostic Imaging: REPEAT CHEST XRAY 05/14/2017 Patient Name: GALO ZARCO JR Medical Record#: [id number] Ordering Physician: Vcienta Leung NP Acct.#: [id number] : 1935 Age: 81 Sex: M Location: SURGICAL STAY UNIT Exam Date: 05/14/171816 ADM Status: ADM IN Order Information: CHEST 1 VW Accession Number: [id number] CPT: 43185 INDICATION: Sepsis COMPARISON: Most recent comparison chest x-rays May 08, 2017 TECHNIQUE: Single AP view of the chest was obtained. FINDINGS: Overlying the right lower neck is a central catheter with the tip terminating at the superior vena cava. The heart and mediastinum exhibit normal size and contour. There is density obscuring the bilateral hemidiaphragm and causing bilateral costophrenic angle blunting. More superiorly the lungs are adequately aerated. Visualized bones are normal for the patient's age. IMPRESSION: CHEST X-RAY FINDINGS ARE MOST CONSISTENT WITH BIBASILAR PLEURAL EFFUSIONS AND/OR LOWER LOBE CONSOLIDATIONS WITH OVERALL WORSENING AERATION RELATIVE TO THE MAY 08, 2017 CHEST X-RAY. <Electronically signed by Solomon Corona MD in [place]> 05/14/171932 Dictated By: Solomon Corona MD Dictated Date/Time: 05/14/171932 Transcribed Date/Time: 05/14/171930 Copy to: Assess/Plan/Problems-Billing This is an 81 year old male patient s/p large epidural tumor resection, spinal decompression and fusion 2/2 metastatic disease of unclear etiology, that also has unclear treatment options given no clear primary source. He is also gravely deconditioned with worsening bilateral pleural effusions and has been non- participatory in active care. - Patient Problems (1) DNR (do not resuscitate) Comment: - Remains DNR - Consult with Dr. Ruggiero from Palliative appreciated - Patient and family wish to remain active care - Continue to youth counselor and reinforce the need to eat and ambulate as tolerated regardless of election of hospice/pall care or not to increase quality of life (2) Mass of spine Code(s): M89.9 - DISORDER OF BONE, UNSPECIFIED SNOMED Code(s): 378058107 Comment: - Consult with Dr. Samuels today to determine capacity and dicuss options with family, please refer to his note for details, but after discussing case with him , patient has capacity to understand his condition and decide treatment goals - s/p metastatic epidural tumor resection 05/01 - OOB to chair CONFIRMED, no TLSO needed - Marika for safety to lift to alexandro-chair today - Not medically clear for EGD to identify if GI primary source - If HER2 positive, patient needs extensive reconditioning before any active treatment should be considered, as effusions are worsening - Pain control - Highly recommend transfer to SNF or rehab if not electing palliative (3) Atrial fibrillation Code(s): I48.91 - UNSPECIFIED ATRIAL FIBRILLATION SNOMED Code(s): 87120356 Comment: - Rate controlled on digoxin - Follow levels (4) Back pain Code(s): M54.9 - DORSALGIA, UNSPECIFIED SNOMED Code(s): 984900376 Comment: - Increased tramadol to 50 mg with good effect - Improvment on low dose decadron for adjudevant bone and neuropathic pain (5) DVT prophylaxis Code(s): BOE1998 - SNOMED Code(s): 578613048 Comment: - Continue SQ Heparin (6) HTN (hypertension) Code(s): I10 - ESSENTIAL (PRIMARY) HYPERTENSION SNOMED Code(s): 82307644 Comment: - Labile BP/hypotension stablilized on midodrine, off pressors - Continue midodrine for now (7) Hypothyroidism Code(s): E03.9 - HYPOTHYROIDISM, UNSPECIFIED SNOMED Code(s): 65986566 Comment: Continue Synthroid. (8) Prostate cancer Code(s): C61 - MALIGNANT NEOPLASM OF PROSTATE SNOMED Code(s): 786481972 Comment: - On Lupron as an outpatient. PSA negative, very unlikely primary source of metastasis. - MRI brain with no new lesions (9) Anorexia Code(s): R63.0 - ANOREXIA SNOMED Code(s): 57941628 Comment: - Continues to lose weight 2/2 AFTT - Marinol started per Dr. Ruggiero - low dose decadron started 05/13 - Do not feel patient is a good candidate for TPN, as there is no end-point or transition if patient is able to take adequate PO or not willing to have a PEG placed - high risk for infection and liver dysfunction - Continue Ensure/Boost, SSRI and nutrition support (10) Leukocytosis Code(s): D72.829 - ELEVATED WHITE BLOOD CELL COUNT, UNSPECIFIED SNOMED Code(s) : 242132167 Comment: - Likely reactive and 2/2 prolonged immobilization and surgery, no active infection - Continue IS and encourage movement as tolerated - Will also increase on decadron (11) Pleural effusion Code(s): J90 - PLEURAL EFFUSION, NOT ELSEWHERE CLASSIFIED SNOMED Code(s): 15066075 Comment: - O2 dependent with increasing dyspnea, fluid overload - Repeat CXR show worsening - Monitor respiratory status, may need to drain/Pleurex cath if continues - Pulmonary toilet - Maintain sats >90% - IS and flutter valve with nebs PRN Status and Disposition: It seems that family is not ready for hospice and wants patient to try eating and ambulating. This can be done in a rehab setting. Will recheck CXR in the AM , if pleural effusions resolving, would recommend finding appropriate rehab bed where patient can gain strength and then decide treatment options vs. hospice at that point. Counseling and/or Coordination of Care Minutes: Coordinated with staff and Dr. Samuels.
[2017-05-15] MEDS: NS 0.9% 1000 ML* 1,000 ML IV SCH (17:46)
[2017-05-15] MEDS: traMADol TAB* 50 MG PO PRN (17:47)
[2017-05-15] MEDS: Acetaminophen ADULT LIQ* 650 MG/20.3 ML UDC PO PRN (20:36)
[2017-05-15] MEDS ORDERED: Acetaminophen ADULT LIQ* 650 MG/20.3 ML UDC PO PRN (21:01)
[2017-05-16] MEDS: CMCS:Midodrine (NF) 5 MG TAB PO SCH ×3 (00:06→16:15)
--- NOTE | 2017-05-16 03:53 | CONS ---
CONSULTATION REPORT: DATE OF ADMISSION: 04/25/17 DATE OF CONSULTATION: 05/15/17 ATTENDING CLINICIAN: Vicenta Leung NP BASKET ASSEMBLER PHYSICIAN: Dr. Kulwinder Samuels. REASON FOR CONSULT: Question of depression and capacity to make informed medical decisions. SUBJECTIVE HISTORY: Mr. Boucher is an 81-year-old white male with a history of cancer, who was admitted to the hospital on the 04/25/17 secondary to a large spinal mass that was causing some compression symptoms. Psychiatry is asked to see him due to a question of whether he has the capacity to make informed medication decisions for himself and they are also concerned whether the patient may have clinical depression, which is complicating his treatment course including any further diagnosis for treatment of his medical issues. Essentially, the patient has been bedridden since his arrival in 04/25/17. He is deemed to be medically unstable for an esophageal endoscopy. He was able to receive neurosurgery on approximately the 05/02/17 to remove the mass from his spine, but there is no certainty at this time where the cancer is originating from. They would like to scope him diagnostically, but they do not feel that he is medically able to tolerate that procedure secondary to the need for anesthesia. He has been extremely passive during treatment here, not working with physical or occupational therapy to get stronger, lying in bed and not taking a particularly directed approach to his own healthcare needs. There is some consideration for whether he has been depressed and I do notice that one of his providers placed him on the antidepressant, sertraline on the 05/12/17 at the dose of 50 mg daily. Speaking with his current provider, Rory Leung, it appears that the primary team would like him to consider the palliative care option, but the patient has declined this and they are wondering whether he has the capacity to do so. When I meet with Mr. Boucher, he is calm, cooperative, lying down in bed watching TV. I asked him almost immediately about whether he has depression and he responds "I do not think it is depression, I think it is resignation." He states that his pain has been improving along with his energy. He is aware of the fact that the primary team would like him to do physical and occupational therapy to get stronger. When I confronted him about declining this up until this point in his hospitalization, he states that he understands the importance of these treatments and that from now on, he will participate fully. This clinician understands that he has told other treatment providers the same thing in the past and not followed through. At any rate, I also asked him about the palliative care option and why he may be declining that, he responds "they do not have all the information yet. I want to get this checked out and see exactly what is causing it." He goes on to state that there are chemotherapeutic treatments that he would be interested in, in the event that they identify the source of the cancer. The patient has a somewhat vague awareness of the need for endoscopy and states that he would be agreeable with this. I did screen him for neurovegetative symptoms of depression and he denies disturbance with sleep, guilt, concentration problems, psychomotor retardation or any suicidality. He does indicate that his appetite has been poor recently secondary to the cancer and other treatments and he does indicate that he has had some anhedonia while here in the hospital. He states again that his energy is improving. When I screened his cognition with a Mini- Mental State Exam, he is fully cooperative and mostly loses his points for temporal orientation. After meeting with the patient, I met with his daughter, Teressa, and she supports his ability to make decisions for himself. She states that she is basically putting the decision in his hands, although she does endorse a preference that he get stronger with physical therapy and then have an endoscopy for a more definitive diagnosis. PSYCHIATRIC HISTORY: The patient has no history of treatment for mental illness. No psychiatric hospitalizations and has never been on psychiatric medications. He has no history of abuse or neglect growing up and no history of traumatic brain injury. PAST MEDICAL HISTORY: Significant for hypertension, prostate cancer, back pain , constipation, hypothyroidism, osteoarthritis, osteoporosis, atrial fibrillation. CURRENT MEDICATIONS: Include: 1. Dexamethasone 2 mg t.i.d. 2. Digoxin 0.125 mg nightly. 3. Colace 100 mg twice daily. 4. Dronabinol 2.5 mg with meals. 5. Heparin 5000 units subcutaneously. 6. Levothyroxine 125 mcg p.o. daily. 7. Midodrine 10 mg p.o. q.8h. 8. Omeprazole 20 mg p.o. daily. 9. Oxybutynin 5 mg p.o. b.i.d. 10. MiraLAX 17 g p.o. daily. 11. Senokot 1 tab p.o. b.i.d. as a p.r.n. for constipation. 12. Sertraline 50 mg p.o. daily. ALLERGIES: He is allergic to BEE VENOM. SUBSTANCE ABUSE HISTORY: He does state that he used to over imbibe in alcohol, but gradually tapered off over the years and has not been a significant drinker for at least the last 10 to 15 years. He also states that he was a heavy 1 to 2 pack per day cigarettes smoker, but stopped this approximately 30 days ago when he moved in with his daughter, as this is not allowed in her house. He has not accepted nicotine replacement since his admission. He denies any history of illicit substance abuse. FAMILY HISTORY: He had a mother with depression as well as a maternal aunt with depression. He has no history of suicide in his family. SOCIAL HISTORY: The patient was born and raised in [place], [place]. He was in 2006. He has 3 children, a 60-year-old son, 58-year-old daughter, and 52-year-old son. 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 He did graduate from high school with no college. He was never in the . 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 He has no formal legal history. MENTAL STATUS EXAM: The patient is an aging white male with thin wispy hair lying flat in the supine position in bed. He is dressed in a patient's gown. He makes fair eye contact and is easy to establish a rapport with. Speech has normal rate, tone, and volume. Mood appears to be slightly dysthymic with a mildly constricted affect. Thought process is linear and goal directed. Thought content is significant for his desire to continue to receive treatment. He denies suicidal or homicidal ideations. He denies auditory or visual hallucinations. He denies paranoid thoughts. Insight and judgement appear to be somewhat limited by virtue of his nonparticipation in physical and occupational therapies. Cognitively, he is awake and alert with what would appear to be an average intellect. On the Mini-Mental State Exam, he scores a 24 , losing points for orientation to date, day, and month. He also lost 2 points on recall and 1 point on attention. DIAGNOSES: [place] I: Adjustment disorder with depressed mood. [place] II: Deferred. ASSESSMENT: This is an 81-year-old white male with a history of metastatic cancer of an unknown variety, who was admitted to the medical service back on the 04/25/17, who has failed to progress in his treatment and Psychiatry is being asked to assess whether he has clinical depression and also whether or not, he has capacity to make informed medical decisions. ASSESSMENT AND PLAN: 1. Depression. I do not believe that this meets criteria for clinical depression as he has no neurovegetative symptoms. With that being said, he does seem to have some dysthymia and a sense of resignation, which is largely attributable to his medical condition. I think that he meets criteria for an adjustment reaction. It is reasonable that the primary team started the trial of sertraline and perhaps, if this kicks in, he will have an improvement in his motivation and may be able to participate more in treatment and discharge planning. I do not feel that this problem warrants further psychiatric care at this time and he would clearly not be a candidate for inpatient psychiatric hospitalization. 2. Capacity. It is determined by Psychiatry that this patient does in fact have capacity to make informed medical decisions for himself. At this time, he is declining the offer of palliative care hoping for more definitive diagnosis and treatment for his cancer and he has this right. Psychiatry will continue to follow along from a distance and if his clinical presentation changes at all , we can be asked to redetermine capacity. Thank you for the interesting consult. [id number]/JULIA #: [id number] RICHIE
[2017-05-16] MEDS: Heparin VIAL(*) 5000 UNITS/ML VIAL (FIVE THOUSAND) SUBCUT SCH ×3 (05:35→21:13)
[2017-05-16] MEDS: Levothyroxine TAB* 125 MCG TAB PO SCH (05:45)
[2017-05-16] MEDS: Omeprazole CAP* 20 MG PO SCH (08:02)
[2017-05-16] MEDS: Dronabinol CAP* 2.5 MG PO SCH ×3 (08:02→16:15)
[2017-05-16] MEDS: Docusate CAP* 100 MG PO SCH ×2 (09:10→21:11)
[2017-05-16] MEDS: Dexamethasone TAB* 1 MG PO SCH ×3 (09:10→21:11)
[2017-05-16] MEDS: Oxybutynin TAB* 5 MG PO SCH ×2 (09:10→21:11)
[2017-05-16] MEDS: Sertraline* 50 MG TAB PO SCH (09:10)
[2017-05-16 12:56] LABS: ABS Basophils 0.1 10^3/ul (0-0.2); ABS Eosinophils 0 10^3/ul (0-0.6); ABS Lymphocytes 0.3 10^3/ul (1.0-4.8); ABS Monocytes 0.5 10^3/ul (0-0.8); ABS Neutrophils 21.9 10^3/ul (1.5-7.7); ABS Nucleated RBC 0.01 10^3/ul; Eosinophil % 0 % (0-6); Hematocrit 27 % (42-52); Hemoglobin 8.8 g/dl (14.0-18.0); Lymphocyte % 1.5 % (25-47); Mean Corpuscular HGB Conc 33 g/dl (31-36); Mean Corpuscular Hemoglobin 31 pg (27-31); Mean Corpuscular Volume 93 fL (80-94); Mean Platelet Volume 7 um3 (7.4-10.4); Nucleated Red Blood Cells % 0; Platelet Count 240 10^3/ul (150-450); Red Blood Count 2.88 10^6/ul (4.0-5.4); Red Cell Distribution Width 23 % (10.5-15); White Blood Count 22.8 10^3/ul (3.5-10.8)
[2017-05-16] MEDS ORDERED: Bumetanide IV* 0.25 MG/ML 4 ML VIAL SLOW PUSH SCH (13:00)
[2017-05-16] MEDS: traMADol TAB* 50 MG PO PRN (13:18)
[2017-05-16 14:25] LABS: EGFR Non-African American 189.9 (>60)
[2017-05-16] MEDS ORDERED: Furosemide IV* 10 MG/ML 10 ML VIAL (100 MG) IV ONE (14:30)
[2017-05-16] MEDS ORDERED: Furosemide IV* 10 MG/ML 10 ML VIAL (100 MG) IV SCH (14:30)
[2017-05-16] MEDS: Digoxin TAB* 0.125 MG PO SCH (17:51)
--- NOTE | 2017-05-16 19:29 | PN ---
Subjective Date of Service: 05/16/17 Interval History: Pt starting to eat more. pain is well controlled currently. Family interested in [place] and Travel Notes. Her2 FISH still pending. Family History: Unchanged from Admission Social History: Unchanged from Admission Past Medical History: Unchanged from Admission Objective Active Medications: Acetaminophen (Tylenol Adult Liq*) 650 mg PO Q4H PRN PRN Reason: PAIN - MILD TO MODERATE Albuterol/Ipratropium (Duoneb (Albuterol 2.5 Mg/Ipratropium 0.5 Mg)) 1 neb INH Q4H PRN PRN Reason: SOB/WHEEZING Last Admin: 05/13/17 16:50 Dose: 1 neb Dexamethasone (Decadron Tab*) 2 mg PO TID [facility] Last Admin: 05/16/17 14:07 Dose: 2 mg Digoxin (Lanoxin Tab*) 0.125 mg PO 1700 [facility] Last Admin: 05/16/17 17:51 Dose: 0.125 mg Docusate Sodium (Colace Cap*) 100 mg PO BID [facility] Last Admin: 05/16/17 09:10 Dose: 100 mg Dronabinol (Marinol Cap*) 2.5 mg PO AC [facility] Last Admin: 05/16/17 16:15 Dose: 2.5 mg Furosemide (Lasix Iv*) 60 mg IV 0800,1700 [facility] Heparin Sodium (Porcine) (Heparin Flush Picc/Ml/Cvc(*)) 0 ml FLUSH 0600,1800 [facility] PRN Reason: Protocol Last Admin: 05/16/17 17:52 Dose: 3 ml Heparin Sodium (Porcine) (Heparin Vial(*)) 5,000 units SUBCUT Q8HR [facility] Last Admin: 05/16/17 14:09 Dose: 5,000 units Levothyroxine Sodium (Synthroid Tab*) 125 mcg PO DAILY@0600 [facility] Last Admin: 05/16/17 05:45 Dose: 125 mcg Midodrine (Midodrine (Nf)) 10 mg PO Q8H [facility] PRN Reason: Protocol Last Admin: 05/16/17 16:15 Dose: 10 mg Omeprazole (Prilosec Cap*) 20 mg PO DAILY@0730 [facility] Last Admin: 05/16/17 08:02 Dose: 20 mg Ondansetron HCl (Zofran Inj*) 4 mg IV Q6H PRN PRN Reason: NAUSEA Last Admin: 05/02/17 05:52 Dose: 4 mg Oxybutynin Chloride (Ditropan Tab*) 5 mg PO BID [facility] Last Admin: 05/16/17 09:10 Dose: 5 mg Polyethylene Glycol/Electrolytes (Miralax*) 17 gm PO DAILY PRN PRN Reason: CONSTIPATION Senna (Senokot Tab*) 1 tab PO BID PRN PRN Reason: CONSTIPATION Sertraline HCl (Zoloft*) 50 mg PO DAILY [facility] Last Admin: 05/16/17 09:10 Dose: 50 mg Throat Lozenges (Chloraseptic Rigoberto*) 1 rigoberto PO Q6H PRN PRN Reason: SORE THROAT Last Admin: 05/15/17 14:22 Dose: 1 rigoberto Tramadol HCl (Ultram*) 50 mg PO Q6H PRN PRN Reason: PAIN Last Admin: 05/16/17 13:18 Dose: 50 mg Vital Signs - 8 hr 05/16/17 05/16/17 05/16/17 12:42 12:44 13:18 Temperature Pulse Rate Respiratory 16 16 16 Rate Blood Pressure (mmHg) O2 Sat by Pulse Oximetry 05/16/17 05/16/17 05/16/17 15:16 16:12 16:15 Temperature 98.0 F Pulse Rate 72 Respiratory 20 16 16 Rate Blood Pressure 130/64 (mmHg) O2 Sat by Pulse 96 Oximetry 05/16/17 05/16/17 16:22 17:51 Temperature Pulse Rate 72 Respiratory 16 Rate Blood Pressure (mmHg) O2 Sat by Pulse Oximetry Oxygen Devices in Use Now: Nasal Cannula Appearance: chronically ill appearing. Anisarca to mid abdomen. Eyes: No Scleral Icterus, PERRLA Ears/Nose/Mouth/Throat: NL Teeth, Lips, Gums Neck: NL Appearance and Movements; NL JVP Respiratory: - - decreased at b/l bases Cardiovascular: NL Sounds; No Murmurs; No JVD, RRR Abdominal: NL Sounds; No Tenderness; No Distention, No Hepatosplenomegaly Extremities: - - 2-3 edema up b/l feet, calf, thighs and into abdomen Neurological: Alert and Oriented x 3 Result Diagrams: 05/16/17 12:41 05/16/17 12:41 Additional Lab and Data: . Laboratory Results - last 24 hr 05/01/17 05/16/17 05/16/17 11:30 12:41 12:41 WBC 22.8 H RBC 2.88 L Hgb 8.8 L Hct 27 L MCV 93 MCH 31 MCHC 33 RDW 23 H Plt Count 240 MPV 7 L Neut % (Auto) 95.8 H Lymph % (Auto) 1.5 L [place] % (Auto) 2.4 Eos % (Auto) 0 Baso % (Auto) 0.3 Absolute Neuts (auto) 21.9 H Absolute Lymphs (auto) 0.3 L Absolute Monos (auto) 0.5 Absolute Eos (auto) 0 Absolute Basos (auto) 0.1 Absolute Nucleated RBC 0.01 Nucleated RBC % 0 Sodium 131 L Potassium 3.9 Chloride 100 L Carbon Dioxide 29 Anion Gap 2 BUN 10 Creatinine 0.43 L Est GFR ( Amer) 244.3 Est GFR (Non-Af Amer) 189.9 BUN/Creatinine Ratio 23.3 H Glucose 107 H Calcium 7.9 L Magnesium 1.9 Total Bilirubin 0.40 AST 9 L ALT 5 L Alkaline Phosphatase 79 Total Protein 4.2 L Albumin 2.3 L Globulin 1.9 L Albumin/Globulin Ratio 1.2 Miscellaneous Test See comment Microbiology and Other Data: Microbiology 05/12/17 00:30 Urine Urine Culture - Final No Growth (<1,000 CFU/mL) 04/25/17 12:25 Blood Venous Aerobic Blood Culture - Final No Growth Day 5 04/25/17 12:25 Blood Venous Anaerobic Blood Culture - Final No Growth Day 5 04/25/17 12:26 Blood Venous Aerobic Blood Culture - Final No Growth Day 5 04/25/17 12:26 Blood Venous Anaerobic Blood Culture - Final No Growth Day 5 04/25/17 13:45 Urine Urine Culture - Final No Growth (<1,000 CFU/mL) Diagnostic Imaging: REPEAT CHEST XRAY 05/14/2017 Patient Name: GALO ZARCO JR Medical Record#: [id number] Ordering Physician: Vicenta Leung NP Acct.#: [id number] : 1935 Age: 81 Sex: M Location: SURGICAL STAY UNIT Exam Date: 05/14/171816 ADM Status: ADM IN Order Information: CHEST 1 VW Accession Number: [id number] CPT: 98879 INDICATION: Sepsis COMPARISON: Most recent comparison chest x-rays May 08, 2017 TECHNIQUE: Single AP view of the chest was obtained. FINDINGS: Overlying the right lower neck is a central catheter with the tip terminating at the superior vena cava. The heart and mediastinum exhibit normal size and contour. There is density obscuring the bilateral hemidiaphragm and causing bilateral costophrenic angle blunting. More superiorly the lungs are adequately aerated. Visualized bones are normal for the patient's age. IMPRESSION: CHEST X-RAY FINDINGS ARE MOST CONSISTENT WITH BIBASILAR PLEURAL EFFUSIONS AND/OR LOWER LOBE CONSOLIDATIONS WITH OVERALL WORSENING AERATION RELATIVE TO THE MAY 08, 2017 CHEST X-RAY. 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 Anisarcic and gravely deconditioned. Planned SNF vs hospice - Patient Problems (1) Mass of spine Current Visit: Yes Status: Acute Code(s): M89.9 - DISORDER OF BONE, UNSPECIFIED SNOMED Code(s): 062488972 Comment: - s/p metastatic epidural tumor resection 05/01 - no TLSO needed - PT - If HER2 positive (immunohistochemistry intermediate, FISH pending), - planned SNF or rehab if not electing hospice. (2) Anasarca Current Visit: Yes Status: Acute Code(s): R60.1 - GENERALIZED EDEMA SNOMED Code(s): 289688860 Comment: massively volume overloaded with anasarca to abdomen with pleural effusions. stopping IVF, starting bumex(not currently available) so lasix 60mg IV bid instead. ~15kg above presentation weight. encourage nutrition, albumin mid 2s. hyponatremic Na 131 (3) Leukocytosis Current Visit: Yes Status: Acute Code(s): D72.829 - ELEVATED WHITE BLOOD CELL COUNT, UNSPECIFIED SNOMED Code(s): 589269865 Comment: wbc up, no localizing symptoms or current fevers, also on decadron. likely 2/2 malignancy (4) Pleural effusion Current Visit: Yes Status: Acute Code(s): J90 - PLEURAL EFFUSION, NOT ELSEWHERE CLASSIFIED SNOMED Code(s): 41028525 Comment: - O2 dependent - diuresis as above - IS and flutter valve with nebs PRN (5) Atrial fibrillation Current Visit: No Status: Acute Code(s): I48.91 - UNSPECIFIED ATRIAL FIBRILLATION SNOMED Code(s): 84797462 Comment: - Rate controlled on digoxin, level elevated on 05/11 and dose was halved. to 0.125mg daily - add on level (6) Back pain Current Visit: No Status: Acute Code(s): M54.9 - DORSALGIA, UNSPECIFIED SNOMED Code(s): 265880558 Comment: - tramadol to 50 mg - continue low dose decadron for adjudevant bone and neuropathic pain (7) HTN (hypertension) Current Visit: No Status: Ruled-out Code(s): I10 - ESSENTIAL (PRIMARY) HYPERTENSION SNOMED Code(s): 16716342 Comment: - currently on midodrine, taper off given better systolic pressures. (8) Prostate cancer Current Visit: No Status: Acute Code(s): C61 - MALIGNANT NEOPLASM OF PROSTATE SNOMED Code(s): 030306831 Comment: - On Lupron as an outpatient. PSA negative, very unlikely primary source of metastasis. - MRI brain with no new lesions (9) Anorexia Current Visit: Yes Status: Acute Code(s): R63.0 - ANOREXIA SNOMED Code(s) : 55488010 Comment: - low dose decadron started 05/13 - Continue Ensure/Boost, SSRI and nutrition support - weight massively up but likely mostly water up. (10) DNR (do not resuscitate) Current Visit: Yes Status: Acute Comment: - Remains DNR - Consult with Dr. Ruggiero from Palliative appreciated - Patient and family wish to remain active care - Continue to prenatal genetic counselor and reinforce the need to eat and ambulate as tolerated regardless of election of hospice/pall care or not to increase quality of life (11) DVT prophylaxis Current Visit: No Status: Acute Code(s): IHQ0677 - SNOMED Code(s): 146568423 Comment: - Continue SQ Heparin (12) Hypothyroidism Current Visit: No Status: Acute Code(s): E03.9 - HYPOTHYROIDISM, UNSPECIFIED SNOMED Code(s): 68966762 Comment: Continue Synthroid. Status and Disposition: medicine inpatient. awaiting SNF placement Attending: Alan Zambrano
[2017-05-16] MEDS: CMCS Midodrine (NF) 5 MG TAB PO SCH (23:48)
[2017-05-17] MEDS: Levothyroxine TAB* 125 MCG TAB PO SCH (06:14)
[2017-05-17] MEDS: Heparin VIAL(*) 5000 UNITS/ML VIAL (FIVE THOUSAND) SUBCUT SCH ×3 (06:14→21:20)
[2017-05-17] MEDS ORDERED: Furosemide IV* 10 MG/ML 10 ML VIAL (100 MG) IV SCH (08:00)
[2017-05-17] MEDS: Dexamethasone TAB* 1 MG PO SCH ×3 (08:42→21:18)
[2017-05-17] MEDS: Sertraline* 50 MG TAB PO SCH (08:43)
[2017-05-17] MEDS: Dronabinol CAP* 2.5 MG PO SCH ×3 (08:43→17:13)
[2017-05-17] MEDS: Omeprazole CAP* 20 MG PO SCH (08:43)
[2017-05-17] MEDS: Docusate CAP* 100 MG PO SCH ×2 (08:43→21:18)
[2017-05-17] MEDS: Oxybutynin TAB* 5 MG PO SCH ×2 (08:43→21:18)
[2017-05-17] MEDS: CMCS Midodrine (NF) 5 MG TAB PO SCH (08:44)
[2017-05-17] MEDS: traMADol TAB* 50 MG PO PRN ×2 (12:26→18:43)
[2017-05-17] MEDS: Digoxin TAB* 0.125 MG PO SCH (17:13)
[2017-05-17] MEDS: Furosemide TAB* 40 MG PO SCH (17:14)
--- NOTE | 2017-05-17 17:38 | PN ---
Subjective Date of Service: 05/17/17 Interval History: FISH was negative for HER2 diuresing briskly. BPs tolerating even with discontinuation of midodrine. too tired to work with PT in AM. triple lumen catheter ordered removed (in since ). Family History: Unchanged from Admission Social History: Unchanged from Admission Past Medical History: Unchanged from Admission Objective Active Medications: Acetaminophen (Tylenol Adult Liq*) 650 mg PO Q4H PRN PRN Reason: PAIN - MILD TO MODERATE Albuterol/Ipratropium (Duoneb (Albuterol 2.5 Mg/Ipratropium 0.5 Mg)) 1 neb INH Q4H PRN PRN Reason: SOB/WHEEZING Last Admin: 05/13/17 16:50 Dose: 1 neb Dexamethasone (Decadron Tab*) 2 mg PO TID [facility] Last Admin: 05/17/17 14:24 Dose: 2 mg Digoxin (Lanoxin Tab*) 0.125 mg PO 1700 [facility] Last Admin: 05/17/17 17:13 Dose: 0.125 mg Docusate Sodium (Colace Cap*) 100 mg PO BID [facility] Last Admin: 05/17/17 08:43 Dose: 100 mg Dronabinol (Marinol Cap*) 2.5 mg PO AC [facility] Last Admin: 05/17/17 17:13 Dose: 2.5 mg Furosemide (Lasix Tab*) 80 mg PO 0800,1700 [facility] Last Admin: 05/17/17 17:14 Dose: 80 mg Heparin Sodium (Porcine) (Heparin Flush Picc/Ml/Cvc(*)) 0 ml FLUSH 0600,1800 [facility] PRN Reason: Protocol Last Admin: 05/17/17 17:15 Dose: Not Given Heparin Sodium (Porcine) (Heparin Vial(*)) 5,000 units SUBCUT Q8HR [facility] Last Admin: 05/17/17 14:25 Dose: 5,000 units Levothyroxine Sodium (Synthroid Tab*) 125 mcg PO DAILY@0600 [facility] Last Admin: 05/17/17 06:14 Dose: 125 mcg Omeprazole (Prilosec Cap*) 20 mg PO DAILY@0730 [facility] Last Admin: 05/17/17 08:43 Dose: 20 mg Ondansetron HCl (Zofran Inj*) 4 mg IV Q6H PRN PRN Reason: NAUSEA Last Admin: 12/19/17 05:52 Dose: 4 mg Oxybutynin Chloride (Ditropan Tab*) 5 mg PO BID [facility] Last Admin: 05/17/17 08:43 Dose: 5 mg Polyethylene Glycol/Electrolytes (Miralax*) 17 gm PO DAILY PRN PRN Reason: CONSTIPATION Senna (Senokot Tab*) 1 tab PO BID PRN PRN Reason: CONSTIPATION Sertraline HCl (Zoloft*) 50 mg PO DAILY [facility] Last Admin: 05/17/17 08:43 Dose: 50 mg Throat Lozenges (Chloraseptic Rigoberto*) 1 rigoberto PO Q6H PRN PRN Reason: SORE THROAT Last Admin: 05/15/17 14:22 Dose: 1 rigoberto Tramadol HCl (Ultram*) 50 mg PO Q6H PRN PRN Reason: PAIN Last Admin: 05/17/17 12:26 Dose: 50 mg Vital Signs - 8 hr 05/17/17 05/17/17 05/17/17 11:52 12:12 12:26 Temperature 97.2 F Pulse Rate 86 Respiratory 16 16 16 Rate Blood Pressure 104/62 (mmHg) O2 Sat by Pulse 94 Oximetry 05/17/17 05/17/17 05/17/17 14:30 16:56 17:13 Temperature Pulse Rate 86 Respiratory 16 16 16 Rate Blood Pressure (mmHg) O2 Sat by Pulse Oximetry 05/17/17 17:25 Temperature Pulse Rate 78 Respiratory 15 Rate Blood Pressure (mmHg) O2 Sat by Pulse 92 Oximetry Oxygen Devices in Use Now: Nasal Cannula Appearance: chronically ill appearing. anasarca Eyes: No Scleral Icterus, PERRLA Ears/Nose/Mouth/Throat: NL Teeth, Lips, Gums, Mucous Membranes Moist Respiratory: Symmetrical Chest Expansion and Respiratory Effort, - - decreaesed at b/l bases. no wheezing or rhonchi.. Cardiovascular: NL Sounds; No Murmurs; No JVD, RRR Abdominal: - - nontender. dependent edema. Extremities: - - 2+ feet to buttocks Skin: No Rash or Ulcers Neurological: Alert and Oriented x 3 Result Diagrams: 05/16/17 12:41 05/16/17 12:41 Additional Lab and Data: . Laboratory Results - last 24 hr 05/01/17 05/16/17 05/16/17 11:30 12:41 12:41 WBC 22.8 H RBC 2.88 L Hgb 8.8 L Hct 27 L MCV 93 MCH 31 MCHC 33 RDW 23 H Plt Count 240 MPV 7 L Neut % (Auto) 95.8 H Lymph % (Auto) 1.5 L [place] % (Auto) 2.4 Eos % (Auto) 0 Baso % (Auto) 0.3 Absolute Neuts (auto) 21.9 H Absolute Lymphs (auto) 0.3 L Absolute Monos (auto) 0.5 Absolute Eos (auto) 0 Absolute Basos (auto) 0.1 Absolute Nucleated RBC 0.01 Nucleated RBC % 0 Sodium 131 L Potassium 3.9 Chloride 100 L Carbon Dioxide 29 Anion Gap 2 BUN 10 Creatinine 0.43 L Est GFR ( Amer) 244.3 Est GFR (Non-Af Amer) 189.9 BUN/Creatinine Ratio 23.3 H Glucose 107 H Calcium 7.9 L Magnesium 1.9 Total Bilirubin 0.40 AST 9 L ALT 5 L Alkaline Phosphatase 79 Total Protein 4.2 L Albumin 2.3 L Globulin 1.9 L Albumin/Globulin Ratio 1.2 Miscellaneous Test See comment Microbiology and Other Data: Microbiology 05/12/17 00:30 Urine Urine Culture - Final No Growth (<1,000 CFU/mL) 04/25/17 12:25 Blood Venous Aerobic Blood Culture - Final No Growth Day 5 04/25/17 12:25 Blood Venous Anaerobic Blood Culture - Final No Growth Day 5 04/25/17 12:26 Blood Venous Aerobic Blood Culture - Final No Growth Day 5 04/25/17 12:26 Blood Venous Anaerobic Blood Culture - Final No Growth Day 5 04/25/17 13:45 Urine Urine Culture - Final No Growth (<1,000 CFU/mL) Diagnostic Imaging: REPEAT CHEST XRAY 05/14/2017 Patient Name: GALO ZARCO Medical Record#: [id number] Ordering Physician: Vicenta Leung NP Acct.#: [id number] : 1935 Age: 81 Sex: M Location: SURGICAL STAY UNIT Exam Date: 05/14/171816 ADM Status: ADM IN Order Information: CHEST 1 VW Accession Number: [id number] CPT: 87752 INDICATION: Sepsis COMPARISON: Most recent comparison chest x-rays May 08, 2017 TECHNIQUE: Single AP view of the chest was obtained. FINDINGS: Overlying the right lower neck is a central catheter with the tip terminating at the superior vena cava. The heart and mediastinum exhibit normal size and contour. There is density obscuring the bilateral hemidiaphragm and causing bilateral costophrenic angle blunting. More superiorly the lungs are adequately aerated. Visualized bones are normal for the patient's age. IMPRESSION: CHEST X-RAY FINDINGS ARE MOST CONSISTENT WITH BIBASILAR PLEURAL EFFUSIONS AND/OR LOWER LOBE CONSOLIDATIONS WITH OVERALL WORSENING AERATION RELATIVE TO THE MAY 08, 2017 CHEST X-RAY. 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 Anisarcic and gravely deconditioned. Planned SNF vs hospice - Patient Problems (1) Mass of spine Current Visit: Yes Status: Acute Code(s): M89.9 - DISORDER OF BONE, UNSPECIFIED SNOMED Code(s): 840184849 Comment: - s/p metastatic epidural tumor resection 05/01 - no TLSO needed - PT - HER2 negative on FISH positive (immunohistochemistry was intermediate - planned SNF or rehab if not electing hospice. (2) Anasarca Current Visit: Yes Status: Acute Code(s): R60.1 - GENERALIZED EDEMA SNOMED Code(s): 810980850 Comment: massively volume overloaded with anasarca to abdomen with pleural effusions. stopped IVF 1/2, starting IV lasix and now po given TLC out. ~15kg above presentation weight but not measured recently. encourage nutrition, albumin mid 2s. hyponatremic Na 131 (3) Leukocytosis Current Visit: Yes Status: Acute Code(s): D72.829 - ELEVATED WHITE BLOOD CELL COUNT, UNSPECIFIED SNOMED Code(s): 160944497 Comment: wbc up, no localizing symptoms or current fevers, also on decadron. likely 2/2 malignancy (4) Pleural effusion Current Visit: Yes Status: Acute Code(s): J90 - PLEURAL EFFUSION, NOT ELSEWHERE CLASSIFIED SNOMED Code(s): 17861420 Comment: - O2 dependent - diuresis as above - IS and flutter valve with nebs PRN (5) Atrial fibrillation Current Visit: No Status: Acute Code(s): I48.91 - UNSPECIFIED ATRIAL FIBRILLATION SNOMED Code(s): 27076087 Comment: - Rate controlled on digoxin, level elevated on 05/11 and dose was halved. to 0.125mg daily - level 1.1 on 05/17 (6) Back pain Current Visit: No Status: Acute Code(s): M54.9 - DORSALGIA, UNSPECIFIED SNOMED Code(s): 349254410 Comment: - tramadol to 50 mg - continue low dose decadron for adjudevant bone and neuropathic pain (7) Prostate cancer Current Visit: No Status: Acute Code(s): C61 - MALIGNANT NEOPLASM OF PROSTATE SNOMED Code(s): 465427125 Comment: - On Lupron as an outpatient. PSA negative, very unlikely primary source of metastasis. - MRI brain with no new lesions (8) Anorexia Current Visit: Yes Status: Acute Code(s): R63.0 - ANOREXIA SNOMED Code(s) : 80252764 Comment: - low dose decadron started 05/13 - Continue Ensure/Boost, SSRI and nutrition support - weight massively up but likely mostly water up. (9) DNR (do not resuscitate) Current Visit: Yes Status: Acute Comment: - Remains DNR - Consult with Dr. Ruggiero from Palliative appreciated - Patient and family wish to remain active care - Continue to agency legal counsel and reinforce the need to eat and ambulate as tolerated regardless of election of hospice/pall care or not to increase quality of life (10) DVT prophylaxis Current Visit: No Status: Acute Code(s): ORK1709 - SNOMED Code(s): 493819879 Comment: - Continue SQ Heparin (11) Hypothyroidism Current Visit: No Status: Acute Code(s): E03.9 - HYPOTHYROIDISM, UNSPECIFIED SNOMED Code(s): 14672010 Comment: Continue Synthroid. Status and Disposition: medicine inpatient. awaiting SNF placement ([facility] Attending: Alan Zambrano
[2017-05-18] MEDS: Levothyroxine TAB* 125 MCG TAB PO SCH (06:18)
[2017-05-18] MEDS: Heparin VIAL(*) 5000 UNITS/ML VIAL (FIVE THOUSAND) SUBCUT SCH ×3 (06:19→22:33)
[2017-05-18] MEDS: Omeprazole CAP* 20 MG PO SCH (07:35)
[2017-05-18] MEDS: Furosemide TAB* 40 MG PO SCH (07:35)
[2017-05-18] MEDS: Dronabinol CAP* 2.5 MG PO SCH ×3 (07:36→17:41)
[2017-05-18 08:55] LABS: ABS Basophils 0.2 10^3/ul (0-0.2); ABS Eosinophils 0 10^3/ul (0-0.6); ABS Lymphocytes 0.5 10^3/ul (1.0-4.8); ABS Monocytes 0.7 10^3/ul (0-0.8); ABS Neutrophils 20.7 10^3/ul (1.5-7.7); ABS Nucleated RBC 0.01 10^3/ul; Eosinophil % 0.1 % (0-6); Hematocrit 29 % (42-52); Hemoglobin 9.8 g/dl (14.0-18.0); Lymphocyte % 2.2 % (25-47); Mean Corpuscular HGB Conc 33 g/dl (31-36); Mean Corpuscular Hemoglobin 31 pg (27-31); Mean Corpuscular Volume 94 fL (80-94); Mean Platelet Volume 8 um3 (7.4-10.4); Nucleated Red Blood Cells % 0.1; Platelet Count 250 10^3/ul (150-450); Red Blood Count 3.12 10^6/ul (4.0-5.4); Red Cell Distribution Width 22 % (10.5-15); White Blood Count 22.1 10^3/ul (3.5-10.8)
[2017-05-18 09:21] LABS: EGFR Non-African American 163.4 (>60)
[2017-05-18] MEDS: Oxybutynin TAB* 5 MG PO SCH ×2 (10:06→22:29)
[2017-05-18] MEDS: Dexamethasone TAB* 1 MG PO SCH ×3 (10:06→22:28)
[2017-05-18] MEDS: Sertraline* 50 MG TAB PO SCH (10:07)
[2017-05-18] MEDS: traMADol TAB* 50 MG PO PRN ×2 (10:08→22:32)
[2017-05-18] MEDS: Docusate CAP* 100 MG PO SCH ×2 (10:08→22:29)
[2017-05-18] MEDS: Digoxin TAB* 0.125 MG PO SCH (17:40)
--- NOTE | 2017-05-18 18:33 | PN ---
Progress Note - Progress Note Date of Service: 05/18/17 Note: I was asked to check in with the patient about his desire for further care. He is very fatigued, unable to participate in PT much, eating little, and on discussion he elects to just go home and be comfortable rather than attempting rehab at this time. I spoke with his son Fabiano who is in complete agreement. He is willing to take his father home whenever he gets discharged, and he is certainly appropriate for hospice services on the basis of his spinal tumor and his malnutrition. The patient's son Fabiano has a room on the first floor for his father, and would appreciate a hospital bed and would like him signed on to hospice as soon as convenient. I spent 15 minutes speaking with the patient and his son on the phone.
--- NOTE | 2017-05-18 19:58 | PN ---
Subjective Date of Service: 05/18/17 Interval History: Diuresed yesterday, net negative 6L. transferred up to given surgical candidates. No spaces at [facility]. Son may be starting to realize that it may be appropriate to pursue straight hospice Family History: Unchanged from Admission Social History: Unchanged from Admission Past Medical History: Unchanged from Admission Objective Active Medications: Acetaminophen (Tylenol Adult Liq*) 650 mg PO Q4H PRN PRN Reason: PAIN - MILD TO MODERATE Albuterol/Ipratropium (Duoneb (Albuterol 2.5 Mg/Ipratropium 0.5 Mg)) 1 neb INH Q4H PRN PRN Reason: SOB/WHEEZING Last Admin: 05/13/17 16:50 Dose: 1 neb Dexamethasone (Decadron Tab*) 2 mg PO TID [facility] Last Admin: 05/18/17 14:04 Dose: 2 mg Digoxin (Lanoxin Tab*) 0.125 mg PO 1700 [facility] Last Admin: 05/18/17 17:40 Dose: 0.125 mg Docusate Sodium (Colace Cap*) 100 mg PO BID [facility] Last Admin: 05/18/17 10:08 Dose: 100 mg Dronabinol (Marinol Cap*) 2.5 mg PO AC [facility] Last Admin: 05/18/17 17:41 Dose: 2.5 mg Heparin Sodium (Porcine) (Heparin Vial(*)) 5,000 units SUBCUT Q8HR [facility] Last Admin: 05/18/17 14:06 Dose: 5,000 units Levothyroxine Sodium (Synthroid Tab*) 125 mcg PO DAILY@0600 [facility] Last Admin: 05/18/17 06:18 Dose: 125 mcg Omeprazole (Prilosec Cap*) 20 mg PO DAILY@0730 [facility] Last Admin: 05/18/17 07:35 Dose: 20 mg Ondansetron HCl (Zofran Inj*) 4 mg IV Q6H PRN PRN Reason: NAUSEA Last Admin: 05/02/17 05:52 Dose: 4 mg Oxybutynin Chloride (Ditropan Tab*) 5 mg PO BID [facility] Last Admin: 05/18/17 10:06 Dose: 5 mg Polyethylene Glycol/Electrolytes (Miralax*) 17 gm PO DAILY PRN PRN Reason: CONSTIPATION Senna (Senokot Tab*) 1 tab PO BID PRN PRN Reason: CONSTIPATION Sertraline HCl (Zoloft*) 50 mg PO DAILY [facility] Last Admin: 05/18/17 10:07 Dose: 50 mg Throat Lozenges (Chloraseptic Rigoberto*) 1 rigoberto PO Q6H PRN PRN Reason: SORE THROAT Last Admin: 05/15/17 14:22 Dose: 1 rigoberto Tramadol HCl (Ultram*) 50 mg PO Q6H PRN PRN Reason: PAIN Last Admin: 05/18/17 10:08 Dose: 50 mg Vital Signs - 8 hr 05/18/17 05/18/17 05/18/17 12:15 12:17 13:49 Temperature Pulse Rate 78 Respiratory 16 18 16 Rate Blood Pressure (mmHg) O2 Sat by Pulse 94 Oximetry 05/18/17 05/18/17 05/18/17 14:38 15:34 15:55 Temperature 97.2 F Pulse Rate 73 87 Respiratory 16 18 18 Rate Blood Pressure 79/46 111/63 (mmHg) O2 Sat by Pulse 94 Oximetry 05/18/17 05/18/17 17:40 17:41 Temperature Pulse Rate 76 Respiratory 14 Rate Blood Pressure (mmHg) O2 Sat by Pulse Oximetry Oxygen Devices in Use Now: Nasal Cannula Appearance: NAD, anasarca. Eyes: No Scleral Icterus, PERRLA Ears/Nose/Mouth/Throat: NL Teeth, Lips, Gums, Mucous Membranes Moist Neck: NL Appearance and Movements; NL JVP, Trachea Midline Respiratory: - - decreased at bases. Cardiovascular: NL Sounds; No Murmurs; No JVD, RRR Abdominal: NL Sounds; No Tenderness; No Distention, - - anasarca Extremities: - - 2+ edema Neurological: Alert and Oriented x 3, NL Sensation, NL Muscle Strength and Tone Result Diagrams: 05/18/17 08:41 05/18/17 08:41 Additional Lab and Data: . Laboratory Results - last 24 hr 05/01/17 05/18/17 05/18/17 11:30 08:41 08:41 WBC 22.1 H RBC 3.12 L Hgb 9.8 L Hct 29 L MCV 94 MCH 31 MCHC 33 RDW 22 H Plt Count 250 MPV 8 Neut % (Auto) 93.6 H Lymph % (Auto) 2.2 L [place] % (Auto) 3.1 Eos % (Auto) 0.1 Baso % (Auto) 1.0 Absolute Neuts (auto) 20.7 H Absolute Lymphs (auto) 0.5 L Absolute Monos (auto) 0.7 Absolute Eos (auto) 0 Absolute Basos (auto) 0.2 Absolute Nucleated RBC 0.01 Nucleated RBC % 0.1 Sodium 127 L Potassium 3.7 Chloride 89 L Carbon Dioxide 33 H Anion Gap 5 BUN 10 Creatinine 0.49 L Est GFR ( Amer) 210.1 Est GFR (Non-Af Amer) 163.4 BUN/Creatinine Ratio 20.4 H Glucose 104 H Calcium 8.0 L Magnesium 1.9 HER-2 (FISH) Interpret TNP Microbiology and Other Data: Microbiology 05/12/17 00:30 Urine Urine Culture - Final No Growth (<1,000 CFU/mL) 04/25/17 12:25 Blood Venous Aerobic Blood Culture - Final No Growth Day 5 04/25/17 12:25 Blood Venous Anaerobic Blood Culture - Final No Growth Day 5 04/25/17 12:26 Blood Venous Aerobic Blood Culture - Final No Growth Day 5 04/25/17 12:26 Blood Venous Anaerobic Blood Culture - Final No Growth Day 5 04/25/17 13:45 Urine Urine Culture - Final No Growth (<1,000 CFU/mL) Assess/Plan/Problems-Billing 81 yo male s/p large epidural tumor resection, spinal decompression and fusion 2 /2 metastatic adenocarcinoma of unclear etiology but possible GI source. Anisarcic and gravely deconditioned. Awaiting SNF bed. - Patient Problems (1) Mass of spine Current Visit: Yes Status: Acute Code(s): M89.9 - DISORDER OF BONE, UNSPECIFIED SNOMED Code(s): 183120311 Comment: - s/p metastatic epidural tumor resection 05/01 - no TLSO needed - PT - HER2 negative on FISH positive (immunohistochemistry was intermediate - planned SNF or rehab if not electing hospice. (2) Anasarca Current Visit: Yes Status: Acute Code(s): R60.1 - GENERALIZED EDEMA SNOMED Code(s): 702200687 Comment: massively volume overloaded with anasarca to abdomen with pleural effusions. Will switch to lasix 40mg po daily. ~15kg above presentation weight few weeks ago but not measured recently despite multiple requests. encourage nutrition, albumin mid 2s. hyponatremic Na 131 (3) Leukocytosis Current Visit: Yes Status: Acute Code(s): D72.829 - ELEVATED WHITE BLOOD CELL COUNT, UNSPECIFIED SNOMED Code(s): 266194507 Comment: wbc up, no localizing symptoms or current fevers, also on decadron. likely 2/2 malignancy (4) Pleural effusion Current Visit: Yes Status: Acute Code(s): J90 - PLEURAL EFFUSION, NOT ELSEWHERE CLASSIFIED SNOMED Code(s): 39395647 Comment: - O2 dependent - diuresis as above - IS and flutter valve with nebs PRN (5) Atrial fibrillation Current Visit: No Status: Acute Code(s): I48.91 - UNSPECIFIED ATRIAL FIBRILLATION SNOMED Code(s): 63042712 Comment: - Rate controlled on digoxin, level elevated on 05/11 and dose was halved. to 0.125mg daily - level 1.1 on 05/17 (6) Back pain Current Visit: No Status: Acute Code(s): M54.9 - DORSALGIA, UNSPECIFIED SNOMED Code(s): 720354349 Comment: - tramadol to 50 mg - continue low dose decadron for adjudevant bone and neuropathic pain (7) Prostate cancer Current Visit: No Status: Acute Code(s): C61 - MALIGNANT NEOPLASM OF PROSTATE SNOMED Code(s): 850364847 Comment: - On Lupron as an outpatient. PSA negative, very unlikely primary source of metastasis. - MRI brain with no new lesions (8) Anorexia Current Visit: Yes Status: Acute Code(s): R63.0 - ANOREXIA SNOMED Code(s) : 16920169 Comment: - low dose decadron started 05/13 - Continue Ensure/Boost, SSRI and nutrition support - weight massively up but likely mostly water (9) DNR (do not resuscitate) Current Visit: Yes Status: Acute Comment: - Remains DNR - Consult with Dr. Ruggiero from Palliative appreciated - Patient and family wish to remain active care - Continue to housing counselor and reinforce the need to eat and ambulate as tolerated regardless of election of hospice/pall care or not to increase quality of life (10) DVT prophylaxis Current Visit: No Status: Acute Code(s): LWH5007 - SNOMED Code(s): 518472716 Comment: - Continue SQ Heparin (11) Hypothyroidism Current Visit: No Status: Acute Code(s): E03.9 - HYPOTHYROIDISM, UNSPECIFIED SNOMED Code(s): 63698942 Comment: Continue Synthroid. Status and Disposition: medicine inpatient. awaiting SNF placement Attending: Alan Zambrano
--- NOTE | 2017-05-18 20:11 | PN ---
Progress Note - Progress Note Date of Service: 05/18/17 SOAP: Subjective: []Patient seen and examined earlier today. On regular floor. Patient is resting comfortably. Pain well controlled. Tolerates PO with nutrition supplements. Disla. Minimal OOB in a chair yesterday per nurse. Objective: [] VSS, Afebrile. Wound s,c,d , ochoa removed in drain sites, AAOx3 ONIEL. Face symmetric Abdoulaye 4-5 UES, 4+/5 LEs, possibly antalgic. Sensory grossly intact to light touch. Assessment: []81 yom hx prostate CA, POD#17 of T12-L1 tumor resection and T9-L4 fusion Plan: [] Monitor VS, Neurochecks Monitor labs, Ht, WBC. Encourage increased po intake. On nutrition supplements. PT/OT , OOB in a chair and OOB as tolerated with PT. TLSO brace when OOB. IS Nutrition support Additional treatment per oncology. Appreciate IM, Oncology, Palliative care. Family and patient to decide regarding further treatment options. Keep sutures in place for 6 weeks. Girma Lizarraga MD
[2017-05-19] MEDS: Heparin VIAL(*) 5000 UNITS/ML VIAL (FIVE THOUSAND) SUBCUT SCH ×3 (07:38→21:35)
[2017-05-19] MEDS: Furosemide TAB* 40 MG PO SCH (08:37)
[2017-05-19] MEDS: Docusate CAP* 100 MG PO SCH ×2 (08:37→21:35)
[2017-05-19] MEDS: Sertraline* 50 MG TAB PO SCH (08:37)
[2017-05-19] MEDS: Omeprazole CAP* 20 MG PO SCH (08:37)
[2017-05-19] MEDS: Levothyroxine TAB* 125 MCG TAB PO SCH (08:37)
[2017-05-19] MEDS: Oxybutynin TAB* 5 MG PO SCH ×2 (08:37→21:35)
[2017-05-19] MEDS: Dronabinol CAP* 2.5 MG PO SCH ×2 (08:38→12:22)
--- NOTE | 2017-05-19 09:29 | PN ---
Subjective Date of Service: 05/19/17 Interval History: He denies pain. Sleeps OK. Appetite fair. Family History: Unchanged from Admission Social History: Unchanged from Admission Past Medical History: Unchanged from Admission Objective Active Medications: Acetaminophen (Tylenol Adult Liq*) 650 mg PO Q4H PRN PRN Reason: PAIN - MILD TO MODERATE Albuterol/Ipratropium (Duoneb (Albuterol 2.5 Mg/Ipratropium 0.5 Mg)) 1 neb INH Q4H PRN PRN Reason: SOB/WHEEZING Last Admin: 05/13/17 16:50 Dose: 1 neb Dexamethasone (Decadron Tab*) 2 mg PO TID [facility] Last Admin: 05/18/17 22:28 Dose: 2 mg Digoxin (Lanoxin Tab*) 0.125 mg PO 1700 [facility] Last Admin: 05/18/17 17:40 Dose: 0.125 mg Docusate Sodium (Colace Cap*) 100 mg PO BID [facility] Last Admin: 05/19/17 08:37 Dose: 100 mg Dronabinol (Marinol Cap*) 2.5 mg PO AC [facility] Last Admin: 05/19/17 08:38 Dose: 2.5 mg Furosemide (Lasix Tab*) 40 mg PO DAILY [facility] Last Admin: 05/19/17 08:37 Dose: 40 mg Heparin Sodium (Porcine) (Heparin Vial(*)) 5,000 units SUBCUT Q8HR [facility] Last Admin: 05/19/17 07:38 Dose: 5,000 units Levothyroxine Sodium (Synthroid Tab*) 125 mcg PO DAILY@0600 [facility] Last Admin: 05/19/17 08:37 Dose: 125 mcg Omeprazole (Prilosec Cap*) 20 mg PO DAILY@0730 [facility] Last Admin: 05/19/17 08:37 Dose: 20 mg Ondansetron HCl (Zofran Inj*) 4 mg IV Q6H PRN PRN Reason: NAUSEA Last Admin: 05/02/17 05:52 Dose: 4 mg Oxybutynin Chloride (Ditropan Tab*) 5 mg PO BID [facility] Last Admin: 05/19/17 08:37 Dose: 5 mg Polyethylene Glycol/Electrolytes (Miralax*) 17 gm PO DAILY PRN PRN Reason: CONSTIPATION Senna (Senokot Tab*) 1 tab PO BID PRN PRN Reason: CONSTIPATION Sertraline HCl (Zoloft*) 50 mg PO DAILY [facility] Last Admin: 05/19/17 08:37 Dose: 50 mg Throat Lozenges (Chloraseptic Rigoberto*) 1 rigoberto PO Q6H PRN PRN Reason: SORE THROAT Last Admin: 05/15/17 14:22 Dose: 1 rigoberto Tramadol HCl (Ultram*) 50 mg PO Q6H PRN PRN Reason: PAIN Last Admin: 05/18/17 22:32 Dose: 50 mg Vital Signs - 8 hr 05/19/17 05/19/17 05/19/17 02:35 03:22 07:20 Temperature 97.4 F Pulse Rate 84 Respiratory 18 16 12 Rate Blood Pressure 96/52 (mmHg) O2 Sat by Pulse 94 Oximetry 05/19/17 05/19/17 05/19/17 07:28 08:18 08:38 Temperature 98.6 F Pulse Rate 70 63 Respiratory 20 16 Rate Blood Pressure 75/43 (mmHg) O2 Sat by Pulse 92 90 Oximetry Oxygen Devices in Use Now: Nasal Cannula Appearance: Alert, partly up in bed. Flat affect. Looks weak and/or depressed, otherwise looks comfortable. Eyes: No Scleral Icterus Respiratory: Symmetrical Chest Expansion and Respiratory Effort, Clear to Auscultation, Clear to Percussion Cardiovascular: NL Sounds; No Murmurs; No JVD, RRR, No Edema, - Extremities: No Edema, No Clubbing, Cyanosis, - Skin: No Rash or Ulcers, No Nodules or Sclerosis, - Neurological: Alert and Oriented x 3, NL Sensation - LANGE Result Diagrams: 05/18/17 08:41 05/18/17 08:41 Additional Lab and Data: . Laboratory Results - last 24 hr 05/01/17 05/18/17 05/18/17 11:30 08:41 08:41 WBC 22.1 H RBC 3.12 L Hgb 9.8 L Hct 29 L MCV 94 MCH 31 MCHC 33 RDW 22 H Plt Count 250 MPV 8 Neut % (Auto) 93.6 H Lymph % (Auto) 2.2 L [place] % (Auto) 3.1 Eos % (Auto) 0.1 Baso % (Auto) 1.0 Absolute Neuts (auto) 20.7 H Absolute Lymphs (auto) 0.5 L Absolute Monos (auto) 0.7 Absolute Eos (auto) 0 Absolute Basos (auto) 0.2 Absolute Nucleated RBC 0.01 Nucleated RBC % 0.1 Sodium 127 L Potassium 3.7 Chloride 89 L Carbon Dioxide 33 H Anion Gap 5 BUN 10 Creatinine 0.49 L Est GFR ( Amer) 210.1 Est GFR (Non-Af Amer) 163.4 BUN/Creatinine Ratio 20.4 H Glucose 104 H Calcium 8.0 L Magnesium 1.9 HER-2 (FISH) Interpret TNP Microbiology and Other Data: Microbiology 05/12/17 00:30 Urine Urine Culture - Final No Growth (<1,000 CFU/mL) 04/25/17 12:25 Blood Venous Aerobic Blood Culture - Final No Growth Day 5 04/25/17 12:25 Blood Venous Anaerobic Blood Culture - Final No Growth Day 5 04/25/17 12:26 Blood Venous Aerobic Blood Culture - Final No Growth Day 5 04/25/17 12:26 Blood Venous Anaerobic Blood Culture - Final No Growth Day 5 04/25/17 13:45 Urine Urine Culture - Final No Growth (<1,000 CFU/mL) Diagnostic Imaging: REPEAT CHEST XRAY 05/14/2017 Patient Name: GALO ZARCO JR Medical Record#: [id number] Ordering Physician: Vicenta Leung NP Acct.#: [id number] : 1935 Age: 81 Sex: M Location: SURGICAL STAY UNIT Exam Date: 05/14/171816 ADM Status: ADM IN Order Information: CHEST 1 VW Accession Number: [id number] CPT: 99303 INDICATION: Sepsis COMPARISON: Most recent comparison chest x-rays May 08, 2017 TECHNIQUE: Single AP view of the chest was obtained. FINDINGS: Overlying the right lower neck is a central catheter with the tip terminating at the superior vena cava. The heart and mediastinum exhibit normal size and contour. There is density obscuring the bilateral hemidiaphragm and causing bilateral costophrenic angle blunting. More superiorly the lungs are adequately aerated. Visualized bones are normal for the patient's age. IMPRESSION: CHEST X-RAY FINDINGS ARE MOST CONSISTENT WITH BIBASILAR PLEURAL EFFUSIONS AND/OR LOWER LOBE CONSOLIDATIONS WITH OVERALL WORSENING AERATION RELATIVE TO THE MAY 08, 2017 CHEST X-RAY. 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 Anisarcic and gravely deconditioned. Awaiting SNF bed. - Patient Problems (1) Mass of spine Current Visit: Yes Status: Acute Code(s): M89.9 - DISORDER OF BONE, UNSPECIFIED SNOMED Code(s): 817296258 Comment: - s/p metastatic epidural tumor resection 05/01. Plan on keeping Disla in. - no TLSO needed - Pt refused PT 05/17/17. - HER2 negative on FISH positive (immunohistochemistry was intermediate - planned SNF or rehab if not electing hospice. I will talk to the family when they are available. (2) Prostate cancer Current Visit: No Status: Acute Code(s): C61 - MALIGNANT NEOPLASM OF PROSTATE SNOMED Code(s): 743643281 Comment: - On Lupron as an outpatient. PSA negative, very unlikely primary source of metastasis. - MRI brain with no new lesions (3) Pleural effusion Current Visit: Yes Status: Acute Code(s): J90 - PLEURAL EFFUSION, NOT ELSEWHERE CLASSIFIED SNOMED Code(s): 92043862 Comment: - O2 dependent - Not symptomatic. - IS and flutter valve with nebs PRN (4) Atrial fibrillation Current Visit: No Status: Acute Code(s): I48.91 - UNSPECIFIED ATRIAL FIBRILLATION SNOMED Code(s): 75975160 Comment: - Rate controlled on digoxin, level elevated on 05/11 and dose was halved. to 0.125mg daily - level 1.1 on 05/16, 1.3 on 05/20, decrease digoxin dose to 0.125 mg q 48 hr. (5) HTN (hypertension) Current Visit: No Status: Ruled-out Code(s): I10 - ESSENTIAL (PRIMARY) HYPERTENSION SNOMED Code(s): 14699623 Comment: - BP low off midodrine, restarted 05/19/17. Status and Disposition: medicine inpatient. awaiting SNF placement
[2017-05-19] MEDS: CMC:Midodrine (NF) 5 MG TAB PO SCH ×3 (11:07→21:35)
[2017-05-19] MEDS: traMADol TAB* 50 MG PO PRN (11:07)
[2017-05-19] MEDS: Dexamethasone TAB* 1 MG PO SCH ×3 (11:16→21:35)
[2017-05-19] MEDS: Digoxin TAB* 0.125 MG PO SCH (17:45)
[2017-05-19] MEDS ORDERED: NS 0.9% 500 ML* 500 ML IV ONE ×2 (21:00→21:29)
[2017-05-19] MEDS ORDERED: NS 0.9% 1000 ML* 1,000 ML IV ONE (23:00)
[2017-05-20] MEDS: Levothyroxine TAB* 125 MCG TAB PO SCH (05:09)
[2017-05-20] MEDS: Heparin VIAL(*) 5000 UNITS/ML VIAL (FIVE THOUSAND) SUBCUT SCH ×3 (05:09→21:10)
--- NOTE | 2017-05-20 08:18 | PN ---
Subjective Date of Service: 05/20/17 Interval History: Mild pain. Appetite poor. No new c/o. Family History: Unchanged from Admission Social History: Unchanged from Admission Past Medical History: Unchanged from Admission Objective Active Medications: Acetaminophen (Tylenol Adult Liq*) 650 mg PO Q4H PRN PRN Reason: PAIN - MILD TO MODERATE Albuterol/Ipratropium (Duoneb (Albuterol 2.5 Mg/Ipratropium 0.5 Mg)) 1 neb INH Q4H PRN PRN Reason: SOB/WHEEZING Last Admin: 05/13/17 16:50 Dose: 1 neb Dexamethasone (Decadron Tab*) 2 mg PO TID [facility] Last Admin: 05/19/17 21:35 Dose: Not Given Digoxin (Lanoxin Tab*) 0.125 mg PO 1700 [facility] Last Admin: 05/19/17 17:45 Dose: 0.125 mg Docusate Sodium (Colace Cap*) 100 mg PO BID [facility] Last Admin: 05/19/17 21:35 Dose: Not Given Furosemide (Lasix Tab*) 40 mg PO DAILY [facility] Last Admin: 05/19/17 08:37 Dose: 40 mg Heparin Sodium (Porcine) (Heparin Vial(*)) 5,000 units SUBCUT Q8HR [facility] Last Admin: 05/20/17 05:09 Dose: 5,000 units Levothyroxine Sodium (Synthroid Tab*) 125 mcg PO DAILY@0600 [facility] Last Admin: 05/20/17 05:09 Dose: 125 mcg Midodrine (Midodrine (Nf)) 5 mg PO TID [facility] PRN Reason: Protocol Last Admin: 05/19/17 21:35 Dose: 5 mg Omeprazole (Prilosec Cap*) 20 mg PO DAILY@0730 [facility] Last Admin: 05/19/17 08:37 Dose: 20 mg Ondansetron HCl (Zofran Inj*) 4 mg IV Q6H PRN PRN Reason: NAUSEA Last Admin: 05/02/17 05:52 Dose: 4 mg Oxybutynin Chloride (Ditropan Tab*) 5 mg PO BID [facility] Last Admin: 05/19/17 21:35 Dose: Not Given Polyethylene Glycol/Electrolytes (Miralax*) 17 gm PO DAILY PRN PRN Reason: CONSTIPATION Senna (Senokot Tab*) 1 tab PO BID PRN PRN Reason: CONSTIPATION Sertraline HCl (Zoloft*) 25 mg PO DAILY [facility] Throat Lozenges (Chloraseptic Rigoberto*) 1 rigoberto PO Q6H PRN PRN Reason: SORE THROAT Last Admin: 05/15/17 14:22 Dose: 1 rigoberto Tramadol HCl (Ultram*) 50 mg PO Q6H PRN PRN Reason: PAIN Last Admin: 05/19/17 11:07 Dose: 50 mg Vital Signs - 8 hr 05/20/17 05/20/17 01:59 02:23 Respiratory 18 Rate Blood Pressure 89/52 (mmHg) Oxygen Devices in Use Now: Nasal Cannula Appearance: Partly up in bed. In fair spirits. Looks comfortable. Eyes: No Scleral Icterus Cardiovascular: No Edema, - - distant sounds, poor peripheral pulses Extremities: No Edema, No Clubbing, Cyanosis, - Skin: No Rash or Ulcers, No Nodules or Sclerosis, - Neurological: NL Sensation, - - Alert, cooperative. Passive. No tremor. Verbal skills fair. Result Diagrams: 05/18/17 08:41 05/18/17 08:41 Additional Lab and Data: . Laboratory Results - last 24 hr 05/01/17 05/18/17 05/18/17 11:30 08:41 08:41 WBC 22.1 H RBC 3.12 L Hgb 9.8 L Hct 29 L MCV 94 MCH 31 MCHC 33 RDW 22 H Plt Count 250 MPV 8 Neut % (Auto) 93.6 H Lymph % (Auto) 2.2 L [place] % (Auto) 3.1 Eos % (Auto) 0.1 Baso % (Auto) 1.0 Absolute Neuts (auto) 20.7 H Absolute Lymphs (auto) 0.5 L Absolute Monos (auto) 0.7 Absolute Eos (auto) 0 Absolute Basos (auto) 0.2 Absolute Nucleated RBC 0.01 Nucleated RBC % 0.1 Sodium 127 L Potassium 3.7 Chloride 89 L Carbon Dioxide 33 H Anion Gap 5 BUN 10 Creatinine 0.49 L Est GFR ( Amer) 210.1 Est GFR (Non-Af Amer) 163.4 BUN/Creatinine Ratio 20.4 H Glucose 104 H Calcium 8.0 L Magnesium 1.9 HER-2 (FISH) Interpret TNP Microbiology and Other Data: Microbiology 05/12/17 00:30 Urine Urine Culture - Final No Growth (<1,000 CFU/mL) 04/25/17 12:25 Blood Venous Aerobic Blood Culture - Final No Growth Day 5 04/25/17 12:25 Blood Venous Anaerobic Blood Culture - Final No Growth Day 5 04/25/17 12:26 Blood Venous Aerobic Blood Culture - Final No Growth Day 5 04/25/17 12:26 Blood Venous Anaerobic Blood Culture - Final No Growth Day 5 04/25/17 13:45 Urine Urine Culture - Final No Growth (<1,000 CFU/mL) Diagnostic Imaging: REPEAT CHEST XRAY 05/14/2017 Patient Name: GALO ZARCO JR Medical Record#: [id number] Ordering Physician: Vicenta Leung NP Acct.#: [id number] : 1935 Age: 81 Sex: M Location: SURGICAL STAY UNIT Exam Date: 05/14/171816 ADM Status: ADM IN Order Information: CHEST 1 VW Accession Number: [id number] CPT: 49061 INDICATION: Sepsis COMPARISON: Most recent comparison chest x-rays May 08, 2017 TECHNIQUE: Single AP view of the chest was obtained. FINDINGS: Overlying the right lower neck is a central catheter with the tip terminating at the superior vena cava. The heart and mediastinum exhibit normal size and contour. There is density obscuring the bilateral hemidiaphragm and causing bilateral costophrenic angle blunting. More superiorly the lungs are adequately aerated. Visualized bones are normal for the patient's age. IMPRESSION: CHEST X-RAY FINDINGS ARE MOST CONSISTENT WITH BIBASILAR PLEURAL EFFUSIONS AND/OR LOWER LOBE CONSOLIDATIONS WITH OVERALL WORSENING AERATION RELATIVE TO THE MAY 08, 2017 CHEST X-RAY. 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 Anisarcic and gravely deconditioned. Awaiting SNF bed. - Patient Problems (1) Mass of spine Current Visit: Yes Status: Acute Code(s): M89.9 - DISORDER OF BONE, UNSPECIFIED SNOMED Code(s): 358850169 Comment: - s/p metastatic epidural tumor resection 05/01. Plan on keeping Disla in. - no TLSO needed - Pt refused PT 05/17/17. - HER2 negative on FISH positive (immunohistochemistry was intermediate - planned SNF or rehab if not electing hospice. I will talk to the family when they are available. (2) Prostate cancer Current Visit: No Status: Acute Code(s): C61 - MALIGNANT NEOPLASM OF PROSTATE SNOMED Code(s): 689014642 Comment: - On Lupron as an outpatient. PSA negative, very unlikely primary source of metastasis. - MRI brain with no new lesions (3) Pleural effusion Current Visit: Yes Status: Acute Code(s): J90 - PLEURAL EFFUSION, NOT ELSEWHERE CLASSIFIED SNOMED Code(s): 90989563 Comment: - O2 dependent - Not symptomatic. - IS and flutter valve with nebs PRN (4) Atrial fibrillation Current Visit: No Status: Acute Code(s): I48.91 - UNSPECIFIED ATRIAL FIBRILLATION SNOMED Code(s): 48372345 Comment: - Rate controlled on digoxin, level elevated on 05/11 and dose was halved. to 0.125mg daily - level 1.1 on 05/16 (5) HTN (hypertension) Current Visit: No Status: Ruled-out Code(s): I10 - ESSENTIAL (PRIMARY) HYPERTENSION SNOMED Code(s): 71443034 Comment: - BP low off midodrine, restarted 05/19/17. Status and Disposition: medicine inpatient. awaiting SNF placement
[2017-05-20] MEDS: Furosemide TAB* 40 MG PO SCH (10:45)
[2017-05-20] MEDS: Benzocaine/Menthol LOZ* 1 LOZENGE PO PRN (10:45)
[2017-05-20] MEDS: Oxybutynin TAB* 5 MG PO SCH ×2 (10:45→21:07)
[2017-05-20] MEDS: Omeprazole CAP* 20 MG PO SCH (10:45)
[2017-05-20] MEDS: Dexamethasone TAB* 1 MG PO SCH ×3 (10:45→21:08)
[2017-05-20] MEDS: CMC:Midodrine (NF) 5 MG TAB PO SCH ×3 (10:45→21:06)
[2017-05-20] MEDS: Docusate CAP* 100 MG PO SCH ×2 (10:46→21:10)
[2017-05-20] MEDS: Sertraline* 25 MG TAB PO SCH (10:46)
[2017-05-21] MEDS: Levothyroxine TAB* 125 MCG TAB PO SCH (06:36)
[2017-05-21] MEDS: Heparin VIAL(*) 5000 UNITS/ML VIAL (FIVE THOUSAND) SUBCUT SCH ×2 (06:36→14:20)
[2017-05-21] MEDS: Omeprazole CAP* 20 MG PO SCH (08:04)
--- NOTE | 2017-05-21 08:36 | PN ---
Subjective Date of Service: 05/21/17 Interval History: No c/o. Family History: Unchanged from Admission Social History: Unchanged from Admission Past Medical History: Unchanged from Admission Objective Active Medications: Acetaminophen (Tylenol Adult Liq*) 650 mg PO Q4H PRN PRN Reason: PAIN - MILD TO MODERATE Albuterol/Ipratropium (Duoneb (Albuterol 2.5 Mg/Ipratropium 0.5 Mg)) 1 neb INH Q4H PRN PRN Reason: SOB/WHEEZING Last Admin: 05/13/17 16:50 Dose: 1 neb Dexamethasone (Decadron Tab*) 2 mg PO TID [facility] Last Admin: 05/20/17 21:08 Dose: 2 mg Digoxin (Lanoxin Tab*) 0.125 mg PO Q48H [facility] Docusate Sodium (Colace Cap*) 100 mg PO BID [facility] Last Admin: 05/20/17 21:10 Dose: Not Given Furosemide (Lasix Tab*) 40 mg PO DAILY [facility] Last Admin: 05/20/17 10:45 Dose: 40 mg Heparin Sodium (Porcine) (Heparin Vial(*)) 5,000 units SUBCUT Q8HR [facility] Last Admin: 05/21/17 06:36 Dose: 5,000 units Levothyroxine Sodium (Synthroid Tab*) 125 mcg PO DAILY@0600 [facility] Last Admin: 05/21/17 06:36 Dose: 125 mcg Midodrine (Midodrine (Nf)) 5 mg PO TID [facility] PRN Reason: Protocol Last Admin: 05/20/17 21:06 Dose: 5 mg Omeprazole (Prilosec Cap*) 20 mg PO DAILY@0730 [facility] Last Admin: 05/21/17 08:04 Dose: 20 mg Ondansetron HCl (Zofran Inj*) 4 mg IV Q6H PRN PRN Reason: NAUSEA Last Admin: 05/02/17 05:52 Dose: 4 mg Oxybutynin Chloride (Ditropan Tab*) 5 mg PO BID [facility] Last Admin: 05/20/17 21:07 Dose: 5 mg Polyethylene Glycol/Electrolytes (Miralax*) 17 gm PO DAILY PRN PRN Reason: CONSTIPATION Senna (Senokot Tab*) 1 tab PO BID PRN PRN Reason: CONSTIPATION Last Admin: 05/20/17 10:45 Dose: 1 tab Sertraline HCl (Zoloft*) 25 mg PO DAILY [facility] Last Admin: 05/20/17 10:46 Dose: 25 mg Throat Lozenges (Chloraseptic Rigoberto*) 1 rigoberto PO Q6H PRN PRN Reason: SORE THROAT Last Admin: 05/20/17 10:45 Dose: 1 rigoberto Tramadol HCl (Ultram*) 50 mg PO Q6H PRN PRN Reason: PAIN Last Admin: 05/19/17 11:07 Dose: 50 mg Vital Signs - 8 hr 05/21/17 07:59 Pulse Rate 68 Respiratory 19 Rate O2 Sat by Pulse 96 Oximetry Oxygen Devices in Use Now: Nasal Cannula Appearance: Alert, sl up in bed. In good spirits. Looks comfortable. Eyes: No Scleral Icterus Respiratory: Symmetrical Chest Expansion and Respiratory Effort, Clear to Auscultation, Clear to Percussion Cardiovascular: NL Sounds; No Murmurs; No JVD, RRR, No Edema, - Extremities: No Edema, No Clubbing, Cyanosis, - Skin: No Rash or Ulcers, No Nodules or Sclerosis, - Neurological: Alert and Oriented x 3 - He can lift each leg off the bed. He states he walked a few steps yesterday. , NL Sensation Result Diagrams: 05/18/17 08:41 05/18/17 08:41 Additional Lab and Data: . Laboratory Results - last 24 hr 05/01/17 05/18/17 05/18/17 11:30 08:41 08:41 WBC 22.1 H RBC 3.12 L Hgb 9.8 L Hct 29 L MCV 94 MCH 31 MCHC 33 RDW 22 H Plt Count 250 MPV 8 Neut % (Auto) 93.6 H Lymph % (Auto) 2.2 L [place] % (Auto) 3.1 Eos % (Auto) 0.1 Baso % (Auto) 1.0 Absolute Neuts (auto) 20.7 H Absolute Lymphs (auto) 0.5 L Absolute Monos (auto) 0.7 Absolute Eos (auto) 0 Absolute Basos (auto) 0.2 Absolute Nucleated RBC 0.01 Nucleated RBC % 0.1 Sodium 127 L Potassium 3.7 Chloride 89 L Carbon Dioxide 33 H Anion Gap 5 BUN 10 Creatinine 0.49 L Est GFR ( Amer) 210.1 Est GFR (Non-Af Amer) 163.4 BUN/Creatinine Ratio 20.4 H Glucose 104 H Calcium 8.0 L Magnesium 1.9 HER-2 (FISH) Interpret TNP Microbiology and Other Data: Microbiology 05/12/17 00:30 Urine Urine Culture - Final No Growth (<1,000 CFU/mL) 04/25/17 12:25 Blood Venous Aerobic Blood Culture - Final No Growth Day 5 04/25/17 12:25 Blood Venous Anaerobic Blood Culture - Final No Growth Day 5 04/25/17 12:26 Blood Venous Aerobic Blood Culture - Final No Growth Day 5 04/25/17 12:26 Blood Venous Anaerobic Blood Culture - Final No Growth Day 5 04/25/17 13:45 Urine Urine Culture - Final No Growth (<1,000 CFU/mL) Diagnostic Imaging: REPEAT CHEST XRAY 05/14/2017 Patient Name: GALO ZARCO JR Medical Record#: [id number] Ordering Physician: Vicenta Leung NP Acct.#: [id number] : 1935 Age: 81 Sex: M Location: SURGICAL STAY UNIT Exam Date: 05/14/171816 ADM Status: ADM IN Order Information: CHEST 1 VW Accession Number: [id number] CPT: 86420 INDICATION: Sepsis COMPARISON: Most recent comparison chest x-rays May 08, 2017 TECHNIQUE: Single AP view of the chest was obtained. FINDINGS: Overlying the right lower neck is a central catheter with the tip terminating at the superior vena cava. The heart and mediastinum exhibit normal size and contour. There is density obscuring the bilateral hemidiaphragm and causing bilateral costophrenic angle blunting. More superiorly the lungs are adequately aerated. Visualized bones are normal for the patient's age. IMPRESSION: CHEST X-RAY FINDINGS ARE MOST CONSISTENT WITH BIBASILAR PLEURAL EFFUSIONS AND/OR LOWER LOBE CONSOLIDATIONS WITH OVERALL WORSENING AERATION RELATIVE TO THE MAY 08, 2017 CHEST X-RAY. 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 Anisarcic and gravely deconditioned. Awaiting SNF bed. - Patient Problems (1) Mass of spine Current Visit: Yes Status: Acute Code(s): M89.9 - DISORDER OF BONE, UNSPECIFIED SNOMED Code(s): 761541398 Comment: - s/p metastatic epidural tumor resection 05/01. Plan on keeping [facility] in. - no TLSO needed - Pt refused PT 05/17/17. - HER2 negative on FISH positive (immunohistochemistry was intermediate Family plans on taking him home 05/23 when he can be signed on to Hospice. (2) Prostate cancer Current Visit: No Status: Acute Code(s): C61 - MALIGNANT NEOPLASM OF PROSTATE SNOMED Code(s): 148750570 Comment: - On Lupron as an outpatient. PSA negative, very unlikely primary source of metastasis. - MRI brain with no new lesions (3) Pleural effusion Current Visit: Yes Status: Acute Code(s): J90 - PLEURAL EFFUSION, NOT ELSEWHERE CLASSIFIED SNOMED Code(s): 49421309 Comment: - O2 dependent - Not symptomatic. - IS and flutter valve with nebs PRN (4) Atrial fibrillation Current Visit: No Status: Acute Code(s): I48.91 - UNSPECIFIED ATRIAL FIBRILLATION SNOMED Code(s): 09375897 Comment: - Rate controlled on digoxin, level elevated on 05/11 and dose was halved. to 0.125 mg daily then on 05/20 decreased to 0.125 mg q 48 hr. (5) HTN (hypertension) Current Visit: No Status: Ruled-out Code(s): I10 - ESSENTIAL (PRIMARY) HYPERTENSION SNOMED Code(s): 94346412 Comment: - BP low off midodrine, restarted 05/19/17. Status and Disposition: medicine inpatient. awaiting SNF placement
[2017-05-21] MEDS: Oxybutynin TAB* 5 MG PO SCH ×2 (08:44→22:21)
[2017-05-21] MEDS: CMC:Midodrine (NF) 5 MG TAB PO SCH ×3 (08:44→22:23)
[2017-05-21] MEDS: Dexamethasone TAB* 1 MG PO SCH ×2 (08:44→22:22)
[2017-05-21] MEDS: Sertraline* 25 MG TAB PO SCH (08:44)
[2017-05-21] MEDS: Docusate CAP* 100 MG PO SCH ×2 (08:44→22:21)
[2017-05-21] MEDS: Furosemide TAB* 40 MG PO SCH (08:44)
[2017-05-21] MEDS: Digoxin TAB* 0.125 MG PO SCH (17:16)
[2017-05-22] MEDS: Heparin VIAL(*) 5000 UNITS/ML VIAL (FIVE THOUSAND) SUBCUT SCH ×4 (01:18→23:15)
[2017-05-22] MEDS: Levothyroxine TAB* 125 MCG TAB PO SCH (06:38)
--- NOTE | 2017-05-22 07:59 | PN ---
Subjective Date of Service: 05/21/17 Interval History: He denies pain, offers no c/o. Family History: Unchanged from Admission Social History: Unchanged from Admission Past Medical History: Unchanged from Admission Objective Active Medications: Acetaminophen (Tylenol Adult Liq*) 650 mg PO Q4H PRN PRN Reason: PAIN - MILD TO MODERATE Albuterol/Ipratropium (Duoneb (Albuterol 2.5 Mg/Ipratropium 0.5 Mg)) 1 neb INH Q4H PRN PRN Reason: SOB/WHEEZING Last Admin: 05/13/17 16:50 Dose: 1 neb Dexamethasone (Decadron Tab*) 2 mg PO BID [facility] Last Admin: 05/21/17 22:22 Dose: 2 mg Digoxin (Lanoxin Tab*) 0.125 mg PO Q48H [facility] Last Admin: 05/21/17 17:16 Dose: 0.125 mg Docusate Sodium (Colace Cap*) 100 mg PO BID [facility] Last Admin: 05/21/17 22:21 Dose: 100 mg Furosemide (Lasix Tab*) 40 mg PO DAILY [facility] Last Admin: 05/21/17 08:44 Dose: 40 mg Heparin Sodium (Porcine) (Heparin Vial(*)) 5,000 units SUBCUT Q8HR [facility] Last Admin: 05/22/17 06:38 Dose: 5,000 units Levothyroxine Sodium (Synthroid Tab*) 125 mcg PO DAILY@0600 [facility] Last Admin: 05/22/17 06:38 Dose: 125 mcg Midodrine (Midodrine (Nf)) 5 mg PO TID [facility] PRN Reason: Protocol Last Admin: 05/21/17 22:23 Dose: 5 mg Omeprazole (Prilosec Cap*) 20 mg PO DAILY@0730 [facility] Last Admin: 05/21/17 08:04 Dose: 20 mg Ondansetron HCl (Zofran Inj*) 4 mg IV Q6H PRN PRN Reason: NAUSEA Last Admin: 05/02/17 05:52 Dose: 4 mg Oxybutynin Chloride (Ditropan Tab*) 5 mg PO BID [facility] Last Admin: 05/21/17 22:21 Dose: 5 mg Polyethylene Glycol/Electrolytes (Miralax*) 17 gm PO DAILY PRN PRN Reason: CONSTIPATION Senna (Senokot Tab*) 1 tab PO BID PRN PRN Reason: CONSTIPATION Last Admin: 05/20/17 10:45 Dose: 1 tab Sertraline HCl (Zoloft*) 25 mg PO DAILY [facility] Last Admin: 05/21/17 08:44 Dose: 25 mg Throat Lozenges (Chloraseptic Rigoberto*) 1 rigoberto PO Q6H PRN PRN Reason: SORE THROAT Last Admin: 05/20/17 10:45 Dose: 1 rigoberto Tramadol HCl (Ultram*) 50 mg PO Q6H PRN PRN Reason: PAIN Last Admin: 05/19/17 11:07 Dose: 50 mg Oxygen Devices in Use Now: Nasal Cannula Appearance: Alert, partly up in bed. Looks weak. Eyes: No Scleral Icterus Extremities: No Edema, No Clubbing, Cyanosis, - Skin: No Rash or Ulcers, No Nodules or Sclerosis, - Neurological: Alert and Oriented x 3, NL Sensation Result Diagrams: 05/18/17 08:41 05/18/17 08:41 Additional Lab and Data: . Laboratory Results - last 24 hr 05/01/17 05/18/17 05/18/17 11:30 08:41 08:41 WBC 22.1 H RBC 3.12 L Hgb 9.8 L Hct 29 L MCV 94 MCH 31 MCHC 33 RDW 22 H Plt Count 250 MPV 8 Neut % (Auto) 93.6 H Lymph % (Auto) 2.2 L [place] % (Auto) 3.1 Eos % (Auto) 0.1 Baso % (Auto) 1.0 Absolute Neuts (auto) 20.7 H Absolute Lymphs (auto) 0.5 L Absolute Monos (auto) 0.7 Absolute Eos (auto) 0 Absolute Basos (auto) 0.2 Absolute Nucleated RBC 0.01 Nucleated RBC % 0.1 Sodium 127 L Potassium 3.7 Chloride 89 L Carbon Dioxide 33 H Anion Gap 5 BUN 10 Creatinine 0.49 L Est GFR ( Amer) 210.1 Est GFR (Non-Af Amer) 163.4 BUN/Creatinine Ratio 20.4 H Glucose 104 H Calcium 8.0 L Magnesium 1.9 HER-2 (FISH) Interpret TNP Microbiology and Other Data: Microbiology 05/12/17 00:30 Urine Urine Culture - Final No Growth (<1,000 CFU/mL) 04/25/17 12:25 Blood Venous Aerobic Blood Culture - Final No Growth Day 5 12/12/17 12:25 Blood Venous Anaerobic Blood Culture - Final No Growth Day 5 04/25/17 12:26 Blood Venous Aerobic Blood Culture - Final No Growth Day 5 04/25/17 12:26 Blood Venous Anaerobic Blood Culture - Final No Growth Day 5 04/25/17 13:45 Urine Urine Culture - Final No Growth (<1,000 CFU/mL) Diagnostic Imaging: REPEAT CHEST XRAY 05/14/2017 Patient Name: GALO ZARCO JR Medical Record#: [id number] Ordering Physician: Vicenta Leung NP Acct.#: [id number] : 1935 Age: 81 Sex: M Location: SURGICAL STAY UNIT Exam Date: 05/14/171816 ADM Status: ADM IN Order Information: CHEST 1 VW Accession Number: [id number] CPT: 36536 INDICATION: Sepsis COMPARISON: Most recent comparison chest x-rays May 08, 2017 TECHNIQUE: Single AP view of the chest was obtained. FINDINGS: Overlying the right lower neck is a central catheter with the tip terminating at the superior vena cava. The heart and mediastinum exhibit normal size and contour. There is density obscuring the bilateral hemidiaphragm and causing bilateral costophrenic angle blunting. More superiorly the lungs are adequately aerated. Visualized bones are normal for the patient's age. IMPRESSION: CHEST X-RAY FINDINGS ARE MOST CONSISTENT WITH BIBASILAR PLEURAL EFFUSIONS AND/OR LOWER LOBE CONSOLIDATIONS WITH OVERALL WORSENING AERATION RELATIVE TO THE MAY 08, 2017 CHEST X-RAY. 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 Anisarcic and gravely deconditioned. Awaiting SNF bed. - Patient Problems (1) Mass of spine Current Visit: Yes Status: Acute Code(s): M89.9 - DISORDER OF BONE, UNSPECIFIED SNOMED Code(s): 864575166 Comment: - s/p metastatic epidural tumor resection 05/01. Plan on keeping [facility] in. - no TLSO needed - Pt refused PT 05/17/17. - HER2 negative on FISH positive (immunohistochemistry was intermediate Family plans on taking him home 05/23 when he can be signed on to Hospice. (2) Prostate cancer Current Visit: No Status: Acute Code(s): C61 - MALIGNANT NEOPLASM OF PROSTATE SNOMED Code(s): 599531732 Comment: - On Lupron as an outpatient. PSA negative, very unlikely primary source of metastasis. - MRI brain with no new lesions (3) Pleural effusion Current Visit: Yes Status: Acute Code(s): J90 - PLEURAL EFFUSION, NOT ELSEWHERE CLASSIFIED SNOMED Code(s): 09612179 Comment: - O2 dependent - Not symptomatic. - IS and flutter valve with nebs PRN (4) Atrial fibrillation Current Visit: No Status: Acute Code(s): I48.91 - UNSPECIFIED ATRIAL FIBRILLATION SNOMED Code(s): 80596976 Comment: - Rate controlled on digoxin, level elevated on 05/11 and dose was halved. to 0.125 mg daily then on 05/20 decreased to 0.125 mg q 48 hr. (5) HTN (hypertension) Current Visit: No Status: Ruled-out Code(s): I10 - ESSENTIAL (PRIMARY) HYPERTENSION SNOMED Code(s): 80574730 Comment: - BP low off midodrine, restarted 05/19/17. Status and Disposition: medicine inpatient. awaiting SNF placement
--- NOTE | 2017-05-22 08:03 | PN ---
Subjective Date of Service: 05/22/17 Interval History: No c/o. Family History: Unchanged from Admission Social History: Unchanged from Admission Past Medical History: Unchanged from Admission Objective Active Medications: Acetaminophen (Tylenol Adult Liq*) 650 mg PO Q4H PRN PRN Reason: PAIN - MILD TO MODERATE Albuterol/Ipratropium (Duoneb (Albuterol 2.5 Mg/Ipratropium 0.5 Mg)) 1 neb INH Q4H PRN PRN Reason: SOB/WHEEZING Last Admin: 05/13/17 16:50 Dose: 1 neb Dexamethasone (Decadron Tab*) 2 mg PO BID [facility] Last Admin: 05/21/17 22:22 Dose: 2 mg Digoxin (Lanoxin Tab*) 0.125 mg PO Q48H [facility] Last Admin: 05/21/17 17:16 Dose: 0.125 mg Docusate Sodium (Colace Cap*) 100 mg PO BID [facility] Last Admin: 05/21/17 22:21 Dose: 100 mg Furosemide (Lasix Tab*) 40 mg PO DAILY [facility] Last Admin: 05/21/17 08:44 Dose: 40 mg Heparin Sodium (Porcine) (Heparin Vial(*)) 5,000 units SUBCUT Q8HR [facility] Last Admin: 05/22/17 06:38 Dose: 5,000 units Levothyroxine Sodium (Synthroid Tab*) 125 mcg PO DAILY@0600 [facility] Last Admin: 05/22/17 06:38 Dose: 125 mcg Midodrine (Midodrine (Nf)) 5 mg PO TID [facility] PRN Reason: Protocol Last Admin: 05/21/17 22:23 Dose: 5 mg Omeprazole (Prilosec Cap*) 20 mg PO DAILY@0730 [facility] Last Admin: 05/21/17 08:04 Dose: 20 mg Ondansetron HCl (Zofran Inj*) 4 mg IV Q6H PRN PRN Reason: NAUSEA Last Admin: 05/02/17 05:52 Dose: 4 mg Oxybutynin Chloride (Ditropan Tab*) 5 mg PO BID [facility] Last Admin: 05/21/17 22:21 Dose: 5 mg Polyethylene Glycol/Electrolytes (Miralax*) 17 gm PO DAILY PRN PRN Reason: CONSTIPATION Senna (Senokot Tab*) 1 tab PO BID PRN PRN Reason: CONSTIPATION Last Admin: 05/20/17 10:45 Dose: 1 tab Sertraline HCl (Zoloft*) 25 mg PO DAILY [facility] Last Admin: 05/21/17 08:44 Dose: 25 mg Throat Lozenges (Chloraseptic Rigoberto*) 1 rigoberto PO Q6H PRN PRN Reason: SORE THROAT Last Admin: 05/20/17 10:45 Dose: 1 rigoberto Tramadol HCl (Ultram*) 50 mg PO Q6H PRN PRN Reason: PAIN Last Admin: 05/19/17 11:07 Dose: 50 mg Oxygen Devices in Use Now: Nasal Cannula Appearance: Alert, partly up in bed. Looks weak but comfortable. Extremities: No Edema, No Clubbing, Cyanosis, - Skin: No Rash or Ulcers, No Nodules or Sclerosis, - Neurological: Alert and Oriented x 3, NL Sensation, - - Able to lift each leg off the bed. Result Diagrams: 05/18/17 08:41 05/18/17 08:41 Additional Lab and Data: . Laboratory Results - last 24 hr 05/01/17 05/18/17 05/18/17 11:30 08:41 08:41 WBC 22.1 H RBC 3.12 L Hgb 9.8 L Hct 29 L MCV 94 MCH 31 MCHC 33 RDW 22 H Plt Count 250 MPV 8 Neut % (Auto) 93.6 H Lymph % (Auto) 2.2 L [place] % (Auto) 3.1 Eos % (Auto) 0.1 Baso % (Auto) 1.0 Absolute Neuts (auto) 20.7 H Absolute Lymphs (auto) 0.5 L Absolute Monos (auto) 0.7 Absolute Eos (auto) 0 Absolute Basos (auto) 0.2 Absolute Nucleated RBC 0.01 Nucleated RBC % 0.1 Sodium 127 L Potassium 3.7 Chloride 89 L Carbon Dioxide 33 H Anion Gap 5 BUN 10 Creatinine 0.49 L Est GFR ( Amer) 210.1 Est GFR (Non-Af Amer) 163.4 BUN/Creatinine Ratio 20.4 H Glucose 104 H Calcium 8.0 L Magnesium 1.9 HER-2 (FISH) Interpret TNP Microbiology and Other Data: Microbiology 05/12/17 00:30 Urine Urine Culture - Final No Growth (<1,000 CFU/mL) 04/25/17 12:25 Blood Venous Aerobic Blood Culture - Final No Growth Day 5 04/25/17 12:25 Blood Venous Anaerobic Blood Culture - Final No Growth Day 5 04/25/17 12:26 Blood Venous Aerobic Blood Culture - Final No Growth Day 5 04/25/17 12:26 Blood Venous Anaerobic Blood Culture - Final No Growth Day 5 04/25/17 13:45 Urine Urine Culture - Final No Growth (<1,000 CFU/mL) Diagnostic Imaging: REPEAT CHEST XRAY 05/14/2017 Patient Name: GALO ZARCO JR Medical Record#: [id number] Ordering Physician: Vicenta Leung NP Acct.#: [id number] : 1935 Age: 81 Sex: M Location: SURGICAL STAY UNIT Exam Date: 05/14/171816 ADM Status: ADM IN Order Information: CHEST 1 VW Accession Number: [id number] CPT: 71528 INDICATION: Sepsis COMPARISON: Most recent comparison chest x-rays May 08, 2017 TECHNIQUE: Single AP view of the chest was obtained. FINDINGS: Overlying the right lower neck is a central catheter with the tip terminating at the superior vena cava. The heart and mediastinum exhibit normal size and contour. There is density obscuring the bilateral hemidiaphragm and causing bilateral costophrenic angle blunting. More superiorly the lungs are adequately aerated. Visualized bones are normal for the patient's age. IMPRESSION: CHEST X-RAY FINDINGS ARE MOST CONSISTENT WITH BIBASILAR PLEURAL EFFUSIONS AND/OR LOWER LOBE CONSOLIDATIONS WITH OVERALL WORSENING AERATION RELATIVE TO THE MAY 08, 2017 CHEST X-RAY. 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 Anisarcic and gravely deconditioned. Awaiting SNF bed. - Patient Problems (1) Mass of spine Current Visit: Yes Status: Acute Code(s): M89.9 - DISORDER OF BONE, UNSPECIFIED SNOMED Code(s): 744771225 Comment: - s/p metastatic epidural tumor resection 05/01. Plan on keeping [facility] in. - no TLSO needed - Pt refused PT 05/17/17. - HER2 negative on FISH positive (immunohistochemistry was intermediate Family plans on taking him home 05/23 when he can be signed on to Hospice. Patient needs Hospital bed as he cannot be positioned and turned properly without it. (2) Prostate cancer Current Visit: No Status: Acute Code(s): C61 - MALIGNANT NEOPLASM OF PROSTATE SNOMED Code(s): 834348321 Comment: - On Lupron as an outpatient. PSA negative, very unlikely primary source of metastasis. - MRI brain with no new lesions (3) Pleural effusion Current Visit: Yes Status: Acute Code(s): J90 - PLEURAL EFFUSION, NOT ELSEWHERE CLASSIFIED SNOMED Code(s): 54268359 Comment: - O2 dependent - Not symptomatic. - IS and flutter valve with nebs PRN (4) Atrial fibrillation Current Visit: No Status: Acute Code(s): I48.91 - UNSPECIFIED ATRIAL FIBRILLATION SNOMED Code(s): 39943455 Comment: - Rate controlled on digoxin, level elevated on 05/11 and dose was halved. to 0.125 mg daily then on 05/20 decreased to 0.125 mg q 48 hr. (5) HTN (hypertension) Current Visit: No Status: Ruled-out Code(s): I10 - ESSENTIAL (PRIMARY) HYPERTENSION SNOMED Code(s): 75014873 Comment: - BP low off midodrine, restarted 05/19/17. Status and Disposition: medicine inpatient. awaiting SNF placement
[2017-05-22] MEDS: Omeprazole CAP* 20 MG PO SCH (09:21)
[2017-05-22] MEDS: Oxybutynin TAB* 5 MG PO SCH ×2 (09:22→23:14)
[2017-05-22] MEDS: Docusate CAP* 100 MG PO SCH ×2 (09:22→23:14)
[2017-05-22] MEDS: Sertraline* 25 MG TAB PO SCH (09:22)
[2017-05-22] MEDS: Furosemide TAB* 40 MG PO SCH (09:22)
[2017-05-22] MEDS: CMC:Midodrine (NF) 5 MG TAB PO SCH ×3 (09:22→23:20)
[2017-05-22] MEDS: Dexamethasone TAB* 1 MG PO SCH ×2 (09:22→23:14)
[2017-05-23] MEDS: Heparin VIAL(*) 5000 UNITS/ML VIAL (FIVE THOUSAND) SUBCUT SCH ×3 (05:45→20:38)
[2017-05-23] MEDS: Levothyroxine TAB* 125 MCG TAB PO SCH (05:45)
[2017-05-23] MEDS ORDERED: Atropine 1% (ORAL/SL)* 15 ML BTL SL PRN (09:19)
[2017-05-23] MEDS ORDERED: LORazepam TAB(*) 0.5 MG PO PRN (09:19)
[2017-05-23] MEDS: Furosemide TAB* 40 MG PO SCH (09:48)
[2017-05-23] MEDS: Oxybutynin TAB* 5 MG PO SCH ×2 (09:48→20:37)
[2017-05-23] MEDS: Omeprazole CAP* 20 MG PO SCH (09:48)
[2017-05-23] MEDS: Sertraline* 25 MG TAB PO SCH (09:48)
[2017-05-23] MEDS: Dexamethasone TAB* 1 MG PO SCH ×2 (09:48→20:37)
[2017-05-23] MEDS: CMC:Midodrine (NF) 5 MG TAB PO SCH ×3 (09:48→20:37)
[2017-05-23] MEDS: Docusate CAP* 100 MG PO SCH ×2 (10:11→20:00)
--- NOTE | 2017-05-23 10:33 | PN ---
"Progress Note - Progress Note Date of Service: 05/23/17 Note: Patient interviewed and examined. No significant clinical change c/w 05/22/17. Time spent on discharge 55 minutes. Search Terms: reji boucher, 1935 Search Date: 05/23/2017 10:32:09 AM The Drug Utilization Report below displays all of the controlled substance prescriptions, if any, that your patient has filled in the last twelve months. The information displayed on this report is compiled from pharmacy submissions to the Department, and accurately reflects the information as submitted by the pharmacies. This report was requested by: Francois Scott | Reference #: [id number] Others' Prescriptions Patient Name: Reji Boucher Date: 1935 Address: [address] [place] [address] Sex: Male Rx Written Rx Dispensed Drug Quantity Days Supply Prescriber Name 04/13/2017 04/13/2017 hydrocodone-acetaminophen 5-325 mg tablet 40 10 Keith Gore)"
[2017-05-23] MEDS: Morphine ORAL CONCENTRATE* 5 MG/0.25 ML ORAL.SYRIN SL PRN ×2 (15:56→18:09)
[2017-05-23] MEDS: Digoxin TAB* 0.125 MG PO SCH (15:58)
[2017-05-23 20:30] VITALS: BP 91/44
[2017-05-24] MEDS: Heparin VIAL(*) 5000 UNITS/ML VIAL (FIVE THOUSAND) SUBCUT SCH (04:15)
[2017-05-24] MEDS: Levothyroxine TAB* 125 MCG TAB PO SCH (05:40)
[2017-05-24] MEDS: Omeprazole CAP* 20 MG PO SCH ×2 (08:39→11:59)
[2017-05-24] MEDS: Dexamethasone TAB* 1 MG PO SCH ×2 (09:46→11:58)
[2017-05-24] MEDS: CMC:Midodrine (NF) 5 MG TAB PO SCH ×2 (09:47→11:58)
[2017-05-24] MEDS: Docusate CAP* 100 MG PO SCH ×2 (09:47→11:59)
[2017-05-24] MEDS: Oxybutynin TAB* 5 MG PO SCH ×2 (09:47→11:59)
[2017-05-24] MEDS: Furosemide TAB* 40 MG PO SCH ×2 (09:47→11:59)
[2017-05-24] MEDS: Sertraline* 25 MG TAB PO SCH ×2 (09:48→11:59)
== END 2017-05-24 12:10 | disposition home health service (06) | DRG 456 ==
LOC: ED 11:35 → MEDTELE 15:41 → ICU 05-01 17:33 → SSU 05-06 10:50 → MED 05-18 15:34
PROVIDERS: ADMIT Internal Medicine; ATTEND Internal Medicine
PROC: 0RG70J1 Fusion of 2 to 7 Thoracic Vertebral Joints with Synthetic Substitute, Posterior Approach, Posterior Column, Open Approach (ICD-10-PCS; 2017-05-01)
PROC: 0SG10J1 Fusion of 2 or more Lumbar Vertebral Joints with Synthetic Substitute, Posterior Approach, Posterior Column, Open Approach (ICD-10-PCS; 2017-05-01)
PROC: 00NX0ZZ Release Thoracic Spinal Cord, Open Approach (ICD-10-PCS; 2017-05-01)
PROC: 00NY0ZZ Release Lumbar Spinal Cord, Open Approach (ICD-10-PCS; 2017-05-01)
PROC: 0RBB0ZZ Excision of Thoracolumbar Vertebral Disc, Open Approach (ICD-10-PCS; 2017-05-01)
PROC: 0RB90ZZ Excision of Thoracic Vertebral Disc, Open Approach (ICD-10-PCS; 2017-05-01)
PROC: 0SB20ZZ Excision of Lumbar Vertebral Disc, Open Approach (ICD-10-PCS; 2017-05-01)
PROC: 05HM33Z Insertion of Infusion Device into Right Internal Jugular Vein, Percutaneous Approach (ICD-10-PCS; 2017-05-01)
PROC: B543ZZA Ultrasonography of Right Jugular Veins, Guidance (ICD-10-PCS; 2017-05-01)
PROC: 03HB33Z Insertion of Infusion Device into Right Radial Artery, Percutaneous Approach (ICD-10-PCS; 2017-05-01)
PROC: 3E043XZ Introduction of Vasopressor into Central Vein, Percutaneous Approach (ICD-10-PCS; 2017-05-01)
PROC: 30233N1 Transfusion of Nonautologous Red Blood Cells into Peripheral Vein, Percutaneous Approach (ICD-10-PCS; 2017-05-01)
PROC: 0RGA0J1 Fusion of Thoracolumbar Vertebral Joint with Synthetic Substitute, Posterior Approach, Posterior Column, Open Approach (ICD-10-PCS; principal; 2017-05-01 07:30)
DX: C79.51 Secondary malignant neoplasm of bone (principal); A41.9 Sepsis, unspecified organism; R57.1 Hypovolemic shock; J90 Pleural effusion, not elsewhere classified; R34 Anuria and oliguria; C79.49 Secondary malignant neoplasm of other parts of nervous system; R64 Cachexia; G95.20 Unspecified cord compression; M48.05 Spinal stenosis, thoracolumbar region; N39.0 Urinary tract infection, site not specified; I35.0 Nonrheumatic aortic (valve) stenosis; R91.8 Other nonspecific abnormal finding of lung field; E27.9 Disorder of adrenal gland, unspecified; R63.0 Anorexia; D72.829 Elevated white blood cell count, unspecified; I95.81 Postprocedural hypotension; R60.1 Generalized edema; C80.1 Malignant (primary) neoplasm, unspecified; K21.9 Gastro-esophageal reflux disease without esophagitis; F43.21 Adjustment disorder with depressed mood; I48.91 Unspecified atrial fibrillation; C61 Malignant neoplasm of prostate; E03.9 Hypothyroidism, unspecified; R40.2412 Glasgow coma scale score 13-15, at arrival to emergency department; I10 Essential (primary) hypertension; K59.00 Constipation, unspecified; M19.90 Unspecified osteoarthritis, unspecified site; M81.0 Age-related osteoporosis without current pathological fracture; Z66 Do not resuscitate; R53.1 Weakness; Z83.2 Family history of diseases of the blood and blood-forming organs and certain disorders involving the immune mechanism; Z85.46 Personal history of malignant neoplasm of prostate; Z87.891 Personal history of nicotine dependence; Z68.23 Body mass index [BMI] 23.0-23.9, adult; Z98.42 Cataract extraction status, left eye; Z98.41 Cataract extraction status, right eye; Z81.8 Family history of other mental and behavioral disorders; Z91.030 Bee allergy status
CPT/HCPCS: 36415; 36620; 70553; 71010; 71260; 72070; 72080; 72100; 72158; 74177; 76705; 80048; 80053; 80162; 81003; 81015; 83605; 83735; 84100; 84484; 85014; 85018; 85025; 85027; 85610; 85730; 86850; 86900; 86901; 86922; 87040; 87086; 88271; 88307; 88333; 88341; 88342; 88360; 93005; 94640; 94760; 94761; 99223; 99232; 99233; A9270-GY; A9579; C1713; C1776; J0690; J0696; J1100; J1160; J1170; J1644; J1940; J2001; J2250; J2270; J2405; J2543; J2704; J3010; J3475; J3490; P9040; P9045; Q9967